=== PATIENT | male | born 1955 | race Caucasian/White ===

== ENCOUNTER → 2017-11-21 | Outpatient (CLI) | payer BC, SELFPAY | PROVIDERS: Visit Provider Nurse Practitioner Family | DX: R10.13 Epigastric pain (principal) | CPT/HCPCS: 36415; 80053; 85025 ==

== ENCOUNTER → 2017-11-25 | Outpatient (CLI) | payer BC, SELFPAY | PROVIDERS: Visit Provider Nurse Practitioner Family | DX: R10.13 Epigastric pain (principal) | CPT/HCPCS: 82272; 87338; G0328 ==

== ENCOUNTER → 2020-09-22 14:29 | Outpatient (CLI) | payer MEDICARE, OTHER, SELFPAY | PROVIDERS: PCP Internal Medicine Adolescent Medicine; Visit Provider Nurse Practitioner Family | DX: Z20.828 Contact with and (suspected) exposure to other viral communicable diseases (principal); U07.1 COVID-19 | CPT/HCPCS: U0003 ==

== ENCOUNTER → 2020-11-22 17:29 | Outpatient (CLI) | payer MEDICARE, OTHER, SELFPAY ==
[2020-11-22 17:40] LABS: Basophils % 0.3 % (0.1-2.0); Eosinophils % 0.1 % (0.1-12.0); Hematocrit 41.7 % (42.0-52.0); Hemoglobin 13.2 g/dL (14.1-18.0); Lymphocytes % 7.8 % (10-50); Mean Corpuscular HGB Conc 31.6 g/dL (31.8-35.4); Mean Corpuscular Hemoglobin 27.7 pg (27.0-31.2); Mean Corpuscular Volume 87.6 fl (80-94); Mean Platelet Volume 7.7 fl (7.4-10.4); Monocytes # 0.7 K/mm3 (0.1-1.0); Monocytes % 4.9 % (1.7-9.3); Neutrophils # 11.6 K/mm3 (1.8-7.8); Platelet Count 360 K/mm3 (142-424); Red Blood Count 4.76 M/mm3 (4.60-6.20); Red Cell Distribution Width 14.9 % (11.5-17.5); White Blood Count 13.3 K/mm3 (4.8-10.8)
[2020-11-22 17:53] LABS: MANUAL DIFFERENTIAL MANUAL DIFFERENTIAL (MANUAL DIFF)
[2020-11-22 18:34] LABS: Chloride 97 mmol/L (98-107); Potassium 4.6 mmoL/L (3.5-5.1); Sodium 135 mmol/L (136-145)
[2020-11-22 18:37] LABS: Alanine Aminotransferase 80 U/L (12-78); Albumin Level 4.1 g/dl (3.5-5.0); Albumin/Globulin Ratio 1.1 (1.1-1.8); Alkaline Phosphatase 232 U/L (38-126); Anion Gap 13.6 mEq/L (5-15); Aspartate Amino Transferase 48 U/L (17-59); Bilirubin,Total 0.8 mg/dl (0.2-1.3); Blood Urea Nitrogen 21 mg/dl (9-20); Carbon Dioxide 29 mmol/L (22.0-30.0); Estimated Glomerular Filt Rate 51 ml/min (>60); GFR (African American) 62 ML/MIN (>60); Globulin 3.6 g/dL (1.3-3.2); Total Protein,Serum 7.7 g/dl (6.3-8.2)
[2020-11-22 18:38] LABS: Calcium 9.4 mg/dl (8.4-10.2); Glucose 128 mg/dl (74-100)
[2020-11-22 18:43] LABS: C-Reactive Protein 112.9 mg/L (0-4)
[2020-11-22 18:44] LABS: Erythrocyte Sedimentation Rate 73 mm/hr (0-20)
[2020-11-22 18:51] LABS: Lymphocytes % 14 % (10-50); Monocytes % 4 % (2-9); Neutrophils % 82 % (42-76); Platelet Estimate Normal; RBC Morphology Normal; Total Cells Counted 100
== END ==
PROVIDERS: Visit Provider Nurse Practitioner Family
DX: R50.9 Fever, unspecified (principal)
CPT/HCPCS: 80053; 85007; 85025; 85651; 86140

== ENCOUNTER → 2020-11-26 10:58 | Outpatient (CLI) | payer MEDICARE, OTHER, SELFPAY ==
[2020-11-26 11:33] LABS: Basophils # 0.1 K/mm3 (0-0.2); Basophils % 0.7 % (0.1-2.0); Eosinophils # 0.2 K/mm3 (0.0-0.4); Eosinophils % 1.7 % (0.1-12.0); Hematocrit 43.9 % (42.0-52.0); Lymphocytes # 2.6 K/mm3 (0.7-4.5); Lymphocytes % 27.5 % (10-50); Mean Corpuscular Hemoglobin 27.6 pg (27.0-31.2); Mean Corpuscular Volume 86.3 fl (80-94); Monocytes # 0.6 K/mm3 (0.1-1.0); Monocytes % 6.4 % (1.7-9.3); Neutrophils # 6.1 K/mm3 (1.8-7.8); Neutrophils % 63.7 % (37.0-80.0); Platelet Count 427 K/mm3 (142-424); Red Blood Count 5.08 M/mm3 (4.60-6.20); Red Cell Distribution Width 14.9 % (11.5-17.5); White Blood Count 9.6 K/mm3 (4.8-10.8)
[2020-11-26 11:35] LABS: Chloride 102 mmol/L (98-107); Potassium 4.1 mmoL/L (3.5-5.1); Sodium 139 mmol/L (136-145)
[2020-11-26 11:37] LABS: Blood Urea Nitrogen 25 mg/dl (9-20); Estimated Glomerular Filt Rate 47 ml/min (>60); GFR (African American) 57 ML/MIN (>60)
[2020-11-26 11:38] LABS: Albumin Level 4.3 g/dl (3.5-5.0); Alkaline Phosphatase 214 U/L (38-126); Anion Gap 15.1 mEq/L (5-15); Bilirubin,Total 0.7 mg/dl (0.2-1.3); Carbon Dioxide 26 mmol/L (22.0-30.0); Globulin 4.5 g/dL (1.3-3.2); Glucose 140 mg/dl (74-100); Total Protein,Serum 8.8 g/dl (6.3-8.2)
[2020-11-26 11:39] LABS: Alanine Aminotransferase 69 U/L (12-78); Aspartate Amino Transferase 62 U/L (17-59)
[2020-11-26 11:43] LABS: C-Reactive Protein 63.3 mg/L (0-4)
[2020-11-26 12:18] LABS: Erythrocyte Sedimentation Rate 53 mm/hr (0-20)
== END ==
PROVIDERS: PCP Internal Medicine Adolescent Medicine; Visit Provider Nurse Practitioner Family
DX: R50.9 Fever, unspecified (principal); Z96.652 Presence of left artificial knee joint
CPT/HCPCS: 36415; 80053; 85025; 85651; 86140

== ENCOUNTER → 2020-12-06 14:40 | Outpatient (CLI) | payer MEDICARE, OTHER, SELFPAY ==
--- NOTE | 2020-12-06 | CA_ITS ---
APPROVED REPORT Left Lower Extremity Venous Study for DVT. Machine Loader: Lilo Zapata RVT Indications Lower Extremity Pain: Left Lower Extremity Edema: Left PT HAD LT KNEE REPLACEMENT 11/19, NOW C/O CALF PAIN/REDNESS Risk Factors Post OP Medications Aspirin Vein Imaging CFV (L): compressive, spontaneous, phasic, augmentation FEM (L): compressive, spontaneous, phasic, augmentation POP (L): compressive, spontaneous, phasic, augmentation PTV (L): Compressible GSV (L): Compressible Peroneals (L):Compressible GAS (L): Compressible Findings Study suggests no evidence of DVT of the left lower extremity. Study suggests no evidence of SVT of the left lower extremity. Conclusion Study suggests no evidence of DVT of the left lower extremity. Study suggests no evidence of SVT of the left lower extremity. Electronically signed by : Michel Smith MD 12/06/2020 18:48:47
[2020-12-06 14:58] LABS: Basophils # 0.1 K/mm3 (0-0.2); Basophils % 0.7 % (0.1-2.0); Eosinophils # 0.2 K/mm3 (0.0-0.4); Eosinophils % 1.6 % (0.1-12.0); Hematocrit 41.2 % (42.0-52.0); Hemoglobin 13.4 g/dL (14.1-18.0); Lymphocytes # 3.3 K/mm3 (0.7-4.5); Lymphocytes % 28.6 % (10-50); Mean Corpuscular HGB Conc 32.5 g/dL (31.8-35.4); Mean Corpuscular Hemoglobin 27.6 pg (27.0-31.2); Mean Corpuscular Volume 85.1 fl (80-94); Mean Platelet Volume 7.8 fl (7.4-10.4); Monocytes # 0.7 K/mm3 (0.1-1.0); Monocytes % 5.8 % (1.7-9.3); Neutrophils # 7.3 K/mm3 (1.8-7.8); Neutrophils % 63.3 % (37.0-80.0); Platelet Count 505 K/mm3 (142-424); Red Blood Count 4.84 M/mm3 (4.60-6.20); Red Cell Distribution Width 14.9 % (11.5-17.5); White Blood Count 11.5 K/mm3 (4.8-10.8)
[2020-12-06 15:42] LABS: Erythrocyte Sedimentation Rate 128 mm/hr (0-20)
[2020-12-06 17:02] LABS: C-Reactive Protein 10.6 mg/L (0-4)
== END ==
PROVIDERS: Visit Provider Orthopaedic Surgery
DX: M25.562 Pain in left knee (principal); Z96.652 Presence of left artificial knee joint; M79.605 Pain in left leg
CPT/HCPCS: 36415; 85025; 85651; 86140; 93970; 93971

== ENCOUNTER 2020-12-09 10:17 | Outpatient (CLI) | payer MEDICARE, OTHER, SELFPAY ==
[2020-12-09 10:17] VITALS: BP 172/81; PULSE 89; RESP 20; TEMP 36.9; O2SAT 95
[2020-12-09 11:10] VITALS: BP 170/74; PULSE 68; RESP 20; TEMP 36.9; O2SAT 98
== END 2020-12-09 11:23 | disposition home or self-care (01) ==
LOC: INF 10:18
PROVIDERS: PCP Internal Medicine Adolescent Medicine; Visit Provider Internal Medicine Infectious Disease
DX: M25.562 Pain in left knee (principal); Z96.652 Presence of left artificial knee joint
CPT/HCPCS: 96365; J0878

== ENCOUNTER 2020-12-10 11:37 | Outpatient (CLI) | payer MEDICARE, OTHER, SELFPAY ==
[2020-12-10 11:55] VITALS: BP 178/74; PULSE 78; RESP 20; TEMP 36.9; O2SAT 95
[2020-12-10 12:39] VITALS: BP 180/74; PULSE 82; RESP 20; TEMP 36.9; O2SAT 95
== END 2020-12-10 12:42 | disposition home or self-care (01) ==
PROVIDERS: PCP Internal Medicine Adolescent Medicine; Visit Provider Internal Medicine Infectious Disease
DX: M25.562 Pain in left knee (principal); Z96.652 Presence of left artificial knee joint
CPT/HCPCS: 96365; J0878

== ENCOUNTER 2020-12-11 13:02 | Outpatient (CLI) | payer MEDICARE, OTHER, SELFPAY ==
[2020-12-11 13:02] VITALS: BMI 37.7
[2020-12-11 13:22] LABS: Basophils # 0.1 K/mm3 (0-0.2); Basophils % 0.6 % (0.1-2.0); Eosinophils # 0.3 K/mm3 (0.0-0.4); Eosinophils % 3.2 % (0.1-12.0); Hematocrit 38.7 % (42.0-52.0); Hemoglobin 12.4 g/dL (14.1-18.0); Lymphocytes # 2.2 K/mm3 (0.7-4.5); Lymphocytes % 25.8 % (10-50); Mean Corpuscular Hemoglobin 28.1 pg (27.0-31.2); Mean Corpuscular Volume 87.8 fl (80-94); Mean Platelet Volume 7.8 fl (7.4-10.4); Monocytes # 0.5 K/mm3 (0.1-1.0); Monocytes % 6.2 % (1.7-9.3); Neutrophils # 5.6 K/mm3 (1.8-7.8); Neutrophils % 64.2 % (37.0-80.0); Platelet Count 288 K/mm3 (142-424); Red Blood Count 4.41 M/mm3 (4.60-6.20); Red Cell Distribution Width 15.4 % (11.5-17.5); White Blood Count 8.7 K/mm3 (4.8-10.8)
[2020-12-11 13:28] LABS: Chloride 102 mmol/L (98-107); Sodium 138 mmol/L (136-145)
[2020-12-11 13:29] LABS: Potassium 4.4 mmoL/L (3.5-5.1)
[2020-12-11 13:30] VITALS: BP 150/95; PULSE 68; RESP 20; TEMP 36.9; O2SAT 95
[2020-12-11 13:31] LABS: Alanine Aminotransferase 54 U/L (12-78); Alkaline Phosphatase 197 U/L (38-126); Anion Gap 11.4 mEq/L (5-15); Aspartate Amino Transferase 51 U/L (17-59); Bilirubin,Total 0.6 mg/dl (0.2-1.3); Blood Urea Nitrogen 18 mg/dl (9-20); Carbon Dioxide 29 mmol/L (22.0-30.0); Creatinine Clearance Estimated 146 mL/min (50-200); Estimated Glomerular Filt Rate 75 ml/min (>60); GFR (African American) 91 ML/MIN (>60)
[2020-12-11 13:32] LABS: Albumin Level 4.2 g/dl (3.5-5.0); Albumin/Globulin Ratio 1.1 (1.1-1.8); Calcium 9.1 mg/dl (8.4-10.2); Creatine Kinase 65 U/L (55-170); Globulin 3.7 g/dL (1.3-3.2); Glucose 115 mg/dl (74-100); Total Protein,Serum 7.9 g/dl (6.3-8.2)
[2020-12-11 13:37] LABS: C-Reactive Protein 12.1 mg/L (0-4)
[2020-12-11 13:53] LABS: Erythrocyte Sedimentation Rate 73 mm/hr (0-20)
[2020-12-11 14:00] VITALS: BP 141/80; PULSE 68; RESP 20; TEMP 36.9; O2SAT 95
== END 2020-12-11 14:00 | disposition home or self-care (01) ==
LOC: INF 13:02
PROVIDERS: Visit Provider Internal Medicine Infectious Disease
DX: M25.562 Pain in left knee (principal); Z96.652 Presence of left artificial knee joint
CPT/HCPCS: 80053; 82550; 85025; 85651; 86140; 96365; J0878

== ENCOUNTER 2020-12-12 12:33 | Outpatient (CLI) | payer MEDICARE, OTHER, SELFPAY ==
[2020-12-12 13:05] VITALS: BP 172/74; PULSE 87; RESP 18; TEMP 36.4; O2SAT 97
[2020-12-12 13:35] VITALS: BP 179/78; PULSE 85; RESP 18; O2SAT 98
[2020-12-12 14:00] VITALS: BP 168/72; PULSE 82; RESP 18; O2SAT 97
== END 2020-12-12 14:00 | disposition home or self-care (01) ==
LOC: INF 12:33
PROVIDERS: Visit Provider Internal Medicine Infectious Disease
DX: M25.562 Pain in left knee (principal); Z96.652 Presence of left artificial knee joint
CPT/HCPCS: 96365; J0878

== ENCOUNTER 2020-12-13 13:25 | Outpatient (CLI) | payer MEDICARE, OTHER, SELFPAY ==
[2020-12-13 14:04] VITALS: BP 169/79; PULSE 78; RESP 18; O2SAT 96
[2020-12-13 15:05] VITALS: BP 171/75; PULSE 78; RESP 18
== END 2020-12-13 15:05 | disposition home or self-care (01) ==
LOC: INF 13:30
PROVIDERS: Visit Provider Internal Medicine Infectious Disease
DX: M25.562 Pain in left knee (principal); Z96.652 Presence of left artificial knee joint
CPT/HCPCS: 96365; J0878

== ENCOUNTER 2020-12-14 12:44 | Outpatient (CLI) | payer MEDICARE, OTHER, SELFPAY ==
[2020-12-14 13:30] VITALS: BP 154/73; PULSE 89; RESP 18; TEMP 36.6; O2SAT 98
[2020-12-14 14:15] VITALS: BP 161/79; PULSE 85; RESP 18; TEMP 36.6; O2SAT 98
== END 2020-12-14 14:15 | disposition hospice, home (50) ==
LOC: INF 12:44
PROVIDERS: Visit Provider Internal Medicine Infectious Disease
DX: M25.562 Pain in left knee (principal); Z96.652 Presence of left artificial knee joint; L03.116 Cellulitis of left lower limb
CPT/HCPCS: 96365; J0878

== ENCOUNTER 2020-12-15 12:55 | Outpatient (CLI) | payer MEDICARE, OTHER, SELFPAY ==
[2020-12-15 13:39] VITALS: BP 159/74; PULSE 85; RESP 18; TEMP 36.8; O2SAT 96
[2020-12-15 14:20] VITALS: BP 153/82; PULSE 82; RESP 16; TEMP 36.8; O2SAT 96
== END 2020-12-15 14:25 | disposition home or self-care (01) ==
LOC: INF 13:02
PROVIDERS: Visit Provider Internal Medicine Infectious Disease
DX: M25.562 Pain in left knee (principal); L03.116 Cellulitis of left lower limb; Z96.652 Presence of left artificial knee joint
CPT/HCPCS: 96365; J0878

== ENCOUNTER 2020-12-16 11:32 | Outpatient (CLI) | payer MEDICARE, OTHER, SELFPAY ==
[2020-12-16 12:02] VITALS: BP 157/70; PULSE 82; RESP 20; TEMP 36.4; O2SAT 95
[2020-12-16 12:34] VITALS: BP 145/75; PULSE 68; RESP 20; TEMP 36.9; O2SAT 95
== END 2020-12-16 12:39 | disposition home or self-care (01) ==
LOC: INF 11:33
PROVIDERS: PCP Internal Medicine Adolescent Medicine; Visit Provider Internal Medicine Infectious Disease
DX: M25.562 Pain in left knee (principal); L03.116 Cellulitis of left lower limb; Z96.652 Presence of left artificial knee joint
CPT/HCPCS: 96365; J0878

== ENCOUNTER 2020-12-17 13:17 | Outpatient (CLI) | payer MEDICARE, OTHER, SELFPAY ==
[2020-12-17 13:45] VITALS: BP 167/77; PULSE 68; RESP 20; TEMP 37.1; O2SAT 95
[2020-12-17 14:21] VITALS: BP 163/78; PULSE 68; RESP 20
== END 2020-12-17 14:26 | disposition home or self-care (01) ==
PROVIDERS: PCP Internal Medicine Adolescent Medicine; Visit Provider Internal Medicine Infectious Disease
DX: M25.562 Pain in left knee (principal); L03.116 Cellulitis of left lower limb; Z96.652 Presence of left artificial knee joint
CPT/HCPCS: 96365; J0878

== ENCOUNTER 2020-12-18 13:06 | Outpatient (CLI) | payer MEDICARE, OTHER, SELFPAY ==
[2020-12-18 13:09] VITALS: BMI 37.7
[2020-12-18 13:32] LABS: Basophils # 0.1 K/mm3 (0-0.2); Basophils % 0.8 % (0.1-2.0); Eosinophils # 0.3 K/mm3 (0.0-0.4); Eosinophils % 3.3 % (0.1-12.0); Hematocrit 41.4 % (42.0-52.0); Lymphocytes # 2.1 K/mm3 (0.7-4.5); Lymphocytes % 26.1 % (10-50); Mean Corpuscular HGB Conc 31.4 g/dL (31.8-35.4); Mean Corpuscular Hemoglobin 28.6 pg (27.0-31.2); Mean Platelet Volume 11.6 fl (7.4-10.4); Monocytes # 0.5 K/mm3 (0.1-1.0); Monocytes % 6.3 % (1.7-9.3); Neutrophils # 5.2 K/mm3 (1.8-7.8); Neutrophils % 63.6 % (37.0-80.0); Platelet Count 257 K/mm3 (142-424); Red Blood Count 4.55 M/mm3 (4.60-6.20); Red Cell Distribution Width 15.5 % (11.5-17.5); White Blood Count 8.2 K/mm3 (4.8-10.8)
[2020-12-18 13:35] VITALS: BP 163/79; PULSE 90; RESP 18; O2SAT 95
[2020-12-18 13:37] LABS: Chloride 102 mmol/L (98-107); Potassium 3.7 mmoL/L (3.5-5.1); Sodium 139 mmol/L (136-145)
[2020-12-18 13:40] LABS: Alanine Aminotransferase 42 U/L (12-78); Alkaline Phosphatase 155 U/L (38-126); Anion Gap 12.7 mEq/L (5-15); Aspartate Amino Transferase 38 U/L (17-59); Bilirubin,Total 0.5 mg/dl (0.2-1.3); Blood Urea Nitrogen 19 mg/dl (9-20); Calcium 9.3 mg/dl (8.4-10.2); Carbon Dioxide 28 mmol/L (22.0-30.0); Creatine Kinase 93 U/L (55-170); Creatinine Clearance Estimated 146 mL/min (50-200); Estimated Glomerular Filt Rate 75 ml/min (>60); GFR (African American) 91 ML/MIN (>60); Glucose 144 mg/dl (74-100)
[2020-12-18 13:41] LABS: Albumin Level 4.1 g/dl (3.5-5.0); Albumin/Globulin Ratio 1.1 (1.1-1.8); Globulin 3.9 g/dL (1.3-3.2)
[2020-12-18 13:46] LABS: C-Reactive Protein 15.6 mg/L (0-4)
[2020-12-18 14:20] LABS: Erythrocyte Sedimentation Rate 42 mm/hr (0-20)
[2020-12-18 14:49] VITALS: BP 164/69; PULSE 82; RESP 18
== END 2020-12-18 14:35 | disposition home or self-care (01) ==
LOC: INF 13:06
PROVIDERS: Visit Provider Internal Medicine Infectious Disease
DX: M25.562 Pain in left knee (principal); L03.116 Cellulitis of left lower limb; Z96.652 Presence of left artificial knee joint
CPT/HCPCS: 80053; 82550; 85025; 85651; 86140; 96365; J0878

== ENCOUNTER 2020-12-19 12:58 | Outpatient (CLI) | payer MEDICARE, OTHER, SELFPAY ==
[2020-12-19 13:15] VITALS: BP 156/83; PULSE 89; RESP 18; TEMP 36.6; O2SAT 98
[2020-12-19 14:22] VITALS: BP 159/88; PULSE 85; RESP 16; TEMP 36.6; O2SAT 98
== END 2020-12-19 14:25 | disposition home or self-care (01) ==
LOC: INF 12:58
PROVIDERS: Visit Provider Internal Medicine Infectious Disease
DX: M25.562 Pain in left knee (principal); L03.116 Cellulitis of left lower limb; Z96.652 Presence of left artificial knee joint
CPT/HCPCS: 96365; J0878

== ENCOUNTER 2020-12-20 13:35 | Outpatient (CLI) | payer MEDICARE, OTHER, SELFPAY ==
[2020-12-20 14:06] VITALS: BP 158/87; PULSE 90; RESP 18; TEMP 36.2; O2SAT 97
[2020-12-20 15:05] VITALS: BP 153/83; PULSE 94; RESP 18
== END 2020-12-20 15:05 | disposition home or self-care (01) ==
LOC: INF 13:39
PROVIDERS: Visit Provider Internal Medicine Infectious Disease
DX: M25.562 Pain in left knee (principal); L03.116 Cellulitis of left lower limb; Z96.652 Presence of left artificial knee joint
CPT/HCPCS: 96365; J0878

== ENCOUNTER 2020-12-21 12:55 | Outpatient (CLI) | payer MEDICARE, OTHER, SELFPAY ==
[2020-12-21 13:13] VITALS: BP 165/93; PULSE 95; RESP 18; TEMP 36.6; O2SAT 97
[2020-12-21 14:15] VITALS: BP 171/98; PULSE 97; RESP 18
== END 2020-12-21 14:15 | disposition home or self-care (01) ==
LOC: INF 12:55
PROVIDERS: Visit Provider Internal Medicine Infectious Disease
DX: M25.562 Pain in left knee (principal); L03.116 Cellulitis of left lower limb; Z96.652 Presence of left artificial knee joint
CPT/HCPCS: 96365; J0878

== ENCOUNTER 2020-12-22 13:40 | Outpatient (CLI) | payer MEDICARE, OTHER, SELFPAY ==
[2020-12-22 14:00] VITALS: BP 167/89; PULSE 68; RESP 24; TEMP 36.9; O2SAT 95
[2020-12-22 15:00] VITALS: BP 169/78; PULSE 68; RESP 20; TEMP 36.9; O2SAT 95
== END 2020-12-22 15:00 | disposition home or self-care (01) ==
LOC: INF 13:42
PROVIDERS: Visit Provider Internal Medicine Infectious Disease
DX: M25.562 Pain in left knee (principal); L03.116 Cellulitis of left lower limb; Z96.652 Presence of left artificial knee joint; Z45.2 Encounter for adjustment and management of vascular access device
CPT/HCPCS: 96365; J0878

== ENCOUNTER 2021-02-12 14:00 | Outpatient (RCR) | payer MEDICARE, OTHER, SELFPAY | END 2021-02-12 14:05 | disposition home or self-care (01) | LOC: PT 14:00 | PROVIDERS: PCP Internal Medicine Adolescent Medicine; Visit Provider Orthopaedic Surgery | DX: M25.562 Pain in left knee (principal); Z96.652 Presence of left artificial knee joint | CPT/HCPCS: 97010; 97014; 97016; 97110; 97140; 97163; 97164; G0283 ==

== ENCOUNTER → 2021-02-16 11:13 | Outpatient (CLI) | payer MEDICARE, OTHER, SELFPAY ==
[2021-02-16 11:47] LABS: Hemoglobin A1C 6.8 % (4.0-6.0)
[2021-02-16 12:27] LABS: Chloride 103 mmol/L (98-107); Potassium 4.5 mmoL/L (3.5-5.1); Sodium 140 mmol/L (136-145)
[2021-02-16 12:30] LABS: Alanine Aminotransferase 68 U/L (12-78); Albumin Level 4.2 g/dl (3.5-5.0); Albumin/Globulin Ratio 1.3 (1.1-1.8); Alkaline Phosphatase 118 U/L (38-126); Anion Gap 12.5 mEq/L (5-15); Aspartate Amino Transferase 50 U/L (17-59); Bilirubin,Total 0.5 mg/dl (0.2-1.3); Blood Urea Nitrogen 18 mg/dl (9-20); Calcium 9.8 mg/dl (8.4-10.2); Carbon Dioxide 29 mmol/L (22.0-30.0); Chol/HDL Ratio 3.3 (1-3.5); Cholesterol 157 mg/dl (140-200); Estimated Glomerular Filt Rate 75 ml/min (>60); GFR (African American) 91 ML/MIN (>60); Globulin 3.2 g/dL (1.3-3.2); Glucose 125 mg/dl (74-100); HDL Cholesterol 47 mg/dl (40-60); Total Protein,Serum 7.4 g/dl (6.3-8.2); Triglycerides 166 mg/dl (30-150); VLDL Cholesterol 33 mg/dL (0-40)
== END ==
PROVIDERS: Visit Provider Nurse Practitioner Family
DX: R73.9 Hyperglycemia, unspecified (principal); E78.1 Pure hyperglyceridemia
CPT/HCPCS: 36415; 80053; 80061; 83036

== ENCOUNTER → 2021-04-20 07:55 | Outpatient (CLI) | payer MEDICARE, OTHER, SELFPAY | PROVIDERS: Visit Provider Internal Medicine Gastroenterology | DX: Z01.812 Encounter for preprocedural laboratory examination (principal); Z20.822 Contact with and (suspected) exposure to COVID-19; Z12.11 Encounter for screening for malignant neoplasm of colon | CPT/HCPCS: U0003 ==

== ENCOUNTER 2021-04-23 07:37 | Day surgery (SDC) | payer MEDICARE, OTHER, SELFPAY ==
[2021-04-23 08:00] VITALS: BP 144/74; PULSE 99; RESP 20; TEMP 36.6; O2SAT 98
[2021-04-23 08:20] LABS: POC Glucose,Bedside 166 (70-110)
--- NOTE | 2021-04-23 08:24 | P.PN_ITS ---
[facility] Anesthesia Checklist - Patient Identification Patient Identification: Arm Band - Structural Data Admitted From: Home Planned Operative Procedure/s: Colonoscopy Consent for Planned Operative Procedure(s) Verified: Yes - NPO Status Verified Time NPO: 00:00 - Airway Assessment C-Spine Mobility Assessed: Yes TMJ Mobility Assessed: Yes Dentition: Edentulous - Neurological Assessment Level of Consciousness: Awake Hx Seizures: No Numbness or tingling in extremities: No - Anesthesia Plan Anesthesia Risk discussed: Yes Anesthesia Plan: Verified ASA Class: III Anesthesia Type: MAC [facility] History I have reviewed the patient's past medical history: Yes Medical History: Reports:: Hyperlipidemia, Hypertension Denies:: Cancer, Diabetes Mellitus Type 1, Diabetes Mellitus Type 2, Internal Pacemaker, MRSA, Seizures *Have you ever received a pneumonia vaccine?: No *Have you received a flu vaccine this season?: No Anesthesia experience/problems:: None Laterality Cases: Left: Arthroscopy Shoulder, Right: Arthroscopy Knee, Total Knee Replacement Other Surgeries: No: Pacemaker Amputation: No - *Social History Smoking Status: Current every day smoker Tobacco Type: cigars # Packs/Day (cigarettes): 1 Alcohol Intake: never Alcohol Intake Frequency:: holidays/special occasions only Substance Use Type: denies use *Occupational Status:: employed Housing: house Household Members: spouse *Travel in the last 8 weeks: None Family Hx:: Unable to obtain
--- NOTE | 2021-04-23 08:28 | HMH.PROC ---
[facility] Procedure Note Procedure Note:: Colonoscopy Procedure Report: Colonoscopy with cold snare polypectomy Endoscopist: Vlad Hughes II, MD Referring physician: Soo DACOSTA Date of Procedure: April 23, 2021 Equipment: Olympus 190 variable stiffness pediatric colonoscope Sedation: MAC sedation Indication: Mr. Watkins is a 65-year-old gentleman who is here for follow-up screening/surveillance colonoscopy. The patient reports no abdominal pain, weight loss, change in his bowel habits or rectal bleeding. He reports no family history of colon cancer. His last colonoscopy was in 2008 at which time 7 colon polyps were removed. The patient does get some constipation when using antibiotics. He has been using a stool softener. He is now switching over to a fiber bowel regimen (combined MiraLAX plus Metamucil). Procedure: Prior to the procedure, a history and physical exam was performed, and patient's medications and allergies were reviewed. The risks, benefits and alternatives of the sedation and procedure were discussed with the patient. All questions were answered and informed consent was obtained. The patient was brought to the procedure room. Patient identification and proposed procedure were verified by the physician and the nurse. The patient was placed in a left lateral decubitus position and the scope was passed under direct vision. Throughout the procedure, the patient's blood pressure, pulse, and oxygen saturations were monitored continuously. The colonoscopy was accomplished without difficulty. The patient tolerated the procedure well. Findings: On digital rectal examination there was normal rectal tone. There were no external hemorrhoids. The prostate was 2-3+, moderately firm but symmetric with lower midline margin slight firmness. The colonoscope was introduced through the anal canal to the rectum and advanced to the cecum. The ileocecal valve and appendiceal orifice were identified. The scope was advanced a short distance into the ileum which appeared grossly normal. The scope was then withdrawn into the colon. There were 7 colon polyps identified (cecum x1 (5 mm), ascending x1 (14 mm), transverse x1 (4 mm), descending x2 (5 and 6 mm) and sigmoid x2 (3 and 4 mm)) which were all removed via cold snare polypectomy. There was very mild melanosis coli. There were very mildly scattered diverticuli throughout the descending and sigmoid colon (LEFT colon). The rectum itself was normal. Upon retroflexion within the rectum there were grade 1-2 internal hemorrhoids. The preparation was excellent throughout with Keene Preparation Score of 9. The cecal time was 17 minutes. Impression: 1. Colonic polyps x7 2. Mild left-sided diverticulosis 3. Grade 1-2 internal hemorrhoids 4. Prostate firm/enlarged Plan: I will follow up the polyp pathology and recommend repeat colonoscopy again in 2-3 years based upon the polyp histology. I would encourage a fiber bowel regimen (combined MiraLAX plus Metamucil) on a long-term daily maintenance basis. I would recommend PSA and digital prostate exam annually.
[2021-04-23 09:00] VITALS: BP 134/72; PULSE 92; RESP 12; TEMP 36.4; O2SAT 94
[2021-04-23 09:10] VITALS: BP 125/72; PULSE 92; RESP 16; O2SAT 95
[2021-04-23 09:20] VITALS: BP 133/74; PULSE 88; RESP 16; O2SAT 97
[2021-04-23 09:30] VITALS: BP 115/64; PULSE 78; RESP 16; TEMP 36.4; O2SAT 97
[2021-04-23 10:39] VITALS: O2SAT 97
== END 2021-04-23 09:32 | disposition home or self-care (01) ==
LOC: OUTP 07:39
PROVIDERS: PCP Internal Medicine Adolescent Medicine; Visit Provider Internal Medicine Gastroenterology
PROC: 0DJD8ZZ Inspection of Lower Intestinal Tract, Via Natural or Artificial Opening Endoscopic (ICD-10-PCS; CPT 45378; principal; 2021-04-23 08:30)
DX: Z12.11 Encounter for screening for malignant neoplasm of colon (principal); Z86.010 Personal history of colon polyps; K63.5 Polyp of colon; K57.30 Diverticulosis of large intestine without perforation or abscess without bleeding; K64.0 First degree hemorrhoids; N40.0 Benign prostatic hyperplasia without lower urinary tract symptoms; E78.5 Hyperlipidemia, unspecified; I10 Essential (primary) hypertension; Z72.0 Tobacco use; E11.9 Type 2 diabetes mellitus without complications; K21.9 Gastro-esophageal reflux disease without esophagitis; Z79.899 Other long term (current) drug therapy
CPT/HCPCS: 45385; 82962; 88305

== ENCOUNTER 2021-08-30 14:45 | Outpatient (CLI) | payer MEDICARE, OTHER, SELFPAY ==
[2021-08-30 14:50] VITALS: BMI 36.5
--- NOTE | 2021-08-30 14:51 | XR_ITS ---
PROCEDURE: XR CHEST PORTABLE CLINICAL HISTORY: COVID 19 COMPARISON: No exams were available for comparison FINDINGS: Mild cardiomegaly without failure Multifocal bilateral areas of opacification in right upper lobe, right lower lobe, and left lower lobe consistent with Covid19 Covid19 positive serology No acute bony abnormalities. IMPRESSION: Bilateral multifocal pneumonia Dictated by: Michel Smith MD 08/30/2021 15:48 Michel Smith MD in OV 08/30/2021 15:48
[2021-08-30 15:00] VITALS: BP 135/62; PULSE 97; RESP 20; O2SAT 91
[2021-08-30 15:06] LABS: Basophils % 0.4 % (0.1-2.0); Hematocrit 42.4 % (42.0-52.0); Lymphocytes # 1.2 K/mm3 (0.7-4.5); Lymphocytes % 21.2 % (10-50); Mean Corpuscular Hemoglobin 27.7 pg (27.0-31.2); Mean Corpuscular Volume 83.8 fl (80-94); Mean Platelet Volume 9.1 fl (7.4-10.4); Monocytes # 0.3 K/mm3 (0.1-1.0); Monocytes % 5.7 % (1.7-9.3); Neutrophils # 3.9 K/mm3 (1.8-7.8); Neutrophils % 72.7 % (37.0-80.0); Platelet Count 219 K/mm3 (142-424); Red Blood Count 5.06 M/mm3 (4.60-6.20); Red Cell Distribution Width 14.5 % (11.5-17.5); White Blood Count 5.4 K/mm3 (4.8-10.8)
[2021-08-30 15:11] LABS: Chloride 100 mmol/L (98-107); Sodium 136 mmol/L (136-145)
[2021-08-30 15:12] LABS: Potassium 3.8 mmoL/L (3.5-5.1)
[2021-08-30 15:14] LABS: Alanine Aminotransferase 50 U/L (12-78); Albumin Level 3.8 g/dl (3.5-5.0); Alkaline Phosphatase 102 U/L (38-126); Anion Gap 12.8 mEq/L (5-15); Aspartate Amino Transferase 67 U/L (17-59); Bilirubin,Total 0.3 mg/dl (0.2-1.3); Blood Urea Nitrogen 19 mg/dl (9-20); Calcium 8.8 mg/dl (8.4-10.2); Carbon Dioxide 27 mmol/L (22.0-30.0); Creatinine Clearance Estimated 127 mL/min (50-200); Estimated Glomerular Filt Rate 67 ml/min (>60); GFR (African American) 81 ML/MIN (>60); Globulin 3.7 g/dL (1.3-3.2); Glucose 210 mg/dl (74-100); Total Protein,Serum 7.5 g/dl (6.3-8.2)
[2021-08-30 16:00] VITALS: BP 156/63; PULSE 83; RESP 20; TEMP 36.7; O2SAT 97
== END 2021-08-30 16:20 | disposition home or self-care (01) ==
LOC: RAD 14:47 → INF 14:50
PROVIDERS: PCP Nurse Practitioner Family; Visit Provider Nurse Practitioner Family
DX: E86.0 Dehydration (principal); Z86.16 Personal history of COVID-19
CPT/HCPCS: 71045; 80053; 85025; 96360; 96375

== ENCOUNTER 2022-11-01 14:00 | Outpatient (RCR) | payer MEDICARE, OTHER, SELFPAY | END 2022-11-01 14:05 | disposition home or self-care (01) | LOC: PT 14:00 | PROVIDERS: PCP Nurse Practitioner Family; Visit Provider Neurological Surgery | DX: M54.50 Low back pain, unspecified (principal) | CPT/HCPCS: 97010; 97012; 97014; 97110; 97163; G0283 ==

== ENCOUNTER 2023-02-05 16:00 | Outpatient (RCR) | payer MEDICARE, OTHER, SELFPAY | END 2023-02-05 16:05 | disposition home or self-care (01) | LOC: PT 16:00 | PROVIDERS: PCP Nurse Practitioner Family; Visit Provider Neurological Surgery | DX: M48.04 Spinal stenosis, thoracic region (principal); M54.40 Lumbago with sciatica, unspecified side; Z98.890 Other specified postprocedural states | CPT/HCPCS: 97010; 97014; 97110; 97112; 97163; 97164; 97530; G0283 ==

== ENCOUNTER → 2024-12-16 06:32 | Outpatient (CLI) | payer MEDICARE, OTHER, SELFPAY | LOC: SL 06:33 | PROVIDERS: PCP Nurse Practitioner Family; Visit Provider Nurse Practitioner Family | DX: G47.33 Obstructive sleep apnea (adult) (pediatric) (principal); R06.83 Snoring; G47.10 Hypersomnia, unspecified; I10 Essential (primary) hypertension; E66.9 Obesity, unspecified; Z68.41 Body mass index [BMI] 40.0-44.9, adult; F51.04 Psychophysiologic insomnia; E11.9 Type 2 diabetes mellitus without complications | CPT/HCPCS: G0399 ==

== ENCOUNTER 2025-04-13 06:57 | Day surgery (SDC) | payer MEDICARE, OTHER, SELFPAY ==
[2025-04-12 11:19] VITALS: BMI 36.5
[2025-04-13 07:42] VITALS: BP 149/73; PULSE 92; RESP 18; TEMP 36.1; O2SAT 94
[2025-04-13] MEDS: LACTATED RINGERS 1000ML 1,000 ML 50 ML IV (07:50)
[2025-04-13 07:58] LABS: POC Glucose,Bedside 105 (70-110)
--- NOTE | 2025-04-13 08:23 | EXP.HP ---
History of Present Illness *Admission Date: 04/13/25 *Reason for visit:: Surveillance secondary to personal history of adenomatous polyps *History of present illness: Mr. Watkins is a 69-year-old gentleman who is here for surveillance colonoscopy secondary to a personal history of adenomatous colon polyps. His last colonoscopy in March 2021 revealed 7 polyps which were removed. The examination is deemed medically necessary for surveillance colonoscopy. The patient has been seen, interviewed and examined prior to the procedure by both myself and the anesthesia provider. [facility] Disclaimer: The information contained in this section may have been updated after the patient was seen, as this information can be updated by other users. Medical History (Updated 04/13/25 @ 08:24 by Vlad Hughes II, MD) History of gastroesophageal reflux (GERD) Diabetes mellitus, type 2 Arthritis Hyperlipemia Hypertension Cataract Surgical History History of cataract extraction History of colonoscopy History of right shoulder replacement History of left knee replacement History of back surgery History of cholecystectomy Family History Other No significant family history Social History (Updated 04/13/25 @ 07:48 by Sanjuana Vanegas RN) Smoking Status: Former smoker tobacco type: cigars alcohol intake: never substance use type: denies use current occupational status: retired Travel in the last 8 weeks?: None household members: spouse housing: house current occupational exposures/hazards: No caffeine: Yes Have you lived/traveled outside US in past 30 days?: No Contact w/someone who lives/traveled outside US past 30 days?: No Exposure to someone with infectious disease in past 14 days?: No Do you have a fever (greater than 100.4 F or 38 C)?: No Have you tested positive for COVID-19?: No Exposed to someone with COVID-19 in past 14 days?: No Do you have a sore throat?: No Do you have a cough?: No Do you have any weakness?: No Are you experiencing any nausea/vomitting?: No Do you have any diarrhea?: No Are you experiencing any unusual bleeding?: No Do you have any muscle aches/pain?: No Do you have any abdominal pain?: No Are you experiencing loss of taste or smell?: No Other Medical History Have you received the Flu Vaccine for this season: No Have you received the Pneumonia Vaccine: No Review of Systems Review of Systems Review of systems (narrative): Negative *Cardiovascular Comments: Negative *Gastrointestinal Comments: Negative *Genitourinary Comments: Negative *Musculoskeletal Comments: Negative *Neurologic Comments: Negative Meds Home Medications and Allergies Home Medications ?Medication ?Instructions ?Recorded ?Confirmed ?Type amlodipine 5 mg-benazepril 10 mg 1 each PO HS bp 12/10/20 04/13/25 History capsule ascorbic acid (vitamin C) 500 mg 500 mg PO HS Supplement 12/10/20 04/13/25 History chewable tablet aspirin 81 mg tablet,delayed 81 mg PO DAILY Supplement 12/10/20 04/13/25 History release atorvastatin 20 mg tablet 20 mg PO HS chl 12/10/20 04/13/25 History cholecalciferol (vitamin D3) 25 1 cap PO HS Supplement 12/10/20 04/13/25 History mcg (1,000 unit) capsule mecobalamin (vitamin B12) 1,000 1,000 mcg PO DAILY Supplement 12/10/20 04/13/25 History mcg chewable tablet omeprazole 40 mg capsule,delayed 40 mg PO DAILY stomach 12/10/20 04/13/25 History release dapagliflozin propanediol 5 mg 5 mg PO DAILY 04/12/25 04/13/25 History tablet (Farxiga) New Prescriptions to Start Prescriptions: Allergies Allergy/AdvReac Type Severity Reaction Status Date / Time No Known Allergies Allergy Verified 04/13/25 07:40 Exam Data for Last 24 hours Vital signs and Labs for Last 24 Hours: Temp Pulse Resp BP Pulse Ox O2 Del Method 97.0 F L 92 H 18 149/73 H 94 L Room Air 04/13/25 07:42 04/13/25 07:42 04/13/25 07:42 04/13/25 07:42 04/13/25 07:42 04/13/25 07:42 Laboratory Results - last 24 hr 04/13/25 07:50: POC Glucose 105 I & O for Last 24 hours: Intake & Output 04/10/25 04/11/25 04/12/25 04/13/25 23:59 23:59 23:59 23:59 Weight 300 lb *Routine HEENT Exam Head: Present normocephalic Eye: Present EOMI and PERRL ENT: Present mucous membranes moist *Routine Neck Exam Neck: Present supple *Routine Respiratory Exam Respiratory: Present CTA bilaterally *Routine Cardiovascular Exam Cardiovascular: Present RRR *Routine Abdominal Exam Abdominal: Present soft and normoactive bowel sounds; Absent tenderness *Routine Rectal Exam Rectal:: deferred *Routine Genitalia Exam Genitalia:: deferred *Routine Extremities Exam Extremities: Absent cyanosis, clubbing or edema *Routine Skin Exam Skin: Present warm; Absent rash *Routine Neurological Exam Neurological: Present alert and oriented X3 Assessment and Plan *Assessment and plan (1) Personal history of adenomatous and serrated colon polyps: Status: Acute Category: Medical Code(s): Z86.0101 - Personal history of adenomatous and serrated colon polyps Plan A/P: 1. Personal history of adenomatous colon polyps is the preprocedural diagnosis. The patient will be anesthetized/sedated using MAC sedation. The patient has been seen and examined. Cardiac and lung assessment prior to the examination is stable. Proceed with planned surveillance colonoscopy.
--- NOTE | 2025-04-13 08:24 | P.PCN_ITS ---
[facility] Procedure Note Date: 04/13/25 Time: 08:55 Procedure Note:: Colonoscopy Procedure Report: Colonoscopy with cold snare polypectomy Endoscopist: Vlad Hughes II, MD Referring physician: Jeremi Freedman M.D. Date of Procedure: April 13, 2025 Equipment: Olympus 190 variable stiffness pediatric colonoscope Sedation: MAC sedation Indication: Mr. Watkins is a 69-year-old gentleman who is here for surveillance colonoscopy secondary to a personal history of adenomatous colon polyps. His co lonoscopy in 2008 revealed 7 polyps (unspecified) which were removed. His last colonoscopy in March 2021 revealed 7 polyps (tubular adenomas x 7) which were removed. The patient reports no abdominal pain, weight loss, change in his bowel habits or rectal bleeding. He reports no family history of colon cancer. Procedure: Prior to the procedure, a history and physical exam was performed, and patient's medications and allergies were reviewed. The risks, benefits and alternatives of the sedation and procedure were discussed with the patient. All questions were answered and informed consent was obtained. The patient was brought to the procedure room. Patient identification and proposed procedure were verified by the physician and the nurse. The patient was placed in a left lateral decubitus position and the scope was passed under direct vision. Throughout the procedure, the patient's blood pressure, pulse, and oxygen saturations were monitored continuously. The colonoscopy was accomplished without difficulty. The patient tolerated the procedure well. Findings: On digital rectal examination there was normal rectal tone. There were no external hemorrhoids. The colonoscope was introduced through the anal canal to the rectum and advanced to the cecum. The ileocecal valve and appendiceal orifice were identified. The scope was advanced a short distance into the ileum which appeared grossly normal. The scope was then withdrawn into the colon. There were 6 colon polyps (transverse x 1 (7 mm), descending x 3 (5, 5 and 6 mm) and sigmoid x 2 (4 and 5 mm)). These were all removed via cold snare polypectomy. The remaining cecum, ascending and transverse colon and mucosa were grossly normal. There were scattered diverticuli throughout the descending and sigmoid colon (LEFT colon). The rectum itself was normal. Upon retroflexion within the rectum there were grade 2-3 internal hemorrhoids. The preparation was fair throughout with Meno Preparation Score of 7 out of 9. The cecal time was 15 minutes. Impression: 1. Colonic polyps x 6 2. Left-sided diverticulosis 3. Grade 2-3 internal hemorrhoids Plan: I will follow-up the polyp histology and recommend repeat surveillance colonoscopy again in 3 years. Persons with more than 20 adenomatous polyps cumulatively over the lifetime (over several colonoscopies) are considered to be higher risk for potential colon cancer or a genetic colon cancer polyposis syndrome. It is recommended that persons with more than a cumulative of 20 adenomatous polyps over there lifetime should be evaluated with surveillance colonoscopy no less than every 3 years. He has had close to 20 adenomatous polyps lifetime. I would encourage psyllium fiber supplementation on a maintenance basis.
[2025-04-13 08:34] VITALS: O2SAT 99
[2025-04-13 09:01] VITALS: BP 141/80; PULSE 88; RESP 16; TEMP 36.2; O2SAT 96
[2025-04-13 09:11] VITALS: BP 143/60; PULSE 85; RESP 16; O2SAT 96
[2025-04-13 09:21] VITALS: BP 137/53; PULSE 81; RESP 17; O2SAT 96
[2025-04-13 09:31] VITALS: BP 117/57; PULSE 70; RESP 18; O2SAT 95
--- NOTE | 2025-04-13 09:37 | EXP.ANES.CKL ---
[facility] Disclaimer: The information contained in this section may have been updated after the patient was seen, as this information can be updated by other users. Medical History (Updated 04/13/25 @ 08:24 by Vlad Hughes II, MD) History of gastroesophageal reflux (GERD) Diabetes mellitus, type 2 Arthritis Hyperlipemia Hypertension Cataract Surgical History History of cataract extraction History of colonoscopy History of right shoulder replacement History of left knee replacement History of back surgery History of cholecystectomy Family History Other No significant family history Social History (Updated 04/13/25 @ 07:48 by Sanjuana Vanegas RN) Smoking Status: Former smoker tobacco type: cigars alcohol intake: never substance use type: denies use current occupational status: retired Travel in the last 8 weeks?: None household members: spouse housing: house current occupational exposures/hazards: No caffeine: Yes Have you lived/traveled outside US in past 30 days?: No Contact w/someone who lives/traveled outside US past 30 days?: No Exposure to someone with infectious disease in past 14 days?: No Do you have a fever (greater than 100.4 F or 38 C)?: No Have you tested positive for COVID-19?: No Exposed to someone with COVID-19 in past 14 days?: No Do you have a sore throat?: No Do you have a cough?: No Do you have any weakness?: No Are you experiencing any nausea/vomitting?: No Do you have any diarrhea?: No Are you experiencing any unusual bleeding?: No Do you have any muscle aches/pain?: No Do you have any abdominal pain?: No Are you experiencing loss of taste or smell?: No [facility] Anesthesia Checklist Patient Identification Patient Identification: Verbal (Name & ) Structural Data Admitted From: Home Planned Operative Procedure/s: colonoscopy Consent for Planned Operative Procedure(s) Verified: Yes Airway Assessment Mallampati Score:: Class II C-Spine Mobility Assessed: Yes TMJ Mobility Assessed: Yes Dentition: Edentulous Neurological Assessment Level of Consciousness: Awake, Alert and Appropriate Anesthesia Plan Anesthesia Risk discussed: Yes Anesthesia Plan: Verified ASA Class: II Anesthesia Type: MAC
== END 2025-04-13 09:37 | disposition home or self-care (01) ==
PROVIDERS: PCP Internal Medicine Adolescent Medicine; Visit Provider Internal Medicine Gastroenterology
PROC: 0DJD8ZZ Inspection of Lower Intestinal Tract, Via Natural or Artificial Opening Endoscopic (ICD-10-PCS; CPT 45378; principal; 2025-04-13 08:30)
DX: Z12.11 Encounter for screening for malignant neoplasm of colon (principal); Z86.0101 Personal history of adenomatous and serrated colon polyps; D12.4 Benign neoplasm of descending colon; D12.5 Benign neoplasm of sigmoid colon; D12.3 Benign neoplasm of transverse colon; K57.30 Diverticulosis of large intestine without perforation or abscess without bleeding; K64.9 Unspecified hemorrhoids; E11.9 Type 2 diabetes mellitus without complications; Z79.84 Long term (current) use of oral hypoglycemic drugs
CPT/HCPCS: 45385; 82962; 88305; J7120

== ENCOUNTER 2025-06-14 10:17 | Outpatient (CLI) | payer MEDICARE, OTHER, SELFPAY ==
--- OUTSIDE RECORDS SUMMARY | 2022-12-15 11:26 | XMS_ITS | Encounter Summary ---
Author Organization [facility] [address] Care Team Providers Care Belt Cutter Name Role Phone Jeremi Freedman MD Primary Care Provider [phone] Encounter Details Date Type Department Care Team (Late st Contact Info) Description 12/15/2022 10:26 AM EST Hospital Encounter [facility] Referral Lab 1 [place] [address] Gila Espinosa APRN [address] [place] [phone] Social History Tobacco Use Types Packs/Day Years Used Date Smoking Tobacco: Former Cigarettes Q uit: 1999 Smokeless Tobacco: Current Chew Comments:rare Alcohol Use Standard Drinks/Week Comments Yes 0 (1 standard drink = 0.6 oz pur e alcohol) rare Hunger Vital Sign Answer Date Recorded Within the past 12 months, y ou worried that your food would run out before you got the money to buy more. Never true 12/04/19 23 Within the past 12 months, t he food you bought just didn't last and you didn't have money to get more. Never true 12/04/2022 PRAPARE - Transportation Answer Date Re corded In the past 12 months, has l ack of transportation kept you from medical appointments or from getting medications? No 03/2023 In the past 12 months, has l ack of transportation kept you from meetings, work, or from getting things needed for daily living? No 12/04/2022 Sex and Gender Information Value Date Recorded Sex Assigned at Not on file Legal Sex Male 8:50 AM EST Gender Identity Not on file Sexual Orientation Not on file COVID-19 Exposure Response Date Recorded In the last 10 days, have yo u been in contact with someone who was confirmed or suspected to have Coronavirus/COVID-19? No / Unsure 12/03/2022 9:41 AM EST documented as of this encounter Plan of Treatment Not on file documented as of this encounter Results * (ABNORMAL) URINE CULTURE (NO STAIN) (12/15/2022 12:00 PM EST) Culture Positive Growth(A) 12/19/2022 7:55 AM EST [facility] [facility] Culture [id number] CFU/mL Enterococcus faecalis SUSCEPTIB ILITY RESULT 12/19/2022 7:55 AM EST [facility] Comment: Vancomycin Screen Sensitive. Usual therapy for uncomplicated Enterococcal UTI's: Ampicillin or Nitrofurantoin. No further workup. Culture [id number] CFU/mL Proteus mirabilis SUSCEPTIB ILITY RESULT 12/19/2022 7:55 AM EST [facility] [employer] Urine URINE SPECIMEN COLLECTION, CLEAN CATCH / Unknown 12/15/2022 12:00 PM EST 12/15/2022 6:03 PM EST Narrative Organism Antibiotic Method Susceptibility Proteus mirabilis Amikacin SUSCEPTIBILITY RESULT <=16 ug/mL: Susceptible Proteus mirabilis Amoxicillin/Clavulanate SUSCEPTIBILI TY RESULT <=8/4 ug/mL: Susceptible Proteus mirabilis Ampicillin SUSCEPTIBILITY RESULT <=8 ug/mL: Susceptible Proteus mirabilis Ampicillin/Sulbactam SUSCEPTIBILITY RESULT <=4/2 ug/mL: Susceptible Proteus mirabilis Aztreonam SUSCEPTIBILITY RESULT <=4 ug/mL: Susceptible Proteus mirabilis Cefazolin SUSCEPTIBILITY RESULT 4 ug/mL: Susceptible Proteus mirabilis Cefepime SUSCEPTIBILITY RESULT Proteus mirabilis Cefotaxime SUSCEPTIBILITY RESULT Proteus mirabilis Cefoxitin SUSCEPTIBILITY RESULT <=8 ug/mL: Susceptible Proteus mirabilis Ceftazidime SUSCEPTIBILITY RESULT Proteus mirabilis Ceftazidime/Avibactam SUSCEPTIBILITY RESULT Proteus mirabilis Ceftolozane/Tazobactam SUSCEPTIBILIT Y RESULT Proteus mirabilis Ceftriaxone SUSCEPTIBILITY RESULT Proteus mirabilis Cefuroxime SUSCEPTIBILITY RESULT Proteus mirabilis Ciprofloxacin SUSCEPTIBILITY RESULT <=0.25 ug/mL: Susceptible Proteus mirabilis Ertapenem SUSCEPTIBILITY RESULT <=0.5 ug/mL: Susceptible Proteus mirabilis Gentamicin SUSCEPTIBILITY RESULT <=2 ug/mL: Susceptible Proteus mirabilis Imipenem SUSCEPTIBILITY RESULT Proteus mirabilis Levofloxacin SUSCEPTIBILITY RESULT <=0.5 ug/mL: Susceptible Proteus mirabilis Meropenem SUSCEPTIBILITY RESULT <=1 ug/mL: Susceptible Proteus mirabilis Meropenem/Vaborbactam SUSCEPTIBILITY RESULT Proteus mirabilis Minocycline SUSCEPTIBILITY RESULT Proteus mirabilis Moxifloxacin SUSCEPTIBILITY RESULT Proteus mirabilis Nitrofurantoin SUSCEPTIBILITY RESULT Proteus mirabilis Piperacillin/Tazobactam SUSCEPTIBILI TY RESULT <=8 ug/mL: Susceptible Proteus mirabilis Tetracycline SUSCEPTIBILITY RESULT Proteus mirabilis Tigecycline SUSCEPTIBILITY RESULT Proteus mirabilis Tobramycin SUSCEPTIBILITY RESULT <=2 ug/mL: Susceptible Proteus mirabilis Trimethoprim/Sulfame tho xazole SUSCEPTIBILITY RESULT <=0.5/9.5 ug/mL: Susceptible us Gila Espinosa CARDIOLOGY CONSULTANT MICROBIOLOGY - GENERAL ORDERAB LES Final Result [facility] [employer] [address] [facility] , [place] [address] documented in this encounter Visit Diagnoses Not on filedocumented in this encounter Care Teams Belt Cutter Relationship Specialty Start Date End Date Jeremi Freedman MD [address] [place] [id number] PCP - General Internal Medicine-Adolescent Medicine 11/26/22 documented as of this encounter
--- OUTSIDE RECORDS SUMMARY | 2022-12-16 06:00 | XMS_ITS | Encounter Summary ---
Author Organization [facility] [place] [place] [address] Care Team Providers Care Film Mounter Name Role Phone Jeremi Freedman MD Primary Care Provider [phone] Encounter Details Date Type Department Care Team (Late st Contact Info) Description 12/16/2022 5:00 AM EST Hospital Encounter [facility] Referral Lab 1 [place] [address] Gila Espinosa APRN [address] [place] [phone] Social History Tobacco Use Types Packs/Day [...] Recorded In the last 10 days, have mary u been in contact with someone who was confirmed or suspected to have Coronavirus/COVID-19? No / Unsure 12/03/2022 9:41 AM EST documented as of this encounter Plan of Treatment Not on file documented as of this encounter Results * (ABNORMAL) CBC (12/16/2022 6:40 AM EST) WBC 12.8(H) 3.7 - 10.3 x10(3)/mcL 12/16/2022 8:50 AM EST [facility] RBC 4.24(L) 4.60 - 6.10 x10(6)/mcL 12/16/2022 8:50 AM EST [facility] Hgb 11.3(L) 13.7 - 17.5 g/dL 12/16/2022 8:50 AM EST [facility] Hct 35.5(L) 40.0 - 51.0 % 12/16/2022 8:50 AM EST [facility] MCV 83.7 80.0 - 100.0 fL 12/16/2022 8:50 AM EST [facility] MCH 26.7 26.0 - 34.0 pg 12/16/2022 8:50 AM EST [facility] MCHC 31.8 30.7 - 35.5 g/dL 12/16/2022 8:50 AM EST [facility] RDW 14.4 <=14.9 % 12/16/2022 8:50 AM EST [facility] Platelet 342 155 - 369 x10(3)/mcL 12/16/2022 8:50 AM EST [facility] MPV 9.5 8.8 - 12.5 fL 12/16/2022 8:50 AM EST [facility] Blood VENOUS BLOOD / Unknown Venipuncture / Unknown 12/16/2022 6:40 AM EST 12/16/2022 8:31 AM EST us Gila Espinosa SPIRAL RUNNER HEMATOLOGY ORDERABLES Final Re sult [facility] [address] [facility] , [place] [address] documented in this encounter Visit Diagnoses Not on filedocumented in this encounter Care Teams Film Mounter Relationship Specialty Start Date End Date Jeremi Feredman MD [address] [place] [phone] PCP - General Internal Medicine-Adolescent Medicine 11/26/22 documented as of this encounter
--- NOTE | 2025-06-14 10:22 | XR_ITS ---
FINAL REPORT TECHNIQUE: 5 views CLINICAL HISTORY: ACUTE NECK PAIN FINDINGS: There is no fracture present. There is no malalignment. There is bony neuroforaminal narrowing at C4-5 and C5-6 with moderate spondylosis. IMPRESSION: No acute process. Reviewed, Interpreted and Dictated by Jaxson Hartmann MD Transcribed by Gregoria Lee Authenticated and . [facility]
--- OUTSIDE RECORDS SUMMARY | 2025-06-14 10:42 | XMS_ITS | Encounter Summary ---
Author Organization [employer] ([place], [place], [place], [place]) Address [address] [place] [address] Care Team Providers Care Back Order Clerk Name Role Phone Unavailable Primary Care Provider Unavailabl e Encounter Details Date Type Department Care Team (Late st Contact Info) Description 11/15/2020 Transcribed Document [facility] Family Medicine [facility] [place] [address] ProviderAshly MD [address] [place] [address] Social History Tobacco Use Types Packs/Day Years Used Date Smoking Tobacco: Never Assessed Sex and Gender Information Value Date Recorded Sex Assigned at Male 05/28/2022 4:44 PM CDT Legal Sex Male 4:44 PM CDT Gender Identity Male 05/28/2022 4:44 PM CDT Sexual Orientation Not on file documented as of this encounter Miscellaneous Notes * Cerner Conversion Note - Historical ProviderMD - 11/15/2020 12:24 PM SERVICE CENTER MANAGER Admission History, Adult Entered On: 11/15/2020 12:28 EST Performed On: 11/15/2020 12:24 EST by Jie Lynch RN Advance Directive Patient has Advance Directive *Q : No, patient refuses Advance Directive information Jie Lynch RN - 11/15/2020 12:24 EST Anesthesia/Transfusion History Family History of Anesthesia Reaction : No prior transfusion(s) Blood Transfusion Acceptable to Patient : Yes Transfusion History : Prior anesthesia without reaction Family History of Anesthesia Reaction : None Jie Lynch RN - 11/15/2020 12:24 EST Anticipated Discharge Needs Discharge To, Anticipated : Home Anticipated Discharge Needs at This Time : Physical Therapy Jie Lynch RN - 11/15/2020 12:24 EST Education Topics, Admission Orientation DCP GENERIC CODE Advance Directives : Verbalizes understanding, Returns demonstration Allergy Band Applied : Verbalizes understanding, Returns demonstration Assessment/Vital Signs : Verbalizes understanding, Returns demonstration Bed Control : Verbalizes understanding, Returns demonstration Call Light : Verbalizes understanding, Returns demonstration Confidentiality : Verbalizes understanding, Returns demonstration Diet/Room Service : Verbalizes understanding, Returns demonstration Fall Prevention : Verbalizes understanding, Returns demonstration Hand Hygiene : Verbalizes understanding, Returns demonstration Healthcare Provider Visit : Verbalizes understanding, Returns demonstration ID Band Applied : Verbalizes understanding, Returns demonstration Orientation to Room/Bathroom : Verbalizes understanding, Returns demonstration Patient Bill of Rights : Verbalizes understanding, Returns demonstration Patient Rights/Responsibilities : Verbalizes understanding, Returns demonstration Patient Safety : Verbalizes understanding, Returns demonstration Personal Privacy Code : Verbalizes understanding, Returns demonstration Rapid Response Initiated by Patient/Family : Verbalizes understanding, Returns demonstration Rounding : Verbalizes understanding, Returns demonstration Siderails use/risks : Verbalizes understanding, Returns demonstration Skin Precautions : Verbalizes understanding, Returns demonstration Smoking Policy : Verbalizes understanding, Returns demonstration Telemetry Monitoring : Verbalizes understanding, Returns demonstration Television/Phone : Verbalizes understanding, Returns demonstration Visiting Policy : Verbalizes understanding, Returns demonstration Jie Lynch RN - 11/15/2020 12:24 EST Functional Assessment Living Situation : Home Patient Lives With : Spouse Persons Assisting Patient at Home : Spouse Current Daily Living Assistance : None Sensory Deficits : None, Other: glasses; dentures Mobility Assistance Prior to Admission : Independent HUTCHISON Hx Falls Immediate/Within 3 Months : No Current Home Treatments : Blood glucose monitoring Home Equipment : None Professional Skilled Services : None Special Services and Community Resources : None Jie Lynch RN - 11/15/2020 12:24 EST General Info Preferred Name : JAIR Arrived From : Home Mode of Arrival on Unit : Ambulatory Patient Arrival Date/Time : 11/15/2020 12:18 EST Legal Guardian : Unaccompanied Want Family/Rep/Phys Notified of Admit : No Emergency Contact #1 : Ava Watkins Emergency Contact #1 Emergency Contact #1 Relationship : spouse Emergency Contact #2 : - Emergency Contact #2 Phone Number : - Emergency Contact #2 Relationship : - Information Obtained From : Patient Primary Language : Slovak Preferred Communication Mode : Verbal Communication Barrier : None Department Head College Or University Needed : No Jie Lynch RN - 11/15/2020 12:24 EST Fall Risk Scales ABCs Fall Injury Risk Identification : Bones, Coagulation, Surgery ABC Fall Injury Risk : Moderate to high injury risk Injury Moderate to High Risk Interventions : Bed alarm on, Chair alarm on, Wrist band (fall risk) on per policy HUTCHISON Hx Falls Immediate/Within 3 Months : No [place] Secondary Diagnosis : Yes HUT[place]ISON Use of Ambulatory Aid : Bed rest/Nurse assist HUTCHISON IV Therapy or IV Access : Yes [place] Gait/Transferring : Weak [place] Mental Status : Oriented to own ability [place] Fall Risk Score : 45 H[place]ISON Fall Scale Risk Level : 25-45 Medium Risk [place] Fall Interventions : Adequate lighting, Bed in low position, Call device within reach, Fall prevention handout/education per facility policy, Hourly comfort/safety rounds, Non-slip footwear, Personal items within reach, Room free of clutter/spills, Upper side-rails up, Wheels locked, Wires/Cords secured Fall Moderate to High Risk Interventions : Bed alarm on, Chair alarm on, Wrist band (fall risk) on Jie Lynch RN - 11/15/2020 12:24 EST Fall Risk Education Grid Alarms : Verbalizes understanding, Returns demonstration Assistive Equipment Use : Verbalizes understanding, Returns demonstration Bed Height/Stabilization : Verbalizes understanding, Returns demonstration Call light use : Verbalizes understanding, Returns demonstration Door Open : Verbalizes understanding, Returns demonstration Environmental Management : Verbalizes understanding, Returns demonstration Eyeglasses Use : Verbalizes understanding, Returns demonstration Fall Community Resources : Verbalizes understanding, Returns demonstration Fall Contract/Letter : Verbalizes understanding, Returns demonstration Fall Prevention in the Home : Verbalizes understanding, Returns demonstration Fall Prevention Protocol : Verbalizes understanding, Returns demonstration Home Risk Assessment : Verbalizes understanding, Returns demonstration Need Constant Observation : Verbalizes understanding, Returns demonstration Night Light Use : Verbalizes understanding, Returns demonstration Nonskid Footwear Use : Verbalizes understanding, Returns demonstration Notification of Staff When Leaving : Verbalizes understanding, Returns demonstration Orthostatic Hypotension Precautions : Verbalizes understanding, Returns demonstration Personal Article Availability : Verbalizes understanding, Returns demonstration Prevention Responsibility Family : Verbalizes understanding, Returns demonstration Prevention Responsibility Patient : Verbalizes understanding, Returns demonstration Risk Alert Methods : Verbalizes understanding, Returns demonstration Risk Factors : Verbalizes understanding, Returns demonstration Safety Aids : Verbalizes understanding, Returns demonstration Siderails use/risks : Verbalizes understanding, Returns demonstration Special Assistive Devices : Verbalizes understanding, Returns demonstration Staff Responsiveness : Verbalizes understanding, Returns demonstration Symptom Identification & Action Plan *Q : Verbalizes understanding, Returns demonstration Symptom Reporting : Verbalizes understanding, Returns demonstration Toileting Schedule : Verbalizes understanding, Returns demonstration Transfer/Mobility Techniques : Verbalizes understanding, Returns demonstration Urinal/Bedpan Availability : Verbalizes understanding, Returns demonstration Wait for Assistance : Verbalizes understanding, Returns demonstration Wheelchair Safety : Verbalizes understanding, Returns demonstration Jie Lynch RN - 11/15/2020 12:24 EST Barriers to Learning : None evident Individuals Taught : Patient Teaching Method : Explanation Learning Style Preferences Family : Printed materials, Verbal explanation Learning Style Preferences Patient : Printed materials, Verbal explanation Teaching Evaluation : Verbalizes understanding Fall Risk Scale Calc Temp : 0 Jie Lynch RN - 11/15/2020 12:24 EST Health Histories Smoking Status : Never (less than 100 in lifetime; none in last 30 days) Smokeless Tobacco Status : Never Jie Lynch RN - 11/15/2020 12:24 EST Social History (As Of: 11/15/2020 12:28:34 EST) Tobacco: Former smoker, quit more than 30 days ago Smoking Status. Never Smokeless Tobacco Status. (Last Updated: 11/02/2020 10:26:51 EST by CAROL MADERA, HUMERA) Alcohol: Alcohol Use History Yes. Alcohol Use Frequency Rarely. (Last Updated: 11/02/2020 10:26:51 EST by CAROL MADERA, RN) Substance Abuse: Drug Use Hx: No. (Last Updated: 11/02/2020 10:26:51 EST by CAROL MADERA, RN) Height and Weight, Clinical Dosing Height Source : Stated Height Entry Format : [place] Height, Feet : 6 ft(Converted to: 183 cm, 72 Inch) Height, Inches : 4 Inch(Converted to: 0 ft 4 Inch, 10.16 cm) Clinical Height : 193.04 cm Weight Source : Standing scale Weight Entry Format : [place] Clinical Dosing Weight : 140.91 kg Weight, Pounds : 310 lb Body Surface Area (BSA) : 2.67 m2 Body Mass Index : 37.8 kg/m2 (HI) Benjamin Body Weight : 86 kg Jie Lynch RN - 11/15/2020 12:24 EST Infectious Disease History Has the patient ever been tested for COVID-19? : Yes, Patient stated results Positive Where was the COVID-19 Testing completed? : [facility] Where are the test results? : Paper Copy on chart Date of COVID-19 test known? : Yes Date of COVID-19 Test : 10/01/2020 EDT Does patient have symptoms of COVID-19? : No COVID19 Screening : No Experiencing Infectious Disease Symptoms : No symptoms Physical contact outside US in the last 30 days : No Infectious Disease History : Chicken pox/Shingles, Influenza, Mumps Active Surveillance Screen Assessment : Patient does not meet any of above criteria Active Surveillance Screen Negative : Yes Exposure to Contagious Illness : No Tuberculosis Symptoms : None Jie Lynch RN - 11/15/2020 12:24 EST Tetanus Immunization Status Previous Tetanus Immunizations : No qualifying data available. Tetanus Immunization : Unknown Jie Lynch RN - 11/15/2020 12:24 EST Influenza Vaccine Asmt, Adult Previous Vaccines from Immunization Schedule : No qualifying data available. Influenza Immunization, Current Season : Yes Influenza Immunization Date : 09/09/2018 EDT Jie Lynch RN - 11/15/2020 12:24 EST Pneumococcal Vaccine Previous Vaccines from Immunization Schedule : No qualifying data available. Pneumonia Immunization Received : No Pneumococcal Risk Assessment < Age 65 : N/A- Patient 65 years of age or older Pneumococcal Vaccine Contraindications : No contraindications to pneumococcal vaccine Transplant Workup/Recent Transplant : No Order for Pneumococcal Vaccine : Declined Vaccination Jie Lynch RN - 11/15/2020 12:24 EST Order Details Order Detail : N/A IV Order Detail : 1 Oxygen Order Detail : 1 Nurse Collect Order Detail : 0 Patient Needs Meds Crushed/Liquid : No Jie Lynch RN - 11/15/2020 12:24 EST Nutrition History Feeding Ability : Independent Adaptive Feeding Equipment : Regular Oral Medication Administration : By mouth Eating Poorly Due to Decreased Appetite : No Unplanned Weight Loss in Past 3-6 Months : No Malnutrition Screening Tool Total(mal) : 0 Malnutrition Screening Tool Risk Level : Patient not at risk Jie Lynch RN - 11/15/2020 12:24 EST [place] Suicide Severity Rating Scale (C-SSRS) CSSRS Past Month Wish to be : No CSSRS Past Month Suicidal Thoughts : No CSSRS Lifetime Suicide Behavior : No Suicide Severity Rating Score : 0 Suicide Severity Rating : No Additional Care Required at this time Jie Lynch RN - 11/15/2020 12:24 EST Psychosocial History Does Someone Depend on You for Care? : No Do You Have a History of the Following? : Patient denies history Currently in Unsafe Situation : No Do You Have a Support System? : Yes Jie Lynch RN - 11/15/2020 12:24 EST Sleep Apnea Risk Assmt Hx of Obstructive Sleep Apnea Diagnosis : No Snore Loudly : Yes Tired, Fatigued, or Sleepy During Day : No Observed Stopping Breathing During Sleep : No Have/Are Being Treated for Hypertension : Yes BMI Greater Than 35 kg/m2 : Yes Age over 50 Years Old : Yes Neck Circumference Greater Than 40 cm : No Gender Male : Yes STOP-BANG Sleep Apnea Risk Level Score : 5 Jie Lynch RN - 11/15/2020 12:24 EST Spiritual/Cultural Needs Significant Loss/Crisis in Past 3 Years : No Any Spiritual/Cultural Needs or Requests : Yes Muslim Preference : Unknown Jie Lynch RN - 11/15/2020 12:24 EST Valuables and Belongings Valuables and Belongings : Clothing, Personal devices Clothing : Common streetwear Clothing Disposition : Bedside, Sent to locker Personal Device Disposition : Sent to locker Personal Devices : Glasses Jie yLnch RN - 11/15/2020 12:24 EST documented in this encounter Plan of Treatment Not on file documented as of this encounter Visit Diagnoses Not on filedocumented in this encounter
--- OUTSIDE RECORDS SUMMARY | 2025-06-14 10:42 | XMS_ITS | Encounter Summary ---
Author Organization [employer] ([place], [place], [place], [place]) Address [address] [place] [address] Care Team Providers Care Channel Lip Stiffener Insoles Name Role Phone Unavailable Primary Care Provider Unavailabl e Encounter Details Date Type Department Care Team (Late st Contact Info) Description 12/13/2020 Transcribed Document [facility] [place] [facility] [address] ProviderAshly MD [address] [place] [address] Social History Tobacco Use Types Packs/Day Years Used Date Smoking Tobacco: Never Assessed Sex and Gender Information Value Date Recorded Sex Assigned at Male 05/28/2022 4:44 PM CDT Legal Sex Male 4:44 PM CDT Gender Identity Male 05/28/2022 4:44 PM CDT Sexual Orientation Not on file documented as of this encounter Miscellaneous Notes * Cerner Conversion Note - Historical ProviderMD - 12/13/2020 7:00 AM COMMUNICATIONS DEPARTMENT CHAIR PLEASE MODIFY BEFORE SIGNING CLINICAL DOCUMENTATION CLARIFICATION FORM: Dear Dr. Brian Farah Date / Time: 12/13/2020 Please exercise your independent, professional judgment in responding to the clarification form. Clinical indicators are provided on the bottom of this form for your review Kindly further specify postop cellulitis of left total knee arthroplasty as, Please check appropriate box(es): [ ] Post op cellulitis was due to TKA internal prosthesis [ ] Post op cellulitis was not due to TKA internal prosthesis [x ] Post op cellulitis in TKA surgical site [ ] Other diagnosis [ ] Unable to determine Physician Signature: Date/Time: For continuity of documentation, please document condition throughout progress notes and discharge summary. Thank You. To be completed by CDI/Coding staff for physician review: Present Clinical Indicators- Signs / Symptoms / Labs Results and Location in Medical Record [ X ] Acute cellulitis of left knee post surgery with previous left total knee arthroplasty around 3 weeks ago . Documented in Consultation note on 12/08/[address] Matt Pearson. [ X ] Left knee pain swelling erythema Documented in History and physical note on 12/07/[address] Brian Farah. [ X ] Left total knee arthroplasty cellulitis Documented in Discharge summary on 12/07/[address] Brian Farah. [ X ] Left knee pain from osteoarthritis with after medical clearance by his PCP underwent left total knee arthroplasty by Dr. Mora on 11/15/2020 Documented in Discharge summary on 12/07/[address] Brian Farah. [ X ] Hemarthrosis of left knee. Documented in Consultation note on 12/08/[address] Matt Pearson. Present Risk Factors Results and Location in Medical Record [ X ] Osteoarthritis Documented in Discharge summary on 12/07/[address] Brian Farah. [ X ] S/p left total knee arthroplasty on 11/15/2020 Documented in Discharge summary on 12/07/[address] Brian Farah. [ X ] DM type II Documented in Discharge summary on 12/07/[address] Brian Farah. Present Treatments Results and Location in Medical Record [ X ] IV Rocephin + Sodium Chloride 0.9% 50ml 2gram Documented in MAR on . [ X ] IV Vancomycin + Sodium Chloride 0.9% 500ml 2500mg Documented in MAR on 12/07/2020. CDS/School Photographer Signature: Devyn Small Phone #: [phone] Extn [phone] Date/Time: 12/13/2020 This is a permanent part of the Medical Record Q48 2019 [facility] Updated:2019 documented in this encounter Plan of Treatment Not on file documented as of this encounter Visit Diagnoses Not on filedocumented in this encounter
--- OUTSIDE RECORDS SUMMARY | 2025-06-14 10:42 | XMS_ITS | Encounter Summary ---
Author Organization [employer] ([place], [place], [place], [place]) Address [address] [place] [address] Care Team Providers Care Bridge Painter Name Role Phone Unavailable Primary Care Provider Unavailabl e Encounter Details Date Type Department Care Team (Late st Contact Info) Description 11/15/2020 Transcribed Document [facility] [place] Family Medicine [address] [place] [address] ProviderAshly MD [address] [place] [address] Social History Tobacco Use Types Packs/Day Years Used Date Smoking Tobacco: Never Assessed Sex and Gender Information Value Date Recorded Sex Assigned at Male 05/28/2022 4:44 PM CDT Legal Sex Male 4:44 PM CDT Gender Identity Male 05/28/2022 4:44 PM CDT Sexual Orientation Not on file documented as of this encounter Miscellaneous Notes * Cerner Conversion Note - Ashly ProviderMD - 11/15/2020 9:24 AM FURNACE AND WASH EQUIPMENT OPERATOR [facility] OR PACU Summary Primary Physician: REJI LUCIANO JR, JR, MD-ORT Finalized Date/Time: 11/15/20 12:17:43 Pt. Name: CYNTHIA CUEVAS JR /Sex: 1955 Male Med Rec #: [id number] Physician: REJI LUCIANO JR, JR, MD-ORT Financial #: [id number] Pt. Type: O Room/Bed: [facility]/1 Admit/Disch: 11/15/20 03:55:00 - Institution: [facility] OR PACU Case Times Entry 1 In PACU I 11/15/20 11:02:00 Ready for PACU 11/15/20 12:10:00 Discharge Discharge from PACU 11/15/20 12:10:00 I Last Modified By: Nikole Whitehead Rn Patient Care Bedside 11/15/20 12:17:19 [facility] OR PACU Case Times Audit 11/15/20 12:17:19 Land Management Supervisor: ANKIT Modifier: NIKOLEHERMINIO <+> 1 Ready for PACU Discharge <+> 1 Discharge from PACU I Finalized By: Nikole Whitehead Rn Patient Care Bedside Document Signatures Signed By: Nikole Whitehead Rn Patient Care Bedside 11/15/20 12:17 documented in this encounter Plan of Treatment Not on file documented as of this encounter Visit Diagnoses Not on filedocumented in this encounter
--- OUTSIDE RECORDS SUMMARY | 2025-06-14 10:42 | XMS_ITS | Encounter Summary ---
Author Organization [employer] ([place], [place], [place], [place]) Address [address] [place] [address] Care Team Providers Care Game Breeding Farm Manager Name Role Phone Unavailable Primary Care Provider Unavailabl e Encounter Details Date Type Department Care Team (Late st Contact Info) Description 11/15/2020 Transcribed Document [facility] [place] [address] [place] [address] ProviderAshly MD [address] [place] [address] Social History Tobacco Use Types [...] Conversion Note - Historical ProviderMD - 11/15/2020 5:46 PM AIR CONDITIONING SPECIALIST On Going Discharge Planning Entered On: 11/15/2020 17:47 EST Performed On: 11/15/2020 17:46 EST by SHEILA FOLEY RN Care Management Progress Note Discharge Arrangements : Patient Post-Acute Information Patient Name: CYNTHIA CUEVAS JR Gender: Male : [birth year] Age: 65 Years No Post-Acute Placement(s) Listed No Post-Acute Service(s) Listed No [place] Referral(s) Listed Discharge Options Discussed with Patient : Discharge transportation, DME, Home Health SHEILA FOLEY RN - 11/15/2020 17:46 EST Narrative Progress Note Narrative Progress Note : Front rolling walker and bedside commode delieved to the patient via [place]. SHEILA FOLEY RN - 11/15/2020 17:46 EST Electronically signed by Blake, [facility] Conversion Supervisor Microwave Cerner at 03/19/2023 6:44 PM CDT documented in this encounter Plan of Treatment Not on file documented as of this encounter Visit Diagnoses Not on filedocumented in this encounter
--- OUTSIDE RECORDS SUMMARY | 2025-06-14 10:42 | XMS_ITS | Encounter Summary ---
Author Organization [employer] ([place], [place], [place], [place]) Address [address] [place] [address] Care Team Providers Care Cafe Team Member Name Role Phone Unavailable Primary Care Provider Unavailabl e Encounter Details Date Type Department Care Team (Late st Contact Info) Description 12/08/2020 Transcribed Document [facility] [place] Family Medicine [facility] [place] [address] ProviderAshly MD [address] [place] [address] Social History Tobacco Use Types Packs/Day Years Used Date Smoking Tobacco: Never Assessed Sex and Gender Information Value Date Recorded Sex Assigned at Male 05/28/2022 4:44 PM CDT Legal Sex Male 4:44 PM CDT Gender Identity Male 05/28/2022 4:44 PM CDT Sexual Orientation Not on file documented as of this encounter Miscellaneous Notes * Cerner Conversion Note - Historical ProviderMD - 12/08/2020 12:41 AM BRAKE RIDER Event Note Entered On: 12/08/2020 0:53 EST Performed On: 12/08/2020 0:41 EST by Nisha Rudd RN Event Note Event Date/Time : 12/08/2020 0:30 EST Description of Event : Tubing from the loading dose of vancomycin was not unclamped so pt did not receive vancomycin at the time it was scanned on 12/07 1736. RN started loading dose of vancomycin at 12/08 0030 and notified pharmacy. Nisha Rudd RN - 12/08/2020 0:41 EST Electronically signed by Blake [facility] [place] Conversion Workers Compensation Consultant Cerner at 03/19/2023 6:52 PM CDT documented in this encounter Plan of Treatment Not on file documented as of this encounter Visit Diagnoses Not on filedocumented in this encounter
--- OUTSIDE RECORDS SUMMARY | 2025-06-14 10:42 | XMS_ITS | Encounter Summary ---
Author Organization [employer] ([place], [place], [place], [place]) Address [address] [place] [address] Care Team Providers Care Radiotelephone Technical Operator Name Role Phone Unavailable Primary Care Provider Unavailabl e Encounter Details Date Type Department Care Team (Late st Contact Info) Description 11/15/2020 Transcribed Document [facility] [place] Family Medicine [address] [place] [address] ProviderAshly MD [address] [place] [address] Social History Tobacco Use Types [...] Conversion Note - Historical ProviderMD - 11/15/2020 12:04 PM SUPPLIER QUALITY MANAGER Evaluation, Physical Therapy Entered On: 11/15/2020 13:26 EST Performed On: 11/15/2020 12:35 EST by LORY THORNTON, PT General Information, PT Visit Type, PT : Initial evaluation Patient Orders : Order Date Order Ordering MD 11/15/2020 12:04 PT Evaluation and Treatment Ordered By: REJI LUCIANO JR, JR, MD-ORT Active Diagnoses : No Qualifying Diagnoses Therapy Diagnosis, PT : aftercare following LTKA Admission Date : 11/15/2020 03:55 Assisted by, PT : Nursing Personal Devices : Personal Devices Glasses Assistive Devices : Assistive Devices No Devices Recorded LORY THORNTON, PT - 11/15/2020 13:12 EST General Status Patient Received Status : Supine in bed, Bed alarm activated Treatment Start Time : 11/15/2020 12:35 EST Patient Left Status : Up in chair, Chair alarm activated, RN/PCT informed, Family/Visitors at bedside, Communication board completed, All needs met and within reach RN/PCT Informed Comment : Yes, RN approved pt for PT eval and pt agreeable Treatment End Time : 11/15/2020 13:08 EST Treatment Time : 33 Minute(s) LORY THORNTON, PT - 11/15/2020 13:12 EST History and Environment Living Situation, Therapy : Home Patient Lives With : Spouse Persons Assisting Patient at Home : Spouse Professional Skilled Services : None Persons Providing Information : Patient Home Equipment Therapy, PT : Walker Walker : Walker, front wheel Home Setup : One story Stairs : Yes Stair Location(s) : Outside Outside Stairs, Number of Steps : 2 Railing Outside : Yes Outside Railing Position : Right, going up LORY THORNTON, PT - 11/15/2020 13:12 EST Prior Level of Function PT GRID Prior LOF Ambulation, Household : Independent Prior LOF Ambulation, Community : Independent Prior LOF Bed Mobility : Independent Prior LOF Toileting : Independent Prior LOF Transfer : Independent LORY THORNTON, PT - 11/15/2020 13:12 EST Upper Extremity Upper Extremity Dominance : Right Right UE Active ROM : WFL Right UE Strength : WFL Left UE Active ROM : WFL Left UE Strength : WFL LORY THORNTON, PT - 11/15/2020 13:12 EST Lower Extremity RLE Active ROM : WFL Right LE Strength : WFL LLE Active ROM : Impaired Left LE Strength : Impaired Lower Extremity Comment : LLE is impaired secondary to surgery 4/5 grossly assessed. KI on LLE LORY THORNTON, PT - 11/15/2020 13:12 EST Functional Mobility Mobility Grid Bed Scooting : Supervision/set-up Supine to Sit : Supervision/set-up Sit to Stand : Rehab Minimal assistance Bed to Chair : Rehab Minimal assistance Stand to Sit : Rehab Minimal assistance LORY THORNTON, PT - 11/15/2020 13:12 EST Gait Training/Assessment, PT Weight Bearing Status : As tolerated Gait Assistance Level : Assist, minimal Walking Distance : 8 steps to recliner with RWX, min assist x1, WBAT, KI on LLE, verbal cues for correct gait sequence and for increased stance time on LLE Ambulatory Devices : Gait belt, Walker, front wheel Gait Deviations : Yes Gait Training Comment : see above Stair(s) Ascend/Descend Training : No LORY THORNTON, PT - 11/15/2020 13:12 EST Neuromuscular Reeducation, PT Balance Comment : good sitting and standing LORY THORNTON, PT - 11/15/2020 13:12 EST Neurological/Sensory Overall Sensory Response : Intact LORY THORNTON, PT - 11/15/2020 13:12 EST Activity Tolerance, PT Activity Comment : good LORY THORNTON, PT - 11/15/2020 13:12 EST Cognition Assessment, PT Orientation : Oriented x 4 Attention Assessment : Present LORY THORNTON, PT - 11/15/2020 13:12 EST Edu Topics Physical Therapy Education Grid Bed Mobility Training : Verbalizes understanding, Returns demonstration Gait Training : Verbalizes understanding, Returns demonstration, Needs further teaching Safety : Verbalizes understanding, Returns demonstration, Needs further teaching Transfer Training : Verbalizes understanding, Returns demonstration, Needs further teaching Use of Assistive Device : Verbalizes understanding, Returns demonstration, Needs further teaching LORY THORNTON, PT - 11/15/2020 13:12 EST Indication Assesessment, PT Physical Therapy Indicated : Yes Interdisciplinary Consultation(s) Needed : Yes Interdisciplinary Consult : Occupational Therapy PT Problem List : Impaired, bed mobility, Impaired, gait, Impaired, stair mobility, Impaired, strength, Impaired, transfers Potential Barriers To Therapy : Acuity of Illness Rehabilitation Potential : LORY Esquivel, PT - 11/15/2020 13:12 EST Plan of Care, PT PT Tx Plan/Goals Established w Patient : Yes PT Frequency Rehab : Daily, twice (bid) Other PT Treatment Provided This Date : gait as per note PT Duration Rehab : Three days PT Treatments Planned : Bed mobility training, Gait training, Safety education, Stair training, Therapeutic exercises, Transfer training Plan of Care Comment, PT : Pt will be seen twice daily for PT treatment which may include training in transfers, bed mobility, gait, stairs, use of AD, balance training, therapeutic exercise, HEP instruction and pt education on safety precautions LORY THORNTON, PT - 11/15/2020 13:12 EST Food Mixer Assembler Goals Other PT LTG Grid Goal #1 Goal #2 Goal #3 Other : Pt will be able to ascend and descend 2 steps with min assist x1 in order for him to safely gain entry into his home Pt will be able to ambulate 100 feet or greater with RWX, min assist x1 in order for him to safely navigate his home Pt will participate in therapeutic exercise training and be issued a written HEP to improve strength for safe transfers and mobility and for carryover into the home environment Date to Meet : 11/20/2020 EST 11/20/2020 EST 11/20/2020 EST Goal Status : Initial goal Initial goal Initial goal LORY THORNTON, PT - 11/15/2020 13:12 EST LORY THORNTON, PT - 11/15/2020 13:12 EST LORY THORNTON, PT - 11/15/2020 13:12 EST Treatment Note Subjective Comment : agreeable Patient's Response to Treatment : good Additional Objective Information : see eval PT assisted pt to stand at EOB to use the urinal Pt completed 10 reps each of ankle pumps, quad sets and gluteal sets for anti-embolism purposes per MD orders and pt instructed to perform these exercises 2-3X per hour when awake PT educated pt and family on progression of PT activities and MD expectations Assessment : Pt would benefit from continued skilled PT services in the acute care setting to improve his level of mobility and assist him to return to his PLOF Plan for Treatment : continue per eval POC LORY THORNTON, PT - 11/15/2020 13:12 EST Pain Assessment Pain Scaled Used : 0-10 Pain scale Pain Score Pre-Intervention : 7 Pain Score Post-Intervention. : 7 Pain Comment : RN aware LORY THORNTON, PT - 11/15/2020 13:12 EST Image 1 - Images currently included in the form version of this document have not been included in the text rendition version of the form. [place] PT Charges PT Ther Activities Ea 15 Min : 1 Gait Training Each 15 Min : 1 PT Eval Low Complexity : 1 LORY THORNTON, PT - 11/15/2020 13:12 EST Electronically signed by [facility] Conversion Handbag Parts Cutter Cerner at 03/19/2023 6:47 PM CDT documented in this encounter Plan of Treatment Not on file documented as of this encounter Visit Diagnoses Not on filedocumented in this encounter
--- OUTSIDE RECORDS SUMMARY | 2025-06-14 10:42 | XMS_ITS | Encounter Summary ---
Author Organization [employer] ([place], [place], [place], [place]) Address [address] [place] [address] Care Team Providers Care Candle Maker Name Role Phone Unavailable Primary Care Provider Unavailabl e Encounter Details Date Type Department Care Team (Late st Contact Info) Description 11/15/2020 Transcribed Document [facility] [place] Family Medicine [address] [place] [address] ProviderAshly MD [address] [place] [address] Social History Tobacco Use Types [...] Conversion Note - Historical ProviderMD - 11/15/2020 5:00 PM NUCLEAR WORKER TECHNICIAN Chart Check - Review Order Profile Entered On: 11/15/2020 17:02 EST Performed On: 11/15/2020 17:00 EST by Jie Lynch RN Chart Check Power[employer]ans Initiated/Discontinued as Appropriate : Yes All Active Orders Reviewed : Yes Jie Lynch RN - 11/15/2020 17:02 EST Electronically signed by Blake [facility] Conversion Computer Video Game Designer Cerner at 03/19/2023 6:31 PM CDT documented in this encounter Plan of Treatment Not on file documented as of this encounter Visit Diagnoses Not on filedocumented in this encounter
--- OUTSIDE RECORDS SUMMARY | 2025-06-14 10:42 | XMS_ITS | Encounter Summary ---
Author Organization [employer] ([place], [place], [place], [place]) Address [address] [place] [address] Care Team Providers Care Experimental Display Builder Name Role Phone Unavailable Primary Care Provider Unavailabl e Encounter Details Date Type Department Care Team (Late st Contact Info) Description 12/07/2020 Transcribed Document [facility] [place] [facility] [place] [address] ProviderAshly MD [address] [place] [address] Social History Tobacco Use Types Packs/Day Years Used Date Smoking Tobacco: Never Assessed Sex and Gender Information Value Date Recorded Sex Assigned at Male 05/28/2022 4:44 PM CDT Legal Sex Male 4:44 PM CDT Gender Identity Male 05/28/2022 4:44 PM CDT Sexual Orientation Not on file documented as of this encounter Miscellaneous Notes * Cerner Conversion Note - Historical ProviderMD - 12/07/2020 4:13 PM WARP SCOURING VAT TENDER Admission History, Adult Entered On: 12/07/2020 16:21 EST Performed On: 12/07/2020 16:13 EST by Kathleen Montejo RN Advance Directive Patient has Advance Directive *Q : No, patient refuses Advance Directive information Kathleen Montejo RN - 12/07/2020 16:13 EST Anesthesia/Transfusion History Family History of Anesthesia Reaction : No prior transfusion(s) Blood Transfusion Acceptable to Patient : Yes Transfusion History : Prior anesthesia without reaction Family History of Anesthesia Reaction : None Kathleen Montejo RN - 12/07/2020 16:13 EST Anticipated Discharge Needs Discharge To, Anticipated : Home Kathleen Montejo RN - 12/07/2020 16:13 EST Education Topics, Admission Orientation DCP GENERIC CODE Advance Directives : Verbalizes understanding Allergy Band Applied : Verbalizes understanding Assessment/Vital Signs : Verbalizes understanding Bed Control : Verbalizes understanding Call Light : Verbalizes understanding Confidentiality : Verbalizes understanding Diet/Room Service : Verbalizes understanding Fall Prevention : Verbalizes understanding Hand Hygiene : Verbalizes understanding Healthcare Provider Visit : Verbalizes understanding ID Band Applied : Verbalizes understanding Isolation Precautions : Verbalizes understanding Orientation to Room/Bathroom : Verbalizes understanding Patient Bill of Rights : Verbalizes understanding Patient Rights/Responsibilities : Verbalizes understanding Patient Safety : Verbalizes understanding Personal Privacy Code : Verbalizes understanding Rapid Response Initiated by Patient/Family : Verbalizes understanding Rounding : Verbalizes understanding Siderails use/risks : Verbalizes understanding Skin Precautions : Verbalizes understanding Smoking Policy : Verbalizes understanding Telemetry Monitoring : Verbalizes understanding Television/Phone : Verbalizes understanding Visiting Policy : Verbalizes understanding Kathleen Montejo RN - 12/07/2020 16:13 EST Functional Assessment Living Situation : Home Patient Lives With : Spouse Persons Assisting Patient at Home : Spouse Current Home Treatments : None Home Equipment : Walker Kathleen Montejo RN - 12/07/2020 16:13 EST General Info Preferred Name : JAIR Want Family/Rep/Phys Notified of Admit : Yes Name/Contact Info Fam/Rep Notified Adm : na Name/Contact Info Physician Notified Adm : na Emergency Contact #1 : Ava Watkins Emergency Contact #1 Emergency Contact #1 Relationship : Emergency Contact #2 : na Emergency Contact #2 Phone Number : na Emergency Contact #2 Relationship : na Information Obtained From : Patient Primary Language : Japanese Preferred Communication Mode : Verbal Communication Barrier : None Cultured Marble Products Maker Needed : No Kathleen Montejo RN - 12/07/2020 16:13 EST Fall Risk Scales ABCs Fall Injury Risk Identification : Bones ABC Fall Injury Risk : Moderate to high injury risk Injury Moderate to High Risk Interventions : Bed alarm on, Chair alarm on, Fall mat, Fall contract/letter per facility policy, High Risk for Fall Injury sign in place per policy, Patient room close to nurses station, Specialty low bed, Supervise toileting as indicated, Transport methods appropriate to patient, Visual cues in place H[place] Hx Falls Immediate/Within 3 Months : No [place] Secondary Diagnosis : Yes [place] Use of Ambulatory Aid : Crutches/Cane/Walker [place] IV Therapy or IV Access : Yes [place] Gait/Transferring : Impaired [place] Mental Status : Oriented to own ability [place] Fall Risk Score : 70 [place] Fall Scale Risk Level : 46 or > High Risk [place] Fall Interventions : Adequate lighting, Bed in low position, Call device within reach, Fall prevention handout/education per facility policy, Frequent orientation to call device, Frequent orientation to surroundings, Non-slip footwear, Personal items within reach, Reinforced to call for assistance before getting out of bed, Room free of clutter/spills, Upper side-rails up, Wheels locked, Wires/Cords secured Fall Moderate to High Risk Interventions : Bed alarm on, Chair alarm on, Fall contract/letter per facility policy, High Risk for Fall sign in place per policy, Patient room close to nurses station, Supervise toileting as indicated, Personal alarm on, Transport methods appropriate to patient, Toileting schedule, Visual cues in place, Wrist band (fall risk) on Kathleen Montejo RN - 12/07/2020 16:13 EST Fall Risk Education Grid Alarms : Verbalizes understanding Assistive Equipment Use : Verbalizes understanding Bed Height/Stabilization : Verbalizes understanding Call light use : Verbalizes understanding Door Open : Verbalizes understanding Environmental Management : Verbalizes understanding Eyeglasses Use : Verbalizes understanding Fall Community Resources : Verbalizes understanding Fall Contract/Letter : Verbalizes understanding Fall Prevention in the Home : Verbalizes understanding Fall Prevention Protocol : Verbalizes understanding Hearing Aid Use : Verbalizes understanding Home Risk Assessment : Verbalizes understanding Need Constant Observation : Verbalizes understanding Night Light Use : Verbalizes understanding Nonskid Footwear Use : Verbalizes understanding Notification of Staff When Leaving : Verbalizes understanding Orthostatic Hypotension Precautions : Verbalizes understanding Personal Article Availability : Verbalizes understanding Prevention Responsibility Family : Verbalizes understanding Prevention Responsibility Patient : Verbalizes understanding Risk Alert Methods : Verbalizes understanding Risk Factors : Verbalizes understanding Safety Aids : Verbalizes understanding Siderails use/risks : Verbalizes understanding Special Assistive Devices : Verbalizes understanding Staff Responsiveness : Verbalizes understanding Symptom Identification & Action Plan *Q : Verbalizes understanding Symptom Reporting : Verbalizes understanding Toileting Schedule : Verbalizes understanding Transfer/Mobility Techniques : Verbalizes understanding Urinal/Bedpan Availability : Verbalizes understanding Wait for Assistance : Verbalizes understanding Wheelchair Safety : Verbalizes understanding Kathleen Montejo RN - 12/07/2020 16:13 EST Individuals Taught : Patient Readiness to Learn : Cooperative Baseline Knowledge of Topic : Good Teaching Method : Printed materials Fall Risk Scale Calc Temp : 1 Kathleen Montejo RN - 12/07/2020 16:13 EST Health Histories Smoking Status : Never (less than 100 in lifetime; none in last 30 days) Smokeless Tobacco Status : Former smokeless tobacco user, quit more than 30 days ago Kathleen Montejo RN - 12/07/2020 16:13 EST Social History (As Of: 12/07/2020 16:21:26 EST) Tobacco: Former smoker, quit more than 30 days ago Smoking Status. Never Smokeless Tobacco Status. (Last Updated: 11/02/2020 10:26:51 EST by CAROL MADERA RN) Alcohol: Alcohol Use History Yes. Alcohol Use Frequency Rarely. (Last Updated: 11/02/2020 10:26:51 EST by CAROL MADERA RN) Substance Abuse: Drug Use Hx: No. (Last Updated: 11/02/2020 10:26:51 EST by CAROL MADERA RN) Height and Weight, Clinical Dosing Height Source : Estimated Height Entry Format : [place] Height, Feet : 6 ft(Converted to: 183 cm, 72 Inch) Height, Inches : 4 Inch(Converted to: 0 ft 4 Inch, 10.16 cm) Clinical Height : 193.04 cm Weight Source : Stated [place] Body Weight : 86 kg Kathleen Montejo RN - 12/07/2020 16:13 EST Estimated Weight Type of Weight Measurement Est : [place] Weight, est lb : 310 lb(Converted to: 141 kg) Estimated Clinical Dosing Weight : 140.91 kg Kathleen Montejo RN - 12/07/2020 16:13 EST Infectious Disease History Has the patient ever been tested for COVID-19? : Yes, Patient stated results Positive Date of COVID-19 test known? : Yes Date of COVID-19 Test : 09/28/2020 EDT Does patient have symptoms of COVID-19? : No COVID19 Screening : No Experiencing Infectious Disease Symptoms : No symptoms Physical contact outside [place] in the last 30 days : No Infectious Disease History : Chicken pox/Shingles, Influenza, Mumps Tuberculosis Symptoms : None Kathleen Montejo RN - 12/07/2020 16:13 EST Tetanus Immunization Status Previous Tetanus Immunizations : No qualifying data available. Tetanus Immunization : Unknown Kathleen Montejo RN - 12/07/2020 16:13 EST Influenza Vaccine Asmt, Adult Previous Vaccines from Immunization Schedule : No qualifying data available. Influenza Immunization, Current Season : No Inactivated Flu Vaccine Contraindications : No contraindications to inactivated influenza vaccine Transplant Workup/Recent Transplant : No Order for Influenza Vaccine : Declined Vaccination Kathleen Montjeo RN - 12/07/2020 16:13 EST Pneumococcal Vaccine Previous Vaccines from Immunization Schedule : No qualifying data available. Pneumonia Immunization Received : No Pneumococcal Risk Assessment < Age 65 : N/A- Patient 65 years of age or older Pneumococcal Vaccine Contraindications : No contraindications to pneumococcal vaccine Transplant Workup/Recent Transplant : No Order for Pneumococcal Vaccine : Declined Vaccination Kathleen Montejo RN - 12/07/2020 16:13 EST Order Details Order Detail : N/A Patient Needs Meds Crushed/Liquid : No Kathleen Montejo RN - 12/07/2020 16:13 EST Nutrition History Feeding Ability : Independent Adaptive Feeding Equipment : None Adaptive Feeding Equipment : Diabetic Oral Medication Administration : By mouth Eating Poorly Due to Decreased Appetite : No Unplanned Weight Loss in Past 3-6 Months : No Malnutrition Screening Tool Total(mal) : 0 Malnutrition Screening Tool Risk Level : Patient not at risk Kathleen Montejo RN - 12/07/2020 16:13 EST [place] Suicide Severity Rating Scale (C-SSRS) CSSRS Past Month Wish to be : No CSSRS Past Month Suicidal Thoughts : No CSSRS Lifetime Suicide Behavior : No Suicide Severity Rating Score : 0 Suicide Severity Rating : No Additional Care Required at this time Kathleen Montejo RN - 12/07/2020 16:13 EST Psychosocial History Do You Have a History of the Following? : Patient denies history Currently in Unsafe Situation : No Kathleen Montejo RN - 12/07/2020 16:13 EST Sleep Apnea Risk Assmt Hx of [...] Sleep Apnea Risk Level Score : 5 Kathleen Montejo RN - 12/07/2020 16:13 EST Valuables and Belongings Valuables and Belongings : Clothing Clothing : Common streetwear Clothing Disposition : With patient Kathleen Montejo RN - 12/07/2020 16:13 EST Electronically signed by Blake [facility] Conversion Gift Manager Cerner at 03/19/2023 6:48 PM CDT documented in this encounter Plan of Treatment Not on file documented as of this encounter Visit Diagnoses Not on filedocumented in this encounter
--- OUTSIDE RECORDS SUMMARY | 2025-06-14 10:42 | XMS_ITS | Encounter Summary ---
Author Organization [email or web address] ([place], [place], [place], [place]) Address [address] [place] [address] Care Team Providers Care Workforce Manager Name Role Phone Unavailable Primary Care Provider Unavailabl e Encounter Details Date Type Department Care Team (Late st Contact Info) Description 11/15/2020 Transcribed Document [facility] [place] [facility] [place] [address] ProviderAshly MD [address] [place] [address] Social History Tobacco Use Types [...] Conversion Note - Historical ProviderMD - 11/15/2020 7:15 AM CISCO NETWORK ENGINEER Spiritual Care Short Form Entered On: 11/15/2020 7:39 EST Performed On: 11/15/2020 7:15 EST by SHARMILA CARTAGENA Chaplain-Non Cert General Information, Spiritual Care Spiritual Care Referred by : Nurse Reason for Visit : Initial Ministry Provided to : Patient Intervention/Comment/Summary Points : Pre-surgery visit to patient. He shared that he is hopeful his knee replacement will help other issues that arose due to his bad knee. Patient is supported by family and indicated he had no deep concerns. Prayed with him for his surgery and recovery. Spiritual/Emotional Acuity : Low Spiritual Framework : Unknown Jew Preference : Unknown SHARMILA CARTAGENA Chaplain-Non Cert - 11/15/2020 7:33 EST Electronically signed by Blake [facility] Conversion Process Owner Cerner at 03/19/2023 6:47 PM CDT documented in this encounter Plan of Treatment Not on file documented as of this encounter Visit Diagnoses Not on filedocumented in this encounter
--- OUTSIDE RECORDS SUMMARY | 2025-06-14 10:42 | XMS_ITS | Encounter Summary ---
Author Organization [employer] ([place], [place], [place], [place]) Address [address] [place] [address] Care Team Providers Care Nursing Student Name Role Phone Unavailable Primary Care Provider Unavailabl e Encounter Details Date Type Department Care Team (Late st Contact Info) Description 11/22/2020 Transcribed Document [facility] [place] [facility] [place] [address] ProviderAshly MD [address] [place] [address] Social History Tobacco Use Types Packs/Day Years Used Date Smoking Tobacco: Never Assessed Sex and Gender Information Value Date Recorded Sex Assigned at Male 05/28/2022 4:44 PM CDT Legal Sex Male 4:44 PM CDT Gender Identity Male 05/28/2022 4:44 PM CDT Sexual Orientation Not on file documented as of this encounter Miscellaneous Notes * Cerner Conversion Note - Ashly ProviderMD - 11/22/2020 8:58 AM PAINTER SKI EDGE Discharge Follow Up Phone Call Entered On: 11/22/2020 8:58 EST Performed On: 11/22/2020 8:58 EST by Narcisa Wiggins Rn-Charge Discharge Follow Up Phone Call Discharge Disposition : No Documentation Available Post Visit Phone Call History : Left message Provider Follow-Up Post Discharge : Discharge Follow Up Follow up with specialty services - 09:58 AM REJI LUCIANO JR, JR, MD-ORT - 09:15 AM Previously Documented Clinic Office Manager Patient Stated Goal : 1) be able to move around withoutpain (Unmet) - Narcisa Wiggins Rn-Charge - 11/22/2020 8:58 EST Electronically signed by Blake [facility] Conversion Manager Immunology Cerner at 03/19/2023 6:46 PM CDT documented in this encounter Plan of Treatment Not on file documented as of this encounter Visit Diagnoses Not on filedocumented in this encounter
--- OUTSIDE RECORDS SUMMARY | 2025-06-14 10:42 | XMS_ITS | Encounter Summary ---
Author Organization [employer] ([place], [place], [place], [place]) Address [address] [place] [address] Care Team Providers Care Firer Portable Boiler Name Role Phone Unavailable Primary Care Provider Unavailabl e Encounter Details Date Type Department Care Team (Late st Contact Info) Description 11/02/2020 Transcribed Document [facility] [place] [facility] [place] [address] ProviderAshly MD [facility] [place] [address] Social History Tobacco Use Types Packs/Day Years Used Date Smoking Tobacco: Never Assessed Sex and Gender Information Value Date Recorded Sex Assigned at Male 05/28/2022 4:44 PM CDT Legal Sex Male 4:44 PM CDT Gender Identity Male 05/28/2022 4:44 PM CDT Sexual Orientation Not on file documented as of this encounter Miscellaneous Notes * Cerner Conversion Note - Ashly ProviderMD - 11/02/2020 10:00 AM NEEDLE BAR MOLDER Patient: CYNTHIA CUEVAS JR Age: 65 Years Sex: Male : 1955 Chief Complaint Left Knee Pain Primary Care Provider KAYLA OCAMPO (REF)[facility] History of Present Illness This patient is a pleasant 65 yo WM who presents with left knee pain. The pain has been going on for a year but has gotten progressively worse. He describes it as a sharp pain. It is now to the point that it is affecting his ADLs. He has tried NSAIDs without relief of his pain. He has not fallen. He has not used an assistive device. He was seen at Dr Salgado's office and evaluated and it was determined that he has severe DJD affecting the left knee. Pt was offered a Left Total Knee Arthroplasty and agreed to the procedure. Pt denies a h/o DVT/PE. No trouble with anesthesia in the past. No respiratory conditions including COPD/BRIGHT/asthma. Review of Systems Constitutional: Neg for fevers or chills. Eyes: Neg for blurry vision or change in vision. ENT: Neg for sore throat, ear pain, or dizziness. Cardiac: Neg for chest pain or dyspnea on exertion. Respiratory: Neg for shortness of breath. Gastrointestinal: Neg for nausea, vomiting, diarrhea, or constipation. Musculoskeletal: Pos for left knee pain. Neurologic: Neg for headaches or seizures. Psychiatric: Neg for anxiety and depression. Integumentary: Neg for rash. Vital Signs T: 35.6 ??C HR: 96(Peripheral) RR: 18 BP: 148/70 SpO2: 96% HT: 193.04 cm WT: 140.91 kg BMI: 37.8 Oxygen Settings (Last) Oxygen Therapy Mode: Room air (11/02/20 10:26:00) Physical Exam Constitutional: This is a pleasant 65 yo WM in no acute distress. HEENT: Normocephalic, atraumatic. PEERLA. Extraocular muscles intact. Conjunctiva pink without exudate. Oropharynx pink and moist. Neck supple. No JVD. Cardiac: SI, S2. RRR. No M/R/G. Respiratory: Lungs CTA bilaterally. No wheezes, rales, or rhonchi. Abdomen: Soft, nontender, nondistended. Active bowel sounds. No visible masses. Musculoskeletal: Bilateral LE without clubbing, cyanosis or edema. Integumentary: Skin is pink, warm and dry. No rashes. Neurologic: CN II-XII grossly intact. Psychiatric: Judgment and affect appropriate. Assessment/Plan 1. Preoperative Evaluation- Pt underwent preoperative laboratory workup and diagnostic studies. 2. Left Knee Pain secondary to DJD- Proceed with surgery as scheduled with Dr Salgado on 11/15/2020. 3. Hypertension- Continue Amlodipine. 4. Hyperlipidemia- Continue Atorvastatin. 5. GERD- Continue Omeprazole. 6. Diabetes Mellitus- FSBS and SSI. 7. Asymptomatic UTI- Dr Salgado called in Bactrim DS po BID x 7 days. Problem List/Past Medical History Ongoing At risk for sleep apnea B12 deficiency Diabetes GERD (gastroesophageal reflux disease) High cholesterol HTN (hypertension) Osteoarthritis Vitamin D deficiency Wears glasses Procedure/Surgical History bilateral knee scopes, Colonoscopy, gallbladder surgery, meniscus repair bilateral, right shoulder surgery with pins and anchors. Home Medications (11) Active Advil PM 2 Tab, Oral, At Bedtime amLODIPine 5 mg, Oral, At Bedtime aspirin 81 mg, Oral, At Bedtime atorvastatin 20 mg, Oral, At Bedtime metFORMIN 500 mg, Oral, At Bedtime omeprazole 40 mg, Oral, Daily Vitamin B12 1,000 mcg, SubLINgual, Daily Vitamin C 500 mg, Oral, At Bedtime Vitamin D2 1,250 Int Units, Oral, At Bedtime Vitamin D3 2,000 Int Units, Oral, At Bedtime Zinc 100 mg, Oral, BID Allergies No Known Medication Allergies Social History Alcohol Alcohol Use History Yes. Alcohol Use Frequency Rarely. Substance Abuse Drug Use Hx: No. Tobacco Former smoker, quit more than 30 days ago Smoking Status. Never Smokeless Tobacco Status. Family History Pt mother is alive with Hypertension. Pt father at 65 from Lung Cancer. Diagnostic Results EKG- NSR, 94 CXR- NAD Lab Results Test Name Test Result Date/Time Sodium Level 141 mmol/L 11/02/2020 11:00 EST Potassium Level 3.3 mmol/L (Low) 11/02/2020 11:00 EST Chloride Level 107 mmol/L 11/02/2020 11:00 EST Carbon Dioxide Level 27 mmol/L 11/02/2020 11:00 EST Anion Gap 10 11/02/2020 11:00 EST Glucose Level 186 mg/dL (High) 11/02/2020 11:00 EST Blood Urea Nitrogen 21 mg/dL 11/02/2020 11:00 EST Creatinine Level 1.21 mg/dL 11/02/2020 11:00 EST eGFR >60 mL/min/1.73m2 11/02/2020 11:00 EST eGFR NonAfrican 60 mL/min/1.73m2 11/02/2020 11:00 EST Bun/Creatinine 17.4 11/02/2020 11:00 EST Calcium Level 9.4 mg/dL 11/02/2020 11:00 EST Protein Total 7.9 Gram/dL 11/02/2020 11:00 EST Albumin Level 3.4 Gram/dL 11/02/2020 11:00 EST Globulin 4.5 Gram/dL 11/02/2020 11:00 EST A/G Ratio 0.8 (Low) 11/02/2020 11:00 EST Bilirubin Total 0.3 mg/dL 11/02/2020 11:00 EST Alk Phos 156 Units/Liter (High) 11/02/2020 11:00 EST AST 27 Units/Liter 11/02/2020 11:00 EST ALT 53 Units/Liter 11/02/2020 11:00 EST Hgb A1C 7.10 % (High) 11/02/2020 11:00 EST eAVG Glucose 157 mg/dL 11/02/2020 11:00 EST WBC 11.4 K/uL (High) 11/02/2020 11:00 EST RBC 4.86 Million/uL 11/02/2020 11:00 EST Hgb 13.3 Gram/dL (Low) 11/02/2020 11:00 EST Hct 42.1 % 11/02/2020 11:00 EST MCV 86.6 fL 11/02/2020 11:00 EST MCH 27.4 pg 11/02/2020 11:00 EST MCHC 31.6 Gram/dL (Low) 11/02/2020 11:00 EST Platelet Count 294 K/uL 11/02/2020 11:00 EST MPV 9.9 fL 11/02/2020 11:00 EST RDW 13.7 % 11/02/2020 11:00 EST Neut % 70.8 % 11/02/2020 11:00 EST Neut # 8.07 K/uL (High) 11/02/2020 11:00 EST Lymph % 21.4 % 11/02/2020 11:00 EST Lymph # 2.44 K/uL 11/02/2020 11:00 EST [place] % 6.1 % 11/02/2020 11:00 EST [place] # 0.69 K/uL 11/02/2020 11:00 EST Eos % 0.9 % (Low) 11/02/2020 11:00 EST Eos # 0.10 K/uL 11/02/2020 11:00 EST Baso % 0.4 % 11/02/2020 11:00 EST Baso # 0.04 K/uL 11/02/2020 11:00 EST Slide Review No 11/02/2020 11:00 EST IG# 0 x10(3)/uL 11/02/2020 11:00 EST IG% 0 % 11/02/2020 11:00 EST PT 10.8 Second(s) 11/02/2020 11:00 EST INR 1.0 11/02/2020 11:00 EST PTT 30.8 Second(s) 11/02/2020 11:00 EST Urine Type. U CleanCatch 11/02/2020 11:00 EST Urine Color YELLOW2 11/02/2020 11:00 EST Urine Appearance CLOUDY2 (Abnormal) 11/02/2020 11:00 EST Urine Specific [place] 1.023 11/02/2020 11:00 EST Urine pH Dipstick 5.5 (Low) 11/02/2020 11:00 EST Urine Leukocyte Esterase MODERATE2 (Abnormal) 11/02/2020 11:00 EST Urine Nitrite NEGATIVE2 11/02/2020 11:00 EST Urine Protein Dipstick 30 (Abnormal) 11/02/2020 11:00 EST Urine Glucose Dipstick NEGATIVE2 11/02/2020 11:00 EST Urine Ketones Dipstick NEGATIVE2 11/02/2020 11:00 EST Urine Urobilinogen Dipstick 0.2 11/02/2020 11:00 EST Urine Bilirubin Dipstick NEGATIVE2 11/02/2020 11:00 EST Urine Blood Dipstick TRACE2 (Abnormal) 11/02/2020 11:00 EST Ur RBC None Seen 11/02/2020 11:00 EST Ur WBC 50-100 (Abnormal) 11/02/2020 11:00 EST Ur WBC Clumps Present (Abnormal) 11/02/2020 11:00 EST Ur Bacteria 3+ (Abnormal) 11/02/2020 11:00 EST Ur Squamous Epithelial Cells 5-10 (Abnormal) 11/02/2020 11:00 EST Ur Calcium Oxalate Crystals 3+ (Abnormal) 11/02/2020 11:00 EST Ur Hyaline Casts 2-5 (Abnormal) 11/02/2020 11:00 EST Electronically signed by Justina Lozano Conversion Automation Control Integrator Cerner at 03/19/2023 6:34 PM CDT documented in this encounter Plan of Treatment Not on file documented as of this encounter Visit Diagnoses Not on filedocumented in this encounter
--- OUTSIDE RECORDS SUMMARY | 2025-06-14 10:42 | XMS_ITS | Encounter Summary ---
Author Organization [employer] ([place], [place], [place], [place]) Address [address] [place] [address] Care Team Providers Care Director Speech Language Name Role Phone Unavailable Primary Care Provider Unavailabl e Encounter Details Date Type Department Care Team (Late st Contact Info) Description 12/08/2020 Transcribed Document [facility] [place] Family Medicine [address] [place] [address] ProviderAshly MD [address] [place] [address] Social History Tobacco Use Types [...] Conversion Note - Historical ProviderMD - 12/08/2020 2:42 PM FIELD AUTOMOBILE ADJUSTER JAYLIN Entered On: 12/08/2020 14:42 EST Performed On: 12/08/2020 14:42 EST by RICHA BUTLER MD-INT JAYLIN Indication of use for OOCS : Acute Illness OOCS Misuse Suspected : Other Was JAYLIN queried : Other Patient Advised to seek OOCS Treatment : Other Treatment to Include Limited Supply of OOCS : Other JAYLIN Result : Other JAYLIN Other Notes : As per Dr. Mora office records Patient cancelled on OOCS : Other JAYLIN : . RICHA BUTLER MD-INT - 12/08/2020 14:42 EST documented in this encounter Plan of Treatment Not on file documented as of this encounter Visit Diagnoses Not on filedocumented in this encounter
--- OUTSIDE RECORDS SUMMARY | 2025-06-14 10:42 | XMS_ITS | Encounter Summary ---
Author Organization [employer] ([place], [place], [place], [place]) Address [address] [place] [address] Care Team Providers Care Veterinary Medicine Scientist Name Role Phone Unavailable Primary Care Provider Unavailabl e Encounter Details Date Type Department Care Team (Late st Contact Info) Description 11/02/2020 Transcribed Document [facility] Family Medicine [facility] [place] [address] ProviderAshly MD [address] [place] [address] Social History Tobacco Use Types Packs/Day Years Used Date Smoking Tobacco: Never Assessed Sex and Gender Information Value Date Recorded Sex Assigned at Male 05/28/2022 4:44 PM CDT Legal Sex Male 4:44 PM CDT Gender Identity Male 05/28/2022 4:44 PM CDT Sexual Orientation Not on file documented as of this encounter Miscellaneous Notes * Cerner Conversion Note - Historical ProviderMD - 11/02/2020 10:26 AM DISEASE CASE MANAGER PAT Adult Entered On: 11/02/2020 10:27 EST Performed On: 11/02/2020 10:26 EST by CAROL MADERA RN Vital Measurements Temperature Source : Temporal artery scanning Temperature Mode : Fahrenheit Temperature, Fahrenheit : 96.1 Deg F (LOW) Clinical Temperature, C : 35.6 Deg C Peripheral Pulse Rate : 96 bpm Respiratory Rate : 18 Breaths/Min Systolic Blood Pressure : 148 mmHg (HI) Diastolic Blood Pressure : 70 mmHg Oxygen Saturation : 96 % Oxygen Therapy Mode : Room air CAROL MADERA RN - 11/02/2020 10:33 EST Height and Weight, Clinical Dosing Height Source : Stated Height Entry Format : [place] Height, Feet : 6 ft(Converted to: 183 cm, 72 Inch) Height, Inches : 4 Inch(Converted to: 0 ft 4 Inch, 10.16 cm) Clinical Height : 193.04 cm Weight Source : Standing scale Weight Entry Format : [place] Clinical Dosing Weight : 140.91 kg Weight, Pounds : 310 lb Body Surface Area (BSA) : 2.67 m2 Body Mass Index : 37.8 kg/m2 (HI) [place] Body Weight : 86 kg CAROL MADERA RN - 11/02/2020 10:26 EST Health Histories Smoking Status : Never (less than 100 in lifetime; none in last 30 days) Smokeless Tobacco Status : Never CAROL MADERA RN - 11/02/2020 10:33 EST Social History (As Of: 11/02/2020 10:37:52 EST) Tobacco: Former smoker, quit more than 30 days ago Smoking Status. Never Smokeless Tobacco Status. (Last Updated: 11/02/2020 10:26:51 EST by CAROL MADERA RN) Alcohol: Alcohol Use History Yes. Alcohol Use Frequency Rarely. (Last Updated: 11/02/2020 10:26:51 EST by CAROL MADERA RN) Substance Abuse: Drug Use Hx: No. (Last Updated: 11/02/2020 10:26:51 EST by CAROL MADERA RN) Infectious Disease History Has the patient ever been tested for COVID-19? : Yes, Patient stated results Positive Where was the COVID-19 Testing completed? : [facility] Date of COVID-19 test known? : No Does patient have symptoms of COVID-19? : No COVID19 Screening : No Experiencing Infectious Disease Symptoms : No symptoms Physical contact outside [place] in the last 30 days : No Infectious Disease History : Chicken pox/Shingles, Influenza, Mumps Tuberculosis Symptoms : None CAROL MADERA RN - 11/02/2020 10:33 EST COVID19 PreProcedure Screening Is this an Emergent or Add on Procedure? : No Date PreProcedure COVID-19 test known? : No Has patient been isolated since the test : N/A - PreProcedure, in-person visit Exposed to COVID19 symptoms since test? : N/A - PreProcedure, in-person visit CAROL MADERA RN - 11/02/2020 10:33 EST Anesthesia/Transfusion History Family History of Anesthesia Reaction : No prior transfusion(s) Transfusion History : Prior anesthesia without reaction Family History of Anesthesia Reaction : None CAROL MADERA RN - 11/02/2020 10:33 EST Functional Assessment Functional ADL Evaluation Index EBN Bathing : Independent (2) Dressing : Independent (2) Toileting : Independent (2) Transferring Bed or Chair : Independent (2) Continence : Independent (2) Feeding : Independent (2) CAROL MADERA RN - 11/02/2020 10:33 EST ADL Index Score : 12 CAROL MADERA RN - 11/02/2020 10:33 EST Advance Directive Patient has Advance Directive *Q : No, patient refuses Advance Directive information CAROL MADERA RN - 11/02/2020 10:33 EST [place] Suicide Severity Rating Scale (C-SSRS) CSSRS Past Month Wish to be : No CSSRS Past Month Suicidal Thoughts : No CSSRS Lifetime Suicide Behavior : No Suicide Severity Rating Score : 0 Suicide Severity Rating : No Additional Care Required at this time CAROL MADERA RN - 11/02/2020 10:33 EST Psychosocial History Do You Have a History of the Following? : Patient denies history Currently in Unsafe Situation : No CAROL MADERA RN - 11/02/2020 10:33 EST Teaching/Learning Assessment Barriers To Learning : None evident Individuals Taught : Patient Readiness to Learn : Cooperative Readiness to Learn : Explanation, Printed materials CAROL MADERA RN - 11/02/2020 10:33 EST Education Topics, Periop Preadmission Perioperative Education Grid Arrival Time/Place : Verbalizes understanding G Preoperative Bathing/Cloths : Verbalizes understanding Infection Control : Verbalizes understanding NPO Status/Directions : Verbalizes understanding Preprocedure Preparations : Verbalizes understanding Preprocedure Tests/Labs : Verbalizes understanding Remove Body Piercings : Verbalizes understanding Responsible Adult : Verbalizes understanding Take/Hold Medications Pre-Procedure : Verbalizes understanding CAROL MADERA RN - 11/02/2020 10:33 EST General Info Want Family/Rep/Phys Notified of Admit : No Emergency Contact #1 : Ava Watkins Emergency Contact #1 Emergency Contact #1 Relationship : spouse Emergency Contact #2 : - Emergency Contact #2 Phone Number : - Emergency Contact #2 Relationship : - Primary Language : Kiswahili Communication Barrier : None Leather Cutter Needed : No CAROL MADERA RN - 11/02/2020 10:33 EST Sam Scale Sam Sensory Perception : No impairment Sam Moisture : Rarely moist Sam Activity : Walks frequently Sam Mobility : No limitation Sam Nutrition : Excellent Sam Friction and Shear : No apparent problem Sam Score : 23 CAROL MADERA RN - 11/02/2020 10:33 EST Sleep Apnea Risk Assmt Hx of [...] Sleep Apnea Risk Level Score : 5 CAROL MADERA RN - 11/02/2020 10:33 EST documented in this encounter Plan of Treatment Not on file documented as of this encounter Visit Diagnoses Not on filedocumented in this encounter
--- OUTSIDE RECORDS SUMMARY | 2025-06-14 10:42 | XMS_ITS | Encounter Summary ---
Author Organization [employer] ([place], [place], [place], [place]) Address [address] [place] [address] Care Team Providers Care Senior Professional Services Consultant Name Role Phone Unavailable Primary Care Provider Unavailabl e Encounter Details Date Type Department Care Team (Late st Contact Info) Description 12/08/2020 Transcribed Document [facility] [place] Family Medicine [facility] [place] [address] ProviderAshly MD [address] [place] [address] Social History Tobacco Use Types Packs/Day Years Used Date Smoking Tobacco: Never Assessed Sex and Gender Information Value Date Recorded Sex Assigned at Male 05/28/2022 4:44 PM CDT Legal Sex Male 4:44 PM CDT Gender Identity Male 05/28/2022 4:44 PM CDT Sexual Orientation Not on file documented as of this encounter Miscellaneous Notes * Cerner Conversion Note - Ashly ProviderMD - 12/08/2020 4:11 PM SHIPS OR BARGES LOADER Final Discharge Planning Entered On: 12/08/2020 16:15 EST Performed On: 12/08/2020 16:11 EST by SHEILA FOLEY RN Final Discharge Planning Discharge Arrangements : Patient Post-Acute Information Patient Name: CYNTHIA CUEVAS JR Gender: Male : 55 Age: 65 Years No Post-Acute Placement(s) Listed No Post-Acute Service(s) Listed No [place] Referral(s) Listed Patient Offered Choice/Affiliations Explained : Yes Designation of Choice Signed : Yes Important Medicare Message Reviewed With : Other: NA Transportation Needs : Family/Friend Follow Up Appointment Scheduled : Yes Is Patient High/Moderate Readmission Risk? : No Patient/Family Notified of Plan : Yes Support Person/Pt Rep Notified of Plan : Yes Is Patient Ready for Discharge? : Yes Physician Notified Patient is Ready for Discharge? : Yes Discharge To Care Management : Home Health Services (Related/SOC within 3 days)-06 SHEILA FOLEY RN - 12/08/2020 16:11 EST Final Narrative Note Historical Narrative Note : Patient discharging home today. Will go to [facility] for outpatient IV infusion SHEILA FOLEY RN - 12/08/20 16:15:50 Final Narrative Note : Patient discharging home today. Will go to [facility] for outpatient IV infusion. caretenders to follow patient at discharge. No further CM needs identified. SHEILA FOLEY RN - 12/08/2020 16:16 EST documented in this encounter Plan of Treatment Not on file documented as of this encounter Visit Diagnoses Not on filedocumented in this encounter
--- OUTSIDE RECORDS SUMMARY | 2025-06-14 10:42 | XMS_ITS | Encounter Summary ---
Author Organization [facility] ([place], [place], [place], [place]) Address [address] [place] [address] Care Team Providers Care Coach Professional Athletes Name Role Phone Unavailable Primary Care Provider Unavailabl e Encounter Details Date Type Department Care Team (Late st Contact Info) Description 12/08/2020 Transcribed Document [facility] Family Medicine [facility] [place] [address] ProviderAshly MD [address] [place] [address] Social History Tobacco Use Types [...] Conversion Note - Historical ProviderMD - 12/08/2020 9:02 PM TEAM PHYSICIAN Nursing Discharge Summary Entered On: 12/08/2020 21:04 EST Performed On: 12/08/2020 21:02 EST by Luli Santiago Rn Discharge Documentation Discharge Date/Time : 12/08/2020 17:40 EST Patient Disposition, General : Discharge Discharge To : Home with ambulatory/outpatient follow-up Mode Of Departure, General Discharge : Private vehicle Accompanied By, Discharge : Spouse IV Discontinued : Yes Personal Belongings With Patient : Yes Pt's Own Supply of Medications Returned : No patient supply of medications to return Teaching Method : Explanation, Printed materials Teaching Evaluation : Verbalizes understanding Education Comment : Patient discharge home, discharge teaching performed and patient verbalized understanding. Luli Santiago Rn - 12/08/2020 21:02 EST Electronically signed by [facility] Conversion Warp Yarn Sorter Cerner at 03/19/2023 6:47 PM CDT documented in this encounter Plan of Treatment Not on file documented as of this encounter Visit Diagnoses Not on filedocumented in this encounter
--- OUTSIDE RECORDS SUMMARY | 2025-06-14 10:42 | XMS_ITS | Clinical Summary ---
Author Organization [facility] Address [address] [place], [place] [address] Phone Care Team Providers Care School Psychology Specialist Name Role Phone Jeremi Freedman MD Primary Care Provider [phone] Allergies No known active allergies Medications metFORMIN (GLUCOPHAGE XR) 500 mg Oral ER 24 hr tablet Take 500 mg by mouth 2 times daily (with meals). Active omeprazole (PRILOSEC) 40 mg Oral Capsule, Delayed Release(E.C.) Take 40 mg by mouth daily. Active atorvastatin (LIPITOR) 20 mg Oral Tablet Take by mouth daily. Active glucosamine/cho ndroitin/C/Rocky (GLUCOSAMINE 1500 COMPLEX ORAL) Take by mouth 2 times daily. Active zinc gluconate 50 mg Oral Tablet Take 50 mg by mouth daily. Active vitamin B complex (B COMPLEX 1 ORAL) Take by mouth. Active cholecalciferol , vitamin D3, 25 mcg (1,000 unit) Oral Tablet Take 1 Tablet by mouth daily. Active TURMERIC ORAL Take by mouth. Active acetaminophen (TYLENOL) 500 mg Oral Tablet Take 2 Tablets by mouth every 6 hours. 12/10/2022 Active hydrALAZINE (APRESOLINE) 25 mg Oral Tablet Take 1 Tablet by mouth every 8 hours. 12/10/2022 Active amLODIPine (NORVASC) 10 mg Oral Tablet Take 1 Tablet by mouth daily. 12/11/2022 Active ferrous sulfate 325 mg (65 mg iron) Oral Tablet Take 1 Tablet by mouth 2 times daily (with meals). 12/10/2022 Active methocarbamoL 1,000 mg Oral Tablet Take 1,000 mg by mouth 3 times daily as needed for Muscle spasms. 12/10/2022 Active Active Problems Problem Noted Date Diagnosed Date Lumbar stenosis with neurogenic claudication 01/2023 Spinal stenosis of thoracic region 11/19/2022 Overview (11/19/2022): Added automatically from request for surgery [id number] Spinal stenosis, lumbar home on, without neurogenic claudication 11/19/2022 Overview (11/19/2022): Added automatically from request for surgery [id number] Surgical History Surgery Date Site/Laterality Comments KNEE SURGERY Bilateral scopes SHOULDER SURGERY CHOLECYSTECTOMY TONSILLECTOMY COLONOSCOPY JOINT REPLACEMENT Left THORACIC LAMINECTOMY 12/03/2022 Spine/N/A thoracic and lumbar laminectomy T11/12 T12/L1 and L3/4 L4/5; Surgeon: Johnnie King MD; Location: [facility] OR; Service: Neurosurgery LUMBAR DISC SURGERY 12/03/2022 Spine/N/A Surgeon: Johnnie King MD; Location: [facility]; Service: Neurosurgery Medical History Medical History Date Comments Hypertension Hyperlipidemia Heartburn Arthritis Family History Medical History Relation Name Comments Cancer Father High Blood Pressure Father Relation Name Status Comments Father Social History Tobacco Use Types Packs/Day Years Used Date Smoking Tobacco: Former Cigarettes Q uit: 1999 Smokeless Tobacco: Current Chew Tobacco Cessation:Ready to Q uit: Not Asked; Counseling Given: Not Answered Comments:rare Alcohol Use Standard Drinks/Week Comments Yes [...] on file Sexual Orientation Not on file Obstetrics History Last Filed Vital Signs Vital Sign Reading Time Taken Comments Blood Pressure 137/71 12/10/2022 1:01 PM EST Pulse 104 12/10/2022 12:49 PM EST Temperature 37 C (98.6 F) 12/10/2022 12:49 PM EST Respiratory Rate 18 12/10/2022 8:10 AM EST Oxygen Saturation 94% 12/10/2022 12:49 PM EST Inhaled Oxygen Concentration - - Weight 144 kg (317 lb 7.4 oz) 12/09/2022 2:33 PM EST Height 193 cm (6' 4 ) 12/09/2022 2:33 PM EST Body Mass Index 38.64 12/09/2022 2:33 PM EST Plan of Treatment Health Maintenance Due Date Last Done Comments Annual Wellness Exam 1958 Hepatitis C Screening 1973 DTaP/TDaP/Td (1 - Tdap) 1974 Cologuard 2000 Colon Cancer Screening 2000 Colonoscopy 2000 FIT 2000 Sigmoidoscopy 2000 Virtual Colonography 2000 Pneumococcal Vaccine 50+ (1 of 1 - PCV) 2005 Zoster (1 of 2) 2005 AAA Screening 2020 COVID-19 Vaccine (1 - 2023-2 5 season) 2024 Influenza Vaccine (#1) 2025 09/29/2017 Hepatitis B Vaccine Aged Out No longe r eligible based on patient's age to complete this topic Meningococcal B Vaccine Aged Out No l onger eligible based on patient's age to complete this topic Medical Devices Implanted Type Area Hand Cultivator Device Identifier Shelf Expiration Date Model / Serial / Lot Ltkr Insurance [employer] MEDICARE SUPPLMNTL H[place] MEDICARE [place] PART A AND B [employer] MEDICARE SUPPLMNTL [place] MEDICARE [place] PART A AND B Advance Directives For more information, please contact: [phone] * Full Code (Latest Code Status on File) Date Activated Date Inactivated Comments 12/03/2022 5:42 PM 12/10/2022 8:39 PM Care Teams School Psychology Specialist Relationship Specialty Start Date End Date Jeremi Freedman MD [address] [place] [address] [place] [id number] PCP - General Internal Medicine-Adolescent Medicine 11/26/22
--- OUTSIDE RECORDS SUMMARY | 2025-06-14 10:42 | XMS_ITS | Encounter Summary ---
Author Organization [employer] ([place], [place], [place], [place]) Address [address] [place] [address] Care Team Providers Care Senior Cytogenetic Technologist Name Role Phone Unavailable Primary Care Provider Unavailabl e Encounter Details Date Type Department Care Team (Late st Contact Info) Description 11/15/2020 Transcribed Document [facility] [place] Family Medicine [address] [place] [address] ProviderAshly MD [address] [place] [address] Social History Tobacco Use Types [...] Conversion Note - Historical ProviderMD - 11/15/2020 1:26 PM EVENT PROMOTIONS COORDINATOR Treatment Intervention, PT Entered On: 11/16/2020 14:40 EST Performed On: 11/16/2020 9:24 EST by ALOK ADDISON PTA General Information, PT Visit Type, PT : Treatment Note Patient Orders : Order Date Order Ordering 11/15/2020 12:04 PT Evaluation and Treatment Ordered By: REJI LUCIANO JR, JR, MD-ORT 11/15/2020 13:26 PT Additional Treatment Ordered By: LORY THORNTON, PT Active Diagnoses : 11/15/2020 12:00 Deficiency of other specified B group vitamins 11/15/2020 12:00 Essential (primary) hypertension 11/15/2020 12:00 Gastro-esophageal reflux disease without esophagitis 11/15/2020 12:00 Obesity, unspecified 11/15/2020 12:00 Other specified personal risk factors, not elsewhere classified 11/15/2020 12:00 Pain in left knee 11/15/2020 12:00 Presence of left artificial knee joint 11/15/2020 12:00 Pure hypercholesterolemia, unspecified 11/15/2020 12:00 Type 2 diabetes mellitus without complications 11/15/2020 12:00 Unilateral primary osteoarthritis, left knee 11/15/2020 12:00 Vitamin D deficiency, unspecified Therapy Diagnosis, PT : Aftercare following a Left TKA Admission Date : 11/15/2020 03:55 Personal Devices : Personal Devices Glasses Assistive Devices : Assistive Devices No Devices Recorded Precautions in Place : Fall prevention measures, Fall prevention measures, high risk ALOK ADDISON PTA - 11/16/2020 14:07 EST General Status Patient Received Status : Long sitting in bed, Bed alarm activated, Other: Pulse oximeter (99% while on 2L O2), ON-Q pump intact, polar care on left knee, SCDs Treatment Start Time : 11/16/2020 8:44 EST Patient Left Status : Long sitting in bed, Bed alarm activated, RN/PCT informed, All needs met and within reach, Other: ON-Q pump intact, polar care on left knee, SCDs, ART CONSULTANT arrived to take vitals and to attach lines adn O2 if needed. RN/PCT Informed Comment : RN agreed to phsyical therapy Treatment End Time : 11/16/2020 9:24 EST Treatment Time : 40 Minute(s) ALOK ADDISON PTA - 11/16/2020 14:07 EST Edu Topics Physical Therapy Education Grid Bed Mobility Training : Verbalizes understanding, Returns demonstration Gait Training : Verbalizes understanding, Returns demonstration Home Program/Exercises : Verbalizes understanding, Returns demonstration Stair Training : Verbalizes understanding, Returns demonstration Therapeutic Exercises : Verbalizes understanding, Returns demonstration Transfer Training : Verbalizes understanding, Returns demonstration Use of Assistive Device : Verbalizes understanding, Returns demonstration ALOK ADDISON PTA 11/16/2020 14:07 EST Plan of Care, PT PT Tx Plan/Goals Established w Patient : Yes ALOK ADDISON PTA 11/16/2020 14:07 EST Senior Systems Developer Goals Other PT LTG Grid Goal #1 [...] 11/20/2020 EST 11/20/2020 EST Goal Status : Goal met Goal met Goal met Date Met : 11/16/2020 EST 11/16/2020 EST 11/16/2020 EST ALOK ADDISON, SECURITY OPERATIONS CENTER OPERATOR - 11/16/2020 14:07 EST ALOK ADDISON, SECURITY OPERATIONS CENTER OPERATOR - 11/16/2020 14:07 EST ALOK ADDISON, SECURITY OPERATIONS CENTER OPERATOR - 11/16/2020 14:07 EST Treatment Note Subjective Comment : Patient agreed to physical therapy Patient's Response to Treatment : No adverse reactions to therapy this AM session Additional Objective Information : SBA with bed mobility and transfers. Gait training 100' + 100' SBA with RWx. Reciprocal gait pattern, Uneven stride length, decreased stance time on left LE. Ascended/descended 4 stairs CGA with bilateral handrails safely and correctly. (10 minutes). Left LE ther ex sitting/supine on mat table x 20 AROM (knee flexion with skate board, long arc quads, ankle pumps, quad sets, gluteal squeezes, short arc quads, heel slides, straight leg raises). (30 minutes). Independent with HEP that was given and reviewed. Left knee ROM = 0* extension AROM - 104* flexion AROM Assessment : Met LTG's #1, #2, #3 Plan for Treatment : All goals met. Anticipated d/c home today ALOK ADDISONANTHONY - 11/16/2020 14:07 EST Pain Assessment Pain Score Pre-Intervention : 2 Pain Score During-Intervention : 4 Pain Score Post-Intervention. : 3 ALOK ADDISONANTHONY - 11/16/2020 14:07 EST Image 1 - Images currently included in the form version of this document have not been included in the text rendition version of the form. [place] PT Charges SECURITY OPERATIONS CENTER OPERATOR PT Therap. Exercise 15 min-SECURITY OPERATIONS CENTER OPERATOR : 2 Gait Training Each 15 Min-SECURITY OPERATIONS CENTER OPERATOR : 1 ARACELI ADDISONANTHONY MARES - 11/16/2020 14:07 EST documented in this encounter Plan of Treatment Not on file documented as of this encounter Visit Diagnoses Not on filedocumented in this encounter
--- OUTSIDE RECORDS SUMMARY | 2025-06-14 10:42 | XMS_ITS | Encounter Summary ---
Author Organization [employer] ([place], [place], [place], [place]) Address [address] [place] [address] Care Team Providers Care Integrity Analyst Name Role Phone Unavailable Primary Care Provider Unavailabl e Encounter Details Date Type Department Care Team (Late st Contact Info) Description 11/02/2020 Transcribed Document [facility] [place] [facility] [address] ProviderAshly MD [address] [place] [address] Social History Tobacco Use Types [...] Conversion Note - Historical ProviderMD - 11/02/2020 1:45 PM NEGOTIATOR Orthopedic Nurse Navigator Entered On: 11/02/2020 13:46 EST Performed On: 11/02/2020 13:45 EST by Narcisa Wiggins, [place] Orthopedic Nurse Navigator Assessment Attended Joint Academy : Yes Joint AcademyType : Online Joint Audiovisual Equipment Operator Attended Academy : Yes Joint Audiovisual Equipment Operator Name : will be joint financial coach Type of Surgery : Total Knee Replacement, Left Does Patient Have a Walker? : No Anticipated Discharge Plan : Outpatient PT Anticipated Discharge Plan Comment : needs walker and BSC ok with [facility] Narcisa Wiggins, [place] - 11/02/2020 13:45 EST documented in this encounter Plan of Treatment Not on file documented as of this encounter Visit Diagnoses Not on filedocumented in this encounter
--- OUTSIDE RECORDS SUMMARY | 2025-06-14 10:42 | XMS_ITS | Encounter Summary ---
Author Organization [employer] ([place], [place], [place], [place]) Address [address] [place] [address] Care Team Providers Care Track Manager Name Role Phone Unavailable Primary Care Provider Unavailabl e Encounter Details Date Type Department Care Team (Late st Contact Info) Description 12/08/2020 Transcribed Document [facility] [place] Family Medicine [facility] [place] [address] ProviderAshly MD [address] [place] [address] Social History Tobacco Use Types [...] Conversion Note - Historical ProviderMD - 12/08/2020 11:58 AM EDGE CUTTING MACHINE OPERATOR [facility] OT Charges Entered On: 12/08/2020 11:58 EST Performed On: 12/08/2020 11:58 EST by TEVIN LOCKHART OTR/Vasile Broussard OT Charges Screen For Statistical Secretary : 1 TEVIN LOCKHART OTR/Vasile - 12/08/2020 11:58 EST documented in this encounter Plan of Treatment Not on file documented as of this encounter Visit Diagnoses Not on filedocumented in this encounter
--- OUTSIDE RECORDS SUMMARY | 2025-06-14 10:42 | XMS_ITS | Encounter Summary ---
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 Pain and swelling. ?? A small amount of blood or clear fluid coming from your incision for up to 7 days. ?? It is normal to have a moderate amount of bleeding from the site of the drain that was pulled on the morning after surgery. You can hold pressure on the area for 3-5 minutes and cover with a bandage as needed. Diet: ?? Resume usual diet ?? No alcoholic beverages while taking pain medication ?? Drink 8-10 glasses of water a day to prevent constipation from pain medication ?? Increase fiber to help prevent constipation. Straining can cause increased pressure and pain in your incision area ?? Increase protein to promote healing Driving: ?? Do not drive until your health care provider approves. Ask your health care provider when it is safe to drive if you have an immobilizer on your knee. ?? Do not drive or operate heavy machinery while taking prescription pain medicine. ?? Do not drive for 24 hours if you received a sedative. Activity: ?? Do not lift anything that is heavier than 10 lb (4.5 kg) until your health care provider approves. ?? No strenuous activity ?? Avoid high-impact activities, including running, jumping rope, and jumping jacks. ?? Avoid sitting for a long time without moving. Get up and move around at least every few hours. ?? Keep legs elevated while seated and place surgery leg on 2-3 pillows, this will decrease swelling ?? Continue doing blue foam and sommer basin ???tub time?? 3 times a day for 30 minutes at a time. More often is better. ?? Continue using walker until cleared by physical therapy Bathing: ?? Do not take baths, swim, or use a hot tub for one month after surgery. ?? May shower on the third day after surgery by covering incision with Glad Brand Press and Seal saran wrap. After showering, dry off completely BEFORE removing saran wrap. ?? Use Press and Seal saran wrap to shower for one month after surgery ?? You must be seated to shower until you are no longer using the walker Other: ?? Use ice therapy for 20-30 minutes at a time and leave off for 20-30 minutes at a time. Always keep a towel or cloth between the ice pack and your skin ?? Continue to use Incentive Spirometer 10 times an hour while awake for one month to help prevent pneumonia ?? Leave Mepilex on until follow up appointment. ?? ASA 81mg twice a day for 30 days. Contact a health care provider if: ?? You have more redness, swelling, or pain around your incision. ?? You have more fluid or blood coming from your incision. ?? Your incision or drain site feels warm to the touch. ?? You have pus or a bad smell coming from your incision. ?? You have a fever. ?? Your incision breaks open after your health care provider removes your sutures, skin glue, or adhesive tape. ?? Your prosthesis feels loose. ?? You have knee pain that does not go away Get help right away if you have: ?? Pain or swelling in your calf or thigh ?? shortness of breath or difficulty breathing ?? chest pain DVT: Blood Clot Blood clots are a common risk after an orthopedic surgery Symptoms: ?? Swelling of your leg or arm, especially if one side is much worse. ?? Warmth and redness of your leg or arm, especially if one side is much worse. ?? Pain in your arm or leg. If the clot is in your leg, symptoms may be more noticeable or worse when you stand or walk. ?? A feeling of pins and needles, if the clot is in the arm. The symptoms of a DVT that has traveled to the lungs (pulmonary embolism, PE) usually start suddenly and include: ?? Shortness of breath while active or at rest. ?? Coughing or coughing up blood or blood-tinged mucus. ?? Chest pain that is often worse with deep breaths. ?? Rapid or irregular heartbeat. ?? Feeling light-headed or dizzy. ?? Fainting. ?? Feeling anxious. ?? Sweating. There may also be pain and swelling in a leg if that is where the blood clot started. How is this prevented? ?? Exercise regularly. For at least 30 minutes every day, engage in: ? Activity that involves moving your arms and legs. ? Activity that encourages good blood flow through your body by increasing your heart rate. ?? Exercise your arms and legs every hour during long-distance travel (over 4 hours). ?? Drink plenty of water and avoid drinking alcohol while traveling. ?? Avoid sitting or lying in bed for long periods of time without moving your legs. ?? Maintain a weight that is appropriate for your height. Ask your health care provider what weight is healthy for you. ?? If you are a woman who is over 35 years of age, avoid unnecessary use of medicines that contain estrogen. These include control pills. ?? Do not smoke, especially if you take estrogen medicines. If you need help quitting, ask your health care provider. ?? Wear compression stockings (if told by your health care provider) to help prevent blood clots from forming. High Fiber/High Protein Diet High fiber foods: To prevent constipation ?? Grains Whole-grain breads. Multigrain cereal. Oats and oatmeal. Brown rice. Barley. Bulgur wheat. Millet. Bran muffins. Popcorn. Sawyer wafer crackers. ?? Vegetables Sweet potatoes. Spinach. Kale. Artichokes. Cabbage. Broccoli. Green peas. Carrots. Squash. ?? Fruits Berries. Pears. Apples. Oranges. Avocados. Prunes and raisins. Dried figs. ?? Meats and Other Protein Sources Brogan, kidney, whitney, and soy beans. Split peas. Lentils. Nuts and seeds. ?? Dairy Fiber-fortified yogurt. ?? Beverages Fiber-fortified soy milk. Fiber-fortified orange juice. ?? Other Fiber bars. High-protein foods: To promote healing High-protein foods contain 4 grams (4 g) or more of protein per serving. They include: ?? Beef, ground sirloin (cooked) ??? 3 oz have 24 g of protein. ?? Cheese (hard) ??? 1 oz has 7 g of protein. ?? Chicken breast, boneless and skinless (cooked) ??? 3 oz have 13.4 g of protein. ?? Cottage cheese ??? 1/2 cup has 13.4 g of protein. ?? Egg ??? 1 egg has 6 g of protein. ?? Fish, filet (cooked) ??? 1 oz has 6???7 g of protein. ?? Garbanzo beans (canned or cooked) ??? 1/2 cup has 6???7 g of protein. ?? Kidney beans (canned or cooked) ??? 1/2 cup has 6???7 g of protein. ?? Buenrostro (cooked) ??? 3 oz has 24 g of protein. ?? Milk ??? 1 cup (8 oz) has 8 g of protein. ?? Nuts (peanuts, pistachios, almonds) ??? 1 oz has 6 g of protein. ?? Peanut butter ??? 1 oz has 7???8 g of protein. ?? Pork tenderloin (cooked) ??? 3 oz has 18.4 g of protein. ?? Pumpkin seeds ??? 1 oz has 8.5 g of protein. ?? Soybeans (roasted) ??? 1 oz has 8 g of protein. ?? Soybeans (cooked) ??? 1/2 cup has 11 g of protein. ?? Soy milk ??? 1 cup (8 oz) has 5???10 g of protein. ?? Soy or vegetable magdalena ??? 1 magdalena has 11 g of protein. ?? Burbank seeds ??? 1 oz has 5.5 g of protein. ?? Tofu (firm) ??? 1/2 cup has 20 g of protein. ?? Tuna (canned in water) ??? 3 oz has 20 g of protein. ?? Yogurt ??? 6 oz has 8 g of protein. Fall Prevention ?? Use night lights. ?? Install grab bars by the toilet and in the tub and shower. Do not use towel bars as grab bars. ?? Use non-skid mats or decals on the floor of the tub or shower. ?? If you need to sit down while you are in the shower, use a plastic, non-slip stool. ?? Keep the floor dry. Immediately clean up any water that spills on the floor. ?? Remove soap buildup in the tub or shower on a regular basis. ?? Remove throw rugs and other tripping hazards from the floor. ?? Place frequently used items in [id number]-[id number] places ?? Keep electrical cables out of the way. ?? Do not leave any items on the stairs. ?? Make sure that there are handrails on both sides of the stairs. Fix handrails that are broken or loose. Make sure that handrails are as long as the stairways. ?? Check any carpeting to make sure that it is firmly attached to the stairs. Fix any carpet that is loose or worn. ?? Avoid having throw rugs at the top or bottom of stairways, or secure the rugs with carpet tape to prevent them from moving. ?? Wear closed-toe shoes that fit well and support your feet. Wear shoes that have rubber soles or low heels. ?? Use mobility aids as needed, such as canes, walkers, scooters, and crutches. ?? Turn on lights if it is dark. Replace any light bulbs that burn out. ?? Set up furniture so that there are clear paths. Keep the furniture in the same spot. ?? Be aware of any and all pets. ?? Review your medicines with your healthcare provider. Some medicines can cause dizziness or changes in blood pressure, which increase your risk of falling. Hand Washing You should wash your hands whenever you think they are dirty. You should also wash your hands: ?? After: ? Working or playing outside. ? Touching an animal or its toys or leash. ? Handling livestock. ? Using the bathroom. ? Using household assembler engine or toxic chemicals. ? Touching or taking out the garbage. ? Touching anything dirty around your home. ? Handling soiled clothes or rags. ? Taking care of a sick child. This includes touching used tissues, toys, and clothes. ? Sneezing, coughing, or blowing your nose. ? Using public transportation. ? Shaking hands. ? Using a phone, including your mobile phone. ? Touching money. ?? Before and after: ? Preparing food. ? Feeding a baby or young child. ? Eating. ? Visiting or taking care of someone who is sick. ? Changing a diaper. ? Changing a bandage (dressing) or taking care of an injury or wound. ? Giving or taking medicine. If soap and clean water are not available, use an alcohol-based wipe, spray, or hand gel. Use a hand-sanitizing agent that contains at least 60% alcohol. If you are preparing food, hand sanitizers are not recommended as a substitute for hand washing. Walker Use To Walk With a Front-Wheeled Walker: 1. Slide your front-wheeled walker one step-length in front of you. Your toes should be farther forward than the back legs of your walker. 2. Hold on to the walker for support, and step your weaker (surgery) leg into the middle of the walker. 3. Step your stronger leg forward to land next to your weaker leg. 4. Repeat the process for each step. ?? Always keep both feet within the width of the walker's legs or wheels. ?? When using your walker, you should not feel like you need to lean forward or to the side to keep your hands on the handgrips. ?? Make sure you are following any weight-bearing instructions that your health care provider has given you. ?? Be careful not to let the walker get too far ahead of you as you walk. ?? If your walker does not glide well over carpet, consider cutting an X into two tennis balls and placing the balls over the back legs of your walker. To Use a Walker to Step Up: 1. Put all four legs of the walker on the curb or step. 2. Get your feet as close to the curb or step as you can. 3. Test the steadiness of the walker by pressing down on the handgrips. 4. If the walker is steady, press down on it with your hands as you step up with your stronger leg. 5. Step up with your weaker leg. To Use a Walker to Step Down: 1. Put all four legs of the walker on the surface that is lower than the curb or step. 2. Get your feet as close to the curb or step as you can. 3. Test the steadiness of the walker by pressing down on the handgrips. 4. If the walker is steady, press down on it with your hands as you step down with your weaker leg. 5. Step down with your stronger leg. Knee Immobilizer Brace: ?? Adjust the brace as often as needed while wearing it. It should be firm but not tight. Signs that the brace is too tight include: ? Puffiness (swelling). ? Numbness. ? Color change in your foot or ankle. ? Increased pain. Cellulitis, Adult Cellulitis is a skin infection. The infected area is often warm, red, swollen, and sore. It occurs most often in the arms and lower legs. It is very important to get treated for this condition. What are the causes? This condition is caused by bacteria. The bacteria enter through a break in the skin, such as a cut, burn, insect bite, open sore, or crack. What increases the risk? This condition is more likely to occur in people who: ??? Have a weak body defense system (immune system). ??? Have open cuts, david, bites, or scrapes on the skin. ??? Are older than 60 years of age. ??? Have a blood sugar problem (diabetes). ??? Have a long-lasting (chronic) liver disease (cirrhosis) or kidney disease. ??? Are very overweight (obese). ??? Have a skin problem, such as: ? Itchy rash (eczema). ? Slow movement of blood in the veins (venous stasis). ? Fluid buildup below the skin (edema). ??? Have been treated with high-energy rays (radiation). ??? Use IV drugs. What are the signs or symptoms? Symptoms of this condition include: ??? Skin that is: ? Red. ? Streaking. ? Spotting. ? Swollen. ? Sore or painful when you touch it. ? Warm. ??? A fever. ??? Chills. ??? Blisters. How is this diagnosed? This condition is diagnosed based on: ??? Medical history. ??? Physical exam. ??? Blood tests. ??? Imaging tests. How is this treated? Treatment for this condition may include: ??? Medicines to treat infections or allergies. ??? Home care, such as: ? Rest. ? Placing cold or warm cloths (compresses) on the skin. ??? Hospital care, if the condition is very bad. Follow these instructions at home: Medicines ??? Take [id number] and prescription medicines only as told by your doctor. ??? If you were prescribed an antibiotic medicine, take it as told by your doctor. Do not stop taking it even if you start to feel better. General instructions ??? Drink enough fluid to keep your pee (urine) pale yellow. ??? Do not touch or rub the infected area. ??? Raise (elevate) the infected area above the level of your heart while you are sitting or lying down. ??? Place cold or warm cloths on the area as told by your doctor. ??? Keep all follow-up visits as told by your doctor. This is important. Contact a doctor if: ??? You have a fever. ??? You do not start to get better after 1?2 days of treatment. ??? Your bone or joint under the infected area starts to hurt after the skin has healed. ??? Your infection comes back. This can happen in the same area or another area. ??? You have a swollen bump in the area. ??? You have new symptoms. ??? You feel ill and have muscle aches and pains. Get help right away if: ??? Your symptoms get worse. ??? You feel very sleepy. ??? You throw up (vomit) or have watery poop (diarrhea) for a long time. ??? You see red streaks coming from the area. ??? Your red area gets larger. ??? Your red area turns dark in color. These symptoms may represent a serious problem that is an emergency. Do not wait to see if the symptoms will go away. Get medical help right away. Call your local emergency services (911 in the [place] Do not drive yourself to the hospital. Summary ??? Cellulitis is a skin infection. The area is often warm, red, swollen, and sore. ??? This condition is treated with medicines, rest, and cold and warm cloths. ??? Take all medicines only as told by your doctor. ??? Tell your doctor if symptoms do not start to get better after 1?2 days of treatment. This information is not intended to replace advice given to you by your health care provider. Make sure you discuss any questions you have with your health care provider. Document Released: 05/05/2009 Document Revised: 04/08/2019 Document Reviewed: 04/08/2019 [employer] Patient Education ? 2020 [employer] documented in this encounter Plan of Treatment Not on file documented as of this encounter Visit Diagnoses Not on filedocumented in this encounter
--- OUTSIDE RECORDS SUMMARY | 2025-06-14 10:42 | XMS_ITS | Encounter Summary ---
Author Organization [employer] 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
--- OUTSIDE RECORDS SUMMARY | 2025-06-14 10:42 | XMS_ITS | Clinical Summary ---
Author Organization [facility] Address [address] [place] [id number] Phone Care Team Providers Care Tank Maker Wood Name Role Phone Mariaa Hu Unavailable Unavailable Conditions or Problems Problem Name Problem Code Onset Date Status Entry Date Provider Comment Standard Description Annotate Knee, left, subsequent encounter, infection/infl ammatory reaction due to internal joint prosthesis T84.54xD (ICD-10-CM) Active 12/12 Norma Nelson Infection and inflammatory reaction due to internal left knee prosthesis, subsequent encounter Cellulitis of LLE L03.116 (ICD-10-CM) Active 12/12 Norma Nelson Cellulitis of left lower limb Hemarthrosis of left knee 189340064 (SNOMED CT) Active 12/12 Norma Nelson Hemarthrosis of knee Obesity due to excess calories E66.09 (ICD-10-CM) Active 12/12 Norma Nelson Other obesity due to excess calories DM Type II E11.9 (ICD-10-CM) Active 12/12 Norma Nelson Type 2 diabetes mellitus without complications Benign Essential Hypertension 5119458 (SNOMED CT) Active 12/12 Norma Nelson Benign essential hypertension Medications Medication Instructions Start Date Stop Date Generic Name [facility] Provider DOXYCYCLINE MONOHYDRATE 100 MG CAPS one cap bid DOXYCYCLINE MONOHYDRATE 29118850098 Matt Pearson MD NYSTATIN 214003 UNIT/ML SUSP 5 mls tid NYSTATIN 26359517597 Matt Pearson MD DOXYCYCLINE MONOHYDRATE 100 MG CAPS one cap bid DOXYCYCLINE MONOHYDRATE 87191232198 Matt Pearson MD DAPTOMYCIN SOLR Cubicin 800mg IV Q24hrs / [facility] OP infusion DAPTOMYCIN SOLR [id number] Jeannette Morales LINEZOLID 600 MG TABS one tablet po bid LINEZOLID 78963160487 Matt Pearson MD OMEPRAZOLE 40 MG CPDR Take one by mouth daily OMEPRAZOLE 32352935469 Shakiramariangel Murraydox METFORMIN HCL 500 MG TABS Take one by mouth daily METFORMIN HCL 31848424982 Shakira Murraydox ATORVASTATIN CALCIUM 20 MG TABS Take one by mouth daily ATORVASTATIN CALCIUM 47316002385 Shakiramariangel Murraydox AMLODIPINE BESYLATE 5 MG TABS Take one by mouth daily AMLODIPINE BESYLATE 67694113478 Shakira Diallo ZINC 100 MG TABS Take by mouth twice a day ZINC 09326195001 Shakira Diallo VITAMIN D3 50 MCG (1999 UT) CAPS Take one by mouth daily CHOLECALCIFEROL 98796082113 Shakira Diallo VITAMIN C 500 MG CAPS Take one by mouth daily ASCORBIC ACID 31363898302 Shakira Diallo B-12 1000 MCG SUBL Take one by mouth daily CYANOCOBALAMIN 19630676808 Shakira Murraydox DAPTOMYCIN SOLR Cubicin 800mg IV Q24hrs / [facility] OP infusion DAPTOMYCIN SOLR 79282509728 Fátima Gordillo RN Medications Administered No information available. Allergies, Adverse Reactions, Alerts No information available. Results Date Name Value Unit Range Flag Description Chart Maintenance: Updated H H labs 12/18/20 CPK 93 U/L Creatine mohamud se [Enzymatic activity/volume] in Serum or Plasma LYMPHS % 26.1 % Lymphocytes/ 100 leukocytes in Blood by Automated count PMN % 63.6 % Neutrophils/1 00 leukocytes in Blood by Automated count Lab Report: CBC WITH AUTO DI FFERENTIAL IMMATUREGRAN 0.03 10*3/MM3 0.00-0.05 Immature granulocytes [#/volume] in Blood BASO# 0.04 10*3/mm3 0.00-0.20 Basop hils [#/volume] in Blood EOS ABSLT 0.14 10*3/uL 0.00-0.40 Eosinophi ls [#/volume] in Blood MONOSCT AUTO 0.94 10*3/uL 0.10-0.90 H Monocy joselo [#/volume] in Blood by Automated count LYMPHCT AUTO 2.28 10*3/mm3 0.70-3.10 Lymph ocytes [#/volume] in Blood by Automated count ABS NEUTROPH 7.59 10*3/uL 1.70-7.00 H Neutro phils [#/volume] in Blood IMM GRANU % 0.3 % 0.0-0.5 Immature granulocytes/100 leukocytes in Blood % EOS AUTO 1.3 % 0.3-6.2 Eosinophil s/100 leukocytes in Blood by Automated count MONOCYTE % 8.5 % 5.0-12.0 Monocytes /100 leukocytes in Blood by Automated count LYMPHOCY BF 20.7 % 19.6-45.3 lymphoc ytes as percent of body fluid leukocytes NEUTROP BF 68.8 % 42.7-76.0 Neutroph ils/100 leukocytes in Body fluid Lab Report: CBC (NO DIFF) PLATELETS 302 10*3/mm3 140-450 Platelets [#/volume] in Blood by Automated count ZZ-GE-unk 9.6 fL 6.0-12.0 GE use onl y - for [employer] import when terms are not otherwise specified RDW_ 13.3 12.3-15.4 RDW, no uni ts MCHC 31.4 G/DL 31.5-35.7 L MCHC [Mass/ volume] by Automated count MCH 27.0 pg 26.6-33.0 MCH [Entiti c mass] by Automated count MCV 86.1 fL 79.0-97.0 MCV [Entiti c volume] by Automated count HCT 42.1 % 37.5-51.0 Hematocrit [Volume Fraction] of Blood by Automated count HGB 13.2 g/dL 13.0-17.7 Hemoglobin [Mass/volume] in Blood RBC 4.89 10*6/mm3 4.14-5.80 Erythrocyt es [#/volume] in Blood by Automated count WBC 9.71 10*3/mm3 3.40-10.8 0 Leukocytes [#/volume] in Blood by Automated count Office Visit: 13 MEDS REVIEW Done Documenta tion of current medications (procedure) 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 total [Mass/volume] in Serum or Plasma ALK PHOS 130 U/L 39-117 H Alkaline phosphatase [Enzymatic activity/volume] in Blood SGOT (AST) 23 U/L 1-40 Aspartate aminotransferase [Enzymatic activity/volume] in Serum or Plasma SGPT (ALT) 32 U/L 1-41 Alanine aminotransferase [Enzymatic activity/volume] in Serum or Plasma ALBUMIN 4.30 g/dL 3.50-5.20 Albumin [Mass/volume] in Serum or Plasma PROTEIN, TOT 8.3 g/dL 6.0-8.5 Protein [Mass/volume] in Serum or Plasma CALCIUM 9.1 mg/dL 8.6-10.5 Calcium [Moles/volume] in Serum or Plasma CO2 26.0 mmol/L 22.0-29.0 Carbon diox landen, total [Moles/volume] in Venous blood CHLORIDE 103 mmol/L 98-107 Chloride [Moles/volume] in Serum or Plasma POTASSIUM 4.0 mmol/L 3.5-5.2 Potassium [Moles/volume] in Serum or Plasma SODIUM 138 mmol/L 136-145 Sodium [Moles/volume] in Serum or Plasma CREATININE 1.22 mg/dL 0.76-1.27 Creatini ne [Mass/volume] in Serum or Plasma BUN 21 mg/dL 8-23 Urea nitrogen [Mass/volume] in Serum or Plasma GLUCOSE SER 153 mg/dL 65-99 H Glucose [Mass/volume] in Serum or Plasma Lab Report: C-REACTIVE PROTE IN CRP 1.44 mg/dL 0.00-0.50 H C reactive protein [Mass/volume] in Serum or Plasma Lab Report: SEDIMENTATION RA TE ESR 51 mm/h 0-20 H Erythrocyte sedimentation rate by Westergren method Plan of Care Type Date Detail Pending order STAT Labs Pending order STAT Labs Pending order STAT Labs Pending order CMP Pending order CBC with Differe ntial Pending order C- reactive prot ein Pending order Sedimentation Ra te (ESR) Pending order STAT Labs Pending order CMP Pending order CBC with Differe ntial Pending order C- reactive prot ein Pending order Sedimentation Ra te (ESR) Pending order STAT Labs Pending order New Oral Antibio tic Pending order CMP Pending order CBC with Differe ntial Pending order C- reactive prot ein Pending order Sedimentation Ra te (ESR) Pending order CMP Pending order STAT Labs Pending order CBC with Differe ntial Pending order C- reactive prot ein Pending order Sedimentation Ra te (ESR) Pending order STAT Labs Pending order New Oral Antibio tic Pending order Continue IV anti biotics Pending order CMP Pending order CBC with Differe ntial Pending order C- reactive prot ein Pending order Sedimentation Ra te (ESR) Pending order PICC Removal Pending order Continue IV anti biotics Pending order Weekly PICC Line Care Pending order Stat Weekly Labs Procedures Code Procedure Name Date Entry Date CPT-sl STAT Labs CPT-sl STAT Labs CPT-17667 CMP [id number] CBC with Differential 2020 CPT-59459 C- reactive protein CPT-00758 Sedimentation Rate (ESR) 12/05/03 CPT-sl STAT Labs CPT-50584 CMP [id number] CBC with Differential 2020 CPT-24489 C- reactive protein CPT-04990 Sedimentation Rate (ESR) 202 12/02/22 CPT-sl STAT Labs CPT-rosa m New Oral Antibiotic CPT-81507 CMP [id number] CBC with Differential 2020 CPT-31148 C- reactive protein CPT-08614 Sedimentation Rate (ESR) 202 12/02/02 CPT-56718 CMP CPT-sl STAT Labs [id number] CBC with Differential 2020 CPT-22036 C- reactive protein CPT-86465 Sedimentation Rate (ESR) 202 12/02/01 CPT-sl STAT Labs CPT-rosa m New Oral Antibiotic CPT-ca Continue IV antibiotics 2020 CPT-84853 CMP [id number] CBC with Differential 2020 CPT-79008 C- reactive protein CPT-95624 Sedimentation Rate (ESR) 202 12/01/19 CPT-PICREM PICC Removal CPT-ca Continue IV antibiotics 2020 CPT-wpc Weekly PICC Line Care 12/13 CPT- stat weekly Stat Weekly Labs Vital Signs Date Name Value Unit Description BMI (Body Mass Index) 40.65 kg/m2 Bod y Mass Index (Ratio) Body Temperature 97.3 [degF] temperat ure E&M BP Diastolic 86 mm[Hg] blood pressu re, diastolic BP Systolic 156 mm[Hg] blood pressur e, systolic Heart Rate 88 /min pulse rate Height 76 [in_us] height E&M Respiratory Rate 16 /min respirat ory rate E&M Weight Measured 334 [lb_av] weight E& M Weight Measured 334 [lb_av] weight E& M Immunizations No information available. Advance Directives Directive Description Start Date NO DIRECTIVES AT THIS TIME.
--- OUTSIDE RECORDS SUMMARY | 2025-06-14 10:42 | XMS_ITS | Data Portability ---
Author Organization [facility] & [place], BRYAN [facility] Address [address] [place] [id number] Care Team Providers Care Transformer Inspector Name Role Phone ALICE LARA Primary Care Provider Assessment Encounter Date Assessment Date Assessment LastModified by Organization Details LastModified Time 02/02/2025 02/02/2025 13 minute video medicine exam performed. [email or web address] Not available 02/02/2025 14:07:11 Plan of Treatment Reminders Order Date Submit Date Provider Last Modified By Organization Details Last Modified Time Details Appointments None record ed. Lab None record ed. Referral None record ed. Procedures None record ed. Surgeries None record ed. Imaging None record ed. Medication Orders None record ed. Patient TargetsNo targets recorded. Patient InstructionsNo instructions recorded. Reason for Referral None Reported. Results Created Date Observation Date Name Description Value Unit Range Abnormal Flag Note LastModifiedBy Organization Detail LastModifiedTime 01/26/2012/12/2024 home sleep study No observ ation record ed. [email or web address] [facility] (Med Record) [address], [place], [address], 01/27/2025 08:09:35 Result Notes None recorded. Procedures Surgical History Date Name Laterality Status Provider Name and Address Organization Details Recorded Time 3 Back Surgery completed Myriam Couch [place] [facility] & [place] 02/02/2025 13:37:41 9 Joint Replacement completed Myriam [place]ouch [place] [facility] & [place] 02/02/2025 13:37:41 2 [facility] [place] 02/02/2025 13:37:41 Imaging Results None recorded. Procedure Notes None recorded. Medical Equipment None Reported. Allergies No known drug allergies Medications Name Sig Start Date Stop Date Status Note LastModified by Organization Details LastModified Time promethazin e-DM 6.25 mg-15 mg/5 mL oral syrup TAKE 5 ML BY MOUTH EVERY 6 HOURS NEEDED FOR 7 DAYS 02/02 completed Not Available Not Available Not Available atorvastati n 20 mg tablet active Not Available Not Available Not Available azithromyci n 250 mg tablet TAKE 2 TABLETS BY MOUTH ON DAY 1, AND THEN TAKE 1 TABLET BY MOUTH ONCE A DAY ON DAY 2 THROUGH DAY 5 02/02 completed Not Available Not Available Not Available amlodipine 5 mg tablet TAKE 1 TABLET BY MOUTH TWICE DAILY active Not Available Not Available No t Available omeprazole 40 mg capsule,del ayed release TAKE 1 CAPSULE BY MOUTH ONCE DAILY FOR 90 DAYS active Not Available Not Available No t Available erythromyci n 5 mg/gram (0.5 %) eye ointment APPLY A THIN (ONE-FOUR TH INCH) STRIP OF OINTMENT INTO AFFECTED EYE TWICE A DAY FOR 3 DAYS BEFORE BUT NOT DAY OF SURGERY 02/02 completed Not Available Not Available Not Available gabapentin 100 mg capsule TAKE 1-3 CAPSULES BY MOUTH THREE TIMES DAILY FOR 30 DAYS active Not Available Not Available No t Available metformin ER 500 mg tablet,exte nded release 24 hr TAKE 2 TABLETS BY MOUTH TWICE DAILY active Not Available Not Available No t Available amoxicillin 875 mg-potassiu m clavulanate 125 mg tablet TAKE 1 TABLET BY MOUTH EVERY 12 HOURS FOR 10 DAYS 02/02 completed Not Available Not Available Not Available Vitals Date Recorded Body height Body mass index (BMI) Body weight Body temperature Oxygen saturation Oxygen saturation in Arterial blood by Pulse oximetry Heart rate Provider Name and Address Organization Details Last Updated DateTime 193.04 cm 37.7 kg/m2 387200. 63 g 97.3 [degF] 96 % 96 % 108 /min Myriam Marie [facility] & [place] 13:40:47 Social History Question Answer Notes LastModified by Organizat ion Details LastModified Time Tobacco Smoking Status Former Smoker [facility]ouch null, [facility] [place] 02/02/2025 13:37:41 Do You Have An Advance Directive? No Information not available 02/02/2025 Are You Blind Or Do You Have Difficulty Seeing? No [email or web address] Information not available 02/02/2025 What Was The Date Of Your Most Recent Tobacco Screening? 01/31/2025 [email or web address] Information not available 02/02/2025 Are You Passively Exposed To Smoke? No [email or web address] Information not available 02/02/2025 Sex: Unknown Functional Status Question Answer Note LastModified by Organizat ion Details LastModified Time Do you use any illicit or recreational drugs? No [email or web address] Information not available 02/02/2025 What is your level of alcohol consumption? Occasional [email or web address] Information not available 02/02/2025 What is your exercise level? Occasional Information not available 02/02/2025 Mental Status Question Answer Note LastModified by Organization D etails LastModified Time Do you feel stressed (tense, restless, nervous, or anxious, or unable to sleep at night)? [id number] [email or web address] Information not available 02/02/2025 Family History Nothing Reported. Medical History Condition Response Vision or Eye Problems Y Arthritis Y Back Problems Y Hypertension Y Past Encounters Encounter ID Performer Location Encounter Start Date Encounter Closed Date Diagnosis/Indication Diagnosis SNOMED-CT Code Diagnosis ICD10 Code Diagnosis Note [id number] Colten Colmenares MD [facility] [address] [place] [address] 02/02/2025 13:35:34 02/02/2025 14:15:10 Obstructive sleep apnea syndrome 36688892 G47.33 Autopap 6-16 cm H2O Health Concerns Section Related Observation LastModified by Organization Detai ls LastModified Time None Recorded Concern Status LastModified by Organization Details LastModified Time None Recorded Advance Directives Directive N: Payers Insurance Date Sequence Insurance Name Policy Number Policy Ruano Covered Member ID Ruano Member ID Guarantor Name 02/04/2025 2 [employer] (MEDICARE SUPPLEMENT) Betito Watkins [id number] Betito Watkins 02/04/2025 1 [place] Betito Watkins Jr [id number] Betito Watkins Notes Date Note Type Note Provider Name and Address Organization Details Recorded Time 02/02/2025 text/html He is here for sleep medicine evaluation. He had a home sleep study performed a few days ago which shows mild obstructive sleep apnea with an AHI of 12. He reports a lot of issues with snoring and hypersomnia symptoms. Daytime fatigue very prevalent. His sleep is fragmented down. We spent some time talking about his sleep study as well as the severity of his disease he is agreeable for a trial of auto PAP. Colten Colmenares MD [address], [place], [address], [facility] [place] & [place] 02/02/2025 14:07:25
--- OUTSIDE RECORDS SUMMARY | 2025-06-14 10:42 | XMS_ITS | Encounter Summary ---
Author Organization [facility] ([place], [place], [place], [place]) Address [address] [place] [address] Care Team Providers Care Gummed Tape Press Operator Name Role Phone Unavailable Primary Care Provider Unavailabl e Encounter Details Date Type Department Care Team (Late st Contact Info) Description 12/07/2020 Transcribed Document [facility] [facility] [place] [address] ProviderAshly MD [address] [place] [address] Social History Tobacco Use Types Packs/Day Years Used Date Smoking Tobacco: Never Assessed Sex and Gender Information Value Date Recorded Sex Assigned at Male 05/28/2022 4:44 PM CDT Legal Sex Male 4:44 PM CDT Gender Identity Male 05/28/2022 4:44 PM CDT Sexual Orientation Not on file documented as of this encounter Miscellaneous Notes * Cerner Conversion Note - Ashly ProviderMD - 12/07/2020 4:13 PM NURSE CASE MANAGER Pain Assessment Entered On: 12/07/2020 22:58 EST Performed On: 12/07/2020 22:12 EST by Nisha Rudd RN Intervention Information: acetaminophen-HYDROcodone Performed by Nisha Rudd RN on 12/07/2020 21:12:00 EST acetaminophen-HYDROcodone,2Tab Oral,Pain (Severe 7-10) Pain Assessment Pain Assessment : Follow-up assessment Pain Scale Goal : 3 Pain Scale Used : 0-10 Scale Nisha Rudd RN - 12/07/2020 22:58 EST Pain Scale Intensity : 0 Nisha Rudd RN - 12/07/2020 22:58 EST Image 4 - Images currently included in the form version of this document have not been included in the text rendition version of the form. documented in this encounter Plan of Treatment Not on file documented as of this encounter Visit Diagnoses Not on filedocumented in this encounter
--- OUTSIDE RECORDS SUMMARY | 2025-06-14 10:42 | XMS_ITS | Encounter Summary ---
Author Organization [facility] ([place], [place], [place], [place]) Address [address] [place] [address] Care Team Providers Care Closet Organizer Name Role Phone Unavailable Primary Care Provider Unavailabl e Encounter Details Date Type Department Care Team (Late st Contact Info) Description 11/15/2020 Transcribed Document [facility] [place] [address] [place] [address] ProviderAshly MD [address] [place], [place] [address] Social History Tobacco Use Types Packs/Day Years Used Date Smoking Tobacco: Never Assessed Sex and Gender Information Value Date Recorded Sex Assigned at Male 05/28/2022 4:44 PM CDT Legal Sex Male 4:44 PM CDT Gender Identity Male 05/28/2022 4:44 PM CDT Sexual Orientation Not on file documented as of this encounter Miscellaneous Notes * Cerner Conversion Note - Historical ProviderMD - 11/15/2020 12:53 PM GENERAL PASSENGER AGENT Consult Phone Call Documentation Entered On: 11/15/2020 13:02 EST Performed On: 11/15/2020 12:53 EST by AMBROCIO ARAUZ Phone Call for Consults Consult Phone Call/Page Attempt : First call Physician Requested for Consult : RICHA BUTLER MD-INT Physician Covering for Consult : RICHA BUTLER MD-INT Date and Time Call Returned : 11/15/2020 13:02 EST Physician Returning Call : RICHA BUTLER MD-INT TYE, CHERYL - 11/15/2020 13:02 EST Electronically signed by [facility] Conversion Compressor Stations Superintendent Cerner at 03/19/2023 6:41 PM CDT documented in this encounter Plan of Treatment Not on file documented as of this encounter Visit Diagnoses Not on filedocumented in this encounter
--- OUTSIDE RECORDS SUMMARY | 2025-06-14 10:42 | XMS_ITS | Clinical Summary ---
Author Organization [employer] ([place], [place], [place], [place]) Address [address] [place] [address] Care Team Providers Care Animal Nurse Name Role Phone Unavailable Primary Care Provider Unavailabl e Social History Tobacco Use Types Packs/Day Years Used Date Smoking Tobacco: Never Assessed Sex and Gender Information Value Date Recorded Sex Assigned at Male 05/28/2022 4:44 PM CDT Legal Sex Male 4:44 PM CDT Gender Identity Male 05/28/2022 4:44 PM CDT Sexual Orientation Not on file Plan of Treatment Not on file
--- OUTSIDE RECORDS SUMMARY | 2025-06-14 10:42 | XMS_ITS | Encounter Summary ---
Author Organization [employer] ([place], [place], [place], [place]) Address [address] [place] [address] Care Team Providers Care Director Home Name Role Phone Unavailable Primary Care Provider Unavailabl e Encounter Details Date Type Department Care Team (Late st Contact Info) Description 11/15/2020 Transcribed Document [facility] [place] [address] [place] [address] ProviderAshly MD [address] [place] [address] Social History Tobacco Use Types [...] Conversion Note - Historical ProviderMD - 11/15/2020 2:45 PM BASS MECHANISM MAKER Initial Discharge Planning Entered On: 11/15/2020 14:50 EST Performed On: 11/15/2020 14:45 EST by SHEILA FOLEY RN Initial Assessment I Previously Documented Living Environment : No qualifying data available. Living Situation : Home Patient Lives With : Spouse Is the Patient a Caregiver at Home? : Yes Emergency Contact #1 : Ava Watkins Emergency Contact #1 Emergency Contact #1 Relationship : spouse Emergency Contact #2 : - Emergency Contact #2 Phone Number : - Emergency Contact #2 Relationship : - Enter Doctors Name : Jeremi Freedman Does Patient have PCP Listed? : Yes SHEILA FOLEY RN - 11/15/2020 14:45 EST Initial Assessment II Sensory and Motor Deficits : Other: LTK Current Home Treatments and Equipment : None Does the Patient have a Floor to SNF Benefit? : No SHEILA FOLEY RN - 11/15/2020 14:45 EST Discharge Needs I Anticipated Discharge Date : 11/16/2020 EST Anticipated Discharge To, CM : Home with home health Current Home Treatment/Equipment : Current Home Treatment/Equipment No qualifying data available. Post Acute/Home Treatments : Bedside commode, Walker Documentation Status Complete : Yes SHEILA FOLEY RN - 11/15/2020 14:45 EST Discharge Needs II Professional Skilled Services : Professional Skilled Services No qualifying data available. Services and Community Resources : Home Health Needs Assistance with Transportation : No Discharge Options Discussed with Patient : Discharge transportation, DME, Home Health SHEILA FOLEY RN - 11/15/2020 14:45 EST Narrative Note Historical Narrative Note : 65 y/o s/p LTK. Met with patient and and spouse at bedside to discuss discharge needs. Patient denies haviing a walker or bedside commode and doesnt have DME preference. Referral sent to [facility] for Bariatric BSC and Bariatric FRW. Patient agrees to [facility] and choose [facility] PT Referral faxed in [facility]. RRS: SHEILA FOLEY RN - 11/15/20 14:50:45 SHEILA FOLEY RN - 11/15/2020 14:51 EST Narrative Note : 65 y/o s/p LTK. Met with patient and and spouse at bedside to discuss discharge needs. Patient denies haviing a walker or bedside commode and doesnt have DME preference. Referral sent to [facility] for Bariatric BSC and Bariatric FRW. Patient agrees to [facility] and choose [facility] for HH and [facility] for PT. Patient to call [facility] to set up PT after HH. Patient notified of this Referral faxed in [place] for [facility] and spoke with Matt. Referal faxed in [facility] for [facility] and spoke with Kelsea. Plan: discharge home tomorrow with spouse to transport[facility] to [facility] patient after 2 weeks. Patient to call and schedule appointment. DME: Bariatric Front rolling walker to patient from [facility] closet. [facility] to bring Bariatric BSC and wheels for FRW in the am. CM: DOC signed and in charts. [facility] agreement signed and place in [facility] basket. No further CM needs at this time. RRS: Low 28 SHEILA FOLEY RN - 11/15/2020 15:44 EST documented in this encounter Plan of Treatment Not on file documented as of this encounter Visit Diagnoses Not on filedocumented in this encounter
--- OUTSIDE RECORDS SUMMARY | 2025-06-14 10:42 | XMS_ITS | Encounter Summary ---
Author Organization [employer] ([place], [place], [place], [place]) Address [address] [place] [address] Care Team Providers Care Health Promotion Coordinator Name Role Phone Unavailable Primary Care Provider Unavailabl e Encounter Details Date Type Department Care Team (Late st Contact Info) Description 11/15/2020 Transcribed Document [facility] [place] [address] [place] [address] ProviderAshly MD [address] [place] [address] Social History Tobacco Use Types [...] Conversion Note - Historical ProviderMD - 11/15/2020 2:48 PM SAP PLANT MAINTENANCE CONSULTANT Treatment Intervention, OT Entered On: 11/16/2020 10:24 EST Performed On: 11/16/2020 8:52 EST by DARVIN MOREAU OTR/Vasile General Information, OT Visit Type, OT : Treatment Note Patient Orders : Order Date Order Ordering 11/15/2020 12:04 OT Evaluation and Treatment Ordered By: REJI LUCIANO JR, JR, MD-ORT 11/15/2020 14:48 Occupational Therapy Additional Tx Ordered By: Active Diagnoses : 11/15/2020 12:00 Deficiency of [...] 12:00 Vitamin D deficiency, unspecified Therapy Diagnosis, OT : Aftercare following joint replacement surgery--L knee Admission Date : 11/15/2020 03:55 Assisted by, OT : railway yard assistant (STRETCHING MACHINE TENDER FRAME) Personal Devices : Personal Devices Glasses Assistive Devices : Assistive Devices No Devices Recorded Precautions in Place : Fall prevention measures, Fall prevention measures, high risk DARVIN MOREAU OTR/Vasile - 11/16/2020 10:09 EST General Status Patient Received Status : Long sitting in bed, Other: polar care, scds, pulse ox, on q pump Treatment Start Time : 11/16/2020 8:38 EST Patient Left Status : RN/PCT informed, All needs met and within reach, Other: left in therapy gym with STRETCHING MACHINE TENDER FRAME RN/PCT Informed Comment : RN Ok'd to tx, ID and verified Treatment End Time : 11/16/2020 8:52 EST Treatment Time : 14 Minute(s) DARVIN MOREAU OTR/Vasile - 11/16/2020 10:09 EST Self Care/Home Management, OT Upper Body Dressing Assist Level, OT : Independent, complete Upper Body Dressing Device Comment, OT : seated Lower Body Dressing Assist Level, OT : Assist, minimal Lower Body Dressing Device Comment, OT : pt simulates donning shorts with min assist , pt already dressed. pt education on technique to complete Bed/Chair/WC Transfer Assist Level : Supervision or set-up Bed/Chair/WC Transfer Device : Belt, gait, Walker, front wheel Bed/Chair/WC Device Comment : cues for safety DARVIN MOREAU OTR/L - 11/16/2020 10:09 EST Mobility Device/Prosthesis/Wt Bearing Weight Bearing Status Maintained : Yes Weight Bearing Status : As tolerated Functional Mobility Device : Gait belt Functional Mobility with Brace/Splint : No DARVIN MOREAU OTR/Vasile - 11/16/2020 10:09 EST Functional Mobility Mobility Grid Supine to Sit : Rehab Modified independence Sit to Stand : Supervision/set-up Bed to Chair : Supervision/set-up Stand to Sit : Supervision/set-up DARVIN MOREAU OTR/Vasile - 11/16/2020 10:09 EST Functional MobilityComment : gait belt donned, using rw pt walks to therapy gym with supervision, completes stairs with STRETCHING MACHINE TENDER FRAME and transfer to mat table with supervision, occasional cues safety/hand placement with rw DARVIN MOREAU OTR/Vasile - 11/16/2020 10:09 EST Education OT Occupational Therapy Education Grid Activity of Daily Living Training : Verbalizes understanding, Returns demonstration Functional Mobility Training : Verbalizes understanding, Returns demonstration Home Safety : Verbalizes understanding (Comment: pt education/handout [DARVIN MOREAU OTR/Vasile - 11/16/2020 10:09 EST] ) DARVIN MOREAU OTR/Vasile - 11/16/2020 10:09 EST Plan of Care, OT OT Tx Plan/Goals Established w Patient : No Reason OT Treatment/Plan Not Established : goals met DARVIN MOREAU OTR/Vasile - 11/16/2020 10:09 EST Snf Goals, OT Other LTG Grid Goal #1 Goal #2 Goal #3 Goal : Perform LB ADL with mod A Perfrom ADL transfer with CGA Verbalize understanding of home safety, safe car transfer Date to Meet : 11/22/2020 EST 11/22/2020 EST 11/22/2020 EST Goal Status : Goal met Goal met Goal met Date Met : 11/16/2020 EST 11/16/2020 EST 11/16/2020 EST DARVIN MOREAU OTR/Vasile - 11/16/2020 10:09 EST DARVIN MOREAU OTR/Vasile - 11/16/2020 10:09 EST DARVIN MOREAU OTR/Vasile - 11/16/2020 10:09 EST Treatment Note Subjective Comment : pt agrees to tx Additional Objective Information : ADL Assessment : pt met 3/3 acute care OT goals Plan for Treatment : pt will be discharging home today with and home health therapy DARVIN MOREAU OTR/Vasile - 11/16/2020 10:09 EST Pain Assessment Pain Scaled Used : 0-10 Pain scale Pain Score Pre-Intervention : 2 Location : Knee, left DARVIN MOREAU OTR/Vasile - 11/16/2020 10:09 EST Image 1 - Images currently included in the form version of this document have not been included in the text rendition version of the form. [facility] OT Charges OT Selfcare/Hm Mgmt Ea 15 Min : 1 DARVIN MOREAU OTR/Vasile - 11/16/2020 10:09 EST documented in this encounter Plan of Treatment Not on file documented as of this encounter Visit Diagnoses Not on filedocumented in this encounter
--- OUTSIDE RECORDS SUMMARY | 2025-06-14 10:42 | XMS_ITS | Encounter Summary ---
Author Organization [employer] ([place], [place], [place], [place]) Address [address] [place] [address] Care Team Providers Care Barker Peeler Name Role Phone Unavailable Primary Care Provider Unavailabl e Encounter Details Date Type Department Care Team (Late st Contact Info) Description 12/09/2020 Transcribed Document [facility] [place] [facility] [place] [address] ProviderAshly MD [address] [place] [address] Social History Tobacco Use Types Packs/Day Years Used Date Smoking Tobacco: Never Assessed Sex and Gender Information Value Date Recorded Sex Assigned at Male 05/28/2022 4:44 PM CDT Legal Sex Male 4:44 PM CDT Gender Identity Male 05/28/2022 4:44 PM CDT Sexual Orientation Not on file documented as of this encounter Miscellaneous Notes * Cerner Conversion Note - Ashly Rodriguez MD - 12/09/2020 2:25 PM AUTOMATED WEAVER Patient: CYNTHIA CUEVAS JR Age: 65 years Sex: Male : 1955 Associated Diagnoses: Left TKA cellulitis; S/p left TKA on 11/15/2020; Left knee pain and swelling; HTN (hypertension); Diabetes mellitus type II; HLP; GERD (gastroesophageal reflux disease); B12 deficiency; Vitamin D deficiency; At risk for sleep apnea; Obesity (BMI 30-39.9) Author: RICHA FARAH MD-INT Date of admission 12/07/2020 Date of discharge 12/08/2020 Orthopedic surgeon Bryson Mora MD Infectious disease, Matt Paerson MD Admitting and discharging physician, [facility], internal medicine, Richa Farah MD Admitting and discharging diagnosis 1???left total knee arthroplasty cellulitis 2???s/p left total knee arthroplasty on 11/15/2020 3???left knee pain and swelling 4???HTN 5???DM type II 6???HLP 7???GERD 8???B12 deficiency 9???vitamin D deficiency 10???at risk for BRIGHT 11???obesity with BMI of 37.8 12???degenerative joint disease History of present illness, past medical history, past surgical history, family history, social history, allergies please see H&P Radiography Left lower extremity venous duplex negative for DVT Brief history of present illness and course during hospital stay A pleasant 65 years old white man with a history of DM, HTN,, HLP, GERD, B12 deficiency, vitamin D deficiency, BRIGHT, obesity with BMI of 37.8 in addition to left knee pain from osteoarthritis with after medical clearance by his PCP underwent left total knee arthroplasty by Dr. Mora on 11/15/2020 and was discharged home in a stable condition (for more details please see H&P). He is started on oral antibiotics as outpatient but did not get any better. Patient was complaining of left knee pain and swelling extending from the distal aspect of his left thigh and extended down to his left ankle. He had left lower extremity venous duplex which came back negative for DVT. Is started empirically on IV antibiotics with vancomycin and Rocephin pending culture results. Infectious disease Was consulted and antibiotics were modified according to his recommendations into daptomycin 800 mg oral daily x2 weeks. Patient had a PICC line placed. Patient had the first dose of daptomycin and he will get outpatient IV antibiotic infusion at local hospital at [facility]. Basic Information ???Today, patient was seen and examined ???Doing well ???Had a good night last night ???Awake alert cooperative responsive under no acute distress ???Pain well controlled ???High spirit ???Eager to go home ???No chest pain or trouble breathing ???Participating well with PT/OT ???No headache or dizziness when he got up with PT/OT ???No soreness after PT/OT ???Released by PT/OT to go home ???Tolerating well oral p.o. intake ???No nausea or vomiting ???No BM but passing gas ???No trouble with urination ???Urine output is adequate ???Vitals reviewed ???Labs reviewed ???Lab results discussed with the patient ???Released by Dr. Mora and Dr. Pearson to go home ???Discharge medications seen, reviewed and reconciled ???DVT prophylaxis and anticoagulation as per Dr. Mora protocol ???Patient wants and excited to be discharged home ???Patient is medically stable Review of Systems Constitutional: No weakness, No fatigue. Eye: No recent visual problem, No double vision, No visual disturbances. Ear/Nose/Mouth/Throat: No nasal congestion, No sore throat. Respiratory: No shortness of breath, No cough, No wheezing. Cardiovascular: No chest pain, No tachycardia. Gastrointestinal: No nausea, No vomiting. Genitourinary: Negative. Musculoskeletal: Negative. Integumentary: No rash, No pruritus. Neurologic: Alert and oriented X4, no dizziness. Health Status Allergies: Allergies (2) Active Reaction No Known Allergies None Documented No Known Medication Allergies None Documented Current medications: No qualifying data available Problem list: Active Problems (9) At risk for sleep apnea B12 deficiency Diabetes GERD (gastroesophageal reflux disease) High cholesterol HTN (hypertension) Osteoarthritis Vitamin D deficiency Wears glasses Physical Examination VS/Measurements Vital Measurements 12/08/2020 10:41 EST Systolic Blood Pressure 190 mmHg HI Diastolic Blood Pressure 80 mmHg Mean Arterial Pressure (MAP)-BMDI 110 Temperature Source Oral Temperature Mode Fahrenheit Temperature, Fahrenheit 98 Deg F Clinical Temperature, C 36.7 Deg C Heart Rate Monitored 84 bpm Respiratory Rate 16 Breaths/Min Oxygen Saturation 93 % LOW General: Alert and oriented, No acute distress. Eye: Pupils are equal, round and reactive to light, Extraocular movements are intact. HENT: Oral mucosa is moist. Neck: Supple, No carotid bruit, No jugular venous distention, No lymphadenopathy, No thyromegaly. Respiratory: Lungs are clear to auscultation, Breath sounds are equal. Cardiovascular: Normal rate, Regular rhythm, No murmur. Gastrointestinal: Soft, Non-tender, Normal bowel sounds, No organomegaly. Genitourinary: No costovertebral angle tenderness, No inguinal tenderness. Lymphatics: No lymphadenopathy neck, axilla, groin. Musculoskeletal: Normal strength, No swelling. Integumentary: Warm, Intact, No rash. Neurologic: Alert, Oriented, No focal deficits. Psychiatric: Cooperative, Appropriate mood & affect. Review / Management Results review: All Results 12/08/2020 16:14 EST Glucose POC2 121 mg/dL [place] 12/08/2020 11:18 EST Glucose POC2 131 mg/dL [place] 12/08/2020 5:58 EST Glucose POC2 100 mg/dL 12/08/2020 4:00 EST Sodium Level 140 mmol/L Potassium Level 4.4 mmol/L Chloride Level 105 mmol/L Carbon Dioxide Level 30 mmol/L Anion Gap 9 Glucose Level 112 mg/dL HI Blood Urea Nitrogen 17 mg/dL Creatinine Level 1.03 mg/dL eGFR >60 mL/min/1.73m2 eGFR NonAfrican >60 mL/min/1.73m2 Bun/Creatinine 16.5 Calcium Level 8.6 mg/dL Protein Total 7.0 Gram/dL Albumin Level 3.0 Gram/dL LOW Globulin 4.0 Gram/dL A/G Ratio 0.8 LOW Bilirubin Total 0.3 mg/dL Alk Phos 190 Units/Liter HI AST 26 Units/Liter ALT 52 Units/Liter WBC 9.4 K/uL RBC 4.19 Million/uL LOW Hgb 11.4 Gram/dL LOW Hct 36.2 % LOW MCV 86.4 fL MCH 27.2 pg MCHC 31.5 Gram/dL LOW Platelet Count 346 K/uL MPV 9.6 fL RDW 14.2 % Neut % 54.5 % Neut # 5.14 K/uL Lymph % 33.5 % Lymph # 3.17 K/uL Salem % 9.0 % [place] # 0.85 K/uL HI Eos % 2.0 % Eos # 0.19 K/uL Baso % 0.7 % Baso # 0.07 K/uL Slide Review No IG# 0 x10(3)/uL IG% 0 % Vancomycin Peak 26.1 mcg/mL Skin Breakdown Prevention Interventions Absorbent/Wick underpad, Draw/Slide sheet to reduce friction/shear when repositioning Observed Activity Status Sleeping, In bed Activity Assist Level Standby assist Specialty Bed Type [id number] bed Monitor Alarms On, Reviewed Safety Checks 2 Siderails up, Bed in low position/brakes locked, Call light within reach of patient, Eye glasses within reach, ID band on and verified, Non-skid footwear, Oriented to surroundings, Room clear of debris, Tray table within reach, Wheels locked Patient Repositioned Self repositioned . Condition: Stable. Discharge Plan Discharge Summary Plan Discharge Status: stable. Orders Order Profile (Selected) Inpatient Orders Discontinued Discharge: Start: 12/08/20 14:40:00 EST, Discharge to: Home, Other DC instructions: May go home today if discharged by Dr. Pearson and after PICC line placement and if recommended by Dr. Mora antibiotics as recommended by Dr. Pearson. Diagnosis Left TKA cellulitis - Discharge, Medical. S/p left TKA on 11/15/2020 - Discharge, Medical. Left knee pain and swelling - Discharge, Medical. HTN (hypertension) - Discharge, Medical. Diabetes mellitus type II - Discharge, Medical. HLP - Discharge, Medical. GERD (gastroesophageal reflux disease) - Discharge, Medical. B12 deficiency - Discharge, Medical. Vitamin D deficiency - Discharge, Medical. At risk for sleep apnea - Discharge, Medical. Obesity (BMI 30-39.9) - Discharge, Medical. Course Improving. Stable. Plan/ pt is HD & CLINICALLY STABLE AFEBRILE OK TO D/C HOME ALL CONSULTANTS AGREE FOR HER D/C HOME ON HH / OUTPT.REHAB. IV antibiotics. Orders Order Profile (Selected) Prescriptions Prescribed DAPTOmycin 350 mg intravenous injection: See Instructions, 800 mg IV daily x6 weeks, # 1 Kit, 0 Refill(s), Pharmacy: [id number], 193.04, cm, 12/07/20 16:13:00 EST, CLINICALHEIGHT, 140.91, kg, 11/15/20 12:24:00 EST, CLINICALWEIGHT aspirin 81 mg oral delayed release tablet: 1 Tab, Oral, Tab, BID, # 90 Tab, 0 Refill(s), other reason (Rx) Documented Medications Documented Vitamin B12: 1,000 mcg, SubLINgual, Daily, 0 Refill(s) Vitamin C: 500 mg, Oral, At Bedtime, 0 Refill(s) Vitamin D3: 2,000 Int Units, Oral, At Bedtime, 0 Refill(s) Zinc: 100 mg, Oral, BID, 0 Refill(s) amLODIPine: 5 mg, Oral, At Bedtime, 0 Refill(s) atorvastatin: 20 mg, Oral, At Bedtime, 0 Refill(s) metFORMIN 500 mg oral tablet, extended release: 1 Tab, Oral, At Bedtime omeprazole: 40 mg, Oral, Daily, 0 Refill(s). Impression and Plan twt 40 mn patient seen and examined, medical record reviewed, labs reviewed, vitals reviewed, medications reviewed and reconciled, discussed with Pharm.D., discussed with the patient, discussed with the staff, discussed with PT/OT, discharge orders placed, discharge note dictated. documented in this encounter Plan of Treatment Not on file documented as of this encounter Visit Diagnoses Not on filedocumented in this encounter
--- OUTSIDE RECORDS SUMMARY | 2025-06-14 10:42 | XMS_ITS | Encounter Summary ---
Author Organization [employer] ([place], [place], [place], [place]) Address [address] [place] [address] Care Team Providers Care Retail Operations Manager Name Role Phone Unavailable Primary Care Provider Unavailabl e Encounter Details Date Type Department Care Team (Late st Contact Info) Description 12/07/2020 Transcribed Document [facility] [place] [facility] [address] ProviderAshly MD [address] [place] [address] Social History Tobacco Use Types [...] Conversion Note - Ashly ProviderMD - 12/07/2020 5:57 PM SWEETBREAD TRIMMER Patient: CYNTHIA CUEVAS JR Age: 65 years Sex: Male : 1955 Associated Diagnoses: None Author: Bree Lewis, Pharmacist-Resident Consult: Pharmacy to dose vancomycin Consulting physician: Sofi Indication: Cellulitis (RTKA) Vancomycin Goal: AUC 400-600 Pharmacokinetic Parameters: Age= 65 yo , Ht= 193 cm, ZSM=708.9 kg, Clcr est= 90-95 ml/min, kest= 0.085 h-1, t/2est= 8.2 h, Vdest= 84 L ( 0.6L/kg), CL= 7.1 L/h Labs: DEC 07 16:26 138 107 22 / H 130 4.2 26 1.16 \ DEC 07 16:26 \ L 12.3 / 9.2 H 382 / L 38.1 \ Cultures: None Current antibiotics/anti-infectives: Vancomycin Ceftriaxone A/P: Patient is a 65 yoM with PMH of DM, HTN, HLD, GERD and BRIGHT who underwent TKA on 11/15/20. He has had redness and swelling at the site that has not improved with oral abx (augmentin/bactrim, and clindamycin). Vancomycin LD of 2500 g (~18 mg/kg) was ordered by staff pharmacist. Confirmed weight is ~140 kg with RN. Ordered first dose kinetics, which will be evaluated in AM by clinical pharmacist followed with an appropriate maintenance dose. ID consult placed. AUC target is used to maximize efficacy and minimize the risk of nephrotoxicity. To further minimize the risk of nephrotoxicity additional nephrotoxins such as loop diuretics and IV contrast media, vasopressors and dehydrated state should be avoided unless medically necessary. Compounding nephrotoxins, lack of hydration and decreased perfusion to the kidney will increase the potential for kidney injury. > Vancomycin as above > Will monitor progress and obtain levels as appropriate. > De-escalation as appropriate > Daily creatinine Bree Lewis, PharmD PGY1 [employer] Attendant LORE #[id number] Electronically signed by Justina Lozano Conversion Loss Prevention Investigator Cerner at 03/19/2023 6:38 PM CDT documented in this encounter Plan of Treatment Not on file documented as of this encounter Visit Diagnoses Not on filedocumented in this encounter
--- OUTSIDE RECORDS SUMMARY | 2025-06-14 10:42 | XMS_ITS | Encounter Summary ---
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 Patient: CYNTHIA CUEVAS JR Age: 65 years Sex: Male : 1955 Associated Diagnoses: Left TKA cellulitis; S/p left TKA on 11/15/2020; Left knee pain and swelling; HTN (hypertension); Diabetes mellitus type II; HLP; GERD (gastroesophageal reflux disease); B12 deficiency; Vitamin D deficiency; At risk for sleep apnea; Obesity (BMI 30-39.9) Author: RICHA FARAH MD-INT Date of admission 12/07/2020 PCP Jeremi Sauer MD Orthopedic surgeon, Bryson Mora MD Hospitalist admitting physician, internal medicine, Richa Farah MD Admitting diagnosis 1???L TKA cellulitis 2???s/p L TKA on 11/15/2020 3???left knee pain and swelling 4???HTN 5???DM type II 6???HLP 7???GERD 8???B12 deficiency 9???vitamin D deficiency 10???at risk for BRIGHT 11???obesity with BMI of 37.8 12???degenerative joint disease History of present illness A pleasant 65 years old white male with a history of DM, HTN, HLP, GERD, B12 deficiency, vitamin D deficiency, BRIGHT, obesity with BMI of 37.8 in addition to left knee pain from osteoarthritis who is after medical clearance by his PCP he underwent left total knee arthroplasty by Dr. Moise on 11/15/2020 . Patient was discharged home in a stable condition. Few days later patient started having pain and swelling redness on his left knee. He was seen at Dr. Mora office and started on oral antibiotics but he did not get any improvement. Patient denies any drainage from the incision site. He had only 1 day fever after he was discharged home. He denies any recent history of trauma to his left lower extremity or any fall or bumping to hard object including furniture or wall. He denies any upper or lower respiratory infection. There is no urinary symptoms. Patient stated that he had left lower extremity venous Doppler at local hospital, [facility], and was negative for DVT. Patient stated that he is complaining of pain and swelling extending from the distal part of his thigh down to his ankle. Review of Systems Constitutional: No fever, No chills. Eye: No visual disturbances. Ear/Nose/Mouth/Throat: No nasal congestion, No sore throat. Respiratory: No shortness of breath, No cough. Cardiovascular: No chest pain, No tachycardia. Gastrointestinal: No nausea, No vomiting, No abdominal pain. Genitourinary: No change in urine stream. Hematology/Lymphatics: No bleeding tendency. Endocrine: No polyuria, No cold intolerance, No heat intolerance. Immunologic: Negative. Musculoskeletal: Left lower extremity pain and swelling. Integumentary: No rash, No pruritus. Neurologic: No confusion, No numbness, No tingling, No headache. Psychiatric: No anxiety, No depression. All other systems are negative Health Status Allergies: Allergies (2) Active Reaction No Known Allergies None Documented No Known Medication Allergies None Documented Current medications: Home Medications (11) Active amLODIPine 5 mg, Oral, At Bedtime aspirin 81 mg oral delayed release tablet 81 mg = 1 Tab, Oral, BID atorvastatin 20 mg, Oral, At Bedtime docusate sodium 100 mg oral capsule 100 mg = 1 Cap, PRN, Oral, Daily metFORMIN 500 mg oral tablet, extended release 500 mg = 1 Tab, Oral, At Bedtime omeprazole 40 mg, Oral, Daily Vitamin B12 1,000 mcg, SubLINgual, Daily Vitamin C 500 mg, Oral, At Bedtime Vitamin D3 2,000 Int Units, Oral, At Bedtime Zinc 100 mg, Oral, BID Zofran 4 mg oral tablet 4 mg = 1 Tab, PRN, Oral, Q4H , Medications (34) Active Scheduled: (9) amLODIPine 5 mg tab 5 mg 1 Tab, Oral, At Bedtime ascorbic acid 500 mg tab 500 mg 1 Tab, Oral, At Bedtime atorvastatin 20 mg tab 20 mg 1 Tab, Oral, At Bedtime cefTRIAXone 2 Gram, IV Piggyback, [id number] cholecalciferol 2,000 Int Units, Oral, At Bedtime cyanocobalamin 1,000 mcg, SubLINgual, Daily docusate sodium 100 mg cap 100 mg 1 Cap, Oral, BID insulin lispro Scale C:, SubCutaneous, AC and at Bedtime pantoprazole EC 40 mg tab 40 mg 1 Tab, Oral, Daily Continuous: (1) NaCl 0.45% 1,000 mL 1,000 mL, IntraVENous, 100 mL/Hr PRN: (24) acetaminophen 325 mg tab 650 mg 2 Tab, Oral, Q4H acetaminophen/HYDROcodone 325/5 mg tab 1 Tab, Oral, Q4H acetaminophen/HYDROcodone 325/5 mg tab 2 Tab, Oral, Q4H ALPRAZolam 0.25 mg tab 0.25 mg 1 Tab, Oral, Q6H bisacodyl 10 mg supp 10 mg 1 Supp, Rectal, BID calcium gluconate 1 Gram 10 mL, IV Piggyback, Daily calcium gluconate 2 Gram, IV Piggyback, Daily calcium gluconate 2 Gram, IV Piggyback, Q12H cloNIDine 0.1 mg tab 0.1 mg 1 Tab, Oral, Q4H diphenhydrAMINE 25 mg tab 25 mg 1 Tab, Oral, Q6H HYDROmorphone 1 mg/1 mL inj 0.5 mg 0.5 mL, IV Push, Q2H magnesium hydroxide 8% liq 30 mL 30 mL, Oral, Daily magnesium sulfate 2 Gram, IV Piggyback, Daily magnesium sulfate 2 Gram, IV Piggyback, Q2H metoclopramide 10 mg/2 mL inj 5 mg 1 mL, IV Push, Q6H ondansetron 4 mg/2 mL inj 4 mg 2 mL, IV Push, Q4H ondansetron 4 mg/2 mL inj 4 mg 2 mL, IV Push, Q4H potassium chloride 20 mEq, Oral, Q2H potassium chloride 60 mEq, Oral, Q2H potassium chloride 10 mEq 50 mL, IV Piggyback, Q1H sodium phosphate 15 mMole 5 mL, IV Piggyback, Daily sodium phosphate 15 mMole 5 mL, IV Piggyback, Q6H temazepam 15 mg cap 15 mg 1 Cap, Oral, At Bedtime traZODone 50 mg tab 50 mg 1 Tab, Oral, At Bedtime Problem list: Active Problems (9) At risk for sleep apnea B12 deficiency Diabetes GERD (gastroesophageal reflux disease) High cholesterol HTN (hypertension) Osteoarthritis Vitamin D deficiency Wears glasses Histories Family History: Family history is significant for HTN and cancer Procedure history: bilateral knee scopes. meniscus repair bilateral. right shoulder surgery with pins and anchors. gallbladder surgery. Colonoscopy ([id number]). Social History Patient is and has 2 childre and 2 stepchildren he quit smoking 20 years ago and he drinks alcohol. Physical Examination General: Alert and oriented, No acute distress. Eye: Pupils are equal, round and reactive to light, Normal conjunctiva, Vision unchanged. HENT: Normocephalic, Tympanic membranes are clear, Normal hearing, Oral mucosa is moist, No pharyngeal erythema, No sinus tenderness. Neck: Supple, Non-tender, No carotid bruit, No jugular venous distention, No lymphadenopathy, No thyromegaly. Respiratory: Lungs are clear to auscultation, Respirations are non-labored, Breath sounds are equal, Symmetrical chest wall expansion, No chest wall tenderness. Cardiovascular: Normal rate, Regular rhythm, No murmur, No gallop, Good pulses equal in all extremities, Normal peripheral perfusion, No edema. Gastrointestinal: Soft, Non-tender, Non-distended, Normal bowel sounds, No organomegaly. Genitourinary: No costovertebral angle tenderness, No inguinal tenderness, No urethral discharge, No lesions. Lymphatics: No lymphadenopathy neck, axilla, groin. Musculoskeletal: Left lower extremity swelling and firm extending from the distal femur down to the left ankle. Integumentary: Warm, [place], Intact, No pallor, No rash, WOUND STABLE. Neurologic: Alert, Oriented, Normal sensory, Normal motor function, No focal deficits, Cranial Nerves II-XII are grossly intact, Normal deep tendon reflexes. Psychiatric: Cooperative, Appropriate mood & affect, Normal judgment, Non-suicidal. Review / Management Results review Impression and Plan Diagnosis Left TKA cellulitis - Admitting, Medical. S/p left TKA on 11/15/2020 - Admitting, Medical. Left knee pain and swelling - Admitting, Medical. HTN (hypertension) - Admitting, Medical. Diabetes mellitus type II - Admitting, Medical. HLP - Admitting, Medical. GERD (gastroesophageal reflux disease) - Admitting, Medical. B12 deficiency - Admitting, Medical. Vitamin D deficiency - Admitting, Medical. At risk for sleep apnea - Admitting, Medical. Obesity (BMI 30-39.9) - Admitting, Medical. Course: Plan/ 1-stat labs including CBC, CMP ESR, CRP UA C&S, lactic acid, procalcitonin 2-left lower extremity venous duplex 3-pain control 4-hydration 5-start empiric IV antibiotics with vancomycin and Rocephin 6-ID consult 7-will notify Dr. Mora patient in house 8-diabetic diet 9-n.p.o. after midnight 10-close monitoring blood pressure, blood glucose and renal function 11-hold aspirin for now 12-SCUDs for DVT prophylax [id number] 65 m[address] patient seen and examined and reexamined, medical record reviewed, vitals reviewed, medications seen reviewed and reconciled, discussed with Pharm.D., discussed with the patient and with the staff, discussed with PT/OT, discharge orders placed, consult note dictated . documented in this encounter Plan of Treatment Not on file documented as of this encounter Visit Diagnoses Not on filedocumented in this encounter
--- OUTSIDE RECORDS SUMMARY | 2025-06-14 10:42 | XMS_ITS | Encounter Summary ---
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 Name Role Phone Unavailable Primary Care Provider Unavailabl e Encounter Details Date Type Department Care Team (Late st Contact Info) Description 12/08/2020 Transcribed Document [facility] [place] [facility] [place] [address] ProviderAshly MD [address] [place] [address] Social History Tobacco Use Types [...] Conversion Note - Ashly ProviderMD - 12/08/2020 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 Farah Evaluating Physician: Dr. Matt Pearson CC: Left knee pain and erythema Reason for Consultation: Concern for postop cellulitis of left knee after left total knee arthroplasty HPI: Patient is a 65-year-old patient with history of osteoarthritis, diabetes mellitus, hypertension, hyperlipidemia who underwent left total knee arthroplasty 11/15/2014 was doing well for about a week and then began to have some increased pain swelling of left knee with increased bruising and warmth to touch. This was with some associated chills and subjective fevers. He went to see his primary care physician was started on clindamycin orally then went to see his orthopedic surgeon had arthrocentesis which revealed over 240,000 red cells and around 1400 white blood cells with negative cultures. He was stable but over the last 2 to 3 days had increased pain swelling erythema of left knee was admitted yesterday for further evaluation was started on IV vancomycin and ceftriaxone infectious disease requested today for ongoing antibiotic management. PMHx: Active Problems (9) At risk for sleep apnea B12 deficiency Diabetes GERD (gastroesophageal reflux disease) High cholesterol HTN (hypertension) Osteoarthritis Vitamin D deficiency Wears glasses SURGICAL Hx: Recent left total knee arthroplasty, prior shoulder surgery and cholecystectomy MEDICATIONS: Medications (38) Active Scheduled: (13) #NaCl 0.9% *FLUSH* inj 10 mL 10 mL, IntraCATHeter, Q12H amLODIPine 5 mg tab 5 mg 1 Tab, Oral, At Bedtime ascorbic acid 500 mg tab 500 mg 1 Tab, Oral, At Bedtime atorvastatin 20 mg tab 20 mg 1 Tab, Oral, At Bedtime cefTRIAXone + NaCl 0.9% 50 mL 2 Gram, IV Piggyback, [id number] cholecalciferol 1,000 unit tab 2,000 Units 2 Tab, Oral, At Bedtime cyanocobalamin 1,000 mcg tab 1,000 mcg 1 Tab, SubLINgual, Daily DAPTOmycin + NaCl 0.9% 50 mL 800 mg 16 mL, IV Piggyback, [id number] docusate sodium 100 mg cap 100 mg 1 Cap, Oral, BID insulin lispro 1 unit/0.01 mL inj Scale D:, SubCutaneous, AC and at Bedtime metFORMIN 500 mg tab 250 mg 0.5 Tab, Oral, BID With Meals pantoprazole EC 40 mg tab 40 mg 1 Tab, Oral, Daily zinc sulfate 220 mg tab 220 mg 1 Tab, Oral, Daily Continuous: (1) NaCl 0.45% 1,000 mL 1,000 mL, IntraVENous, 100 mL/Hr PRN: (24) acetaminophen 325 mg tab 650 mg 2 Tab, Oral, Q4H acetaminophen/HYDROcodone 325/5 mg tab 1 Tab, Oral, Q4H acetaminophen/HYDROcodone 325/5 mg tab 2 Tab, Oral, Q4H ALPRAZolam 0.25 mg tab 0.25 mg 1 Tab, Oral, Q6H alteplase 2 mg inj 1 mg, IV Push, 1-Time bisacodyl 10 mg supp 10 mg 1 Supp, Rectal, BID calcium gluconate 1 Gram 10 mL, IV Piggyback, Daily calcium gluconate + NaCl 0.9% 100 mL 2 Gram 20 mL, IV Piggyback, Daily calcium gluconate + NaCl 0.9% 100 mL 2 Gram 20 mL, IV Piggyback, Q12H cloNIDine 0.1 mg tab 0.1 mg 1 Tab, Oral, Q4H diphenhydrAMINE 25 mg tab 25 mg 1 Tab, Oral, Q6H HYDROmorphone 1 mg/1 mL inj 0.5 mg 0.5 mL, IV Push, Q2H magnesium hydroxide 8% liq 30 mL 30 mL, Oral, Daily magnesium sulfate 2 Gram 50 mL, IV Piggyback, Daily magnesium sulfate 2 Gram 50 mL, IV Piggyback, Q2H metoclopramide 10 mg/2 mL inj 5 mg 1 mL, IV Push, Q6H ondansetron 4 mg/2 mL inj 4 mg 2 mL, IV Push, Q4H potassium chloride 10 mEq 100 mL, IV Piggyback, Q1H potassium chloride CR 20 mEq tab 20 mEq 1 Tab, Oral, Q2H potassium chloride CR 20 mEq tab 60 mEq 3 Tab, Oral, Q2H sodium phosphate 15 mMole 5 mL, IV Piggyback, Daily sodium phosphate 15 mMole 5 mL, IV Piggyback, Q6H temazepam 15 mg cap 15 mg 1 Cap, Oral, At Bedtime traZODone 50 mg tab 50 mg 1 Tab, Oral, At Bedtime ALLERGIES: NKDA FHx: Parents with some hypertension and heart disease SOHx: Patient is prior history of tobacco use quit 20 years ago occasional alcohol use No known Diagnosis of Hep B, C, HIV, TB. No history of MRSA or C diff colitis. No recent sick exposures. No travel outside of country. ROS: A full 12 point ROS performed and positive for: Fatigue malaise some chills left knee pain swelling erythema with decreased range of motion pain with ambulation All other ROS negative. PHYSICAL EXAM: Vitals Signs (last 24 hrs) Last Charted Minimum Maximum Temp 98 (DEC 08 10:41) 97.8 (LORNE 07 21:09) 98.1 (DEC 08 02:12) Mon HR 84 (DEC 08 10:41) 77 (DEC 08:12) 84 (DEC 08 10:41) Resp Rate 16 (DEC 08:41) 16 (DEC 08 02:12) 18 (DEC 07 21:09) SBP H 190 (DEC 08 10:41) H 150 (DEC 08:12) H 190 (DEC 08 10:41) DBP 80 (DEC 08 10:41) 73 (DEC 08:12) 80 (DEC 08 10:41) MAP 110 (DEC 08 10:41) 89 (DEC 08 02:12) 110 (DEC 08 10:41) SpO2 L 93 (DEC 08:41) L 93 (DEC 08 10:41) 98 (DEC 08 06:00) General: patient is alert and in no acute distress. Some obesity HEENT: sclera white without conjunctival injection. No erythema, exudate or ulceration. No thrush present. Neck: Supple without nuchal rigidity Lymphatic: No neck, axillary, inguinal adenopathy Lungs: Clear to auscultation bilaterally without wheezes, rales, or rhonchi. Normal respiratory effort Cardiovascular: normal S1/S2; RRR, no m/r/g. Abdomen: soft, non-tender, non-distended, positive bowel sounds throughout. : No rash and normal anatomy Lower extremity: No cyanosis, clubbing or edema Motor 5/5 upper and lower extremity strength; MSK: No joint effusions, mild decreased range of motion of left knee Neuro:Alert and oriented x3. No focal deficits. Skin: Without rash; c/d/i some bruising and mild swelling and erythema of left knee mild warmth to touch no purulence no drainage PICC line: intact, located in upper extremity LABS: Labs (Last four charted values) WBC 9.4 (DEC 08) 9.2 (DEC 07) HB L 11.4 (DEC 08) L 12.3 (DEC 07) HCT L 36.2 (DEC 08) L 38.1 (DEC 07) Plt 346 (DEC 08) H 382 (DEC 07) Na 140 (DEC 08) 138 (DEC 07) K 4.4 (DEC 08) 4.2 (DEC 07) Cl 105 (DEC 08) 107 (DEC 07) CO2 30 (DEC 08) 26 (DEC 07) BUN 17 (DEC 08) 22 (DEC 07) Cr 1.03 (DEC 08) 1.16 (DEC 07) Glu R H 112 (DEC 08) H 130 (DEC 07) Ca 8.6 (DEC 08) 9.0 (DEC 07) Lactic 1.8 (DEC 07) AST 26 (DEC 08) 31 (DEC 07) ALT 52 (DEC 08) 64 (DEC 07) ALK P H 190 (DEC 08) H 211 (DEC 07) T Bili 0.3 (DEC 08) 0.4 (DEC 07) PTN 7.0 (DEC 08) 7.4 (DEC 07) ALB L 3.0 (DEC 08) 3.4 (DEC 07) Normal C-reactive protein MICRO: Knee fluid cultures from 11/28 all negative IMAGING: Radiology Results (Last 48 hours) [id number] -- 12/07/2020 15:45 US Veins LE Duplex LTD LT (12/07/2020 17:12) Result: STUDY:Left Lower Extremity Venous UltrasoundCLINICAL HISTORY: ; cellulitisFINDINGS: Sonographic grayscale images were obtained with Doppler andspectral analysis.There is normal spontaneous phasic flow, compressibility andaugmentation of the common femoral, superficial and popliteal veins.IMPRESSION: Negative for Deep Venous Thrombosis PROBLEM LIST: Acute cellulitis of left knee post surgery with previous left total knee arthroplasty around 3 weeks ago Left knee pain swelling erythema Hemarthrosis of left knee Osteoarthritis Diabetes mellitus Hypertension Hyperlipidemia Obesity ASSESSMENT: 65-year-old patient with chronic medical problems underwent left total knee arthroplasty around 3 weeks ago had some increased pain swelling erythema he was treated with some oral antibiotics without resolution of his symptoms underwent arthrocentesis on 11/28/2020 with mostly red blood cells minimal white cells and cultures negative. Be consistent with hemarthrosis but had acute worsening per patient in the past [id number] hours with increased pain swelling erythema of concern for acute cellulitis placed on antibiotics overnight of vancomycin and ceftriaxone and patient reports he feels better. Interestingly had no fevers in house with normal white blood cell count and normal C-reactive protein and negative cultures however agree left knee at high risk to develop deep space infection will cover for cellulitis at this time with gram-positive coverage of daptomycin 800 mg IV daily for at least 2 weeks with weekly follow-up in my office. PLAN: Discontinue ceftriaxone and vancomycin Daptomycin 800 mg IV every 24 hours set up with his local hospital with daily infusions discussed with his daughter who works at the infusion center discussed with case management and patient and family members. Will get weekly labs on Mondays of CBC CMP ESR CRP and CPK Follow-up with me next Friday at 11 AM UM: Discharged on IV antibiotics Patient was seen at the request of Dr. Warner and my recommendations have been communicated to primary team. Will continue to follow and assist with antimicrobial management. documented in this encounter Plan of Treatment Not on file documented as of this encounter Visit Diagnoses Not on filedocumented in this encounter
--- OUTSIDE RECORDS SUMMARY | 2025-06-14 10:42 | XMS_ITS | Encounter Summary ---
Author Organization [employer] ([place], [place], [place], [place]) Address [address] [place] [address] Care Team Providers Care Principal Systems Engineer Name Role Phone Unavailable Primary Care Provider Unavailabl e Encounter Details Date Type Department Care Team (Late st Contact Info) Description 11/15/2020 Transcribed Document [facility] [place] Family Medicine [facility] [place] [address] ProviderAshly MD [address] [place] [address] Social History Tobacco Use Types [...] Conversion Note - Historical ProviderMD - 11/15/2020 6:38 AM SKETCHER Pre Procedure Adult Entered On: 11/15/2020 6:47 EST Performed On: 11/15/2020 6:38 EST by LESLIE RODRIGUEZ RN Height and Weight, Clinical Dosing Height Source : Stated Height Entry Format : [place] Height, Feet : 6 ft(Converted to: 183 cm, 72 Inch) Height, Inches : 4 Inch(Converted to: 0 ft 4 Inch, 10.16 cm) Clinical Height : 193.04 cm Weight Source : Standing scale Weight Entry Format : Parks Clinical Dosing Weight : 140.91 kg Weight, Pounds : 310 lb Body Surface Area (BSA) : 2.67 m2 Body Mass Index : 37.8 kg/m2 (HI) [place] Body Weight : 86 kg LESLIE RODRIGUEZ RN - 11/15/2020 6:38 EST Health Histories Smoking Status : Never (less than 100 in lifetime; none in last 30 days) Smokeless Tobacco Status : Never LESLIE RODRIGUEZ RN - 11/15/2020 6:38 EST Social History (As Of: 11/15/2020 07:19:32 EST) Tobacco: Former smoker, quit more than 30 days ago Smoking Status. Never Smokeless Tobacco Status. (Last Updated: 11/02/2020 10:26:51 EST by CAROL MADERA RN) Alcohol: Alcohol Use History Yes. Alcohol Use Frequency Rarely. (Last Updated: 11/02/2020 10:26:51 EST by CAROL MADERA RN) Substance Abuse: Drug Use Hx: No. (Last Updated: 11/02/2020 10:26:51 EST by CAROL MADERA RN) Infectious Disease History Where are the test results? : Paper Copy on chart Date of COVID-19 test known? : Yes Date of COVID-19 Test : 10/01/2020 EDT Date Comment : HEALTH DEPT CLEARED PT. ISOLATED FOR 2 WEEKS. PT HAS BEEN ASYMPTOMATIC SINCE 10/05/2020 Exposure to Contagious Illness : No LESLIE RODRIGUEZ RN - 11/15/2020 7:02 EST Has the patient ever been tested for COVID-19? : Yes, Patient stated results Positive Where was the COVID-19 Testing completed? : [facility] Does patient have symptoms of COVID-19? : No COVID19 Screening : No Experiencing Infectious Disease Symptoms : No symptoms Physical contact outside [place] in the last 30 days : No Infectious Disease History : Chicken pox/Shingles, Influenza, Mumps Tuberculosis Symptoms : None LESLIE RODRIGUEZ RN - 11/15/2020 6:38 EST COVID19 PreProcedure Screening Is this an Emergent or Add on Procedure? : No Date PreProcedure COVID-19 test known? : Yes Date of PreProcedure COVID-19 : 10/01/2020 EDT Has patient been isolated since the test : Yes Exposed to COVID19 symptoms since test? : No LESLIE RODRIGUEZ RN - 11/15/2020 7:02 EST Anesthesia/Transfusion History Family History of Anesthesia Reaction : No prior transfusion(s) Transfusion History : Prior anesthesia without reaction Family History of Anesthesia Reaction : None LESLIE RODRIGUEZ RN - 11/15/2020 6:38 EST Functional Assessment Living Situation : Home Patient Lives With : Spouse Persons Assisting Patient at Home : Spouse Current Daily Living Assistance : None Sensory Deficits : None Mobility Assistance Prior to Admission : Independent HUTCHISON Hx Falls Immediate/Within 3 Months : No Current Home Treatments : Blood glucose monitoring Home Equipment : None Professional Skilled Services : None Special Services and Community Resources : None LESLIE RODRIGUEZ RN - 11/15/2020 6:38 EST [place] Suicide Severity Rating Scale (C-SSRS) CSSRS Past Month Wish to be : No CSSRS Past Month Suicidal Thoughts : No CSSRS Lifetime Suicide Behavior : No Suicide Severity Rating Score : 0 Suicide Severity Rating : No Additional Care Required at this time Thoughts of Harming/Killing Others : No LESLIE RODRIGUEZ RN - 11/15/2020 6:38 EST Psychosocial History Do You Have a History of the Following? : Patient denies history Currently in Unsafe Situation : No Do You Have a Support System? : Yes LESLIE RODRIGUEZ RN - 11/15/2020 6:38 EST Advance Directive Patient has Advance Directive *Q : No, patient refuses Advance Directive information LESLIE RODRIGUEZ RN - 11/15/2020 6:38 EST Spiritual/Cultural Needs Any Spiritual/Cultural Needs or Requests : Yes LESLIE RODRIGUEZ RN - 11/15/2020 7:02 EST Teaching/Learning Assessment Barriers To Learning : None evident Individuals Taught : Patient, Spouse Readiness to Learn : Cooperative Baseline Knowledge of Topic : Good Readiness to Learn : Explanation, Printed materials Learning Style Preferences Patient : Printed materials, Verbal explanation Learning Style Preferences Family : Printed materials, Verbal explanation LESLIE RODRIGUEZ RN - 11/15/2020 6:38 EST Education Topics, Periop Preadmission Perioperative Education Grid Arrival Time/Place : Verbalizes understanding Falls : Verbalizes understanding IV's : Verbalizes understanding NPO Status/Directions : Verbalizes understanding Pain Management : Verbalizes understanding Preprocedure Preparations : Verbalizes understanding Preprocedure Tests/Labs : Verbalizes understanding Responsible Adult : Verbalizes understanding Take/Hold Medications Pre-Procedure : Verbalizes understanding LESLIE RODRIGUEZ RN - 11/15/2020 6:38 EST General Info Arrived From : Home Mode of Arrival on Unit : Ambulatory Patient Arrival Date/Time : 11/15/2020 6:25 EST Legal Guardian : Unaccompanied Want Family/Rep/Phys Notified of Admit : No Emergency Contact #1 : Ava Watkins Emergency Contact #1 Emergency Contact #1 Relationship : spouse Emergency Contact #2 : - Emergency Contact #2 Phone Number : - Emergency Contact #2 Relationship : - Information Obtained From : Patient Primary Language : Upper Sorbian Preferred Communication Mode : Verbal Communication Barrier : None Chief Service Observer Needed : No LESLIE RODRIGUEZ RN - 11/15/2020 6:38 EST Vital Measurements Temperature Source : Oral Temperature Mode : Fahrenheit Temperature, Fahrenheit : 98.5 Deg F Clinical Temperature, C : 36.9 Deg C Pulse Method : Pulse Oximetry Pulse Source : Radial, Right Peripheral Pulse Rate : 94 bpm Pulse Rhythm : Regular Respiratory Rate : 16 Breaths/Min Blood Pressure Location : Arm, left upper Blood Pressure Source : Non-Invasive BP Device Blood Pressure Position : Side, Left Systolic Blood Pressure : 192 mmHg (HI) Diastolic Blood Pressure : 87 mmHg Oxygen Saturation : 97 % Oxygen Therapy Mode : Room air LESLIE RODRIGUEZ RN - 11/15/2020 8:02 EST Sleep Apnea Risk Assmt Hx of [...] Sleep Apnea Risk Level Score : 5 LESLIE RODRIGUEZ RN - 11/15/2020 6:38 EST Sam Scale Sam Nutrition : Excellent Sam Score : 22 LESLIE RODRIGUEZ RN - 11/15/2020 8:02 EST Sam Sensory Perception : No impairment Sam Moisture : Rarely moist Sam Activity : Walks frequently Sam Mobility : Slightly limited Sam Friction and Shear : No apparent problem LESLIE RODRIGUEZ RN - 11/15/2020 6:38 EST Oxygen Therapy Oxygen Therapy Mode : Room air LESLIE RODRIGUEZ RN - 11/15/2020 6:38 EST Pain Assessment Pain Assessment : Initial assessment Pain Scale Used : 0-10 Scale LESLIE RODRIGUEZ RN - 11/15/2020 7:02 EST Fall Risk Scales ABCs Fall Injury Risk Identification : Surgery ABC Fall Injury Risk : Moderate to high injury risk HUTCHISON Hx Falls Immediate/Within 3 Months : No [place] Secondary Diagnosis : Yes H[place]ISON Use of Ambulatory Aid : None H[place] IV Therapy or IV Access : Yes [place] Gait/Transferring : Normal, bedrest, immobile [place] Mental Status : Oriented to own ability [place] Fall Risk Score : 35 H[place] Fall Scale Risk Level : 25-45 Medium Risk [place] Fall Interventions : Adequate lighting, Bed in low position, Call device within reach, Hourly comfort/safety rounds, Non-slip footwear, Personal items within reach, Upper side-rails up, Wheels locked LESLIE RODRIGUEZ RN - 11/15/2020 6:38 EST Fall Risk Education Grid Call light use : Verbalizes understanding Eyeglasses Use : Verbalizes understanding Nonskid Footwear Use : Verbalizes understanding Siderails use/risks : Verbalizes understanding LESLIE RODRIGUEZ RN - 11/15/2020 6:38 EST Barriers to Learning : None evident Individuals Taught : Patient, Spouse Readiness to Learn : Cooperative Baseline Knowledge of Topic : Good Teaching Method : Printed materials Learning Style Preferences Family : Printed materials, Verbal explanation Learning Style Preferences Patient : Printed materials, Verbal explanation Teaching Evaluation : Verbalizes understanding LESLIE RODRIGEUZ RN - 11/15/2020 6:38 EST Education Topics, Day of Surgery DayofSurgery Education Grid Anesthesia/Sedation : Verbalizes understanding Fall Risks : Verbalizes understanding Family Instructions : Verbalizes understanding IV's : Verbalizes understanding Medication Instructions : Verbalizes understanding Pain Management : Verbalizes understanding Responsible Adult : Verbalizes understanding LESLIE RODRIGUEZ RN - 11/15/2020 6:38 EST Valuables and Belongings Valuables and Belongings : Clothing, Personal devices Clothing : Common streetwear Clothing Disposition : Sent to locker Personal Device Disposition : Sent to locker Personal Devices : Glasses LESLIE RODRIGUEZ RN - 11/15/2020 6:38 EST Pain Scale Intensity : 0 LESLIE RODRIGUEZ RN - 11/15/2020 7:02 EST Image 4 - Images currently included in the form version of this document have not been included in the text rendition version of the form. Frieda Coma Frieda Best Motor Response : Obey commands [place] Best Verbal Response : Oriented Frieda Eye Opening Response : Spontaneous [place] Coma Score : 15 LESLIE RODRIGUEZ RN - 11/15/2020 6:38 EST documented in this encounter Plan of Treatment Not on file documented as of this encounter Visit Diagnoses Not on filedocumented in this encounter
--- OUTSIDE RECORDS SUMMARY | 2025-06-14 10:42 | XMS_ITS | Encounter Summary ---
Author Organization [employer] ([place], [place], [place], [place]) Address [address] [place] [address] Care Team Providers Care Transport Nurse Name Role Phone Unavailable Primary Care Provider Unavailabl e Encounter Details Date Type Department Care Team (Late st Contact Info) Description 11/15/[address] [facility] [place] Family Medicine [address] [place] [address] ProviderAshly MD [address] [place] [address] Social History Tobacco Use Types [...] Conversion Note - Ashly ProviderMD - 11/15/2020 12:04 PM STORE GROCERY MERCHANDISER Pain Assessment Entered On: 11/16/2020 12:01 EST Performed On: 11/16/2020 10:51 EST by Naida Trejo Rn Intervention Information: oxyCODONE Performed by Naida Trejo Rn on 11/16/2020 09:51:00 EST oxyCODONE,10mg Oral,Pain (Severe 7-10) Pain Assessment Pain Assessment : Follow-up assessment Pain Scale Goal : 3 Pain Scale Used : 0-10 Scale Naida Trejo Rn - 11/16/2020 12:01 EST Pain Scale Intensity : 2 Naida Trejo Rn - 11/16/2020 12:01 EST Image 4 - Images currently included in the form version of this document have not been included in the text rendition version of the form. documented in this encounter Plan of Treatment Not on file documented as of this encounter Visit Diagnoses Not on filedocumented in this encounter
--- OUTSIDE RECORDS SUMMARY | 2025-06-14 10:42 | XMS_ITS | Encounter Summary ---
Author Organization [employer] ([place], [place], [place], [place]) Address [address] [place] [address] Care Team Providers Care Fabrication Inspector Name Role Phone Unavailable Primary Care Provider Unavailabl e Encounter Details Date Type Department Care Team (Late st Contact Info) Description 11/15/2020 Transcribed Document [facility] [place] Medicine [address] [place] [address] ProviderAshly MD [address] [place] [address] Social History Tobacco Use Types [...] - Ashly ProviderMD - 11/15/2020 9:24 AM CLINICAL PROGRAMMER LORE Main OR PreOp Summary Primary Physician: REJI LUCIANO JR, JR, MD-ORT Finalized Date/Time: 11/15/20 14:59:04 Pt. Name: CYNTHIA CUEVAS JR /Sex: 1955 Male Med Rec #: [id number] Physician: REJI LUCIANO JR, JR, MD-ORT Financial #: [id number] Pt. Type: O Room/Bed: 406/1 Admit/Disch: 11/15/20 03:55:00 - Institution: [facility] PreOp Case Times Entry 1 In Preop 11/15/20 06:25:00 Ready for Holding n/a Room Patient Ready for 11/15/20 07:40:00 Surgery Patient Out of Preop 11/15/20 08:35:00 Patient Out of n/a Holding Room Last Modified By: SELWYN TOLENTINO RN 11/15/20 14:59:01 [facility] PreOp Case Times Audit 11/15/20 14:59:01 Crystal Machining Coordinator: ELDERHELENA Modifier: [email or web address] <+> 1 Patient Out of Preop 11/15/20 08:19:44 Crystal Machining Coordinator: ELDERJM Modifier: [email or web address] <+> 1 Patient Ready for Surgery Finalized By: SELWYN TOLENTINO, RN Document Signatures Signed By: SELWYN TOLENTINO RN 11/15/20 14:59 Electronically signed by Blake [facility] Conversion Defence Intelligence Analyst Cerner at 03/19/2023 6:41 PM CDT documented in this encounter Plan of Treatment Not on file documented as of this encounter Visit Diagnoses Not on filedocumented in this encounter
--- OUTSIDE RECORDS SUMMARY | 2025-06-14 10:42 | XMS_ITS | Encounter Summary ---
Author Organization [employer] ([place], [place], [place], [place]) Address [address] [place] [address] Care Team Providers Care Occupational Therapy Professor Name Role Phone Unavailable Primary Care Provider Unavailabl e Encounter Details Date Type Department Care Team (Late st Contact Info) Description 12/08/[address] [facility] [place] Family Medicine [address] [place] [address] ProviderAshly MD [address] [place] [address] Social History Tobacco Use Types [...] Conversion Note - Historical ProviderMD - 12/08/2020 5:00 AM MECHANICAL TECH Chart Check - Review Order Profile Entered On: 12/08/2020 5:51 EST Performed On: 12/08/2020 5:00 EST by Nisha Rudd RN Chart Check Powerplans Initiated/Discontinued as Appropriate : Yes All Active Orders Reviewed : Yes Nisha Rudd RN - 12/08/2020 5:51 EST Electronically signed by Blake [facility] Conversion Assistant Store Leader Giselle at 03/19/2023 6:57 PM CDT documented in this encounter Plan of Treatment Not on file documented as of this encounter Visit Diagnoses Not on filedocumented in this encounter
--- OUTSIDE RECORDS SUMMARY | 2025-06-14 10:42 | XMS_ITS | Encounter Summary ---
Author Organization [employer] ([place], [place], [place], [place]) Address [address] [place] [address] Care Team Providers Care Railroad Repairer Name Role Phone Unavailable Primary Care Provider Unavailabl e Encounter Details Date Type Department Care Team (Late st Contact Info) Description 12/07/2020 Transcribed Document [facility] [place] [address] [place] [address] ProviderAshly MD [address] [place] [address] Social History Tobacco Use Types [...] Conversion Note - Historical ProviderMD - 12/07/2020 4:08 PM AIRCRAFT QUALITY CONTROL INSPECTOR Initial Discharge Planning Entered On: 12/07/2020 16:11 EST Performed On: 12/07/2020 16:08 EST by SHEILA FOLEY RN Initial Assessment I Previously Documented Living Environment : No qualifying data available. Living Situation : Home Patient Lives With : Spouse Is the Patient a Caregiver at Home? : No Enter Doctors Name : Johnnie Schroeder Does Patient have PCP Listed? : Yes SHEILA FOLEY RN - 12/07/2020 16:08 EST Initial Assessment II Sensory and Motor Deficits : Other: LTK Current Home Treatments and Equipment : Bedside Guillermo hdz KATHLEEN, RN - 12/07/2020 16:08 EST Discharge Needs I Anticipated Discharge Date : 12/09/2020 EST Anticipated Discharge To, CM : Home with home health Current Home Treatment/Equipment : Current Home Treatment/Equipment No qualifying data available. Post Acute/Home Treatments : Bedside commode, Walker Documentation Status Complete : Yes SHEILA FOLEY RN - 12/07/2020 16:08 EST Discharge Needs II Professional Skilled Services : Professional Skilled Services No qualifying data available. Services and Community Resources : Home Health Needs Assistance with Transportation : No Discharge Options Discussed with Patient : Discharge transportation, DME, Home Health SHEILA FOLEY RN - 12/07/2020 16:08 EST Narrative Note Narrative Note : 65 y/o male in with cellulitis of the left leg. Patient had a LTK on 11/15/20. STATUS: Pt lives at home with his . iADLS PLAN: patient has HH with [facility] and then will be seeing [facility] for PT as outpatient. DME: patient has bariatric bsc and frw he recieved from here on last admission CM: CM will continue to follow patient. RRS: SHEILA Moncada RN - 12/07/2020 16:08 EST documented in this encounter Plan of Treatment Not on file documented as of this encounter Visit Diagnoses Not on filedocumented in this encounter
--- OUTSIDE RECORDS SUMMARY | 2025-06-14 10:42 | XMS_ITS | Encounter Summary ---
Author Organization [employer] ([place], [place], [place], [place]) Address [address] [place] [address] Care Team Providers Care Silk Screen Printing Racker Name Role Phone Unavailable Primary Care Provider Unavailabl e Encounter Details Date Type Department Care Team (Late st Contact Info) Description 12/07/2020 Transcribed Document [facility] [place] Family Medicine [address] [place] [address] ProviderAshly MD [address] [place] [address] Social History Tobacco Use Types [...] Conversion Note - Historical ProviderMD - 12/07/2020 5:00 PM TOY STUFFER Chart Check - Review Order Profile Entered On: 12/07/2020 18:05 EST Performed On: 12/07/2020 17:00 EST by Day Hernandez RN Chart Check Powerplans Initiated/Discontinued as Appropriate : Yes All Active Orders Reviewed : Yes Day Hernandez RN - 12/07/2020 18:05 EST Electronically signed by Blake [facility] Conversion Reed Fixer Cerluana at 03/19/2023 6:46 PM CDT documented in this encounter Plan of Treatment Not on file documented as of this encounter Visit Diagnoses Not on filedocumented in this encounter
--- OUTSIDE RECORDS SUMMARY | 2025-06-14 10:42 | XMS_ITS | Encounter Summary ---
Author Organization [employer] ([place], [place], [place], [place]) Address [address] [place] [address] Care Team Providers Care Software Test And Validation Engineer Name Role Phone Unavailable Primary Care Provider Unavailabl e Encounter Details Date Type Department Care Team (Late st Contact Info) Description 11/18/2020 Transcribed Document [facility] [place] [facility] [place] [address] ProviderAshly MD [address] [place] [address] Social History Tobacco Use Types [...] Conversion Note - Ashly Rodriguez MD - 11/18/2020 8:11 AM POUCH MAKER DATE OF PROCEDURE: 11/15/2020 SURGEON: Bryson Salgado Jr, MD PREOPERATIVE DIAGNOSIS: Osteoarthritis, left knee. POSTOPERATIVE DIAGNOSIS: Osteoarthritis, left knee. OPERATION: Left total knee replacement. ANESTHESIA: General, regional plus local. COMPLICATIONS: None. BLOOD LOSS: Minimal. TOURNIQUET TIME: 45 minutes. DESCRIPTION OF PROCEDURE: The patient was taken to the operating room, placed in the supine position under adequate general anesthesia after regional block, sterile prep and drape, time-out observed, IV antibiotics given and elevation of the tourniquet to 300 with anterior medial approach 6 inches in length and mid vastus arthrotomy performed. Subperiosteal dissection was carried back to the posteromedial corner of the tibia and then the ACL menisci excised. The PCL retained. The patient's specific cuts were made with the appropriate guides and then osteophytes were removed from the femur. Trial reduction showed full extension and flexion with good stability throughout the arc of motion. Resection of the patella 9 mm of 35, 3-peg jig placed superomedial on the cut surface. Patella trial showed good tracking. We then completed the tibial keel preparation, irrigated the bony surfaces dried them carefully and cemented the final components. We placed the knee in extension, removed excess cement. Once the cement hardened, we released the tourniquet and controlled all bleeding points, irrigated and closed in layered fashion, placed a sterile dressing and transferred the patient to the recovery room in good condition at the end of the procedure. FINAL CONDITION: Improved. /[id number] MD SAMINA Vicente Jr/BRYAN / SAMINA / MODL /[id number] documented in this encounter Plan of Treatment Not on file documented as of this encounter Visit Diagnoses Not on filedocumented in this encounter
--- OUTSIDE RECORDS SUMMARY | 2025-06-14 10:42 | XMS_ITS | Referral Summary ---
Author Organization [employer] ([place], [place], [place], [place]) Address [address] [place] [address] Care Team Providers Care Electrician Apprentice Name Role Phone Unavailable Primary Care Provider [...]
--- OUTSIDE RECORDS SUMMARY | 2025-06-14 10:43 | XMS_ITS | Encounter Summary ---
Author Organization [employer] ([place], [place], [place], [place]) Address [address] [place] [address] Care Team Providers Care Machinist Helper Marine Name Role Phone Unavailable Primary Care Provider Unavailabl e Encounter Details Date Type Department Care Team (Late st Contact Info) Description 11/15/2020 Transcribed Document [facility] [place] [facility] [place] [address] ProviderAshly MD [address] [place] [address] Social History Tobacco Use Types [...] Conversion Note - Ashly ProviderMD - 11/15/2020 8:11 AM FAMILY SERVICE AIDE Peripheral Nerve Block Entered On: 11/15/2020 8:14 EST Performed On: 11/15/2020 8:11 EST by LESLIE RODRIGUEZ RN Peripheral Nerve Block Peripheral Nerve Block Start Date/Time : 11/15/2020 7:54 EST Verbally Confirm Pt, Site, and Procedure : Yes Time Out Pause Time : 11/14/2020 7:52 EST Site Marked and Visible : Yes Site Preparation : Chlorhexidine (Hibiclens) Peripheral Nerve Block : Adductor Canal Laterality : Left Peripheral Nerve Block Performed by : JULIETTE FOLEY MD-ANS Medication Delivery Method : Single Shot Peripheral Nerve Block Assisted by : LESLIE RODRIGUEZ RN Ultra sound used during insertion : Yes Nerve Block Activity, Patient Tolerance : Good Peripheral Nerve Block Comment : L ADDUCTOR CANAL NERVE BLOCK WITH ON Q CATHETER PLACED PER DR. LUCIANO REQUEST. Peripheral Nerve Block End Date/Time : 11/15/2020 8:04 EST LESLIE RODRIGUEZ RN - 11/15/2020 8:11 EST documented in this encounter Plan of Treatment Not on file documented as of this encounter Visit Diagnoses Not on filedocumented in this encounter
--- OUTSIDE RECORDS SUMMARY | 2025-06-14 10:43 | XMS_ITS | Encounter Summary ---
Author Organization [employer] ([place], [place], [place], [place]) Address [address] [place] [address] Care Team Providers Care Partition Making Machine Operator Name Role Phone Unavailable Primary Care Provider Unavailabl e Encounter Details Date Type Department Care Team (Late st Contact Info) Description 11/16/2020 Transcribed Document [facility] Family Medicine [address] [place] [address] ProviderAshly MD [address] [place] [address] Social History Tobacco Use Types Packs/Day Years Used Date Smoking Tobacco: Never Assessed Sex and Gender Information Value Date Recorded Sex Assigned at Male 05/28/2022 4:44 PM CDT Legal Sex Male 4:44 PM CDT Gender Identity Male 05/28/2022 4:44 PM CDT Sexual Orientation Not on file documented as of this encounter Miscellaneous Notes * Cerner Conversion Note - Historical ProviderMD - 11/16/2020 2:00 AM SCIENTIFIC HELPER Floor Plan Adjuster Details Entered On: 11/16/2020 4:56 EST Performed On: 11/16/2020 2:00 EST by Nery Pate, RN Order Details Transport Mode Order Detail : Wheelchair Isolation Precautions Order Detail : Standard Precautions Order Detail : N/A IV Order Detail : 1 Oxygen Order Detail : 1 Nurse Collect Order Detail : 0 Lift/Transfer : Minimal Central Line Order Detail : No Room Service : Not Appropriate Arterial Line : No Patient Needs Meds Crushed/Liquid : No Nery Pate, RN - 11/16/2020 4:56 EST Electronically signed by Blake [facility] Conversion Accounts Receivable Collector Cerner at 03/19/2023 6:52 PM CDT documented in this encounter Plan of Treatment Not on file documented as of this encounter Visit Diagnoses Not on filedocumented in this encounter
--- OUTSIDE RECORDS SUMMARY | 2025-06-14 10:43 | XMS_ITS | Encounter Summary ---
Author Organization [employer] ([place], [place], [place], [place]) Address [address] [place] [address] Care Team Providers Care Gold Marker Name Role Phone Unavailable Primary Care Provider Unavailabl e Encounter Details Date Type Department Care Team (Late st Contact Info) Description 12/08/2020 Transcribed Document [facility] [place] [address] [place] [address] ProviderAshly MD [address] [place] [address] Social History Tobacco Use Types [...] Conversion Note - Historical ProviderMD - 12/08/2020 4:08 PM SENIOR DESIGN ENGINEER On Going Discharge Planning Entered On: 12/08/2020 16:10 EST Performed On: 12/08/2020 16:08 EST by SHEILA FOLEY RN Care Management Progress Note Discharge Arrangements : Patient Post-Acute Information Patient Name: CYNTHIA CUEVAS JR Gender: Male : [birth year] Age: 65 Years No Post-Acute Placement(s) Listed No Post-Acute Service(s) Listed No [place] Referral(s) Listed Discharge Options Discussed with Patient : Discharge transportation, DME, Home Health SHEILA FOLEY RN - 12/08/2020 16:08 EST Narrative Progress Note Narrative Progress Note : Dr. Pearson spoke with Digital Specialist about outpatient IV infusion. Patient will be going [facility]. Patients daughter works there. Orders faxed via Dr Pearson. Patient to followup with him weekly for dressing changes. No further CM needs identified. Historical Progress Note : Spoke with Dr. Pearson about patient getting IV antibiotics as outpatient. Orders faxed to [facility] infusion and [facility] notified of change in patients Home Health. Pt getting picc line today. No further CM needs identified. SHEILA FOLEY RN - 12/08/20 15:27:27 SHEILA FOLEY RN - 12/08/2020 16:08 EST Electronically signed by Blake [facility] Conversion Mathematics Instructor Cerner at 03/19/2023 6:42 PM CDT documented in this encounter Plan of Treatment Not on file documented as of this encounter Visit Diagnoses Not on filedocumented in this encounter
--- OUTSIDE RECORDS SUMMARY | 2025-06-14 10:43 | XMS_ITS | Encounter Summary ---
Author Organization [employer] ([place], [place], [place], [place]) Address [address] [place] [address] Care Team Providers Care Calender Machine Operator Helper Name Role Phone Unavailable Primary Care Provider Unavailabl e Encounter Details Date Type Department Care Team (Late st Contact Info) Description 12/08/2020 Transcribed Document [facility] [place] [address] [place] [address] ProviderAshly MD [address] [place] [address] Social History Tobacco Use Types [...] Conversion Note - Historical ProviderMD - 12/08/2020 2:00 AM STATION OPERATOR Historical Interpreter Details Entered On: 12/08/2020 5:51 EST Performed On: 12/08/2020 2:00 EST by Nisha Rudd RN Order Details Transport Mode Order Detail : Wheelchair Isolation Precautions Order Detail : Standard Precautions Order Detail : N/A IV Order Detail : 1 Oxygen Order Detail : 0 Nurse Collect Order Detail : 0 Lift/Transfer : Minimal Central Line Order Detail : No Room Service : Appropriate Arterial Line : No Patient Needs Meds Crushed/Liquid : No Nisha Rudd, HUMERA - 12/08/2020 5:51 EST documented in this encounter Plan of Treatment Not on file documented as of this encounter Visit Diagnoses Not on filedocumented in this encounter
--- OUTSIDE RECORDS SUMMARY | 2025-06-14 10:43 | XMS_ITS | Encounter Summary ---
Author Organization [employer] ([place], [place], [place], [place]) Address [address] [place] [address] Care Team Providers Care Malt House Supervisor Name Role Phone Unavailable Primary Care Provider Unavailabl e Encounter Details Date Type Department Care Team (Late st Contact Info) Description 11/15/2020 Transcribed Document [facility] [place] [address] [place] [address] ProviderAshly MD [address] [place] [address] Social History Tobacco Use Types [...] Conversion Note - Ashly Rodriguez MD - 11/15/2020 2:31 PM WASTEWATER PROJECT MANAGER Patient: CYNTHIA CUEVAS JR Age: 65 years Sex: Male : 1955 Associated Diagnoses: Unilateral primary osteoarthritis, left knee; Status post total knee replacement, left; Left knee pain; HTN (hypertension); Diabetes mellitus type II; Hypercholesterolemia; GERD (gastroesophageal reflux disease); B12 deficiency; Vitamin D deficiency; At risk for sleep apnea; Obesity (BMI 30-39.9) Author: RICHA FARAH MD-INT Date of admission 11/15/2020 Date of consult 11/15/2020 PCP, Jeremi Freedman MD Orthopedic surgeon, Bryson Mora MD Hospital medicine consult, internal medicine, Richa Farah MD Reason for the consult, postoperative medical management Admitting diagnosis 1???unilateral primary osteoarthritis left knee 2???s/p left total knee arthroplasty 3???left knee pain 4???HTN 5???DM type II 6???HLP 7???GERD 8???B12 deficiency 9???vitamin D deficiency 10???at risk for BRIGHT 11???obesity with BMI of 37.8 Surgery See operative report dictated by Dr. Mora History of present illness A pleasant 65 years old white male with history of DM, HTN, HLP, GERD, BRIGHT, obesity, B12 and vitamin D deficiency etc. in addition to left knee pain from osteoarthritis who is after medical clearance by his PCP underwent today left total knee arthroplasty by Dr. Mora. Patient had surgery and is recovering well he is awake alert cooperative responsive under no acute distress and is answering questions appropriately. Currently he is on femoral nerve block in addition to oral pain medications and his pain is well controlled. Patient feels groggy. He is on DVT prophylaxis per Dr. Mora protocol. He has no trouble with urination and his urine output is adequate. He is on scheduled bowel regimen. Is started on oral nutrition initially was clear liquid diet which was advanced to high-fiber diet and is tolerating well oral p.o. intake. He denies any chest pain, shortness of breath, diaphoresis nausea or vomiting. Is started on PT/OT and he got up from the bed to the chair with physical therapy Review of Systems Constitutional: No fever, No chills. Eye: No visual disturbances. Ear/Nose/Mouth/Throat: No nasal congestion, No sore throat. Respiratory: No shortness of breath, No cough. Cardiovascular: No chest pain, No tachycardia. Gastrointestinal: No nausea, No vomiting, No abdominal pain. Genitourinary: No change in urine stream. Hematology/Lymphatics: No bleeding tendency. Endocrine: No polyuria, No cold intolerance, No heat intolerance. Immunologic: Negative. Musculoskeletal: Negative. Integumentary: No rash, No pruritus. Neurologic: No confusion, No numbness, No tingling, No headache. Psychiatric: No anxiety, No depression. All other systems are negative Health Status Allergies: Allergies (1) Active Reaction No Known Medication Allergies None Documented Current medications: Home Medications (11) Active Advil PM 2 [...] At Bedtime Zinc 100 mg, Oral, BID , Medications (38) Active Scheduled: (16) #NaCl 0.9% *FLUSH* inj 10 mL 10 mL, IV Push, Q12H amLODIPine 5 mg tab 5 mg 1 Tab, Oral, At Bedtime ascorbic acid 500 mg tab 500 mg 1 Tab, Oral, At Bedtime aspirin EC 81 mg tab 81 mg 1 Tab, Oral, BID atorvastatin 20 mg tab 20 mg 1 Tab, Oral, At Bedtime cephalexin 250 mg cap 500 mg 2 Cap, Oral, Q6H cholecalciferol 1,000 unit tab 2,000 Units 2 Tab, Oral, At Bedtime cloNIDine 80 mcg + ketorolac 30 mg + ropivacaine 0.5% 25 mL + lidocaine 1% w/epi 1:100,000 23.2 mL 80 mcg 0.8 mL, IntraLesional, 1-Time cyanocobalamin 1,000 mcg tab 1,000 mcg 1 Tab, Oral, Daily ergocalciferol 1,250 Int Units, Oral, At Bedtime famotidine 20 mg tab 20 mg 1 Tab, Oral, Daily gabapentin 300 mg cap 300 mg 1 Cap, Oral, At Bedtime insulin lispro Scale D:, SubCutaneous, AC and at Bedtime metFORMIN 500 mg tab 500 mg 1 Tab, Oral, At Bedtime pantoprazole EC 40 mg tab 40 mg 1 Tab, Oral, Daily zinc sulfate 220 mg tab 220 mg 1 Tab, Oral, Daily Continuous: (1) lactated ringers 1,000 mL 1,000 mL, IntraVENous, 100 mL/Hr PRN: (21) #NaCl 0.9% *FLUSH* inj 10 mL 10 mL, IV Push, See Comment acetaminophen 500 mg tab 500 mg 1 Tab, Oral, Q6H al hydrox/mag hydrox/simeth 30 mL liq 30 mL, Oral, Q6H albuterol-ipratropium inh 3 mL 3 mL, Nebulized Inhalation, Q4H bisacodyl 10 mg supp 10 mg 1 Supp, Rectal, Daily cloNIDine 0.1 mg tab 0.1 mg 1 Tab, Oral, Q4H cyclobenzaprine 10 mg tab 5 mg 0.5 Tab, Oral, TID diphenhydrAMINE 25 mg tab 25 mg 1 Tab, Oral, On-CALL docusate calcium 240 mg cap 240 mg 1 Cap, Oral, Daily HYDROmorphone 1 mg/1 mL inj 0.5 mg 0.5 mL, IV Push, Q3H magnesium hydroxide 8% liq 30 mL 15 mL, Oral, Q6H ondansetron 4 mg tab 4 mg 1 Tab, Oral, Q6H ondansetron 4 mg/2 mL inj 4 mg 2 mL, IV Push, Q4H oxyCODONE 5 mg tab 5 mg 1 Tab, Oral, Q4H oxyCODONE 5 mg tab 10 mg 2 Tab, Oral, Q4H phenol 1.4% throat spray 5 [place], Oral, Q2H promethazine 25 mg tab 12.5 mg 0.5 Tab, Oral, Q6H promethazine 25 mg/1 mL inj 12.5 mg 0.5 mL, IV Push, Q6H promethazine 25 mg/1 mL inj 12.5 mg 0.5 mL, IV Push, Q6H scopolamine 1 mg/72 hr patch 1 Patch, TransDermal, Q3Days traZODone 50 mg tab 50 mg 1 Tab, Oral, At Bedtime Problem list: Active Problems (9) At risk for sleep apnea B12 deficiency Diabetes GERD (gastroesophageal reflux disease) High cholesterol HTN (hypertension) Osteoarthritis Vitamin D deficiency Wears glasses Histories Family History: Family history significant for HTN and cancer but denies any family history of CAD or DM Procedure history: bilateral knee scopes. meniscus repair bilateral. right shoulder surgery with pins and anchors. gallbladder surgery. Colonoscopy ([id number]). Social History Patient is and has 2 children and 2 stepchildren. He quit smoking over 20 years ago and he drinks alcohol. Physical Examination VS/Measurements Vital Signs/Vital Measures 11/15/2020 13:26 EST Systolic Blood Pressure 141 mmHg HI Diastolic Blood Pressure 69 mmHg Mean Arterial Pressure (MAP)-BMDI 85 Temperature Source Oral Temperature Mode Fahrenheit Temperature, Fahrenheit 98.5 Deg F Clinical Temperature, C 36.9 Deg C Heart Rate Monitored 98 bpm Respiratory Rate 16 Breaths/Min Oxygen Saturation 90 % LOW Oxygen Therapy Mode Nasal cannula Oxygen Flow Rate 3 Liter/Min 11/15/2020 12:00 EST Systolic Blood Pressure 171 mmHg HI Diastolic Blood Pressure 77 mmHg Mean Arterial Pressure (MAP)-BMDI 110 Heart Rate Monitored 107 bpm HI Respiratory Rate 16 Breaths/Min Oxygen Saturation 95 % Oxygen Therapy Mode Nasal cannula Oxygen Flow Rate 3 Liter/Min 11/15/2020 11:50 EST Systolic Blood Pressure 191 mmHg HI Diastolic Blood Pressure 98 mmHg HI Mean Arterial Pressure (MAP)-BMDI 133 Heart Rate Monitored 101 bpm HI Respiratory Rate 17 Breaths/Min Oxygen Saturation 94 % Oxygen Therapy Mode Nasal cannula Oxygen Flow Rate 3 Liter/Min 11/15/2020 11:40 EST Systolic Blood Pressure 175 mmHg HI Diastolic Blood Pressure 92 mmHg HI Mean Arterial Pressure (MAP)-BMDI 127 Heart Rate Monitored 99 bpm Respiratory Rate 17 Breaths/Min Oxygen Saturation 93 % LOW Oxygen Therapy Mode Nasal cannula Oxygen Flow Rate 3 Liter/Min 11/15/2020 11:30 EST Systolic Blood Pressure 194 mmHg HI Diastolic Blood Pressure 84 mmHg Mean Arterial Pressure (MAP)-BMDI 131 Heart Rate Monitored 102 bpm HI Respiratory Rate 17 Breaths/Min Oxygen Saturation 96 % Oxygen Therapy Mode Nasal cannula Oxygen Flow Rate 4 Liter/Min 11/15/2020 11:25 EST Systolic Blood Pressure 194 mmHg HI Diastolic Blood Pressure 93 mmHg HI Mean Arterial Pressure (MAP)-BMDI 131 Heart Rate Monitored 101 bpm HI Respiratory Rate 17 Breaths/Min Oxygen Saturation 96 % Oxygen Therapy Mode Nasal cannula Oxygen Flow Rate 4 Liter/Min 11/15/2020 11:20 EST Systolic Blood Pressure 196 mmHg HI Diastolic Blood Pressure 86 mmHg Mean Arterial Pressure (MAP)-BMDI 131 Heart Rate Monitored 101 bpm HI Respiratory Rate 16 Breaths/Min Oxygen Saturation 94 % Oxygen Therapy Mode Nasal cannula Oxygen Flow Rate 4 Liter/Min 11/15/2020 11:15 EST Systolic Blood Pressure 208 mmHg HI Diastolic Blood Pressure 93 mmHg HI Mean Arterial Pressure (MAP)-BMDI 133 Heart Rate Monitored 101 bpm HI Respiratory Rate 16 Breaths/Min Oxygen Saturation 96 % Oxygen Therapy Mode Nasal cannula Oxygen Flow Rate 4 Liter/Min 11/15/2020 11:10 EST Systolic Blood Pressure 198 mmHg HI Diastolic Blood Pressure 88 mmHg Mean Arterial Pressure (MAP)-BMDI 127 Heart Rate Monitored 114 bpm HI Respiratory Rate 16 Breaths/Min Oxygen Saturation 95 % Oxygen Therapy Mode Nasal cannula Oxygen Flow Rate 4 Liter/Min 11/15/2020 11:05 EST Systolic Blood Pressure 187 mmHg HI Diastolic Blood Pressure 86 mmHg Mean Arterial Pressure (MAP)-BMDI 123 Heart Rate Monitored 100 bpm Respiratory Rate 16 Breaths/Min Oxygen Saturation 94 % Oxygen Therapy Mode Nasal cannula Oxygen Flow Rate 4 Liter/Min 11/15/2020 11:02 EST Systolic Blood Pressure 190 mmHg HI Diastolic Blood Pressure 86 mmHg Temperature Source Temporal artery scanning Temperature Mode Fahrenheit Temperature, Fahrenheit 97.5 Deg F Clinical Temperature, C 36.4 Deg C Heart Rate Monitored 92 bpm Respiratory Rate 16 Breaths/Min Oxygen Saturation 94 % Oxygen Therapy Mode Nasal cannula Oxygen Flow Rate 4 Liter/Min 11/15/2020 8:05 EST Systolic Blood Pressure 182 mmHg HI Diastolic Blood Pressure 77 mmHg Heart Rate, Apical 89 bpm Respiratory Rate 14 Breaths/Min 11/15/2020 8:00 EST Oxygen Saturation 99 % Oxygen Therapy Mode Nasal cannula Oxygen Flow Rate 2 Liter/Min 11/15/2020 6:38 EST Blood Pressure Location Arm, left upper Blood Pressure Source Non-Invasive BP Device Blood Pressure Position Side, Left Systolic Blood Pressure 192 mmHg HI Diastolic Blood Pressure 87 mmHg Temperature Source Oral Temperature Mode Fahrenheit Temperature, Fahrenheit 98.5 Deg F Clinical Temperature, C 36.9 Deg C Pulse Method Pulse Oximetry Pulse Source Radial, Right Pulse Rhythm Regular Peripheral Pulse Rate 94 bpm Respiratory Rate 16 Breaths/Min Oxygen Saturation 97 % Oxygen Therapy Mode Room air Oxygen Therapy Mode Room air General: Alert and oriented, No acute distress. [...] No lymphadenopathy neck, axilla, groin. Musculoskeletal: Normal range of motion, Normal strength, No tenderness, No swelling, No deformity, Normal gait. Integumentary: Warm, [place], Intact, No pallor, No rash, WOUND STABLE. Neurologic: Alert, Oriented, Normal sensory, Normal motor function, No focal deficits, Cranial Nerves II-XII are grossly intact, Normal deep tendon reflexes. Psychiatric: Cooperative, Appropriate mood & affect, Normal judgment, Non-suicidal. Review / Management Results review: Lab results 11/15/2020 11:16 EST Glucose POC2 140 mg/dL HI 11/15/2020 6:46 EST Glucose POC2 134 mg/dL HI . Impression and Plan Diagnosis Unilateral primary osteoarthritis, left knee - Admitting, Medical. Status post total knee replacement, left - Admitting, Medical. Left knee pain - Admitting, Medical. HTN (hypertension) - Admitting, Medical. Diabetes mellitus type II - Admitting, Medical. Hypercholesterolemia - Admitting, Medical. GERD (gastroesophageal reflux disease) - Admitting, Medical. B12 deficiency - Admitting, Medical. Vitamin D deficiency - Admitting, Medical. At risk for sleep apnea - Admitting, Medical. Obesity (BMI 30-39.9) - Admitting, Medical. Course: Plan/Respirex @ BS and encourage patient to use. Sleep apnea precautions if needed. C-pap at night if needed. Hold all BP meds if BSP < 130 MMHg. If SBP < 90 mmHg, you may give 500 ml NS IVF over one hour. ACT: CONSULT PT/OT as per Dr. aleman rec. For urinary retention use bladder scanner, you may anchor FC. If no or low UOP you may give 250 mL NS IV over one hour. AM Labs BMP & Hgb/HCT. If pt. spikes fever > 101* F, encourage pt to use Respirex first, then you may give Tylenol 650 mg PO/ND x 1. If no response in 2 hours, you may get blood cx. x2, chest x-ray, sputum CX, S, gram stain x3, UA, C&S. Patient may have chloroseptic spray or throat lozenges for soar throat. DVT prophylaxis. If at any time the HGB is less than 8 type and cross then transfuse 2 units of PRBCs. Premedicate with Tylenol 650 mg PO and Benadryl 25mg PO. Electrolytes Replacement Protocol. Pain control. Close monitoring fluid and electrolytes. Fall risk precautions. Sleep apnea precautions. Stress ulcer prophylaxis.. TWT 65 [place] Electronically signed by Blake, [facility] Conversion Soapstoner Cerner at 03/19/2023 6:52 PM CDT documented in this encounter Plan of Treatment Not on file documented as of this encounter Visit Diagnoses Not on filedocumented in this encounter
--- OUTSIDE RECORDS SUMMARY | 2025-06-14 10:43 | XMS_ITS | Encounter Summary ---
Author Organization [employer] ([place], [place], [place], [place]) Address [address] [place] [address] Care Team Providers Care Tree Topper Name Role Phone Unavailable Primary Care Provider Unavailabl e Encounter Details Date Type Department Care Team (Late st Contact Info) Description 12/08/2020 Transcribed Document [facility] [place] [address] [place] [address] ProviderAshly MD [address] [place] [address] Social History Tobacco Use Types [...] Conversion Note - Historical ProviderMD - 12/08/2020 3:42 PM SURFACE TO AIR WEAPONS OFFICER Stroke/Warfarin Instructions Entered On: 12/08/2020 15:42 EST Performed On: 12/08/2020 15:42 EST by Cherelle Jarvis RN Stroke/Warfarin Instructions Stroke/TIA Discharge Ins : N/A Warfarin Discharge Ins : N/A Cherelle Jarvis RN - 12/08/2020 15:42 EST documented in this encounter Plan of Treatment Not on file documented as of this encounter Visit Diagnoses Not on filedocumented in this encounter
--- OUTSIDE RECORDS SUMMARY | 2025-06-14 10:43 | XMS_ITS | Encounter Summary ---
Author Organization [employer] ([place], [place], [place], [place]) Address [address] [place] [address] Care Team Providers Care Casting Molder Name Role Phone Unavailable Primary Care Provider Unavailabl e Encounter Details Date Type Department Care Team (Late st Contact Info) Description 11/16/2020 Transcribed Document [facility] [place] [address] [place] [address] ProviderAshly MD [address] [place] [address] Social History Tobacco Use Types [...] Conversion Note - Historical ProviderMD - 11/16/2020 5:00 AM REAL ESTATE OFFICE MANAGER Chart Check - Review Order Profile Entered On: 11/16/2020 5:38 EST Performed On: 11/16/2020 5:00 EST by Nery Pate, RN Chart Check Powerplans Initiated/Discontinued as Appropriate : Yes All Active Orders Reviewed : Yes Nery Pate RN - 11/16/2020 5:38 EST Electronically signed by Blake [facility] Conversion Metal Bonding Helper Cerner at 03/19/2023 6:53 PM CDT documented in this encounter Plan of Treatment Not on file documented as of this encounter Visit Diagnoses Not on filedocumented in this encounter
--- OUTSIDE RECORDS SUMMARY | 2025-06-14 10:43 | XMS_ITS | Encounter Summary ---
Author Organization [employer] ([place], [place], [place], [place]) Address [address] [place] [address] Care Team Providers Care On Site Construction Superintendent Name Role Phone Unavailable Primary Care Provider Unavailabl e Encounter Details Date Type Department Care Team (Late st Contact Info) Description 11/16/2020 Transcribed Document [facility] [place] [address] [place] [address] ProviderAshly MD [address] [place] [address] Social History Tobacco Use Types [...] Conversion Note - Historical ProviderMD - 11/16/2020 12:31 PM BRIM STITCHER JAYLIN Entered On: 11/16/2020 12:32 EST Performed On: 11/16/2020 12:31 EST by RICHA BUTLER MD-INT JAYLIN Indication [...] JAYLIN : . RICHA BUTLER MD-INT - 11/16/2020 12:31 EST Electronically signed by Blake [facility] Conversion Avionics Supervisor Cerner at 03/19/2023 6:49 PM CDT documented in this encounter Plan of Treatment Not on file documented as of this encounter Visit Diagnoses Not on filedocumented in this encounter
--- OUTSIDE RECORDS SUMMARY | 2025-06-14 10:43 | XMS_ITS | Encounter Summary ---
Author Organization [facility] ([place], [place], [place], [place]) Address [address] [place] [address] Care Team Providers Care [place] Conservationist Name Role Phone Unavailable Primary Care Provider Unavailabl e Encounter Details Date Type Department Care Team (Late st Contact Info) Description 12/08/2020 Transcribed Document [facility] [place] [address] ProviderAshly MD [address] [place] [address] Social History Tobacco Use Types [...] Conversion Note - Ashly Rodriguez MD - 12/08/2020 4:26 PM [place] [address] CYNTHIA CUEVAS JR :1955 Visit Time:12/07/2020 Your Visit Summary Your Care Team Admitting Physician - RICHA BUTLER MD-INT Attending Physician - RICHA BUTLER MD-INT Primary Care Physician - JUWAN, UNKNOWN Referring Physician - JUWAN, UNKNOWN Your Diagnosis At risk for sleep apnea B12 deficiency Cellulitis, unspecified, Cellulitis, unspecified, Left TKA cellulitis Diabetes mellitus type II GERD (gastroesophageal reflux disease) HLP HTN (hypertension) Left knee pain and swelling Obesity (BMI 30-39.9) S/p left TKA on 11/15/2020 Vitamin D deficiency These Are Your Goals be able to move around withoutpain Get rid of infection and go home Discharge Vitals Temperature 36.7 ??C Heart Rate (Monitored) 84 Respiratory Rate 16 Blood Pressure 190/80 What to do next Instructions From Your Care Team Patient will be having Outpatient infusion at [facility] Outpatient infusion. Daughter is making arrangements. Patient has DME at home. Discharge Follow Up Instructions: Follow-up with Dr. Mora as scheduled. Follow-up with Dr. Pearson as scheduled, Order Comment: Follow-up with PCP as scheduled or PRN Activity: As per Dr. Mora recommendations, Discharge Activity: Other (use Special Instructions) Diet: Discharge Diet: Resume usual diet as tolerated Follow-Up Appointments Follow Up with JESSICA PEARSON When 12/13/2020 11:00 AM EST Comments Appointment has been made Where: [address] [place] [phone] (1) Medications What How Much When Instructions Next Dose DAPTOmycin (DAPTOmycin 350 mg intravenous injection) See instructions 800 mg IV daily x6 weeks Pickup at [facility] tomorrow amLODIPine 5 Milligram(s) Oral At Bedtime tonight ascorbic acid (Vitamin C) 500 Milligram(s) Oral At Bedtime tonight aspirin (aspirin 81 mg oral delayed release tablet) 1 Tablet(s) Oral Two Times A Day Duration: 45 Day(s) tonight atorvastatin 20 Milligram(s) Oral At Bedtime tonight cholecalciferol (Vitamin D3) 2,000 International Units Oral At Bedtime tonight cyanocobalamin (Vitamin B12) 1,000 Microgram(s) SubLINgual Every Day tomorrow metFORMIN (metFORMIN 500 mg oral tablet, extended release) 1 Tablet(s) Oral At Bedtime tonight omeprazole 40 Milligram(s) Oral Every Day tomorrow zinc sulfate (Zinc) 100 Milligram(s) Oral Two Times A Day t [facility] Pharmacy Information [facility]: [address] [address] [phone] Take your medications faithfully. Do NOT skip medication. Do NOT stop taking medications without the direction of a physician. Carry a list of your medications with you at all times, and take this medication list with you to your first follow up visit. Report any side effects. Avoid herbal remedies unless discussed with your physician. As part of your treatment plan, your physician may have prescribed a limited course of a controlled substance. This medication may be given to help people with moderate or severe pain or for other medical conditions, but there are risks involved with treatment. Common side effects may include nausea, constipation, drowsiness, sweating, itching, dry mouth, and rash. More serious side effects may include cognitive and motor impairment, like problems with thinking, concentrating, alertness, and movement (e.g. slowed reflexes), and driving and operating heavy machinery can be dangerous. It is important for you to talk to your physician if you have these side effects or questions. These controlled substances can produce physical dependence and be habit-forming if taken for an extended period of time, which means that the body has gotten used to them and may experience withdrawal symptoms if they are abruptly stopped. Withdrawal symptoms can include runny nose, sweating, goose bumps, diarrhea, abdominal cramping, rapid heartbeat, difficulty sleeping, and nervousness. Please dispose of unused and medications per your retail pharmacy guidance. Allergies No Known Allergies No Known Medication Allergies Immunizations This Visit No Immunizations Found Education Materials What to expect after the Procedure: After the procedure, it is common to have: ??? Pain and swelling. ??? A small amount of blood or clear fluid coming from your incision for up to 7 days. ??? It is normal to have a moderate amount of bleeding from the site of the drain that was pulled on the morning after surgery. You can hold pressure on the area for 3-5 minutes and cover with a bandage as needed. Diet: ??? Resume usual diet ??? No alcoholic beverages while taking pain medication ??? Drink 8-10 glasses of water a day to prevent constipation from pain medication ??? Increase fiber to help prevent constipation. Straining can cause increased pressure and pain in your incision area ??? Increase protein to promote healing Driving: ??? Do not drive until your health care provider approves. Ask your health care provider when it is safe to drive if you have an immobilizer on your knee. ??? Do not drive or operate heavy machinery while taking prescription pain medicine. ??? Do not drive for 24 hours if you received a sedative. Activity: ??? Do not lift anything that is heavier than 10 lb (4.5 kg) until your health care provider approves. ??? No strenuous activity ??? Avoid high-impact activities, including running, jumping rope, and jumping jacks. ??? Avoid sitting for a long time without moving. Get up and move around at least every few hours. ??? Keep legs elevated while seated and place surgery leg on 2-3 pillows, this will decrease swelling ??? Continue doing blue foam and sommer basin ???tub time?? 3 times a day for 30 minutes at a time. More often is better. ??? Continue using walker until cleared by physical therapy Bathing: ??? Do not take baths, swim, or use a hot tub for one month after surgery. ??? May shower on the third day after surgery by covering incision with Glad Brand Press and Seal saran wrap. After showering, dry off completely BEFORE removing saran wrap. ??? Use Press and Seal saran wrap to shower for one month after surgery ??? You must be seated to shower until you are no longer using the walker Other: ??? Use ice therapy for 20-30 minutes at a time and leave off for 20-30 minutes at a time. Always keep a towel or cloth between the ice pack and your skin ??? Continue to use Incentive Spirometer 10 times an hour while awake for one month to help prevent pneumonia ??? Leave Mepilex on until follow up appointment. ??? ASA 81mg twice a day for 30 days. Contact a health care provider if: ??? You have more redness, swelling, or pain around your incision. ??? You have more fluid or blood coming from your incision. ??? Your incision or drain site feels warm to the touch. ??? You have pus or a bad smell coming from your incision. ??? You have a fever. ??? Your incision breaks open after your health care provider removes your sutures, skin glue, or adhesive tape. ??? Your prosthesis feels loose. ??? You have knee pain that does not go away Get help right away if you have: ??? Pain or swelling in your calf or thigh ??? shortness of breath or difficulty breathing ??? chest pain DVT: Blood Clot Blood clots are a common risk after an orthopedic surgery Symptoms: ??? Swelling of your leg or arm, especially if one side is much worse. ??? Warmth and redness of your leg or arm, especially if one side is much worse. ??? Pain in your arm or leg. If the clot is in your leg, symptoms may be more noticeable or worse when you stand or walk. ??? A feeling of pins and needles, if the clot is in the arm. The symptoms of a DVT that has traveled to the lungs (pulmonary embolism, PE) usually start suddenly and include: ??? Shortness of breath while active or at rest. ??? Coughing or coughing up blood or blood-tinged mucus. ??? Chest pain that is often worse with deep breaths. ??? Rapid or irregular heartbeat. ??? Feeling light-headed or dizzy. ??? Fainting. ??? Feeling anxious. ??? Sweating. There may also be pain and swelling in a leg if that is where the blood clot started. How is this prevented? Exercise regularly. For at least 30 minutes every day, engage in: ? Activity that involves moving your arms and legs. ? Activity that encourages good blood flow through your body by increasing your heart rate. ??? Exercise your arms and legs every hour during long-distance travel (over 4 hours). ??? Drink plenty of water and avoid drinking alcohol while traveling. ??? Avoid sitting or lying in bed for long periods of time without moving your legs. ??? Maintain a weight that is appropriate for your height. Ask your health care provider what weight is healthy for you. ??? If you are a woman who is over 35 years of age, avoid unnecessary use of medicines that contain estrogen. These include control pills. ??? Do not smoke, especially if you take estrogen medicines. If you need help quitting, ask your health care provider. ??? Wear compression stockings (if told by your health care provider) to help prevent blood clots from forming. High Fiber/High Protein Diet High fiber foods: To prevent constipation ??? Grains Whole-grain breads. Multigrain cereal. Oats and oatmeal. Brown rice. Barley. Bulgur wheat. Millet. Bran muffins. Popcorn. Crary wafer crackers. ??? Vegetables Sweet potatoes. Spinach. Kale. Artichokes. Cabbage. Broccoli. Green peas. Carrots. Squash. ??? Fruits Berries. Pears. Apples. Oranges. Avocados. Prunes and raisins. Dried figs. ??? Meats and Other Protein Sources [place], kidney, whitney, and soy beans. Split peas. Lentils. Nuts and seeds. ??? Dairy Fiber-fortified yogurt. ??? Beverages Fiber-fortified soy milk. Fiber-fortified orange juice. ??? Other Fiber bars. High-protein foods: To promote healing High-protein foods contain 4 grams (4 g) or more of protein per serving. They include: ??? Beef, ground sirloin (cooked) ??? 3 oz have 24 g of protein. ??? Cheese (hard) ??? 1 oz has 7 g of protein. ??? Chicken breast, boneless and skinless (cooked) ??? 3 oz have 13.4 g of protein. ??? Cottage cheese ??? 1/2 cup has 13.4 g of protein. ??? Egg ??? 1 egg has 6 g of protein. ??? Fish, filet (cooked) ??? 1 oz has 6???7 g of protein. ??? Garbanzo beans (canned or cooked) ??? 1/2 cup has 6???7 g of protein. ??? Kidney beans (canned or cooked) ??? 1/2 cup has 6???7 g of protein. ??? Buenrostro (cooked) ??? 3 oz has 24 g of protein. ??? Milk ??? 1 cup (8 oz) has 8 g of protein. ??? Nuts (peanuts, pistachios, almonds) ??? 1 oz has 6 g of protein. ??? Peanut butter ??? 1 oz has 7???8 g of protein. ??? Pork tenderloin (cooked) ??? 3 oz has 18.4 g of protein. ??? Pumpkin seeds ??? 1 oz has 8.5 g of protein. ??? Soybeans (roasted) ??? 1 oz has 8 g of protein. ??? Soybeans (cooked) ??? 1/2 cup has 11 g of protein. ??? Soy milk ??? 1 cup (8 oz) has 5???10 g of protein. ??? Soy or vegetable magdalena ??? 1 magdalena has 11 g of protein. ??? [place] seeds ??? 1 oz has 5.5 g of protein. ??? Tofu (firm) ??? 1/2 cup has 20 g of protein. ??? Tuna (canned in water) ??? 3 oz has 20 g of protein. ??? Yogurt ??? 6 oz has 8 g of protein. Fall Prevention ??? Use night lights. ??? Install grab bars by the toilet and in the tub and shower. Do not use towel bars as grab bars. ??? Use non-skid mats or decals on the floor of the tub or shower. ??? If you need to sit down while you are in the shower, use a plastic, non-slip stool. ??? Keep the floor dry. Immediately clean up any water that spills on the floor. ??? Remove soap buildup in the tub or shower on a regular basis. ??? Remove throw rugs and other tripping hazards from the floor. ??? Place frequently used items in wypj-cn-asuat places ??? Keep electrical cables out of the way. ??? Do not leave any items on the stairs. ??? Make sure that there are handrails on both sides of the stairs. Fix handrails that are broken or loose. Make sure that handrails are as long as the stairways. ??? Check any carpeting to make sure that it is firmly attached to the stairs. Fix any carpet that is loose or worn. ??? Avoid having throw rugs at the top or bottom of stairways, or secure the rugs with carpet tape to prevent them from moving. ??? Wear closed-toe shoes that fit well and support your feet. Wear shoes that have rubber soles or low heels. ??? Use mobility aids as needed, such as canes, walkers, scooters, and crutches. ??? Turn on lights if it is dark. Replace any light bulbs that burn out. ??? Set up furniture so that there are clear paths. Keep the furniture in the same spot. ??? Be aware of any and all pets. ??? Review your medicines with your healthcare provider. Some medicines can cause dizziness or changes in blood pressure, which increase your risk of falling. Hand Washing You should wash your hands whenever you think they are dirty. You should also wash your hands: ??? After: ? Working or playing outside. ? Touching an animal or its toys or leash. ? Handling livestock. ? Using the bathroom. ? Using household medical corps officer or toxic chemicals. ? Touching or taking out the garbage. ? Touching anything dirty around your home. ? Handling soiled clothes or rags. ? Taking care of a sick child. This includes touching used tissues, toys, and clothes. ? Sneezing, coughing, or blowing your nose. ? Using public transportation. ? Shaking hands. ? Using a phone, including your mobile phone. ? Touching money. ??? Before and after: ? Preparing food. ? [...] 4. Repeat the process for each step. ??? Always keep both feet within the width of the walker's legs or wheels. ??? When using your walker, you should not feel like you need to lean forward or to the side to keep your hands on the handgrips. ??? Make sure you are following any weight-bearing instructions that your health care provider has given you. ??? Be careful not to let the walker get too far ahead of you as you walk. ??? If your walker does not glide well [...] with your stronger leg. Knee Immobilizer Brace: ??? Adjust the brace as often as needed [...] these instructions at home: Medicines ??? Take sxju-hfq-tnzlmyo and prescription medicines only as told by [...] do not start to get better after 1???2 days of treatment. ??? Your bone or [...] do not start to get better after 1???2 days of treatment. This information is not intended to replace advice given to you by your health care provider. Make sure you discuss any questions you have with your health care provider. Document Released: 05/05/2009 Document Revised: 04/08/2019 Document Reviewed: 04/08/2019 [employer] Patient Education ?? 2020 [employer]. aspirin (oral) ( pir in) Arthritis Pain, Aspi-Cor, Aspir 81, Aspir-Low, Michelle Plus, Bufferin, Durlaza, Ecotrin, Ecpirin, Miniprin What is the most important information I should know about aspirin? You should not use aspirin if you have a bleeding disorder such as hemophilia, a recent history of stomach or intestinal bleeding, or if you are allergic to an NSAID (non-steroidal anti-inflammatory drug). Aspirin can cause Dede's syndrome, a serious and sometimes fatal condition in children. What is aspirin? Aspirin is a salicylate (bh-QBY-lq-ate) that is used to treat pain, and reduce fever or inflammation. Aspirin is sometimes used to treat or prevent heart attacks, strokes, and chest pain (angina). Aspirin should be used for cardiovascular conditions only under the supervision of a doctor. Aspirin may also be used for purposes not listed in this medication guide. What should I discuss with my healthcare provider before taking aspirin? Do not give this medicine to a child or teenager with a fever, flu symptoms, or chickenpox. Aspirin can cause Dede's syndrome, a serious and sometimes fatal condition in children. You should not use aspirin if you are allergic to it, or if you have: ?? a recent history of stomach or intestinal bleeding; ?? a bleeding disorder such as hemophilia; or ?? if you have ever had an asthma attack or severe allergic reaction after taking aspirin or an NSAID (non-steroidal anti-inflammatory drug). Tell your doctor if you have ever had: ?? asthma or seasonal allergies; ?? stomach ulcers; ?? liver disease; ?? kidney disease; ?? a bleeding or blood clotting disorder; ?? gout; or ?? heart disease, high blood pressure, or congestive heart failure. Taking aspirin during late may cause bleeding in the mother or the baby during delivery. Tell your doctor if you are or plan to become . You should not breastfeed while using this medicine. How should I take aspirin? Use exactly as directed on the label, or as prescribed by your doctor. Always follow directions on the medicine label about giving aspirin to a child. Take with food if aspirin upsets your stomach. You must chew the chewable tablet before you swallow it. Do not crush, chew, break, or open an enteric-coated or delayed/extended-release pill. Swallow it whole. If you need surgery, tell your surgeon you currently use this medicine. You may need to stop for a short time. Do not use aspirin if you smell a strong vinegar odor in the aspirin bottle. The medicine may no longer be effective. Store at room temperature away from moisture and heat. What happens if I miss a dose? Since aspirin is used when needed, you may not be on a dosing schedule. Skip any missed dose if it's almost time for your next dose. Do not use two doses at one time. What happens if I overdose? Seek emergency medical attention or call the Poison Help line at . Overdose symptoms may include stomach pain, vomiting, diarrhea, vision or hearing problems, fast or slow breathing, or confusion. What should I avoid while taking aspirin? Avoid alcohol. Heavy drinking can increase your risk of stomach bleeding. If you are taking aspirin to prevent heart attack or stroke, avoid also taking ibuprofen (Advil, Motrin). Ibuprofen can make aspirin less effective in protecting your heart and blood vessels. If you must use both medications, ask your doctor how far apart your doses should be. Ask a doctor or pharmacist before using other medicines for pain, fever, swelling, or cold/flu symptoms. They may contain ingredients similar to aspirin (such as magnesium salicylate, ibuprofen, ketoprofen, or naproxen). What are the possible side effects of aspirin? Get emergency medical help if you have signs of an allergic reaction: hives; difficult breathing; swelling of your face, lips, tongue, or throat. Stop using aspirin and call your doctor at once if you have: ?? ringing in your ears, confusion, hallucinations, rapid breathing, seizure (convulsions); ?? severe nausea, vomiting, or stomach pain; ?? bloody or tarry stools, coughing up blood or vomit that looks like coffee grounds; ?? fever lasting longer than 3 days; or ?? swelling, or pain lasting longer than 10 days. Common side effects may include: ?? upset stomach, heartburn; ?? drowsiness; or ?? mild headache. This is not a complete list of side effects and others may occur. Call your doctor for medical advice about side effects. You may report side effects to FDA at 4-923-QYD-9528. What other drugs will affect aspirin? Ask your doctor before using aspirin if you take an antidepressant. Taking certain antidepressants with aspirin may cause you to bruise or bleed easily. Ask a doctor or pharmacist before using aspirin with any other medications, especially: ?? a blood thinner (warfarin, Coumadin, Jantoven), or other medication used to prevent blood clots; or ?? other salicylates such as Nuprin Backache Caplet, Kaopectate, KneeRelief, Pamprin Cramp Formula, Pepto-Bismol, Tricosal, Trilisate, and others. This list is not complete. Other drugs may affect aspirin, including prescription and oper-tao-szdewhn medicines, vitamins, and herbal products. Not all possible drug interactions are listed here. Where can I get more information? Your pharmacist can provide more information about aspirin. Remember, keep this and all other medicines out of the reach of children, never share your medicines with others, and use this medication only for the indication prescribed. Every effort has been made to ensure that the information provided by [employer]. ('[employer]') is accurate, up-to-date, and complete, but no guarantee is made to that effect. Drug information contained herein may be time sensitive. [employer] information has been compiled for use by healthcare practitioners and consumers in the [place] and therefore [employer] does not warrant that uses outside of the [place] are appropriate, unless specifically indicated otherwise. [employer] drug information does not endorse drugs, diagnose patients or recommend therapy. [employer] drug information is an informational resource designed to assist licensed healthcare practitioners in caring for their patients and/or to serve consumers viewing this service as a supplement to, and not a substitute for, the expertise, skill, knowledge and judgment of healthcare practitioners. The absence of a warning for a given drug or drug combination in no way should be construed to indicate that the drug or drug combination is safe, effective or appropriate for any given patient. [employer] does not assume any responsibility for any aspect of healthcare administered with the aid of information [employer] provides. The information contained herein is not intended to cover all possible uses, directions, precautions, warnings, drug interactions, allergic reactions, or adverse effects. If you have questions about the drugs you are taking, check with your doctor, nurse or pharmacist. Copyright 7041-3711 [employer]. Version: 16.02. Revision Date: 07/19/2020. daptomycin (DAP to my sin) Britton Jarquin What is the most important information I should know about daptomycin? Follow all directions on your medicine label and package. Tell each of your healthcare providers about all your medical conditions, allergies, and all medicines you use. What is daptomycin? Daptomycin is an antibiotic that is used to treat bacterial infections of the skin and underlying tissues, and infections that have entered the bloodstream. Daptomycin is used for complicated infections, including MRSA or 'super bug' infections. MRSA stands for methicillin-resistant Staphylococcus aureus. Daptomycin may also be used for purposes not listed in this medication guide. What should I discuss with my healthcare provider before using daptomycin? You should not use daptomycin if you are allergic to it. Tell your doctor if you have ever had: ?? kidney disease; or ?? a nerve or muscle disorder. Tell your doctor if you are or . How should I use daptomycin? Follow all directions on your prescription label and read all medication guides or instruction sheets. Use the medicine exactly as directed. Daptomycin is given as an infusion into a vein. A healthcare provider will give your first dose and may teach you how to properly use the medication by yourself. Read and carefully follow any Instructions for Use provided with your medicine. Do not use daptomycin if you don't understand all instructions for proper use. Ask your doctor or pharmacist if you have questions. Daptomycin must be mixed with a liquid (diluent) before using it. Prepare your injection only when you are ready to give it. Do not use if the medicine has changed colors or has particles in it. Call your pharmacist for new medicine. You may need frequent blood and urine tests. This medicine may cause false results with certain medical tests. Tell any doctor who treats you that you are using daptomycin. Use this medicine for the full prescribed length of time, even if your symptoms quickly improve. Some infections must be treated for up to 6 weeks. Skipping doses can increase your risk of infection that is resistant to medication. Daptomycin will not treat a viral infection such as the flu or a common cold. Store daptomycin in the refrigerator. Do not freeze. After mixing daptomycin with a diluent, store in the refrigerator and use it within 48 hours. You may also store mixed daptomycin for up to 12 hours at room temperature. Each vial (bottle) is for one use only. Throw it away after one use, even if there is still medicine left inside. Use a needle and syringe only once and then place them in a puncture-proof 'sharps' container. Follow state or local laws about how to dispose of this container. Keep it out of the reach of children and pets. What happens if I miss a dose? Call your doctor for instructions if you miss a dose. What happens if I overdose? Seek emergency medical attention or call the Poison Help line at . What should I avoid while using daptomycin? Antibiotic medicines can cause diarrhea, which may be a sign of a new infection. If you have diarrhea that is watery or bloody, call your doctor before using anti-diarrhea medicine. What are the possible side effects of daptomycin? Get emergency medical help if you have signs of an allergic reaction: hives; difficulty breathing; swelling of your face, lips, tongue, or throat. Call your doctor at once if you have: ?? severe stomach pain, diarrhea that is watery or bloody (even if it occurs months after your last dose); ?? fever, flu symptoms, mouth and throat ulcers, rapid heart rate, shallow breathing; ?? pain or burning when you urinate; ?? numbness, tingling, or burning pain in your hands or feet; ?? easy bruising, unusual bleeding; ?? new or worsening cough, fever, trouble breathing; or ?? unexplained muscle pain, tenderness, or weakness. Common side effects may include: ?? chest pain, trouble breathing; ?? headache, dizziness; ?? stomach pain, vomiting; ?? swelling; ?? abnormal liver function tests; ?? rash, itching, sweating; ?? trouble sleeping; ?? sore throat; or ?? increased blood pressure. This is not a complete list of side effects and others may occur. Call your doctor for medical advice about side effects. You may report side effects to FDA at 8-410-YFP-4059. What other drugs will affect daptomycin? Tell your doctor about all your other medicines, especially a 'statin' cholesterol medicine such as: ?? atorvastatin (Lipitor, Caduet); ?? fluvastatin (Lescol); ?? lovastatin (Mevacor, Altoprev, Advicor); ?? pitavastatin (Livalo); ?? pravastatin (Pravachol); ?? rosuvastatin (Crestor); or ?? simvastatin (Zocor, Simcor, Vytorin); This list is not complete. Other drugs may affect daptomycin, including prescription and [id number] medicines, vitamins, and herbal products. Not all possible drug interactions are listed here. Where can I get more information? Your pharmacist can provide more information about daptomycin. Remember, keep this and all other medicines out of the reach of children, never share your medicines with others, and use this medication only for the indication prescribed. Every effort has been made to ensure that the information provided by [employer]. [employer]') is accurate, up-to-date, and complete, but no guarantee is made to that effect. Drug information contained herein may be time sensitive. [employer] information has been compiled for use by healthcare practitioners and consumers in the [place] and therefore [employer] does not warrant that uses outside of the [place] are appropriate, unless specifically indicated otherwise. [employer] drug information does not endorse drugs, diagnose patients or recommend therapy. [employer] drug information is an informational resource designed to assist licensed healthcare practitioners in caring for their patients and/or to serve consumers viewing this service as a supplement to, and not a substitute for, the expertise, skill, knowledge and judgment of healthcare practitioners. The absence of a warning for a given drug or drug combination in no way should be construed to indicate that the drug or drug combination is safe, effective or appropriate for any given patient. [employer] does not assume any responsibility for any aspect of healthcare administered with the aid of information [employer] provides. The information contained herein is not intended to cover all possible uses, directions, precautions, warnings, drug interactions, allergic reactions, or adverse effects. If you have questions about the drugs you are taking, check with your doctor, nurse or pharmacist. Copyright 4543-0563 [employer]. Version: 9.01. Revision Date: 11/02/2019. acetaminophen and oxycodone (a SEET a MIN oh fen and OX i KOE done) Endocet 10/325, Endocet 2.5/325, Endocet 5/325, Endocet 7.5/325, Nalocet, Percocet, Primlev What is the most important information I should know about acetaminophen and oxycodone? MISUSE OF OPIOID MEDICINE CAN CAUSE ADDICTION, OVERDOSE, OR . Keep the medication in a place where others cannot get to it. An overdose of acetaminophen can damage your liver or cause . Call your doctor at once if you have pain in your upper stomach, loss of appetite, dark urine, or jaundice (yellowing of your skin or eyes). Taking opioid medicine during may cause life-threatening withdrawal symptoms in the . Fatal side effects can occur if you use opioid medicine with alcohol, or with other drugs that cause drowsiness or slow your breathing. Stop taking this medicine and call your doctor right away if you have skin redness or a rash that spreads and causes blistering and peeling. What is acetaminophen and oxycodone? Acetaminophen and oxycodone is a combination medicine used to relieve moderate to severe pain. Acetaminophen and oxycodone may also be used for purposes not listed in this medication guide. What should I discuss with my healthcare provider before taking acetaminophen and oxycodone? You should not use this medicine if you are allergic to acetaminophen or oxycodone, or if you have: ?? severe asthma or breathing problems; or ?? a blockage in your stomach or intestines. Tell your doctor if you have ever had: ?? breathing problems, sleep apnea; ?? liver disease; ?? a drug or alcohol addiction; ?? kidney disease; ?? a head injury or seizures; ?? urination problems; or ?? problems with your thyroid, pancreas, or gallbladder. If you use opioid medicine while you are , your baby could become dependent on the drug. This can cause life-threatening withdrawal symptoms in the baby after it is born. Babies born dependent on opioids may need medical treatment for several weeks. Do not breastfeed. This medicine can pass into breast milk and cause drowsiness, breathing problems, or in a nursing baby. How should I take acetaminophen and oxycodone? Follow all directions on your prescription label. Never take this medicine in larger amounts, or for longer than prescribed. An overdose can damage your liver or cause . Tell your doctor if you feel an increased urge to use more of this medicine. Never share this medicine with another person, especially someone with a history of drug abuse or addiction. MISUSE CAN CAUSE ADDICTION, OVERDOSE, OR . Keep the medicine in a place where others cannot get to it. Selling or giving away acetaminophen and oxycodone is against the law. Measure liquid medicine carefully. Use the dosing syringe provided, or use a medicine dose-measuring device (not a kitchen spoon). If you need surgery or medical tests, tell the doctor ahead of time that you are using this medicine. You should not stop using this medicine suddenly. Follow your doctor's instructions about tapering your dose. Store at room temperature away from moisture and heat. Keep track of your medicine. You should be aware if anyone is using it improperly or without a prescription. Do not keep leftover opioid medication. Just one dose can cause in someone using this medicine accidentally or improperly. Ask your pharmacist where to locate a drug take-back disposal program. If there is no take-back program, flush the unused medicine down the toilet. What happens if I miss a dose? Since this medicine is used for pain, you are not likely to miss a dose. Skip any missed dose if it is almost time for your next dose. Do not use two doses at one time. What happens if I overdose? Seek emergency medical attention or call the Poison Help line at . An overdose of acetaminophen and oxycodone can be fatal. The first signs of an acetaminophen overdose include loss of appetite, nausea, vomiting, stomach pain, sweating, and confusion or weakness. Later symptoms may include pain in your upper stomach, dark urine, and yellowing of your skin or the whites of your eyes. Overdose can also cause severe muscle weakness, pinpoint pupils, very slow breathing, extreme drowsiness, or coma. What should I avoid while taking acetaminophen and oxycodone? Avoid driving or operating machinery until you know how this medicine will affect you. Dizziness or drowsiness can cause falls, accidents, or severe injuries. Do not drink alcohol. Dangerous side effects or could occur. Ask a doctor or pharmacist before using any other medicine that may contain acetaminophen (sometimes abbreviated as APAP). Taking certain medications together can lead to a fatal overdose. What are the possible side effects of acetaminophen and oxycodone? Get emergency medical help if you have signs of an allergic reaction: hives; difficulty breathing; swelling of your face, lips, tongue, or throat. Opioid medicine can slow or stop your breathing, and may occur. A person caring for you should seek emergency medical attention if you have slow breathing with long pauses, blue colored lips, or if you are hard to wake up. In rare cases, acetaminophen may cause a severe skin reaction that can be fatal. This could occur even if you have taken acetaminophen in the past and had no reaction. Stop taking this medicine and call your doctor right away if you have skin redness or a rash that spreads and causes blistering and peeling. Call your doctor at once if you have: ?? noisy breathing, sighing, shallow breathing, breathing that stops during sleep; ?? a light-headed feeling, like you might pass out; ?? weakness, tiredness, fever, unusual bruising or bleeding; ?? confusion, unusual thoughts or behavior; ?? problems with urination; ?? liver problems--nausea, upper stomach pain, tiredness, loss of appetite, dark urine, bib-colored stools, jaundice (yellowing of the skin or eyes); or ?? low cortisol levels-- nausea, vomiting, loss of appetite, dizziness, worsening tiredness or weakness. Seek medical attention right away if you have symptoms of serotonin syndrome, such as: agitation, hallucinations, fever, sweating, shivering, fast heart rate, muscle stiffness, twitching, loss of coordination, nausea, vomiting, or diarrhea. Serious side effects may be more likely in older adults and those who are overweight, malnourished, or debilitated. Long-term use of opioid medication may affect fertility (ability to have children) in men or women. It is not known whether opioid effects on fertility are permanent. Common side effects include: ?? dizziness, drowsiness, feeling tired; ?? feelings of extreme happiness or sadness; ?? nausea, vomiting, stomach pain; ?? constipation; or ?? headache. This is not a complete list of side effects and others may occur. Call your doctor for medical advice about side effects. You may report side effects to FDA at 0-472-KXB-4785. What other drugs will affect acetaminophen and oxycodone? You may have breathing problems or withdrawal symptoms if you start or stop taking certain other medicines. Tell your doctor if you also use an antibiotic, antifungal medication, heart or blood pressure medication, seizure medication, or medicine to treat HIV or hepatitis C. Opioid medication can interact with many other drugs and cause dangerous side effects or . Be sure your doctor knows if you also use: ?? cold or allergy medicines, bronchodilator asthma/COPD medication, or a diuretic ('water pill'); ?? medicines for motion sickness, irritable bowel syndrome, or overactive bladder; ?? other narcotic medications--opioid pain medicine or prescription cough medicine; ?? a sedative like Valium--diazepam, alprazolam, lorazepam, Xanax, Klonopin, Versed, and others; ?? drugs that make you sleepy or slow your breathing--a sleeping pill, muscle relaxer, medicine to treat mood disorders or mental illness; ?? drugs that affect serotonin levels in your body--a stimulant, or medicine for depression, Parkinson's disease, migraine headaches, serious infections, or nausea and vomiting. This list is not complete. Other drugs may affect acetaminophen and oxycodone, including prescription and [id number] medicines, vitamins, and herbal products. Not all possible interactions are listed here. Where can I get more information? Your doctor or pharmacist can provide more information about acetaminophen and oxycodone. Remember, keep this and all other medicines out of the reach of children, never share your medicines with others, and use this medication only for the indication prescribed. Every effort has been made to ensure that the information provided by [employer]') is accurate, up-to-date, and complete, but no guarantee is made to that effect. Drug information contained herein may be time sensitive. [employer] information has been compiled for use by healthcare practitioners and consumers in the [place] and therefore [employer] does not warrant that uses outside of the [place] are appropriate, unless specifically indicated otherwise. [employer] drug information does not endorse drugs, diagnose patients or recommend therapy. [employer] drug information is an informational resource designed to assist licensed healthcare practitioners in caring for their patients and/or to serve consumers viewing this service as a supplement to, and not a substitute for, the expertise, skill, knowledge and judgment of healthcare practitioners. The absence of a warning for a given drug or drug combination in no way should be construed to indicate that the drug or drug combination is safe, effective or appropriate for any given patient. [employer] does not assume any responsibility for any aspect of healthcare administered with the aid of information [employer] provides. The information contained herein is not intended to cover all possible uses, directions, precautions, warnings, drug interactions, allergic reactions, or adverse effects. If you have questions about the drugs you are taking, check with your doctor, nurse or pharmacist. Copyright 9532-3775 [employer]. Version: .. Revision Date: 12/22/2019. Emergency Awareness and Preventative Care STROKE is an EMERGENCY Every Minute Counts Act FAST and Check for these signs: FACE Does the face look uneven? ARM Does one arm drift down? SPEECH Does their speech sound strange? TIME Call at any sign of stroke Stroke Risk Factors Atrial Fibrillation (irregular heartbeat) Diabetes Family history of stroke Heart Disease Heavy alcohol use High Blood Pressure High Cholesterol Physical inactivity and obesity Smoking Cigarette Smoking The facts are clear, cigarette smoking will shorten your life. Smoking can cause many illnesses along the way. As a healthcare provider, we recommend that you stop smoking. Assistance with quitting is available by contacting 0-660-DPRTNOW. This is a free resource providing counseling, support, and referral. Or you may contact your personal physician. National Suicide Prevention Lifeline: The National Suicide Prevention Lifeline is a national network of local crisis centers that provides free and confidential emotional support to people in suicidal crisis or emotional distress 24 hours a day, 7 days a week. Don't Wait! Stop a Heart Attack Before it Starts What is a heart attack? A heart attack is damage or to a part of the heart from severely decreased or lack of blood flow to the heart. Over time, arteries can become narrow from the buildup of fat and cholesterol, which is called plaque. The plaque can rupture causing a blood clot to form. When the blood clot forms, the artery can become severely narrowed or completely blocked, causing a heart attack. Heart attack is the leading cause of in the [place]. 85% of muscle damage occurs within the first 2 hours. Delay in the recognition of heart attack symptoms increases the chances of . Know the early symptoms of a heart attack: Nausea Feeling of fullness in chest Jaw Pain Pain that travels down one or both arms Fatigue/being tired Anxiety Back Pain Chest pressure, squeezing, or discomfort Shortness of breath Sweating, or a cold sweat Feeling of impending doom There are unusual signs of a heart attack, too! Women, the elderly, and diabetics may present with atypical symptoms: Fainting/dizziness Weakness Confusion Risk Factors for a Heart Attack Some heart disease risk factors, such as age and family history, cannot be changed. Others, like smoking and lack of exercise, can be changed. Smoking High Cholesterol High Blood Pressure Family History Obesity Age Gender (Males are at higher risk) Lack of Exercise Diabetes Diet Stress Excessive Alcohol Intake If you or someone you know is experiencing the signs and symptoms of a heart attack, DON???T DELAY. Call immediately and seek help. If someone collapses, perform CPR! Do not attempt to drive if you are having symptoms of heart attack. Hands-Only CPR Why Hands-Only CPR? Hands-Only CPR has been shown to be as effective as conventional CPR for cardiac arrests that occur outside of a hospital. Survival depends on immediately receiving CPR from someone nearby. How do you perform Hands-Only CPR? There are two easy steps: Call 9-1-1 if you see a teen or adult collapse Push hard and fast in the center of the chest at a beat of 100 beats per minute. Save a life! 4 WAYS TO GET AHEAD OF SEPSIS SEPSIS is a MEDICAL EMERGENCY. Time matters! Infections put you and your family at risk for a life-threatening condition called sepsis. Sepsis is the body's extreme response to an infection. It is life-threatening, and without timely treatment, sepsis can rapidly lead to tissue damage, organ failure, and . Sepsis happens when an infection you already have-in your skin, lungs, urinary tract or somewhere else-triggers a chain reaction throughout your body. 1 PREVENT INFECTIONS Take good care of chronic conditions. Talk to your doctor about getting the recommended vaccines. 2 PRACTICE GOOD HYGIENE Wash your hands frequently. Keep cuts or open sores clean and covered until they are healed. 3 KNOW THE SYMPTOMS Confusion or disorientation Shortness of breath High heart rate Fever, shivering, or feeling very cold Extreme pain or discomfort Clammy or sweaty skin 4 ACT FAST Get medical care IMMEDIATELY if you suspect sepsis or if you have an infection that is not getting better or is getting worse. To learn more about sepsis and how to prevent infections, visit www.cdc.gov/sepsis. Test Results Laboratory or Other Results This Visit (last charted value for your 12/07/2020 visit) Hematology 12/08/2020 4:00 AM WBC: 9.4 K/uL -- Normal range between ( 3.9 and 10.0 ) RBC: 4.19 Million/uL -- Normal range between ( 4.63 and 6.08 ) Hct: 36.2 % -- Normal range between ( 40.1 and 51.0 ) Hgb: 11.4 Gram/dL -- Normal range between ( 13.7 and 17.5 ) Platelet Count: 346 K/uL -- Normal range between ( 163 and 369 ) MCH: 27.2 pg -- Normal range between ( 25.6 and 32.2 ) MCHC: 31.5 Gram/dL -- Normal range between ( 32.3 and 36.5 ) MCV: 86.4 fL -- Normal range between ( 79.0 and 94.8 ) Slide Review: No Eos %: 2.0 % -- Normal range between ( 1.0 and 7.0 ) [place] #: 0.85 K/uL -- Normal range between ( 0.24 and 0.82 ) Eos #: 0.19 K/uL -- Normal range between ( 0.04 and 0.54 ) [place] %: 9.0 % -- Normal range between ( 4.7 and 12.5 ) Baso %: 0.7 % -- Normal range between ( 0.0 and 1.0 ) Baso #: 0.07 K/uL -- Normal range between ( 0.01 and 0.08 ) RDW: 14.2 % -- Normal range between ( 11.6 and 14.4 ) Neut %: 54.5 % -- Normal range between ( 34.0 and 71.0 ) Neut #: 5.14 K/uL -- Normal range between ( 1.56 and 6.13 ) Lymph %: 33.5 % -- Normal range between ( 19.3 and 53.0 ) Lymph #: 3.17 K/uL -- Normal range between ( 1.18 and 3.74 ) MPV: 9.6 fL -- Normal range between ( 9.4 and 12.4 ) IG#: 0 x10(3)/uL IG%: 0 % -- Normal range between ( 0 and 1 ) 12/07/2020 4:26 PM Sed Rate Auto: 60 mm/Hr -- Normal range between ( 0 and 20 ) Urinalysis 12/07/2020 6:33 PM Ur RBC: 0-2 /HPF Urine Nitrite: Negative Urine Leukocyte Esterase: Negative Ur Epithelial Cells: 0-2 /HPF Urine Appearance: Clear Urine Glucose Dipstick: Negative Urine Blood Dipstick: Trace Urine Urobilinogen Dipstick: 0.2 EU/dL -- Normal range between ( 0.2 and 1.0 ) Ur Calcium Oxalate Crystals: Trace Urine Protein Dipstick: Negative Ur Bacteria: None Seen Urine Color: Yellow Ur WBC: 0-2 /HPF Urine Ketones Dipstick: Negative Urine pH Dipstick: 6.0 -- Normal range between ( 6.0 and 8.0 ) Urine Bilirubin Dipstick: Negative Urine Specific [place]: 1.018 -- Normal range between ( 1.005 and 1.030 ) Urine Type.: U CleanCat General Chemistry 12/08/2020 11:18 AM Glucose POC2: 131 mg/dL -- Normal range between ( 70 and 110 ) 12/08/2020 4:00 AM Creatinine Level: 1.03 mg/dL -- Normal range between ( 0.70 and 1.30 ) Sodium Level: 140 mmol/L -- Normal range between ( 136 and 146 ) Potassium Level: 4.4 mmol/L -- Normal range between ( 3.5 and 5.1 ) Chloride Level: 105 mmol/L -- Normal range between ( 102 and 112 ) Carbon Dioxide Level: 30 mmol/L -- Normal range between ( 21 and 32 ) Anion Gap: 9 -- Normal range between ( 9 and 20 ) Bilirubin Total: 0.3 mg/dL -- Normal range between ( 0.2 and 1.3 ) A/G Ratio: 0.8 -- Normal range between ( 1.1 and 2.5 ) ALT: 52 Units/Liter -- Normal range between ( 12 and 78 ) AST: 26 Units/Liter -- Normal range between ( 5 and 37 ) Globulin: 4.0 Gram/dL -- Normal range between ( 1.5 and 4.5 ) Alk Phos: 190 Units/Liter -- Normal range between ( 27 and 136 ) Bun/Creatinine: 16.5 -- Normal range between ( 8.0 and 20.0 ) Calcium Level: 8.6 mg/dL -- Normal range between ( 8.5 and 10.1 ) eGFR : >60 mL/min/1.73m2 eGFR NonAfrican: >60 mL/min/1.73m2 Glucose Level: 112 mg/dL -- Normal range between ( 74 and 106 ) Blood Urea Nitrogen: 17 mg/dL -- Normal range between ( 7 and 22 ) Protein Total: 7.0 Gram/dL -- Normal range between ( 6.4 and 8.2 ) Albumin Level: 3.0 Gram/dL -- Normal range between ( 3.4 and 5.0 ) 12/07/2020 4:26 PM CRP: 0.9 mg/dL -- Normal range between ( 0.0 and 0.9 ) Lactic Acid Level: 1.8 mmol/L -- Normal range between ( 0.4 and 2.0 ) Endocrinology 12/07/2020 4:26 PM Procalcitonin: 0.05 ng/mL -- Normal range between ( 0.00 and 0.05 ) Therapeutic Drugs 12/08/2020 12:53 PM Vancomycin Random: 14.8 mcg/mL 12/08/2020 4:00 AM Vancomycin Peak: 26.1 mcg/mL -- Normal range between ( 20.0 and 40.0 ) Ultrasound 12/07/2020 5:12 PM US Veins LE Duplex LTD LT: US Veins LE Duplex LTD LT Patient Name:CYNTHIA CUEVAS JR I have received and understand this information and was given the opportunity to ask questions. Patient/Patient Relations Coordinator Name: Patient/Patient Relations Coordinator Signature: Relationship to Patient: Clinician/Hospital Patient Relations Coordinator Signature: Date: documented in this encounter Plan of Treatment Not on file documented as of this encounter Visit Diagnoses Not on filedocumented in this encounter
--- OUTSIDE RECORDS SUMMARY | 2025-06-14 10:43 | XMS_ITS | Encounter Summary ---
Author Organization [employer] ([place], [place], [place], [place]) Address [address] [place] [address] Care Team Providers Care Process Development Associate Name Role Phone Unavailable Primary Care Provider Unavailabl e Encounter Details Date Type Department Care Team (Late st Contact Info) Description 12/08/2020 Transcribed Document [facility] [place] Medicine [facility] [place] [address] ProviderAshly MD [address] [place] [address] Social History Tobacco Use Types [...] Conversion Note - Historical ProviderMD - 12/08/2020 10:49 AM DYED YARN OPERATOR Therapy Screen, PT Entered On: 12/08/2020 10:52 EST Performed On: 12/08/2020 10:49 EST by LEONIDES MELENDEZ PT Therapy Screen, PT Medical Chart Reviewed : Yes Person Providing Information : Nurse, Patient Screen Completed : Yes Recommendation for Evaluation, PT : None Recommendations Upon Discharge : None Additional Therapy Screen Comment : Patient is modified I in room with RW and feels he has had no change in his mobility. Continues to do his HEP in the room independently, plans to DC home today after PICC line placement. LEONIDES MELENDEZ, PT - 12/08/2020 10:49 EST Electronically signed by Blake [facility] Conversion Library Media Technician Cerner at 03/19/2023 6:46 PM CDT documented in this encounter Plan of Treatment Not on file documented as of this encounter Visit Diagnoses Not on filedocumented in this encounter
--- OUTSIDE RECORDS SUMMARY | 2025-06-14 10:43 | XMS_ITS | Encounter Summary ---
Author Organization [employer] ([place], [place], [place], [place]) Address [address] [place] [address] Care Team Providers Care Ground Intelligence Officer Name Role Phone Unavailable Primary Care Provider Unavailabl e Encounter Details Date Type Department Care Team (Late st Contact Info) Description 12/08/2020 Transcribed Document [facility] [place] [address] [place] [address] ProviderAshly MD [address] [place] [address] Social History Tobacco Use Types [...] Note - Historical ProviderMD - 12/08/2020 2:00 PM COUNTER HELP On Going Discharge Planning Entered On: 12/08/2020 15:27 EST Performed On: 12/08/2020 14:00 EST by SHEILA FOLEY RN Care Management Progress Note Discharge Arrangements : Patient Post-Acute Information Patient Name: CYNTHIA CUEVAS JR Gender: Male : [birth year] Age: 65 Years No Post-Acute Placement(s) Listed No Post-Acute Service(s) Listed No Curaspan Referral(s) Listed Discharge Options Discussed with Patient : Discharge transportation, DME, Home Health SHEILA FOLEY RN - 12/08/2020 15:24 EST Narrative Progress Note Narrative Progress Note : Spoke with Dr. Pearson about patient getting IV antibiotics as outpatient. Orders faxed to [facility] and Matt at [facility] notified of change in patients Home Health. Pt getting picc line today. No further CM needs identified. SHEILA FOLEY, RN - 12/08/2020 15:24 EST Electronically signed by Blake [facility] Conversion 8Th Grade Teacher Cerner at 03/19/2023 6:30 PM CDT documented in this encounter Plan of Treatment Not on file documented as of this encounter Visit Diagnoses Not on filedocumented in this encounter
--- OUTSIDE RECORDS SUMMARY | 2025-06-14 10:43 | XMS_ITS | Encounter Summary ---
Author Organization [employer] ([place], [place], [place], [place]) Address [address] [place] [address] Care Team Providers Care Health Service Worker Name Role Phone Unavailable Primary Care Provider Unavailabl e Encounter Details Date Type Department Care Team (Late st Contact Info) Description 11/15/2020 Transcribed Document [facility] Family Medicine [address] [place] [address] ProviderAshly MD [address] [place], [place] [id number] Social History Tobacco Use Types Packs/Day Years [...] - Historical ProviderMD - 11/15/2020 12:04 PM FLOOR CLERK Consult Phone Call Documentation Entered On: 11/15/2020 12:49 EST Performed On: 11/15/2020 12:04 EST by AMBROCIO ARAUZ Phone Call for Consults Consult Phone Call/Page Attempt : First call Physician Requested for Consult : RICHA BUTLER MD-INT Physician Covering for Consult : RICHA BUTLER MD-INT Date and Time Call Returned : 11/15/2020 12:49 EST Physician Returning Call : RICHA BUTLER MD-INT TYE, CHERYL - 11/15/2020 12:49 EST Electronically signed by Blake [facility] Conversion Ore Sampler Cerner at 03/19/2023 6:53 PM CDT documented in this encounter Plan of Treatment Not on file documented as of this encounter Visit Diagnoses Not on filedocumented in this encounter
--- OUTSIDE RECORDS SUMMARY | 2025-06-14 10:43 | XMS_ITS | Encounter Summary ---
Author Organization [employer] ([place], [place], [place], [place]) Address [address] [place] [address] Care Team Providers Care Rn Urology Name Role Phone Unavailable Primary Care Provider Unavailabl e Encounter Details Date Type Department Care Team (Late st Contact Info) Description 11/15/2020 Transcribed Document [facility] [place] [address] [place] [address] ProviderAshly MD [address] [place] [address] Social History Tobacco Use Types [...] - Historical ProviderMD - 11/15/2020 12:04 PM SYSTEMS ARCHITECT Evaluation, Occupational Therapy Entered On: 11/15/2020 14:48 EST Performed On: 11/15/2020 14:15 EST by TEVIN LOCKHART OTR/Vasile General Information, OT Visit Type, OT : Initial evaluation Patient Orders : Order Date Order Ordering 11/15/2020 12:04 OT Evaluation and Treatment Ordered By: REJI LUCIANO JR, JR, MD-ORT Active Diagnoses : 11/15/2020 12:00 Deficiency of [...] : Aftercare following joint replacement surgery--L knee Onset of Problem, OT : 11/15/2020 EST Admission Date : 11/15/2020 03:55 Personal Devices : Personal Devices Glasses Assistive Devices : Assistive Devices No Devices Recorded Precautions in Place : Fall prevention measures, Fall prevention measures, high risk General Information Comment, OT : WBAT. Pt was quite groggy throughout eval, falling asleep several times briefly before waking back up. TEVIN LOCKHART OTR/Vasile - 11/15/2020 14:38 EST General Status Patient Received Status : Up in chair, Chair alarm activated Treatment Start Time : 11/15/2020 14:15 EST Patient Left Status : Up in chair, Chair alarm activated, All needs met and within reach RN/PCT Informed Comment : RN ok'ed to see Treatment End Time : 11/15/2020 14:35 EST Treatment Time : 20 Minute(s) Actual Treatment Time : 20 Minute(s) TEVIN LOCKHART OTR/Vasile - 11/15/2020 14:38 EST History and Environment, OT Living Situation, Therapy : Home Patient Lives With : Spouse Persons Assisting Patient at Home : Spouse Professional Skilled Services : None Persons Providing Information : Patient Home Equipment, Therapy : Cane, Shower Equipment Cane : Cane, single point Shower Equipment : Shower Chair, with back Home Setup : One story Stairs : Yes Stair Location(s) : Outside Outside Stairs, Number of Steps : 2 Railing Outside : No TEVIN LOCKHART OTR/Vasile - 11/15/2020 14:38 EST Prior LOF Bathing, OT : Independent Prior LOF Bed Mobility : Independent Prior LOF Upper Body Dressing, OT : Independent Prior LOF Lower Body Dressing, OT : Independent Prior LOF Toileting : Independent Prior LOF Transfer : Independent Prior LOF Grooming, OT : Independent TEVIN LOCKHART OTR/Vasile - 11/15/2020 14:38 EST Upper Extremity Upper Extremity Dominance : Right Right UE Active ROM : WFL Right UE Strength : WFL Left UE Active ROM : WFL Left UE Strength : WFL Right UE Strength Comment : Grossly 5/5 Left UE Strength Comment : Grossly 5/5 Hand Range Conservationist Test : WFL bilaterally Fine Motor Coordination Impaired : No TEVIN LOCKHART [facility]/ 11/15/2020 14:38 EST Functional Mobility Functional MobilityComment : Functional mobility not assessed; see PT docuementation for details. TEVIN LOCKHART [facility]/ 11/15/2020 14:38 EST Activity Tolerance, OT Activity Comment : Act. tolerance not formally assessed TEVIN LOCKHART R/ 11/15/2020 14:38 EST Neurological/Sensory Light Touch Response : Intact TEVIN LOCKHART [facility]/ 11/15/2020 14:38 EST Cognition Assessment, OT Orientation : Oriented x 4 Cognition Assessment, OT : Intact TEVIN LOCKHART [facility]/ 11/15/2020 14:38 EST Education OT Occupational Therapy Education Grid Activity of Daily Living Training : Verbalizes understanding Functional Mobility Training : Verbalizes understanding Home Safety : Verbalizes understanding Positioning : Verbalizes understanding Precaution/Contraindication : Verbalizes understanding Role of Occupational Therapy : Verbalizes understanding TEVIN LOCKHART [facility]/ 11/15/2020 14:38 EST Teaching/Learning Assessment Barriers To Learning : Acuity of Illness, Other: Post op drowsiness Individuals Taught : Patient Readiness to Learn : Cooperative Baseline Knowledge of Topic : Limited Readiness to Learn : Explanation Learning Style Preferences Patient : None TEVIN LOCKHART [facility]/ 11/15/2020 14:38 EST Indication Assessment, OT Occupational Therapy Indicated : Yes Problem List, OT : Impaired, activities daily living, Impaired, coordination/proprioception, Impaired functional mobility, Impaired, joint mobility, Impaired, muscle tone, Impaired, standing balance, Impaired, strength, Impaired, transfers Potential Barriers, OT : Acuity of illness, Desire/Motivation, Fatigue, Knowledge/education, Pain, Patient compliance Rehabilitation Potential, OT : Good TEVIN LOCKHART R/L 11/15/2020 14:38 EST Plan of Care, OT OT Tx Plan/Goals Established w Patient : Yes OT Frequency Rehab : Three days per week Other OT Treatment Provided This Date : Self care: pt instruction provided re: ADL performance, safety, home safety Eval=8 min Self care=12 min OT Duration Rehab : Seven Days OT Treatments Planned : Activities of daily living, Caregiver training, Functional mobility training, Neuromuscular reeducation, Safety education, Therapeutic activities, Therapeutic exercises LOCKHARTTEVIN VILLEGASLUIS E/L - 11/15/2020 14:38 EST Group Home Goals, OT Other LTG Grid Goal #1 Goal #2 Goal #3 Goal : Perform LB ADL with mod A Perfrom ADL transfer with CGA Verbalize understanding of home safety, safe car transfer Date to Meet : 11/22/2020 EST 11/22/2020 EST 11/22/2020 EST Goal Status : Initial goal Initial goal Initial goal LOCKHARTTEVIN OTR/L - 11/15/2020 14:38 EST LOCKHARTTEVIN OTR/L - 11/15/2020 14:38 EST TEVIN LOCKHART OTR/L - 11/15/2020 14:38 EST Pain Assessment Pain Scaled Used : 0-10 Pain scale Pain Score Pre-Intervention : 0 LOCKHARTTEVIN OTR/L - 11/15/2020 14:38 EST Image 1 - Images currently included in the form version of this document have not been included in the text rendition version of the form. [facility] OT Charges OT Selfcare/Hm Mgmt Ea 15 Min : 1 OT Eval Low Complexity : 1 CHANTELLE LUIS E ABARCA/L - 11/15/2020 14:38 EST documented in this encounter Plan of Treatment Not on file documented as of this encounter Visit Diagnoses Not on filedocumented in this encounter
--- OUTSIDE RECORDS SUMMARY | 2025-06-14 10:43 | XMS_ITS | Encounter Summary ---
Author Organization [employer] ([place], [place], [place], [place]) Address [address] [place] [address] Care Team Providers Care Human Services Care Specialist Name Role Phone Unavailable Primary Care Provider Unavailabl e Encounter Details Date Type Department Care Team (Late st Contact Info) Description 11/16/2020 Transcribed Document [facility] [place] [facility] [place] [address] ProviderAshly MD [address] [place] [address] Social History Tobacco Use Types [...] Conversion Note - Historical ProviderMD - 11/16/2020 1:42 PM TILE GRINDER Nursing Discharge Summary Entered On: 11/16/2020 16:16 EST Performed On: 11/16/2020 13:42 EST by Naida Trejo Pastor Documentation Discharge Date/Time : 11/16/2020 13:42 EST Patient Disposition, General : Discharge Discharge To : Home with ambulatory/outpatient follow-up Mode Of Departure, General Discharge : Private vehicle Accompanied By, Discharge : Spouse IV Discontinued : Yes Personal Belongings With Patient : Yes Pt's Own Supply of Medications Returned : No patient supply of medications to return Prescriptions Given to Patient : Other: Meds to Bed Medications Given to Patient : Other: Meds to Bed Discharge Instructions Reviewed With, Opportunity For Questions Given : Patient Patient Education Completed : Yes Teaching Method : Explanation, Printed materials Teaching Evaluation : Verbalizes understanding Education Comment : pt wheeled out to car by caregiver; education provided. No further questions at this time. Worker's Compensation Paperwork Completed : Naida Vargas Rn - 11/16/2020 16:14 EST documented in this encounter Plan of Treatment Not on file documented as of this encounter Visit Diagnoses Not on filedocumented in this encounter
--- OUTSIDE RECORDS SUMMARY | 2025-06-14 10:43 | XMS_ITS | Encounter Summary ---
Author Organization [employer] ([place], [place], [place], [place]) Address [address] [place] [address] Care Team Providers Care Machine Made Shoe Unit Worker Name Role Phone Unavailable Primary Care Provider Unavailabl e Encounter Details Date Type Department Care Team (Late st Contact Info) Description 11/16/2020 Transcribed Document [facility] Family Medicine [address] [place] [address] ProviderAshly MD [address] [place] [address] Social History Tobacco Use Types [...] Conversion Note - Ashly Rodriguez MD - 11/16/2020 12:25 PM INDUSTRIAL LABORER Patient: CYNTHIA CUEVAS JR Age: 65 years Sex: Male : 1955 Associated Diagnoses: Unilateral primary osteoarthritis, left knee; Status post total knee replacement, left; Left knee pain; HTN (hypertension); Diabetes mellitus type II; Hypercholesterolemia; GERD (gastroesophageal reflux disease); B12 deficiency; Vitamin D deficiency; At risk for sleep apnea; Obesity (BMI 30-39.9) Author: RICHA FARAH MD-INT 11/16/2020 Hospitalist medicine consult discharge in progress note, internal medicine, Richa Farah MD Basic Information ???Seen and examined ???Doing well ???Had a good [...] with the patient ???Released by Dr. Mora to go home ???Discharge medications seen, reviewed [...] oriented X4, no dizziness. Health Status Allergies: Allergic Reactions (Selected) No Known Medication Allergies, Allergies (1) Active Reaction No Known Medication Allergies None Documented Current medications: Medications (37) Active Scheduled: (15) #NaCl 0.9% *FLUSH* inj 10 mL 10 [...] tab 1,000 mcg 1 Tab, Oral, Daily famotidine 20 mg tab 20 mg 1 Tab, Oral, Daily gabapentin 300 mg cap 300 mg 1 Cap, Oral, At Bedtime insulin lispro 1 unit/0.01 mL inj Scale [...] Oral, Q4H phenol 1.4% throat spray 5 [place], Oral, Q2H promethazine 25 mg tab 12.5 [...] Wears glasses Physical Examination VS/Measurements Vital Measurements 11/16/2020 9:24 EST Systolic Blood Pressure 120 mmHg Diastolic Blood Pressure 97 mmHg HI Mean Arterial Pressure (MAP)-BMDI 102 Temperature Source Oral Temperature Mode Fahrenheit Temperature, Fahrenheit 98.4 Deg F Clinical Temperature, C 36.9 Deg C Heart Rate Monitored 98 bpm Respiratory Rate 15 Breaths/Min Oxygen Saturation 96 % Oxygen Therapy Mode Room air General: Alert [...] strength, No swelling. Integumentary: Warm, Intact, No rash, WOUND STABLE, WOUND STABLE. Neurologic: Alert, Oriented, No focal deficits. Psychiatric: Cooperative, Appropriate mood & affect. Review / Management Results review: All Results 11/16/2020 5:29 EST Glucose POC2 136 mg/dL MN 11/16/2020 2:53 EST Sodium Level 138 mmol/L Potassium Level 5.1 mmol/L Chloride Level 107 mmol/L Carbon Dioxide Level 27 mmol/L Anion Gap 9 Glucose Level 165 mg/dL HI Blood Urea Nitrogen 21 mg/dL Creatinine Level 1.32 mg/dL HI eGFR >60 mL/min/1.73m2 eGFR NonAfrican 54 mL/min/1.73m2 LOW Bun/Creatinine 15.9 Calcium Level 8.2 mg/dL LOW Hgb 13.1 Gram/dL LOW Hct 41.3 % . Condition: Stable. Discharge Plan Discharge Summary Plan Discharge Status: stable. Orders Order Profile (Selected) Inpatient Orders Ordered Discharge Notification Pharmacy: Start: 11/16/20 12:31:40 EST Discharge: Start: 11/16/20 12:31:00 EST, Discharge to: Home, Other DC instructions: Okay to DC home from medical standpoint tentative discharge by PT/OT. Nursing staff and case management to follow-up on /OT recommendations. Diagnosis Unilateral primary osteoarthritis, left knee - [...] Medical. Obesity (BMI 30-39.9) - Admitting, Medical. Course Improving. Stable. Plan/ pt is HD & CLINICALLY STABLE AFEBRILE OK TO D/C HOME ALL CONSULTANTS AGREE FOR HER D/C HOME ON HH / OUTPT.REHAB. . Orders Order Profile (Selected) Prescriptions Prescribed Keflex 500 mg oral capsule: 1 Cap, Oral, Q6H, X 3 Day(s), # 12 Cap, 0 Refill(s), other reason (Rx) Ultram 50 mg oral tablet: 1 Tab, Oral, Q6H, PRN as needed for pain, 1-2 tablets every 6 to 8 hours as needed for pain, X 10 Day(s), # 60 Tab, 0 Refill(s), other reason (Rx) Zofran 4 mg oral tablet: 1 Tab, Oral, Q4H, PRN Nausea, 1 tablet every 4 to 6 hours as needed for nausea, # 30 Tab, 0 Refill(s), other reason (Rx) acetaminophen 500 mg oral tablet: 2 Tab, Oral, TID, X 10 Day(s), # 60 Tab, 0 Refill(s), other reason (Rx) aspirin 81 mg oral delayed release tablet: 1 Tab, Oral, Tab, BID, # 90 Tab, 0 Refill(s), other reason (Rx) docusate sodium 100 mg oral capsule: 1 Cap, Oral, Cap, Daily, PRN as needed for constipation, 1-2 capsules daily as needed for constipation, # 60 Cap, 0 Refill(s), other reason (Rx) oxyCODONE 5 mg oral tablet: 1 Tab, Oral, Q4H, PRN as needed for pain, 1-2 tablets every 4 to 6 hours as needed for pain, X 7 Day(s), # 20 Tab, 0 Refill(s), other reason (Rx) Documented [...]
--- OUTSIDE RECORDS SUMMARY | 2025-06-14 10:43 | XMS_ITS | Encounter Summary ---
Author Organization [employer] ([place], [place], [place], [place]) Address [address] [place] [address] Care Team Providers Care Utilization Management Nurse Name Role Phone Unavailable Primary Care Provider Unavailabl e Encounter Details Date Type Department Care Team (Late st Contact Info) Description 12/08/2020 Transcribed Document [facility] [place] [address] [place] [address] ProviderAshly MD [address] [place] [address] Social History Tobacco Use Types [...] Conversion Note - Historical ProviderMD - 12/08/2020 4:16 PM WIRE STEWARD Event Note Entered On: 12/08/2020 16:17 EST Performed On: 12/08/2020 16:16 EST by Luli Santiago Rn Event Note Event Date/Time : 12/08/2020 15:30 EST Description of Event : In agreement with previous nurse assessment Luli Santiago Rn - 12/08/2020 16:16 EST documented in this encounter Plan of Treatment Not on file documented as of this encounter Visit Diagnoses Not on filedocumented in this encounter
--- OUTSIDE RECORDS SUMMARY | 2025-06-14 10:43 | XMS_ITS | Encounter Summary ---
Author Organization [employer] ([place], [place], [place], [place]) Address [address] [place] [address] Care Team Providers Care Life Skills Coach Name Role Phone Unavailable Primary Care Provider Unavailabl e Encounter Details Date Type Department Care Team (Late st Contact Info) Description 12/08/2020 Transcribed Document [facility] [place] [facility] [address] ProviderAshly MD [address] [place] [address] Social History Tobacco Use Types [...] Conversion Note - Historical ProviderMD - 12/08/2020 10:[address] [facility] PT Charges Entered On: 12/08/2020 10:52 EST Performed On: 12/08/2020 10:52 EST by LEONIDES MELENDEZ PT [facility] PT Charges Physical Therapy Screen : 1 LEONIDES MELENDEZ PT - 12/08/2020 10:52 EST documented in this encounter Plan of Treatment Not on file documented as of this encounter Visit Diagnoses Not on filedocumented in this encounter
--- OUTSIDE RECORDS SUMMARY | 2025-06-14 10:43 | XMS_ITS | Encounter Summary ---
Author Organization [employer] ([place], [place], [place], [place]) Address [address] [place] [address] Care Team Providers Care Build Technician Name Role Phone Unavailable Primary Care Provider Unavailabl e Encounter Details Date Type Department Care Team (Late st Contact Info) Description 11/16/2020 Transcribed Document [facility] [place] [address] [place] [address] ProviderAshly MD [address] [place] [address] Social History Tobacco Use Types [...] Conversion Note - Historical ProviderMD - 11/16/2020 9:18 AM FILLER OPERATOR Stroke/Warfarin Instructions Entered On: 11/16/2020 9:18 EST Performed On: 11/16/2020 9:18 EST by Latha Abdul RN Stroke/Warfarin Instructions Stroke/TIA Discharge Ins : N/A Warfarin Discharge Ins : N/A Latha Abdul RN - 11/16/2020 9:18 EST documented in this encounter Plan of Treatment Not on file documented as of this encounter Visit Diagnoses Not on filedocumented in this encounter
--- OUTSIDE RECORDS SUMMARY | 2025-06-14 10:43 | XMS_ITS | Encounter Summary ---
Author Organization [employer] ([place], [place], [place], [place]) Address [address] [place] [address] Care Team Providers Care Drill Sergeant Name Role Phone Unavailable Primary Care Provider Unavailabl e Encounter Details Date Type Department Care Team (Late st Contact Info) Description 12/08/2020 Transcribed Document [facility] [place] [facility] [place] [address] ProviderAshly MD [address] [place] [address] Social History Tobacco Use Types [...] Conversion Note - Historical ProviderMD - 12/08/2020 10:40 AM RESOURCING ADVISOR Therapy Screen, OT Entered On: 12/08/2020 11:58 EST Performed On: 12/08/2020 10:40 EST by TEVIN LOCKHART OTR/Vasile Therapy Screen, OT Medical Chart Reviewed : Yes Person Providing Information : Patient Screen Completed : Yes Recommendations for Evaluation OT : Do not recommend Occupational Therapy evaluation Therapy Screen Findings, OT : Patient at functional baseline Recommendations Upon Discharge : None Additional Therapy Screen Comment : Pt had L TKA done on 11/15/21 and returns for L knee cellulitis. He reports he remains I with ADLs, functional mobility, and has no OT needs at this time. No further skilled OT indicated. TEVIN LOCKHART OTR/Vasile - 12/08/2020 11:54 EST documented in this encounter Plan of Treatment Not on file documented as of this encounter Visit Diagnoses Not on filedocumented in this encounter
--- OUTSIDE RECORDS SUMMARY | 2025-06-14 10:43 | XMS_ITS | Encounter Summary ---
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 [place] [id number] CYNTHIA CUEVAS JR :1955 Visit Time:11/15/2020 Your Visit Summary Your Care Team Admitting Physician - REJI LUCIANO JR, JR, MD-ORT Attending Physician - REJI LUCIANO JR, JR, MD-ORT Primary Care Physician - KAYLA OCAMPO (REF), -SOLANGE Referring Physician - REJI LUCIANO JR, JR, MD-ORT Your Diagnosis At risk for sleep apnea B12 deficiency Diabetes mellitus type II GERD (gastroesophageal reflux disease) HTN (hypertension) Hypercholesterolemia Left knee pain Obesity (BMI 30-39.9) Status post total knee replacement, left Unilateral primary osteoarthritis, left knee, Unilateral primary osteoarthritis, left knee, Unilateral primary osteoarthritis, left knee Vitamin D deficiency These Are Your Goals be able to move around withoutpain Discharge Vitals Temperature 36.9 ??C Heart Rate (Monitored) 98 Respiratory Rate 15 Blood Pressure 120/97 What to do next Instructions From Your Care Team Community Services: [facility] . Call to schedule appointment with them after 2 weeks of Home Health. [facility] Medical Equipment for Home Use: [place] [facility] Transportation: to transport patient home. Discharge Follow Up Instructions: Follow-up with Dr. Mora as scheduled, Order Comment: Follow-up with PCP as scheduled or PRN Activity: As per Dr. Mora recommendations, Discharge Activity: Other (use Special Instructions) Diet: Discharge Diet: Resume usual diet as tolerated Follow-Up Appointments Follow Up with REJI LUCIANO JR, JR, MD-ORT When 11/28/2020 09:15 AM EST Comments Appointment has been made Where: [address] [place] [address]- Follow Up with Follow up with specialty services When 11/16/2020 09:58 AM EST Comments [facility] immediately after discharge Where: [address] [facility] [address] [place] [address]- Medications What How Much When Instructions Next Dose acetaminophen (acetaminophen 500 mg oral tablet) 2 Tablet(s) Oral Three Times A Day Duration: 10 Day(s) 3pm cephalexin (Keflex 500 mg oral capsule) 1 Capsule(s) Oral Every 6 Hours Duration: 3 Day(s) 6pm docusate (docusate sodium 100 mg oral capsule) 1 Capsule(s) Oral Every Day as needed for as needed for constipation Duration: 30 Day(s) 1-2 capsules daily as needed for constipation as needed ondansetron (Zofran 4 mg oral tablet) 1 Tablet(s) Oral Every 4 Hours as needed for Nausea Duration: 7 Day(s) 1 tablet every 4 to 6 hours as needed for nausea as needed oxyCODONE (oxyCODONE 5 mg oral tablet) 1 Tablet(s) Oral Every 4 Hours as needed for as needed for pain Duration: 7 Day(s) 1-2 tablets every 4 to 6 hours as needed for pain 1pm traMADol (Ultram 50 mg oral tablet) 1 Tablet(s) Oral Every 6 Hours as needed for as needed for pain Duration: 10 Day(s) 1-2 tablets every 6 to 8 hours as needed for pain as needed aspirin (aspirin 81 mg oral delayed release tablet) 1 Tablet(s) Oral Two Times A Day Duration: 45 Day(s) tonight amLODIPine 5 Milligram(s) Oral At Bedtime tonight ascorbic acid (Vitamin C) 500 Milligram(s) Oral At Bedtime tonihgt atorvastatin 20 Milligram(s) Oral At Bedtime tonight cholecalciferol (Vitamin D3) 2,000 International Units Oral At Bedtime tonight cyanocobalamin (Vitamin B12) 1,000 Microgram(s) SubLINgual Every Day tomorrow metFORMIN (metFORMIN 500 mg oral tablet, extended release) 1 Tablet(s) Oral At Bedtime tonight omeprazole 40 Milligram(s) Oral Every Day tomorrow zinc sulfate (Zinc) 100 Milligram(s) Oral Two Times A Day tonight Take your medications faithfully. Do NOT skip [...] and medications per your retail pharmacy guidance. Education Materials What to expect after the [...] Barley. Bulgur wheat. Millet. Bran muffins. Popcorn. [place] wafer crackers. ??? Vegetables Sweet potatoes. Spinach. Kale. Artichokes. Cabbage. Broccoli. Green peas. Carrots. Squash. ??? Fruits Berries. Pears. Apples. Oranges. Avocados. Prunes and raisins. Dried figs. ??? Meats and Other Protein Sources [place], kidney, whitney, and soy beans. Split peas. [...] magdalena has 11 g of protein. ??? [place] seeds ??? 1 oz has 5.5 g [...] floor. ??? Place frequently used items in sjaz-ez-wtyym places ??? Keep electrical cables out of [...] ? Using the bathroom. ? Using household tie carrier or toxic chemicals. ? Touching or taking [...] your foot or ankle. ? Increased pain. It???s Cold and Flu Season ??? How are you protecting yourself? The start of each year is often met with the peak of cold and flu season. This year is no different except that we are facing the new strain of coronavirus, COVID-19, and the widespread media attention this public health outbreak is causing. It is understandable that many are feeling overwhelmed by the thought of catching coronavirus and are concerned about how to best care for ourselves and our loved ones during this challenging time. Take comfort in knowing there are simple things you can do each and every day to help ensure your health is protected. Scrub a dub! Wash your hands! As simple as this sounds, it truly is the most effective way to stop the spread of germs. Be sure to use soap, and to make sure you are being thorough enough, sing the ???Happy Birthday?? song which is just the right length to ensure a thorough cleaning of your hands. Wash all parts of your hands, including the ???webs?? between your fingers and thumbs. When without, use a squeeze! If you are unable to get to a sink for soap and water to thoroughly wash your hands, use hand digital sales representative. While handwashing is best, hand digital sales representative helps to reduce the spread of germs when you are out and about. Have hand digital sales representative in several locations so you can always have some on hand ??? think about placing some bottles in your car, your purse, your suitcase, the diaper bag, or even in your coat pocket. Don???t rub, don???t touch! As tempting as it is to rub those scratchy eyes during allergy season or to rub a runny nose, don???t. In fact, if you can, try to avoid touching your face as much as possible, especially with unclean hands. Our eyes, nose, and mouth are easy access points for germs to enter our bodies. When in doubt, don???t go out! If you are feeling under the weather, stay home. If your child is feeling sick, keep them home. It is so important to not only rest when you are starting to get sick or are already under the weather, but also staying home and away from others helps to keep people from also getting sick. Don???t [place] It! Sneezing this time of year is part of life, especially if you suffer from allergies or do have the cold or flu. To help minimize the spread of germs from sneezing or coughing, use a Kleenex or your elbow to protect against rogue spray and to help keep your hands clean. And remember, most people will have a runny nose, coughs and sneezes these days either from seasonal allergies, the cold or the flu, but if you do feel ill or feel like you need some help to feel better, please contact your Primary Care Provider to determine the best course of treatment for you which may include home care for mild cases or making an appointment to be seen to address more moderate needs. To find a PCP near you, please visit HYPERLINK [email or web address]. February 04, 2020 acetaminophen (oral) (a SEET a MIN oh fen) Actamin, Anacin AF, Aurophen, Bromo Atkinson, Children's Tylenol, Mapap, M-Pap, Pharbetol, Silapap Childrens, Tactinal, Tempra Quicklets, Tycolene, Tylenol, Vitapap What is the most important information I should know about acetaminophen? You should not use acetaminophen if you have severe liver disease. Use this medicine exactly as directed on the label, or as prescribed by your doctor. An overdose of acetaminophen can damage your liver or cause . Avoid also using other medicines that contain acetaminophen (sometimes abbreviated as APAP), or you could have a fatal overdose. Call your doctor at once if you have nausea, pain in your upper stomach, itching, loss of appetite, dark urine, bib-colored stools, or jaundice (yellowing of your skin or eyes). Stop taking this medicine and call your doctor right away if you have skin redness or a rash that spreads and causes blistering and peeling. What is acetaminophen? Acetaminophen is a pain reliever and a fever banking specialist. There are many brands and forms of acetaminophen available. Not all brands are listed on this leaflet. Acetaminophen is used to treat pain or fever caused by many conditions such as headache, muscle aches, arthritis, backache, toothaches, sore throat, colds, and flu. Acetaminophen may also be used for purposes not listed in this medication guide. What should I discuss with my healthcare provider before taking acetaminophen? You should not take acetaminophen if you are allergic to it, or if you have severe liver disease. Do not take acetaminophen without a doctor's advice if you have ever had alcoholic liver disease (cirrhosis) or if you drink more than 3 alcoholic beverages per day. Ask a doctor before using this medicine if you are or . Do not give this medicine to a child younger than 12 years old without the advice of a doctor. Extra-strength acetaminophen is not for use in a child younger than 6 years old. How should I take acetaminophen? Use exactly as directed on the label, or as prescribed by your doctor. Do not take more than your recommended dose. An overdose of acetaminophen can damage your liver or cause . ?? Adults and teenagers who weigh at least 110 pounds (50 kilograms): Do not take more than 1000 milligrams (mg) at one time. Do not take more than 4000 mg in 24 hours. ?? Children younger than 12 years old: Do not take more than 5 doses of acetaminophen in 24 hours. Use only the number of milligrams per dose that is recommended for the child's weight and age. Use exactly as directed on the label. ?? Avoid also using other medicines that contain acetaminophen, or you could have a fatal overdose. If you are treating a child, use a pediatric form of acetaminophen. Use only the special dose-measuring dropper or oral syringe that comes with the specific pediatric form you are using. Carefully follow the dosing directions on the medicine label. Measure liquid medicine carefully. Use the dosing syringe provided, or use a medicine dose-measuring device (not a kitchen spoon). Acetaminophen made for infants is available in two different dose concentrations, and each concentration comes with its own medicine dropper or oral syringe. Using the wrong device may cause you to give your child an overdose of acetaminophen. Never mix and match dosing devices between formulations of acetaminophen. You may need to shake the liquid before each use. Follow the directions on the medicine label. The chewable tablet must be chewed thoroughly before you swallow it. The oral powder should be placed directly on the tongue and swallowed. Make sure your hands are dry when handling a disintegrating tablet. Place the tablet on your tongue and allow it to dissolve, without chewing. Do not swallow the tablet whole. Allow it to dissolve in your mouth without chewing. To use the effervescent granules, dissolve one packet of the granules in at least 4 ounces of water. Stir and drink this mixture right away. Add a little more water to the glass, swirl gently and drink right away. Stop taking acetaminophen and call your doctor if: ?? you still have a sore throat after 2 days of use; ?? you still have a fever after 3 days of use; ?? you still have pain after 7 days of use (or 5 days if treating a child); ?? you have a skin rash, ongoing headache, nausea, vomiting, redness or swelling; or ?? if your symptoms get worse, or if you have any new symptoms. This medicine can affect the results of certain lab tests for glucose (sugar) in the urine. Tell any doctor who treats you that you are using acetaminophen. Store at room temperature away from heat and moisture. What happens if I miss a dose? Since acetaminophen is used when needed, you may not be on a dosing schedule. Skip any missed dose if it's almost time for your next dose. Do not use two doses at one time. What happens if I overdose? Seek emergency medical attention or call the Poison Help line at . An overdose of acetaminophen can damage your liver or cause . Early signs of acetaminophen overdose include loss of appetite, nausea, vomiting, sweating, or weakness. Later symptoms may include upper stomach pain, dark urine, and yellowing of your skin or eyes. What should I avoid while taking acetaminophen? Ask a doctor or pharmacist before using any other medicine that may contain acetaminophen (sometimes abbreviated as APAP). Taking too much acetaminophen can lead to a fatal overdose. Avoid drinking alcohol. It may increase your risk of liver damage. What are the possible side effects of acetaminophen? Get emergency medical help if you have signs of an allergic reaction: hives; difficulty breathing; swelling of your face, lips, tongue, or throat. In rare cases, acetaminophen may cause a severe skin reaction that can be fatal. This could occur even if you have taken acetaminophen in the past and had no reaction. Stop taking this medicine and call your doctor right away if you have skin redness or a rash that spreads and causes blistering and peeling. If you have this type of reaction, you should never again take any medicine that contains acetaminophen. Stop taking acetaminophen and call your doctor at once if you have signs of liver problems: loss of appetite, stomach pain (upper right side), tiredness, itching, dark urine, bib-colored stools, jaundice (yellowing of the skin or eyes). Less serious side effects may be more likely, and you may have none at all. This is not a complete list of side effects and others may occur. Call your doctor for medical advice about side effects. You may report side effects to FDA at 0-843-GMB-9917. What other drugs will affect acetaminophen? Other drugs may affect acetaminophen, including prescription and iume-mvp-vlcsxev medicines, vitamins, and herbal products. Tell your doctor about all your current medicines and any medicine you start or stop using. Where can I get more information? Your pharmacist can provide more information about acetaminophen. Remember, keep this and all other medicines out of the reach of children, never share your medicines with others, and use this medication only for the indication prescribed. Every effort has been made to ensure that the information provided by [employer]. [employer]') is accurate, up-to-date, and complete, but no guarantee is made to that effect. Drug information contained herein may be time sensitive. [employer] information has been compiled for use by healthcare practitioners and consumers in the [place] and therefore [employer] does not warrant that uses outside of the [place] are appropriate, unless specifically indicated otherwise. [employer] drug information does not endorse drugs, diagnose patients or recommend therapy. [employer] drug information is an informational resource designed [...] effective or appropriate for any given patient. [facility] does not assume any responsibility for any aspect of healthcare administered with the aid of information [facility] provides. The information contained herein is not intended to cover all possible uses, directions, precautions, warnings, drug interactions, allergic reactions, or adverse effects. If you have questions about the drugs you are taking, check with your doctor, nurse or pharmacist. Copyright 5409-9990 [facility]. Version: 21.. Revision Date: 07/07/2020. cephalexin (sef a JONNA in) Keflex What is the most important information I should know about cephalexin? You should not use this medicine if you are allergic to cephalexin or to similar antibiotics, such as Ceftin, Cefzil, Omnicef, and others. Tell your doctor if you are allergic to any drugs, especially penicillins or other antibiotics. What is cephalexin? Cephalexin is a cephalosporin (SEF a low spor in) antibiotic that is used to treat bacterial infections of the lungs, ear, skin, bones, bladder, and kidneys. Cephalexin is used to treat infections in adults and children who are at least 1 year old. Cephalexin may also be used for purposes not listed in this medication guide. What should I discuss with my healthcare provider before taking cephalexin? You should not use this medicine if you are allergic to cephalexin or to other cephalosporin antibiotics, such as: ?? cefaclor (Ceclor), cefadroxil (Duricef), cefazolin (Ancef, Kefzol); ?? cefdinir (Omnicef), cefditoren (Spectracef); ?? cefixime (Suprax); ?? cefotaxime (Claforan), cefotetan (Cefotan); ?? cefpodoxime (Vantin), cefprozil (Cefzil); ?? ceftaroline (Teflaro), ceftazidime (Ceptaz, Fortaz), ceftriaxone (Rocephin); ?? cefuroxime (Ceftin), and others. Tell your doctor if you have ever had: ?? an allergy to any drug (especially penicillin); ?? liver or kidney disease; or ?? intestinal problems, such as colitis. The liquid form of cephalexin may contain sugar. This may affect you if you have diabetes. Tell your doctor if you are or breast-feeding. How should I take cephalexin? Follow all directions on your prescription label and read all medication guides or instruction sheets. Use the medicine exactly as directed. Do not use cephalexin to treat any condition that has not been checked by your doctor. Measure liquid medicine carefully. Use the dosing syringe provided, or use a medicine dose-measuring device (not a kitchen spoon). Use this medicine for the full prescribed length of time, even if your symptoms quickly improve. Skipping doses can increase your risk of infection that is resistant to medication. Cephalexin will not treat a viral infection such as the flu or a common cold. Do not share cephalexin with another person, even if they have the same symptoms you have. This medicine can affect the results of certain medical tests. Tell any doctor who treats you that you are using cephalexin. Store the tablets and capsules at room temperature away from moisture, heat, and light. Store the liquid medicine in the refrigerator. Throw away any unused liquid after 14 days. What happens if I miss a dose? Take the medicine as soon as you can, but skip the missed dose if it is almost time for your next dose. Do not take two doses at one time. What happens if I overdose? Seek emergency medical attention or call the Poison Help line at . Overdose symptoms may include nausea, vomiting, stomach pain, diarrhea, and blood in your urine. What should I avoid while taking cephalexin? Antibiotic medicines can cause diarrhea, which may be a sign of a new infection. If you have diarrhea that is watery or bloody, call your doctor before using anti-diarrhea medicine. What are the possible side effects of cephalexin? Get emergency medical help if you have signs of an allergic reaction (hives, difficult breathing, swelling in your face or throat) or a severe skin reaction (fever, sore throat, burning eyes, skin pain, red or purple skin rash with blistering and peeling). Call your doctor at once if you have: ?? severe stomach pain, diarrhea that is watery or bloody (even if it occurs months after your last dose); ?? unusual tiredness, feeling light-headed or short of breath; ?? easy bruising, unusual bleeding, purple or red spots under your skin; ?? a seizure; ?? pale skin, cold hands and feet; ?? yellowed skin, dark colored urine; ?? fever, weakness; or ?? pain in your side or lower back, painful urination. Common side effects may include: ?? diarrhea; ?? nausea, vomiting; ?? indigestion, stomach pain; or ?? vaginal itching or discharge. This is not a complete list of side effects and others may occur. Call your doctor for medical advice about side effects. You may report side effects to FDA at 5-361-HMF-5831. What other drugs will affect cephalexin? Tell your doctor about all your other medicines, especially: ?? metformin; or ?? probenecid. This list is not complete. Other drugs may affect cephalexin, including prescription and ycsv-ovv-qxhmvof medicines, vitamins, and herbal products. Not all possible drug interactions are listed here. Where can I get more information? Your pharmacist can provide more information about cephalexin. Remember, keep this and all other medicines out of the reach of children, never share your medicines with others, and use this medication only for the indication prescribed. Every effort has been made to ensure that the information provided by [employer]') is accurate, up-to-date, and complete, but no guarantee is made to that effect. Drug information contained herein may be time sensitive. [employer] information has been compiled for use by healthcare practitioners and consumers in the [place] and therefore [employer] does not warrant that uses outside of the [place] are appropriate, unless specifically indicated otherwise. [employer] drug information does not endorse drugs, diagnose patients or recommend therapy. [employer] drug information is an informational resource designed [...] effective or appropriate for any given patient. [employer] does not assume any responsibility for any aspect of healthcare administered with the aid of information [employer] provides. The information contained herein is not intended to cover all possible uses, directions, precautions, warnings, drug interactions, allergic reactions, or adverse effects. If you have questions about the drugs you are taking, check with your doctor, nurse or pharmacist. Copyright [id number] [employer]. Version: 10.. Revision Date: 01/24/2020. docusate (oral/rectal) (DOK ue sate) Colace, Diocto, Doc-Q-Lace, Docu, Doculase, Docusil, Docusoft S, DocuSol, Dulcolax Stool Softener, Enemeez Mini, Jermaine-Tin, Pedia-Lax Stool Softener, Rizo Stool Softener, Promolaxin, Silace, Surfak Stool Softener, Anisha-Q-Lax What is the most important information I should know about docusate? You should not use docusate if you also use mineral oil, unless your doctor tells you to. What is docusate? Docusate is a stool softener that makes bowel movements softer and easier to pass. Docusate is used to relieve occasional constipation (irregularity). There are many brands and forms of docusate available. Not all brands are listed on this leaflet. Docusate may also be used for purposes not listed in this medication guide. What should I discuss with my healthcare provider before using docusate? You should not use docusate if you are allergic to it. Ask a doctor or pharmacist if this medicine is safe to use if you have: ?? stomach pain; ?? nausea; ?? vomiting; or ?? a sudden change in bowel habits that lasts over 2 weeks. Ask a doctor before using this medicine if you are or . Do not give this medicine to a child without medical advice. How should I use docusate? Use exactly as directed on the label, or as prescribed by your doctor. Drink plenty of liquids while you are using docusate. Measure liquid medicine carefully. Use the dosing syringe provided, or use a medicine dose-measuring device (not a kitchen spoon). Do not take the rectal enema by mouth. Rectal medicine is for use only in the rectum. Wash your hands before and after using the enema. To use the enema, lie on your left side with your left leg extended and your right leg slightly bent. Remove the cap from the applicator tip and gently insert the tip into your rectum. Slowly squeeze the bottle to empty the contents into the rectum. After using the enema, lie down on your left side for at least 30 minutes to allow the liquid to distribute throughout your intestines. Avoid using the bathroom, and hold in the enema at least 1 hour, or all night if possible. Read and carefully follow any Instructions for Use provided with your medicine. Ask your doctor or pharmacist if you do not understand these instructions. Docusate generally produces bowel movement in 12 to 72 hours. Call your doctor if your symptoms do not improve after 72 hours. You should not use docusate for longer than 1 week, unless your doctor tells you to. Store at room temperature away from moisture and heat. Do not freeze liquid medicine. What happens if I miss a dose? Since docusate is used when needed, you may not be on a dosing schedule. Skip any missed dose if it's almost time for your next dose. Do not use two doses at one time. What happens if I overdose? Seek emergency medical attention or call the Poison Help line at . What should I avoid while using docusate? Avoid using mineral oil, unless told to do so by a doctor. What are the possible side effects of docusate? Get emergency medical help if you have signs of an allergic reaction: hives; difficult breathing; swelling of your face, lips, tongue, or throat. Stop using docusate and call your doctor at once if you have: ?? rectal bleeding or irritation; or ?? no bowel movement after 72 hours. Less serious side effects may be more likely, and you may have none at all. This is not a complete list of side effects and others may occur. Call your doctor for medical advice about side effects. You may report side effects to FDA at 3-485-NKF-2581. What other drugs will affect docusate? Other drugs may affect docusate, including prescription and wwvp-xwr-xjonltv medicines, vitamins, and herbal products. Tell your doctor about all your current medicines and any medicine you start or stop using. Where can I get more information? Your pharmacist can provide more information about docusate. Remember, keep this and all other medicines out of the reach of children, never share your medicines with others, and use this medication only for the indication prescribed. Every effort has been made to ensure that the information provided by [employer]. [employer]') is accurate, up-to-date, and complete, but no guarantee is made to that effect. Drug information contained herein may be time sensitive. [employer] information has been compiled for use by healthcare practitioners and consumers in the [place] and therefore [employer] does not warrant that uses outside of the [place] are appropriate, unless specifically indicated otherwise. [employer] drug information does not endorse drugs, diagnose patients or recommend therapy. [employer] drug information is an informational resource designed [...] effective or appropriate for any given patient. [employer] does not assume any responsibility for any aspect of healthcare administered with the aid of information [employer] provides. The information contained herein is not intended to cover all possible uses, directions, precautions, warnings, drug interactions, allergic reactions, or adverse effects. If you have questions about the drugs you are taking, check with your doctor, nurse or pharmacist. Copyright 3106-0346 [employer]. Version: 4.01. Revision Date: 06/07/2019. aspirin (oral) ( pir in) Arthritis Pain, [...] What is aspirin? Aspirin is a salicylate (sx-VTX-xy-ate) that is used to treat pain, and [...] may report side effects to FDA at 3-679-BSQ-0397. What other drugs will affect aspirin? Ask [...] drugs may affect aspirin, including prescription and hdti-avd-pvdiugn medicines, vitamins, and herbal products. Not all [...] to ensure that the information provided by [employer] is accurate, up-to-date, and complete, but no guarantee is made to that effect. Drug information contained herein may be time sensitive. [employer] information has been compiled for use by healthcare practitioners and consumers in the [place] and therefore [employer] does not warrant that uses outside of the [place] are appropriate, unless specifically indicated otherwise. [employer] drug information does not endorse drugs, diagnose patients or recommend therapy. [employer] drug information is an informational resource designed [...] effective or appropriate for any given patient. [employer] does not assume any responsibility for any aspect of healthcare administered with the aid of information [employer] provides. The information contained herein is not intended to cover all possible uses, directions, precautions, warnings, drug interactions, allergic reactions, or adverse effects. If you have questions about the drugs you are taking, check with your doctor, nurse or pharmacist. Copyright 9533-1086 [employer]. Version: 16.02. Revision Date: 07/19/2020. oxycodone (ox i KOE done) Oxaydo, OxyCONTIN, Oxyfast, Roxicodone, Xtampza ER What is the most important information I should know about oxycodone? MISUSE OF OPIOID MEDICINE CAN CAUSE ADDICTION, OVERDOSE, OR . Keep the medication in a place where others cannot get to it. Taking opioid medicine during may cause life-threatening withdrawal symptoms in the . Fatal side effects can occur if you use opioid medicine with alcohol, or with other drugs that cause drowsiness or slow your breathing. What is oxycodone? Oxycodone is an opioid pain medication used to treat moderate to severe pain. The extended-release form of oxycodone is for draobh-ylw-eauet treatment of pain and should not be used on an as-needed basis for pain. Oxycodone may also be used for purposes not listed in this medication guide. What should I discuss with my healthcare provider before using oxycodone? You should not use oxycodone if you are allergic to it, or if you have: ?? severe asthma or breathing problems; or ?? a blockage in your stomach or intestines. You should not use oxycodone unless you are already using a similar opioid medicine and are tolerant to it. Most brands of oxycodone are not approved for use in people under 18. OxyContin should not be given to a child younger than 11 years old. Tell your doctor if you have ever had: ?? breathing problems, sleep apnea; ?? a head injury, or seizures; ?? drug or alcohol addiction, or mental illness; ?? liver or kidney disease; ?? urination problems; or ?? problems with your gallbladder, pancreas, or thyroid. If you use opioid medicine while you are , your baby could become dependent on the drug. This can cause life-threatening withdrawal symptoms in the baby after it is born. Babies born dependent on opioids may need medical treatment for several weeks. Do not breast-feed. Oxycodone can pass into breast milk and may cause drowsiness, breathing problems, or in a nursing baby. How should I use oxycodone? Follow the directions on your prescription label and read all medication guides. Never use oxycodone in larger amounts, or for longer than prescribed. Tell your doctor if you feel an increased urge to take more of this medicine. Never share opioid medicine with another person, especially someone with a history of drug abuse or addiction. MISUSE CAN CAUSE ADDICTION, OVERDOSE, OR . Keep the medication in a place where others cannot get to it. Selling or giving away opioid medicine is against the law. Stop taking all other doeuyy-ghg-rtkeg narcotic pain medicines when you start taking extended-release oxycodone. Take oxycodone with food. Swallow the capsule or tablet whole to avoid exposure to a potentially fatal overdose. Do not crush, chew, break, open, or dissolve. Never crush or break an oxycodone pill to inhale the powder or mix it into a liquid to inject the drug into your vein. This can cause in . Measure liquid medicine carefully. Use the dosing syringe provided, or use a medicine dose-measuring device (not a kitchen spoon). You should not stop using oxycodone suddenly. Follow your doctor's instructions about tapering your dose. Store at room temperature, away from heat, moisture, and light. Keep track of your medicine. Oxycodone is a drug of abuse and you should be aware if anyone is using your medicine improperly or without a prescription. Do not keep leftover opioid medication. Just one dose can cause in someone using this medicine accidentally or improperly. Ask your pharmacist where to locate a drug take-back disposal program. If there is no take-back program, flush the unused medicine down the toilet. What happens if I miss a dose? Since oxycodone is used for pain, you are not likely to miss a dose. Skip any missed dose if it is almost time for your next dose. Do not use two doses at one time. What happens if I overdose? Seek emergency medical attention or call the Poison Help line at . An oxycodone overdose can be fatal, especially in a child or other person using the medicine without a prescription. Overdose can cause severe muscle weakness, pinpoint pupils, very slow breathing, extreme drowsiness, or coma. What should I avoid while using oxycodone? Do not drink alcohol. Dangerous side effects or could occur. Avoid driving or operating machinery until you know how oxycodone will affect you. Dizziness or severe drowsiness can cause falls or other accidents. Avoid medication errors. Always check the brand and strength of oxycodone you get from the pharmacy. What are the possible side effects of oxycodone? Get emergency medical help if you [...] if you are hard to wake up. Call your doctor at once if you have: ?? noisy breathing, sighing, shallow breathing, breathing that stops during sleep; ?? a slow heart rate or weak pulse; ?? a light-headed feeling, like you might pass out; ?? confusion, unusual thoughts or behavior; ?? seizure (convulsions); or ?? low cortisol levels-- nausea, vomiting, loss of appetite, dizziness, worsening tiredness or weakness. Seek medical attention right away if you have symptoms of serotonin syndrome, such as: agitation, confusion, fever, sweating, fast heart rate, chest pain, feeling short of breath, muscle stiffness, trouble walking, or feeling faint. Serious side effects may be more likely in older adults and those who are malnourished or debilitated. Long-term use of opioid medication may affect fertility (ability to have children) in men or women. It is not known whether opioid effects on fertility are permanent. Common side effects may include: ?? drowsiness, headache, dizziness, tiredness; or ?? constipation, stomach pain, nausea, vomiting. This is not a complete list of side effects and others may occur. Call your doctor for medical advice about side effects. You may report side effects to FDA at 0-804-TAO-8585. What other drugs will affect oxycodone? You may have breathing problems or [...] to treat mood disorders or mental illness; or ?? drugs that affect serotonin levels in your body--a stimulant, or medicine for depression, Parkinson's disease, migraine headaches, serious infections, or nausea and vomiting. This list is not complete and many other drugs may affect oxycodone. This includes prescription and qycm-dyt-ppsager medicines, vitamins, and herbal products. Not all possible drug interactions are listed here. Where can I get more information? Your pharmacist can provide more information about oxycodone. Remember, keep this and all other medicines out of the reach of children, never share your medicines with others, and use this medication only for the indication prescribed. Every effort has been made to ensure that the information provided by [employer]') is accurate, up-to-date, and complete, but no guarantee is made to that effect. Drug information contained herein may be time sensitive. [employer] information has been compiled for use by healthcare practitioners and consumers in the [place] and therefore [employer] does not warrant that uses outside of the [place] are appropriate, unless specifically indicated otherwise. [employer] drug information does not endorse drugs, diagnose patients or recommend therapy. [employer] drug information is an informational resource designed [...] effective or appropriate for any given patient. [employer] does not assume any responsibility for any aspect of healthcare administered with the aid of information [employer] provides. The information contained herein is not intended to cover all possible uses, directions, precautions, warnings, drug interactions, allergic reactions, or adverse effects. If you have questions about the drugs you are taking, check with your doctor, nurse or pharmacist. Copyright 0984-1157 [employer]. Version: 13.03. Revision Date: 09/13/2019. ondansetron (oral) (on HILDA se robert) Yoseph Hameed Zuplenz What is the most important information I should know about ondansetron? You should not use ondansetron if you are also using apomorphine (Apokyn). What is ondansetron? Ondansetron blocks the actions of chemicals in the body that can trigger nausea and vomiting. Ondansetron is used to prevent nausea and vomiting that may be caused by surgery, cancer chemotherapy, or radiation treatment. Ondansetron may be used for purposes not listed in this medication guide. What should I discuss with my health care provider before taking ondansetron? You should not use ondansetron if: ?? you are also using apomorphine (Apokyn); or ?? you are allergic to ondansetron or similar medicines (dolasetron, granisetron, palonosetron). To make sure ondansetron is safe for you, tell your doctor if you have: ?? liver disease; ?? an electrolyte imbalance (such as low levels of potassium or magnesium in your blood); ?? congestive heart failure, slow heartbeats; ?? a personal or family history of long QT syndrome; or ?? a blockage in your digestive tract (stomach or intestines). Ondansetron is not expected to harm an unborn baby. Tell your doctor if you are . It is not known whether ondansetron passes into breast milk or if it could harm a nursing baby. Tell your doctor if you are breast-feeding a baby. Ondansetron is not approved for use by anyone younger than 4 years old. Ondansetron orally disintegrating tablets may contain phenylalanine. Tell your doctor if you have phenylketonuria (PKU). documented in this encounter Plan of Treatment Not on file documented as of this encounter Visit Diagnoses Not on filedocumented in this encounter
--- OUTSIDE RECORDS SUMMARY | 2025-06-14 10:43 | XMS_ITS | Encounter Summary ---
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 SBA with bed mobility and transfers. Gait training 200' SBA with RWx. Ascended/descended 4 stairs CGA with bilateral handrails safely and correctly. Left LE ther ex sitting/supine on mat table x 20 AROM. Independent with HEP that was given and reviewed. Will continue to benefit from skilled physical therapy at home with home health. Left knee ROM = 0* extension AROM - 104* flexion AROM I agree with above D/C summary. Madeleine Toth, PT STACY TOTH, PT - 11/16/2020 15:10 EST Surveillance Monitor Goals Other PT LTG Grid Goal #1 [...] : 11/16/2020 EST 11/16/2020 EST 11/16/2020 EST STACY TOTH, PT - 11/16/2020 15:10 EST STACY TOTH, PT - 11/16/2020 15:10 STACY KATHLEEN, PT - 11/16/2020 15:10 EST documented in this encounter Plan of Treatment Not on file documented as of this encounter Visit Diagnoses Not on filedocumented in this encounter
--- OUTSIDE RECORDS SUMMARY | 2025-06-14 10:43 | XMS_ITS | Encounter Summary ---
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
--- OUTSIDE RECORDS SUMMARY | 2025-06-14 10:43 | XMS_ITS | Encounter Summary ---
Author Organization [employer] ([place], [place], [place], [place]) Address [address] [place] [address] Care Team Providers Care Machine Burrer Name Role Phone Unavailable Primary Care Provider Unavailabl e Encounter Details Date Type Department Care Team (Late st Contact Info) Description 11/15/2020 Transcribed Document [facility] [place] [facility] [place] [address] ProviderAshly MD [address] [place] [address] Social History Tobacco Use Types [...] Note - Ashly Rodriguez MD - 11/15/2020 9:24 AM SENIOR COST ESTIMATOR [facility] OR IntraOp Summary Primary Physician: REJI LUCIANO JR, JR, MD-ORT Finalized Date/Time: 11/16/20 10:39:07 Pt. Name: CYNTHIA CUEVAS JR /Sex: 1955 Male Med Rec #: [id number] Physician: REJI LUCIANO JR, JR, MD-ORT Financial #: [id number] Pt. Type: O Room/Bed: [facility]/ Admit/Disch: 11/15/20 03:55:00 - Institution: [facility] IntraOp Case Attendance Entry 1 Entry 2 Entry 3 Case Attendee REJI LUCIANO JR, JR, WICKER, KAREN KIM, NA LONGSWORTH, ETHAN, RN MD-ORT Role Performed Surgeon/Proceduralist, INTENSIVE CARE ANAESTHETIST/Nurse Manager Licensing Program Control Analyst, First First Time In 11/15/20 09:20:00 11/15/20 08:40:00 11/15/20 08:40:00 Time Out 11/15/20 10:21:00 11/15/20 11:00:00 11/15/20 11:00:00 Procedure Knee Total Joint Knee Total Joint Knee Total Joint Replacement Replacement Replacement Other Attendee Superficial Wound Closed By: Last Modified By: ETHAN FREIRE RN LONGSWORTH, GARY, ETHAN RUBY, HUMERA 11/15/20 11:00:07 11/15/20 11:00:07 11/15/20 11:00:07 Entry 4 Entry 5 Entry 6 Case Attendee JUAN MEJIA, KIRAN PINEDA ST OTHER, ATTENDEE #1 Role Performed Physician assistant real estate manager Scrub, First Vendor Time In 11/15/20 08:40:00 11/15/20 08:40:00 11/15/20 08:40:00 Time Out 11/15/20 11:00:00 11/15/20 11:00:00 11/15/20 10:22:00 Procedure Knee Total Joint Knee Total Joint Knee Total Joint Replacement Replacement Replacement Other Attendee NALINI GUERRERO Superficial Wound Closed By: Last Modified By: ETHAN FREIRE, ETHAN RUBY, ETHAN RUBY, HUMERA 11/15/20 11:00:07 11/15/20 11:00:07 11/15/20 11:00:07 Entry 7 Entry 8 Case Attendee KALA ONTIVEROS SNA LEININGER, SUSAN, HUMERA Role Performed Scrub, Second Program Control Analyst, Second Time In 11/15/20 08:50:00 11/15/20 10:04:00 Time Out 11/15/20 10:22:00 11/15/20 10:15:00 Procedure Knee Total Joint Knee Total Joint Replacement Replacement Other Attendee Superficial Wound Closed By: Last Modified By: ETHAN FREIRE, ETHAN RUBY, HUMERA 11/15/20 11:00:07 11/15/20 11:00:07 [facility] IntraOp Case Attendance Audit 11/15/20 11:00:07 Sales Compensation Analyst: LONGGA Modifier: LONGGA 1 <*> Procedure Knee Total Joint Replacement 2 <+> Time Out 2 <*> Procedure Knee Total Joint Replacement 3 <+> Time Out 3 <*> Procedure Knee Total Joint Replacement 4 <+> Time Out 4 <*> Procedure Knee Total Joint Replacement 5 <+> Time Out 5 <*> Procedure Knee Total Joint Replacement 6 <*> Procedure Knee Total Joint Replacement 7 <*> Procedure Knee Total Joint Replacement 8 <*> Procedure Knee Total Joint Replacement 11/15/20 10:23:07 Sales Compensation Analyst: LONGGA Modifier: LONGGA 1 <+> Time Out 1 <*> Procedure Knee Total Joint Replacement 6 <+> Time Out 6 <*> Procedure Knee Total Joint Replacement 7 <+> Time Out 7 <*> Procedure Knee Total Joint Replacement 8 <+> Time Out 8 <*> Procedure Knee Total Joint Replacement 11/15/20 10:10:53 Sales Compensation Analyst: LONGGA Modifier: LONGGA <+> 8 Case Attendee <+> 8 Role Performed <+> 8 Time In <+> 8 Procedure 11/15/20 09:26:34 Sales Compensation Analyst: LONGGA Modifier: LONGGA 1 <*> Time In 11/15/20 08:40:00 1 <*> Procedure Knee Total Joint Replacement 11/15/20 09:15:00 Sales Compensation Analyst: LONGGA Modifier: LONGGA 1 <+> Time In 1 <*> Procedure Knee Total Joint Replacement 2 <+> Time In 2 <*> Procedure Knee Total Joint Replacement 3 <+> Time In 3 <*> Procedure Knee Total Joint Replacement 4 <+> Time In 4 <*> Procedure Knee Total Joint Replacement 5 <+> Time In 5 <*> Procedure Knee Total Joint Replacement 6 <+> Time In 6 <*> Procedure Knee Total Joint Replacement <+> 7 Case Attendee <+> 7 Role Performed <+> 7 Time In <+> 7 Procedure 11/15/20 07:39:20 Sales Compensation Analyst: LONGGA Modifier: LONGGA <+> 1 Procedure 2 <*> Procedure Knee Total Joint Replacement 3 <*> Procedure Knee Total Joint Replacement 4 <*> Procedure Knee Total Joint Replacement 5 <*> Procedure Knee Total Joint Replacement 6 <*> Procedure Knee Total Joint Replacement [facility] IntraOp Case Times Entry 1 Patient In Room Time 11/15/20 08:40:00 Out Room Time 11/15/20 11:00:00 Anesthesia Start Time 11/15/20 08:40:00 Stop Time 11/15/20 11:00:00 Anesthesia Ready 11/15/20 08:40:00 Surgery / Procedure Times Start Time 11/15/20 09:24:00 Stop Time 11/15/20 10:54:00 Last Modified By: ETHAN FREIRE RN 11/15/20 11:00:04 [facility] IntraOp Case Times Audit 11/15/20 11:00:04 Sales Compensation Analyst: LONGGA Modifier: LONGGA <+> 1 Out Room Time <+> 1 Stop Time 11/15/20 10:53:30 Sales Compensation Analyst: LONGGA Modifier: LONGGA <+> 1 Stop Time 11/15/20 09:24:19 Sales Compensation Analyst: LONGGA Modifier: LONGGA <+> 1 Start Time [facility] IntraOp Cautery Entry 1 ESU Identification Cautery Type Monopolar ESU ID Number [id number] ID Type Hospital Number Cautery Settings Cut Setting 70 Coag Setting 70 ESU Grounding Pad Ground Pad Type Adult Grounding Pad Site Right thigh Grounding Pad ETHAN FREIRE RN Applied By Grounding Pad Site Intact Skin Condition Before Cautery Grounding Pad Site Unchanged Skin Condition After Cautery Last Modified By: ETHAN FREIRE RN 11/15/20 09:15:25 [facility] IntraOp Communication Entry 1 Communication To Family/Significant other Comment PROCEDURE STARTING Communication By ETHAN FREIRE RN Date and Time 11/15/20 09:25:00 Last Modified By: ETHAN FREIRE RN 11/15/20 09:27:53 [facility] IntraOp Counts Verification Entry 1 Entry 2 Procedure Knee Total Joint Knee Total Joint Replacement Replacement Count Info Count Type Sponge, Sharps Sponge, Sharps Counts Verification Baseline/pre-procedure Before wound closure Sequence Count Results Correct, surgeon Correct, surgeon notified notified If Incorrect or Waived complete the Counts Action Taken form: If Intentional Retention, complete the Intential Retention form: Counts Performed By Count Performed By KIRAN PILLAI ST BARNARD, WILL, ST (Scrub) Count Performed By ETHAN FREIRE RN LONGSWORTH, GARY RN (RN) Last Modified By: ETHAN FREIRE RN LONGSWORTH, GARY, RN 11/15/20 07:37:28 11/15/20 10:23:23 [facility] IntraOp Counts Verification Audit 11/15/20 10:23:23 Sales Compensation Analyst: HAYDEN Modifier: HAYDEN <+> 2 Procedure <+> 2 Count Type <+> 2 Counts Verification Sequence <+> 2 Count Results <+> 2 Count Performed By (Scrub) <+> 2 Count Performed By (RN) [facility] IntraOp Counts Final Entry 1 Procedure Knee Total Joint Replacement Final Count Info Count Type Sponge, Sharps Counts Verification Skin Closure/end of Sequence procedure Count Results Correct, surgeon notified Counts Performed By Count Performed By KIRAN PILLAI ST (Scrub) Count Performed By ETHAN FREIRE RN (RN) Last Modified By: ETHAN FREIRE RN 11/15/20 10:23:42 [facility] IntraOp Cultures and Spec Summary Entry 1 Cultrures and Specimens Specimen Ordered: Yes Test(s) Routine/Path-Lab Requested/Final Disposition Last Modified By: ETHAN FREIRE RN 11/15/20 07:37:33 [facility] IntraOp Departure from OR Entry 1 Integumentary Assessment Integumentary WDL Assessment WDL Skin Description Dry (WDL with exeptions) Transfer/Handoff Transfer to PACU Phase I Handoff Method Bedside/Face to face Post-op Transport Bed (including Via specialty) Patient Transport ETHAN FREIRE RN, Accompanied by KIM BALDERRAMA NA Last Modified By: ETHAN FREIRE RN 11/15/20 10:37:17 [facility] IntraOp Dressing and Packing Entry 1 Type Dressing Location LEFT KNEE Wound Dressing Item Soy, Skin Closure Glue Supplemental Limb immobilizer, Cold Applications pack Applied By JUAN MEJIA PA-C Other Comments DERMABOND PRINEO, MEPILEX DRESSING, SOY WRAP Last Modified By: ETHAN FREIRE RN 11/15/20 07:43:17 [facility] IntraOp Fire Risk Assessment Entry 1 Fire Info Surgical Site or 0- No Incision Above the Xyphoid Open O2 Source 0- No (Mask or Cannula) Available Ignition 1- Yes (ESU, Laser, Light Source) Fire Risk 1 Assessment Score Fire Score Fire Risk Yes Assessment Complete Fire Risk ETHAN FREIRE RN Assessment Verified By Fire Risk 11/15/20 07:37:00 Assessment Verified Date/Time Fire Risk High Risk Protocol Yes Implemented Standard Fire Yes Safety Precautions Followed Last Modified By: ETHAN FREIRE RN 11/15/20 07:37:40 [facility] IntraOp General Case Book Retailer 1 Case Information OR OR 02 S[facility] Case Level 1 Room Verified Yes Wound Class I - Clean Specialty SN Orthopedic Anesthesia Type General ASA Class 3 Diagnosis Preop Diagnosis DEGENERATIVE JOINT DISEASE, LEFT KNEE Postop Same As Preop Yes Postop Diagnosis DEGENERATIVE JOINT DISEASE, LEFT KNEE Last Modified By: ETHAN FREIRE RN 11/15/20 07:38:08 [facility] IntraOp General Case Data Audit 11/15/20 07:38:08 Sales Compensation Analyst: HAYDEN Modifier: LONGGA 1 <*> OR OR 05 SJE 1 <+> ASA Class 1 <+> Anesthesia Type 1 <+> Postop Same As Preop 1 <+> Preop Diagnosis 1 <+> Postop Diagnosis 1 <+> Room Verified [facility] IntraOp Implant Log Entry 1 Entry 2 Entry 3 Type Implant (Synthetic) Implant (Synthetic) Implant (Synthetic) Implant Log Implant Type Bone Cement Hardware Hardware Tissue Implant Type Implant CEMENT BONE SMPLX TOBRA KT CR FULL ITOTAL ID TY CR TIB ITOTAL ID Identification [facility]-[id number] [id number] [id number] Description Implant Quantity 2 1 1 Implant Site LEFT KNEE LEFT KNEE LEFT KNEE Implant Identification Model Number Implant [id number] Identification Serial Number Implant [id number] Identification Lot Number Implant Joaquina:Hulett Conformis Conformis Identification Orthopaedics Cook Morning Name: Implant [id number] Identification Catalog Number Implant Size Implant Has an Yes No Yes Expiration Date Implant Expiration 02/28/22 11/30/21 Date Wasted Radioactive Material Time Implanted Tissue Implant Continue for Tissue Implant Documentation Tissue Identification Number Graft Prep Per Cook Morning Instructions: Tissue Preparation Method: Reconstitution Solution: Reconstitution Solution Lot Number Reconstitution Solution Expiration Date: Thawing Solution Thawing Solution Lot Number Thawing Solution Expiration Date Preparation Materials, Other Preparation Materials, Other Lot Number Preparation Materials, Other Expiration Date Tissue Prepared/Processed By Cook Morning Paperwork Completed Implant Type Comment Last Modified By: ETHAN FREIRE RN LONGSWORTH, GARY, RN LONGSWORTH, GARY, RN 11/15/20 09:34:30 11/15/20 09:36:10 11/15/20 09:37:16 Entry 4 Entry 5 Entry 6 Type Implant (Synthetic) Implant (Synthetic) Implant (Synthetic) Implant Log Implant Type Hardware Hardware Hardware Tissue Implant Type Implant IMP CR FEM ITOTAL ID JIGS CR ITOTAL ID IMP PATELLA ITOTAL Identification [facility] [id number] Description Implant Quantity 1 1 1 Implant Site LEFT KNEE LEFT KNEE LEFT KNEE Implant Identification Model Number Implant [id number] Identification Serial Number Implant [id number] Identification Lot Number Implant Conformis Conformis Conformis Identification Cook Morning Name: Implant [id number] Identification Catalog Number Implant Size Implant Has an Yes Yes Yes Expiration Date Implant Expiration 11/30/21 11/30/21 11/30/21 Date Wasted Radioactive Material Time Implanted Tissue Implant Continue for Tissue Implant Documentation Tissue Identification Number Graft Prep Per Cook Morning Instructions: Tissue Preparation Method: Reconstitution Solution: Reconstitution Solution Lot Number Reconstitution Solution Expiration Date: Thawing Solution Thawing Solution Lot Number Thawing Solution Expiration Date Preparation Materials, Other Preparation Materials, Other Lot Number Preparation Materials, Other Expiration Date Tissue Prepared/Processed By Cook Morning Paperwork Completed Implant Type Comment Last Modified By: ETHAN FREIRE, Sharonda Venegas RN LONGSWORTH, GARY, RN 11/15/20 09:38:24 11/16/20 10:38:51 11/15/20 10:00:30 [facility] IntraOp Implant Log Audit 11/16/20 10:38:51 Sales Compensation Analyst: HAYDEN Modifier: BLADE 5 <*> Implant Identification Description [id number] <+> Implant Identification Cook Morning Name: 5 <+> Implant Identification Catalog Number 11/15/20 10:00:30 Sales Compensation Analyst: LONGGA Modifier: LONGGA <+> 6 Implant Identification Description <+> 6 Implant Identification Lot Number <+> 6 Implant Identification Cook Morning Name: <+> 6 Implant Expiration Date <+> 6 Implant Site <+> 6 Implant Quantity <+> 6 Implant Identification Catalog Number <+> 6 Implant Type <+> 6 Implant Has an Expiration Date <+> 6 Type 11/15/20 09:39:29 Sales Compensation Analyst: LONGGA Modifier: LONGGA <+> 5 Implant Identification Description <+> 5 Implant Identification Serial Number <+> 5 Implant Expiration Date <+> 5 Implant Site <+> 5 Implant Quantity <+> 5 Implant Type <+> 5 Implant Has an Expiration Date <+> 5 Type 11/15/20 09:38:24 Sales Compensation Analyst: LONGGA Modifier: LONGGA <+> 4 Implant Identification Description <+> 4 Implant Identification Serial Number <+> 4 Implant Identification Cook Morning Name: <+> 4 Implant Expiration Date <+> 4 Implant Site <+> 4 Implant Quantity <+> 4 Implant Identification Catalog Number <+> 4 Implant Type <+> 4 Implant Has an Expiration Date <+> 4 Type 11/15/20 09:37:16 Sales Compensation Analyst: LONGGA Modifier: LONGGA <+> 3 Implant Identification Description <+> 3 Implant Identification Serial Number <+> 3 Implant Identification Cook Morning Name: <+> 3 Implant Expiration Date <+> 3 Implant Site <+> 3 Implant Quantity <+> 3 Implant Identification Catalog Number <+> 3 Implant Type <+> 3 Implant Has an Expiration Date <+> 3 Type 11/15/20 09:36:10 Sales Compensation Analyst: LONGGA Modifier: LONGGA <+> 2 Implant Identification Description <+> 2 Implant Identification Serial Number <+> 2 Implant Identification Cook Morning Name: <+> 2 Implant Site <+> 2 Implant Quantity <+> 2 Implant Identification Catalog Number <+> 2 Implant Type <+> 2 Implant Has an Expiration Date <+> 2 Type [facility] IntraOp Intraoperative Assessment Entry 1 Handoff Method Bedside/Face to face Valid History / Yes Physical in Chart Preoperative Yes Checklist Reviewed/Evaluated Allergies Reviewed Yes Patient is Latex No Sensitive Isolation Not applicable Precautions Noted Level of WDL Consciousness (WDL = Alert, Oriented to Person, Place, and Time) Skin Assessment Yes Verified Present Upon IVs Arrival to OR Prosthetic/Assistive Hardware Devices Last Modified By: ETHAN FREIRE RN 11/15/20 09:15:44 [facility] IntraOp Intraoperative Equipment Entry 1 Type Equipment Equipment Equipment Beau Suction System ID Number [id number] Setting HIGH Intraop Monitoring Antiembolic Devices Antiembolic Devices Foot pumps Antiembolic Device Right Location Antiembolic Device 5857 ID Number Scopes Photo/Video Documentation Last Modified By: ETHAN FREIRE RN 11/15/20 09:19:38 [facility] IntraOp Medication Admin Entry 1 Entry 2 Entry 3 Medication/Irrigant clonidine 1ml Ketorolac 30mg/ml vial Ropivacaine 0.5 % 10 ml Combo Med List 1 - Combo Med 2 - Combo Med 3 - Combo Med Time Administered Route of INJECTION, LEFT KNEE INJECTION, LEFT KNEE INJECTION, LEFT KNEE Administration Dose Dose 0.8 1 25 Unit of Measure ml ml ml Volume Administered By REJI LUCIANO JR, JR, HUFF JR, WALLACE JR, HUFF JR, WALLACE JR, MD-ORT -ORT -ORT Procedure Irrigation Irrigant Volume In Irrigant Volume Out Last Modified By: ETHAN FREIRE RN LONGSWORTH, GARY, RN LONGSWORTH, GARY, RN 11/15/20 07:41:52 11/15/20 07:41:52 11/15/20 07:41:52 Entry 4 Entry 5 Entry 6 Medication/Irrigant Xylocaine 1% w/ Betadine 10% 4oz hydrogen peroxide 3% - epinephrine 1:200,000 solution - [id number] 30ml vial - [id number] Combo Med List 4 - Combo Med Time Administered Route of INJECTION, LEFT KNEE IRRIGANT IRRIGANT Administration Dose Dose 23.2 Unit of Measure ml Volume QS QS Administered By REJI LUCIANO JR, JR, HUFF JR, WALLACE JR, HUFF JR, WALLACE JR, MD-ORT -ORT -ORT Procedure Irrigation Irrigant Volume In Irrigant Volume Out Last Modified By: ETHAN FREIRE RN LONGSWORTH, GARY, RN LONGSWORTH, GARY, RN 11/15/20 07:41:52 11/15/20 07:41:52 11/15/20 07:41:52 Entry 7 Medication/Irrigant SEALR AQUAMANTYS [id number] Combo Med List Time Administered Route of IRRIGANT Administration Dose Dose Unit of Measure Volume QS Administered By REJI LUCIANO JR, JR, MD-ORT Procedure Irrigation Irrigant Volume In Irrigant Volume Out Last Modified By: ETHAN FREIRE RN 11/15/20 07:42:23 E IntraOp Medication Admin Audit 11/15/20 07:42:23 Sales Compensation Analyst: LONGGA Modifier: LONGGA <+> 7 Medication/Irrigant <+> 7 Route of Administration <+> 7 Volume <+> 7 Administered By E IntraOp Patient Positioning Entry 1 Procedure Knee Total Joint Replacement Body Position Supine Left Arm Position Secured on padded arm board Right Arm Position Secured on padded arm board Left Leg Position Held on field Right Leg Position Uncrossed, parallel Feet Uncrossed Yes Pressure Points Yes Checked Positioning Devices Arm Board, Pillows, Foot Rest, Safety Strap, Chest Device Position LATERAL POST TO LEFT THIGH, FOOT PROPS X2 FOR LEFT FOOT Positioned By ETHAN FREIRE RN, REJI LUCIANO JR, JR, MD-ORT, JUAN MEJIA PA-C, KIM BALDERRAMA, NA Position Verified Positioning Yes Verified by Anesthesia Positioning Yes Verified by Surgeon Last Modified By: ETHAN FREIRE RN 11/15/20 09:21:03 [facility] IntraOp Sign In Entry 1 Patient, Site, Yes Procedure Identified Surgical Consent Yes Confirmed Relevant Surgical Yes Documents Available Surgical Site Yes Marked by person performing procedure Anesthesia Machine Yes Check Completed Medication Checks Yes Completed Allergies No Airway Difficult Yes Airway/Aspiration Risk Difficult Yes Airway/Aspiration Intervention Equipment Available Blood Loss Risk Yes Blood Loss Yes Intervention Equipment Prepared and Ready Blood Identifiers Yes Verified Per Policy Hypothermia Risk Yes Warming Measures Yes Taken Last Modified By: ETHAN FREIRE RN 11/15/20 09:21:19 [facility] Intra Op Sign Out Entry 1 RN Confirmation Surgical Yes Procedure(s) Identified Instrument, Sponge Yes and Sharps Counts Correct/Documented Equipment Problems N/A Documented Specimen Labeled Yes Correctly Urinary Catheter N/A Documented in IView Arauz Patient Yes Recovery Concerns Reviewed with Anesthesia Provider, Surgeon and RN Arauz Patient Yes Management Concerns Reviewed with Anesthesia Provider, Surgeon and RN Safety Checklist Yes Elements Complete? RN Sign Out ETHAN FREIRE RN Signature RN Sign Out 11/15/20 10:53:00 Signature Date/Time Plan of Care Outcome - Fire Risk OUTCOME STATEMENT: Goal met Patient is free from injury related to surgical fire Plan of Care Outcome - Pt Positioning OUTCOME STATEMENT: Goal met Absence of signs and symptoms of positioning injury. Plan of Care Outcome - Skin Prep OUTCOME STATEMENT: Goal met Intraoperative care is consistent with measures to prevent infection Plan of Care Outcome - Xray/Images OUTCOME STATEMENT: N/A Absence of observable signs or symptoms of radiation injury Plan of Care Outcome - Counts OUTCOME STATEMENT: Goal met Absence of signs and symptoms of injury related to extraneous objects Last Modified By: ETHAN FREIRE RN 11/15/20 10:53:42 [facility] Intra Op Sign Out Audit 11/15/20 10:53:42 Sales Compensation Analyst: LONGGA Modifier: LONGGA <+> 1 RN Sign Out Signature Date/Time <+> 1 Urinary Catheter Documented in IView [facility] IntraOp Skin Prep Entry 1 Procedure Knee Total Joint Replacement Prescribed Yes Pre-Surgical Prep Completed Prep Area LEFT LEG AND FOOT Intraop Prep Integumentary WDL Assessment WDL Prep Agents Chloraprep Prep by ETHAN FREIRE RN Hair Removal Methods No hair removal performed Last Modified By: ETHAN FREIRE RN 11/15/20 07:38:33 [facility] IntraOp Surgical Procedures Entry 1 Procedure Knee Total Joint Replacement Additional LEFT TOTAL KNEE Procedure REPLACEMENT Description Primary Procedure Yes Primary Surgeon REJI LUCIANO JR, JR, MD-ORT Start 11/15/20 09:24:00 Stop 11/15/20 10:54:00 Anesthesia Type General Specialty SN Orthopedic Wound Class I - Clean Last Modified By: ETHAN FREIRE RN 11/15/20 10:53:24 [facility] IntraOp Surgical Procedures Audit 11/15/20 10:53:24 Sales Compensation Analyst: LONGGA Modifier: LONGGA 1 <*> Procedure Knee Total Joint Replacement 1 <+> Stop 11/15/20 09:24:25 Sales Compensation Analyst: LONGGA Modifier: LONGGA <+> 1 Start [facility] IntraOp Temp Regulation Devices Entry 1 Temp Regulation Temperature Forced Air Warming Regulation Device device Temperature 5389 Regulation Device Serial/Unit Number Temperature Upper body Regulation Site Temperature KIM BALDERRAMA, ENRIQUE Regulation Device Applied by Last Modified By: ETHAN FREIRE RN 11/15/20 07:38:52 [facility] IntraOp Time Out Entry 1 Procedure to be Knee Total Joint Performed Replacement Time Out Time Out Pause Time 11/15/20 09:23:00 All activity Yes suspended (unless life threatening emergency) Team Verbally Correct patient Confirms Information identity, Correct side and site are marked, Consent form is present and accurate, Agreement on the procedure to be done, Correct patient position, Relevant images/results properly labeled/appropriately displayed, Confirm antibiotics have been administered, Confirm the skin prep has dried, Confirm prosthesis/implant/devic e is present, Performed in location of procedure after prepped/draped Antibiotic Yes Prophylaxis Administered Or In Progress Within the Last 60 Minutes Beta [place] N/A Administered Venous Yes Thromboembolism Prophylaxis Required Anticipated Critical Events Surgeon None expected Anesthesia Provider Patient specific concerns Nursing Assures Sterility of instruments, Equipment concerns or issues, Implant Availability Essential Imaging Yes Labeled and Displayed Last Modified By: ETHAN FREIRE RN 11/15/20 09:24:00 [facility] IntraOp Tourniquet Entry 1 Type Pneumatic Serial/Unit Number [id number] Setting 300 mmHg Pheumatic Yes Tourniquet Checked Per Protocol Size 34 inches Placement Thigh, left upper Skin Protection - Yes Padded Under Cuff Applied By ETHAN FREIRE RN Removed By JUAN MEJIA PA-C Times Start Time 11/15/20 09:23:00 Stop Time 11/15/20 10:10:00 Last Modified By: ETHAN FREIRE RN 11/15/20 10:15:38 [facility] IntraOp Tourniquet Audit 11/15/20 10:15:38 Sales Compensation Analyst: LONGGA Modifier: LONGGA <+> 1 Stop Time Case Comments <None> Finalized By: Sharonda Gonzales RN Document Signatures Signed By: ETHAN FREIRE RN 11/15/20 11:05 Sharonda Gonzales RN 11/16/20 10:39 Unfinalized History Date/Time Username Reason for Unfinalizing Freetext Reason for Unfinalizing 11/16/20 10:38 BLADE Correct Billing Electronically signed by Justina Lozano Conversion Chrome Tanning Drum Operator Cerner at 03/19/2023 6:53 PM CDT documented in this encounter Plan of Treatment Not on file documented as of this encounter Visit Diagnoses Not on filedocumented in this encounter
== END 2025-06-14 23:59 | disposition home or self-care (01) ==
LOC: RAD 10:19
PROVIDERS: PCP Internal Medicine Adolescent Medicine; Visit Provider Nurse Practitioner Family
DX: M54.2 Cervicalgia (principal); S16.1XXA Strain of muscle, fascia and tendon at neck level, initial encounter
CPT/HCPCS: 72050

== ENCOUNTER 2025-08-25 16:18 | Outpatient (CLI) | payer MEDICARE, OTHER, SELFPAY ==
--- OUTSIDE RECORDS SUMMARY | 2022-12-15 11:26 | XMS_ITS | Encounter Summary ---
Author Organization [facility] [place] [address] Care Team Providers Care Patient Services Coordinator Name Role Phone Jeremi Freedman MD Primary Care Provider [phone] Encounter Details Date Type Department Care Team (Late st Contact Info) Description 12/15/2022 10:26 AM EST Hospital Encounter [facility] Referral Lab 1 [place] [address] Gila Espinosa APRN [address] [place] [phone] Social History Tobacco Use Types Packs/Day [...] Positive Growth(A) 12/19/2022 7:55 AM EST [facility] Culture [id number] CFU/mL Enterococcus faecalis SUSCEPTIB ILITY RESULT 12/19/2022 7:55 AM EST [facility] Comment: Vancomycin Screen Sensitive. Usual therapy for uncomplicated Enterococcal UTI's: Ampicillin or Nitrofurantoin. No further workup. Culture [id number] CFU/mL Proteus mirabilis SUSCEPTIB ILITY RESULT 12/19/2022 7:55 AM EST [facility] Urine URINE SPECIMEN COLLECTION, CLEAN CATCH / [...] RESULT <=0.5/9.5 ug/mL: Susceptible us Gila Espinosa WELT SLASHER MICROBIOLOGY - GENERAL ORDERAB LES Final Result [facility] [employer] [address] [facility] , [place] [address] documented in this encounter Visit Diagnoses Not on filedocumented in this encounter Care Teams Patient Services Coordinator Relationship Specialty Start Date End Date Jeremi Freedman MD [address] [place] [phone] PCP - General Internal Medicine-Adolescent Medicine 11/26/22 documented as of this encounter
--- OUTSIDE RECORDS SUMMARY | 2022-12-16 06:00 | XMS_ITS | Encounter Summary ---
Author Organization [facility] [place] [place] [address] Care Team Providers Care Admitting Manager Name Role Phone Jeremi Freedman MD Primary Care Provider [phone] Encounter Details Date Type Department Care Team (Late st Contact Info) Description 12/16/2022 5:00 AM EST Hospital Encounter [facility] Referral Lab 1 [place] [address] Gila Espinosa APRN [address] [place] [phone] Social History Tobacco Use Types Packs/Day [...] 12/16/2022 8:31 AM EST us Gila Espinosa TRAFFIC COUNTER HEMATOLOGY ORDERABLES Final Re sult [facility] 1 [facility] , [place] [address] documented in this encounter Visit Diagnoses Not on filedocumented in this encounter Care Teams Admitting Manager Relationship Specialty Start Date End Date Jeremi Freedman MD [address] [place] [address] PCP - General Internal Medicine-Adolescent Medicine 11/26/22 documented as of this encounter
--- OUTSIDE RECORDS SUMMARY | 2025-08-25 16:24 | XMS_ITS | Encounter Summary ---
Author Organization [employer] ([place], [place], [place], [place]) Address [address] [place] [address] Care Team Providers Care Vessel Ordinary Seaman Name Role Phone Unavailable Primary Care Provider Unavailabl e Encounter Details Date Type Department Care Team (Late st Contact Info) Description 11/15/2020 Transcribed Document [facility] [place] Family Medicine [address] [place] [address] ProviderAshly MD [address] [place] [address] Social History Tobacco Use Types [...] - Ashly ProviderMD - 11/15/2020 9:24 AM ADOBE ARCHITECT LORE Main OR PreOp Summary Primary Physician: REJI LUCIANO JR, JR, MD-ORT Finalized Date/Time: 11/15/20 14:59:04 Pt. Name: CYNTHIA CUEVAS JR /Sex: 1955 Male Med Rec #: [id number] Physician: REJI LUCIANO JR, JR, MD-ORT Financial #: [id number] Pt. Type: O Room/Bed: 406/1 Admit/Disch: 11/15/20 03:55:00 - [place] [facility] [place] Case Times Entry 1 In Preop 11/15/20 06:25:00 Ready for Holding n/a Room Patient Ready for 11/15/20 07:40:00 Surgery Patient Out of Preop 11/15/20 08:35:00 Patient Out of n/a Holding Room Last Modified By: SELWYN TOLENTINO RN 11/15/20 14:59:01 [facility] PreOp Case Times Audit 11/15/20 14:59:01 Motor Scooter Repairer: [email or web address] Modifier: [email or web address] <+> 1 Patient Out of Preop 11/15/20 08:19:44 Motor Scooter Repairer: [email or web address] Modifier: [email or web address] <+> 1 Patient Ready for Surgery Finalized By: SELWYN TOLENTINO, RN Document Signatures Signed By: SELWYN TOLENTINO RN 11/15/20 14:59 Electronically signed by Blake [facility] Conversion Director Records Management Cerner at 03/19/2023 6:41 PM CDT documented in this encounter Plan of Treatment Not on file documented as of this encounter Visit Diagnoses Not on filedocumented in this encounter
--- OUTSIDE RECORDS SUMMARY | 2025-08-25 16:24 | XMS_ITS | Encounter Summary ---
Author Organization [employer] ([place], [place], [place], [place]) Address [address] [place] [address] Care Team Providers Care Auto Inspection Specialist Name Role Phone Unavailable Primary Care Provider Unavailabl e Encounter Details Date Type Department Care Team (Late st Contact Info) Description 11/15/[address] [facility] [place] Family Medicine [address] [place] [address] ProviderAshly MD [address] [place] [address] Social History Tobacco Use Types [...] - Historical ProviderMD - 11/15/2020 5:46 PM PLEATING MACHINE OPERATOR On Going Discharge Planning Entered On: 11/15/2020 [...] bedside commode delieved to the patient via [place]. SHEILA FOLEY RN - 11/15/2020 17:46 EST Electronically signed by Blake, [facility] Conversion Broadcasting Equipment Mechanic Cerner at 03/19/2023 6:44 PM CDT documented in this encounter Plan of Treatment Not on file documented as of this encounter Visit Diagnoses Not on filedocumented in this encounter
--- OUTSIDE RECORDS SUMMARY | 2025-08-25 16:24 | XMS_ITS | Encounter Summary ---
Author Organization [employer] ([place], [place], [place], [place]) Address [address] [place] [address] Care Team Providers Care General Worker Name Role Phone Unavailable Primary Care Provider Unavailabl e Encounter Details Date Type Department Care Team (Late st Contact Info) Description 11/15/2020 Transcribed Document [facility] [place] Family Medicine [facility] [place] [address] ProviderAshly MD [address] [place] [address] Social History Tobacco Use Types [...] - Historical ProviderMD - 11/15/2020 6:38 AM DIRECTOR MUSIC Pre Procedure Adult Entered On: 11/15/2020 6:47 EST Performed On: 11/15/2020 6:38 EST by LESLIE RODRIGUEZ RN Height and Weight, Clinical Dosing Height Source : Stated Height Entry Format : [place] Height, Feet : 6 ft(Converted to: 183 cm, 72 Inch) Height, Inches : 4 Inch(Converted to: 0 ft 4 Inch, 10.16 cm) Clinical Height : 193.04 cm Weight Source : Standing scale Weight Entry Format : [place] Clinical Dosing Weight : 140.91 kg Weight, Pounds : 310 lb Body Surface Area (BSA) : 2.67 m2 Body Mass Index : 37.8 kg/m2 (HI) [place] Body Weight : 86 kg LESLIE RODRIGUEZ [...] Where was the COVID-19 Testing completed? : [facility] Does patient have symptoms of COVID-19? : [...] LESLIE RODRIGUEZ RN - 11/15/2020 6:38 EST [place] Suicide Severity Rating Scale (C-SSRS) CSSRS Past [...] Obtained From : Patient Primary Language : Kyrgyz Preferred Communication Mode : Verbal Communication Barrier : None Dba Needed : No LESLIE RODRIGUEZ RN - [...] Scale Risk Level : 25-45 Medium Risk [place] Fall Interventions : Adequate lighting, Bed in [...] explanation Teaching Evaluation : Verbalizes understanding LESLIE RODRIGUEZ RN - [...] Sent to locker Personal Devices : Glasses LESLEI RODRIGUEZ RN - 11/15/2020 6:38 EST Pain Scale Intensity : 0 LESLIE RODRIGUEZ RN - 11/15/2020 7:02 EST Image 4 - Images currently included in the form version of this document have not been included in the text rendition version of the form. [place] Coma Frieda Best Motor Response : Obey commands [place] Best Verbal Response : Oriented Frieda Eye Opening Response : Spontaneous [place] Coma Score : 15 LESLIE RODRIGUEZ RN - 11/15/2020 6:38 EST documented in this encounter Plan of Treatment Not on file documented as of this encounter Visit Diagnoses Not on filedocumented in this encounter
--- OUTSIDE RECORDS SUMMARY | 2025-08-25 16:24 | XMS_ITS | Encounter Summary ---
Author Organization [employer] ([place], [place], [place], [place]) Address [address] [place] [address] Care Team Providers Care Mailing Machine Helper Name Role Phone Unavailable Primary Care Provider Unavailabl e Encounter Details Date Type Department Care Team (Late st Contact Info) Description 11/15/2020 Transcribed Document [facility] [place] [address] [place] [address] ProviderAshly MD [address] [place] [address] Social History Tobacco Use Types [...] - Historical ProviderMD - 11/15/2020 1:26 PM DIRECTOR WOMEN Treatment Intervention, PT Entered On: 11/16/2020 14:40 [...] intact, polar care on left knee, SCDs, CLAIMS ADJUSTOR arrived to take vitals and to attach [...] Yes ALOK ADDISON PTA 11/16/2020 14:07 EST [facility] Goals Other PT LTG Grid Goal #1 [...] EST 11/16/2020 EST 11/16/2020 EST ALOK ADDISON, DEVELOPER SUPPORT ENGINEER - 11/16/2020 14:07 EST ALOK ADDISON, DEVELOPER SUPPORT ENGINEER - 11/16/2020 14:07 EST ALOK ADDISON, DEVELOPER SUPPORT ENGINEER - 11/16/2020 14:07 EST Treatment Note Subjective [...] the text rendition version of the form. [place] PT Charges DEVELOPER SUPPORT ENGINEER PT Therap. Exercise 15 min-DEVELOPER SUPPORT ENGINEER : 2 Gait Training Each 15 Min-DEVELOPER SUPPORT ENGINEER : 1 ARACELI ADDISONANTHONY MARES - 11/16/2020 14:07 EST Electronically signed by Justina Lozano Conversion Product Marketing Consultant Cerner at 03/19/2023 6:42 PM CDT documented in this encounter Plan of Treatment Not on file documented as of this encounter Visit Diagnoses Not on filedocumented in this encounter
--- OUTSIDE RECORDS SUMMARY | 2025-08-25 16:24 | XMS_ITS | Clinical Summary ---
Author Organization [facility] Address [address] [place], [place] [address] Phone Care Team Providers Care Tin Roofer Name Role Phone Jeremi Freedman MD Primary Care Provider [phone] Allergies No known active allergies Medications metFORMIN [...] (11/19/2022): Added automatically from request for surgery [id number] Spinal stenosis, lumbar home on, without neurogenic claudication 11/19/2022 Overview (11/19/2022): Added automatically from request for surgery [id number] Surgical History Surgery Date Site/Laterality Comments KNEE [...] COVID-19 Vaccine (1 - 2023-2 5 season) 2025 Influenza Vaccine (#1) 2025 09/29/2017 Hepatitis B Vaccine Aged Out No longe r eligible based on patient's age to complete this topic Meningococcal B Vaccine Aged Out No l onger eligible based on patient's age to complete this topic Medical Devices Implanted Type Area Planing Machine Operator Device Identifier Shelf Expiration Date Model / Serial / Lot Ltkr Insurance HUMANA MEDICARE SUPPLMNTL H[place] MEDICARE [place] PART A AND B HU[employer]NA MEDICARE SUPPLMNTL [place] MEDICARE [place] PART A AND B Advance Directives For more information, please contact: [phone] * Full Code (Latest Code Status on File) Date Activated Date Inactivated Comments 12/03/2022 5:42 PM 12/10/2022 8:39 PM Care Teams Tin Roofer Relationship Specialty Start Date End Date Jeremi Freedmna MD [address] [place] [id number] PCP - General Internal Medicine-Adolescent Medicine 11/26/22
--- OUTSIDE RECORDS SUMMARY | 2025-08-25 16:24 | XMS_ITS | Encounter Summary ---
Author Organization [employer] ([place], [place], [place], [place]) Address [address] [place] [address] Care Team Providers Care Marketing Strategy Analyst Name Role Phone Unavailable Primary Care Provider Unavailabl e Encounter Details Date Type Department Care Team (Late st Contact Info) Description 11/15/2020 Transcribed Document [facility] [place] [address] [place] [address] ProviderAshly MD [address] [place] [address] Social History Tobacco Use Types [...] - Historical ProviderMD - 11/15/2020 12:04 PM PRESS OPERATOR [employer] Evaluation, Physical Therapy Entered On: 11/15/2020 13:26 [...] LORY THORNTON, PT - 11/15/2020 13:12 EST Medical Equipment Sales Goals Other PT LTG Grid Goal #1 [...] the text rendition version of the form. [place] PT Charges PT Ther Activities Ea 15 Min : 1 Gait Training Each 15 Min : 1 PT Eval Low Complexity : 1 LORY THORNTON, PT - 11/15/2020 13:12 EST Electronically signed by [facility] Conversion Hookman Cerner at 03/19/2023 6:47 PM CDT documented in this encounter Plan of Treatment Not on file documented as of this encounter Visit Diagnoses Not on filedocumented in this encounter
--- OUTSIDE RECORDS SUMMARY | 2025-08-25 16:24 | XMS_ITS | Encounter Summary ---
Author Organization [employer] ([place], [place], [place], [place]) Address [address] [place] [address] Care Team Providers Care Checker/Stocker Name Role Phone Unavailable Primary Care Provider Unavailabl e Encounter Details Date Type Department Care Team (Late st Contact Info) Description 11/15/2020 Transcribed Document [facility] [place] Family Medicine [address] [place] [address] ProviderAshly MD [address] [place] [address] Social History Tobacco Use Types [...] - Historical ProviderMD - 11/15/2020 1:01 PM DIRECTOR CLINICAL OPERATIONS Meds to Bed Enrollment Entered On: 11/15/2020 13:01 EST Performed On: 11/15/2020 13:01 EST by Shady Pickett, Robotype Operator Cert Meds to Bed Enrollment Patient Enrollment Decision: : Yes/enroll in meds to bed program Shady Pickett, Robotype Operator Cert - 11/15/2020 13:01 EST Electronically signed by Justina Lozano Conversion Educational/Development Assistant Giselle at 03/19/2023 6:44 PM CDT documented in this encounter Plan of Treatment Not on file documented as of this encounter Visit Diagnoses Not on filedocumented in this encounter
--- OUTSIDE RECORDS SUMMARY | 2025-08-25 16:24 | XMS_ITS | Encounter Summary ---
Author Organization [employer] ([place], [place], [place], [place]) Address [address] [place] [address] Care Team Providers Care Shopper Marketing Manager Name Role Phone Unavailable Primary Care Provider Unavailabl e Encounter Details Date Type Department Care Team (Late st Contact Info) Description 11/15/2020 Transcribed Document [facility] [place] [facility] [place] [address] ProviderAshly MD [address] [place] [address] Social History Tobacco Use Types [...] - Historical ProviderMD - 11/15/2020 7:15 AM FOOD SALES CLERK Spiritual Care Short Form Entered On: 11/15/2020 [...] Acuity : Low Spiritual Framework : Unknown Pentecostalism Preference : Unknown SHARMILA CARTAGENA Chaplain-Non Cert - 11/15/2020 7:33 EST Electronically signed by Blake [facility] Conversion Intravenous Therapy Nurse Cerner at 03/19/2023 6:47 PM CDT documented in this encounter Plan of Treatment Not on file documented as of this encounter Visit Diagnoses Not on filedocumented in this encounter
--- OUTSIDE RECORDS SUMMARY | 2025-08-25 16:24 | XMS_ITS | Encounter Summary ---
Author Organization [employer] ([place], [place], [place], [place]) Address [address] [place] [address] Care Team Providers Care Boat Washer Name Role Phone Unavailable Primary Care Provider Unavailabl e Encounter Details Date Type Department Care Team (Late st Contact Info) Description 11/15/2020 Transcribed Document [facility] [place] Family Medicine [address] [place] [address] ProviderAshly MD [address] [place] [address] Social History Tobacco Use Types [...] - Historical ProviderMD - 11/15/2020 2:48 PM SALES AND MANAGEMENT TRAINEE Treatment Intervention, OT Entered On: 11/16/2020 10:24 [...] : 11/15/2020 03:55 Assisted by, OT : educational program assistant (CLAY MAKER) Personal Devices : Personal Devices Glasses Assistive [...] reach, Other: left in therapy gym with CLAY MAKER RN/PCT Informed Comment : RN Ok'd to [...] therapy gym with supervision, completes stairs with CLAY MAKER and transfer to mat table with supervision, [...] DARVIN MOREAU OTR/Vasile - 11/16/2020 10:09 EST [facility] Goals, OT Other LTG Grid Goal #1 [...]
--- OUTSIDE RECORDS SUMMARY | 2025-08-25 16:24 | XMS_ITS | Encounter Summary ---
Author Organization [employer] ([place], [place], [place], [place]) Address [address] [place] [address] Care Team Providers Care Printing Press Machine Operator Name Role Phone Unavailable Primary Care Provider Unavailabl e Encounter Details Date Type Department Care Team (Late st Contact Info) Description 11/15/2020 Transcribed Document [facility] [place] Family Medicine [address] [place] [address] ProviderAshly MD [address] [place] [address] Social History Tobacco Use Types [...] - Historical ProviderMD - 11/15/2020 2:45 PM COMPUTER DISCOVERY TEACHER Initial Discharge Planning Entered On: 11/15/2020 14:50 [...] doesnt have DME preference. Referral sent to [facility] for Bariatric BSC and Bariatric FRW. Patient agrees to [facility] and choose [facility] PT Referral faxed in [facility]. RRS: SHEILA FOLEY RN - 11/15/20 14:50:45 SHEILA FOLEY RN - 11/15/2020 14:51 EST Narrative Note : 65 y/o s/p LTK. Met with patient and and spouse at bedside to discuss discharge needs. Patient denies haviing a walker or bedside commode and doesnt have DME preference. Referral sent to [facility] for Bariatric BSC and Bariatric FRW. Patient agrees to [facility] and choose [facility] for HH and [facility] for PT. Patient to call [facility] to set up PT after HH. Patient notified of this Referral faxed in [place] for [facility] and spoke with Matt. Referal faxed in [facility] for [facility] and spoke with Kelsea. Plan: discharge home tomorrow with spouse to transport. [facility] to see patient and [facility] PT to see patient after 2 weeks. Patient to call and schedule appointment. DME: Bariatric Front rolling walker to patient from [facility] closet. [facility] to bring Bariatric BSC and wheels for FRW in the am. CM: DOC signed and in charts. [facility] agreement signed and place in [facility] basket. No further CM needs at this time. RRS: Low 28 SHEILA FOLEY RN - 11/15/2020 15:44 EST documented in this encounter Plan of Treatment Not on file documented as of this encounter Visit Diagnoses Not on filedocumented in this encounter
--- OUTSIDE RECORDS SUMMARY | 2025-08-25 16:25 | XMS_ITS | Encounter Summary ---
Author Organization [employer] ([place], [place], [place], [place]) Address [address] [place] [address] Care Team Providers Care Solderer Name Role Phone Unavailable Primary Care Provider Unavailabl e Encounter Details Date Type Department Care Team (Late st Contact Info) Description 11/15/2020 Transcribed Document [facility] [place] Family Medicine [address] [place] [address] ProviderAshly MD [address] [place] [address] Social History Tobacco Use Types [...] - Ashly ProviderMD - 11/15/2020 9:24 AM INSURANCE PREMIUM AUDITOR Aniyah Main OR PACU Summary Primary Physician: REJI LUCIANO JR, JR, MD-ORT Finalized Date/Time: 11/15/20 12:17:43 Pt. Name: CYNTHIA CUEVAS JR /Sex: 1955 Male Med Rec #: [id number] Physician: REJI LUCIANO JR, JR, MD-ORT Financial #: [id number] Pt. Type: O Room/Bed: [facility]/1 Admit/Disch: 11/15/20 03:55:00 - Institution: [facility] OR PACU Case Times Entry 1 In PACU I 11/15/20 11:02:00 Ready for PACU 11/15/20 12:10:00 Discharge Discharge from PACU 11/15/20 12:10:00 I Last Modified By: Nikole Whitehead Rn Patient Care Bedside 11/15/20 12:17:19 [facility] Main OR PACU Case Times Audit 11/15/20 12:17:19 Marketing Programs Manager: ANKIT Modifier: [email or web address] <+> 1 Ready for [...]
--- OUTSIDE RECORDS SUMMARY | 2025-08-25 16:25 | XMS_ITS | Encounter Summary ---
Author Organization [employer] ([place], [place], [place], [place]) Address [address] [place] [address] Care Team Providers Care Wire Hanger Name Role Phone Unavailable Primary Care Provider Unavailabl e Encounter Details Date Type Department Care Team (Late st Contact Info) Description 11/15/2020 Transcribed Document [facility] [place] [facility] [place] [address] ProviderAshly MD [address] [place] [address] Social History Tobacco Use Types [...] - Historical ProviderMD - 11/15/2020 12:24 PM LADLE BUILDER Admission History, Adult Entered On: 11/15/2020 12:28 [...] Obtained From : Patient Primary Language : Serbian Preferred Communication Mode : Verbal Communication Barrier : None Slitter Operator Needed : No Jie Lynch RN - [...] Scale Risk Level : 25-45 Medium Risk [place] Fall Interventions : Adequate lighting, Bed in [...] Source : Stated Height Entry Format : [place] Height, Feet : 6 ft(Converted to: 183 cm, 72 Inch) Height, Inches : 4 Inch(Converted to: 0 ft 4 Inch, 10.16 cm) Clinical Height : 193.04 cm Weight Source : Standing scale Weight Entry Format : [place] Clinical Dosing Weight : 140.91 kg Weight, Pounds : 310 lb Body Surface Area (BSA) : 2.67 m2 Body Mass Index : 37.8 kg/m2 (HI) [place] Body Weight : 86 kg Jie Lynch RN - 11/15/2020 12:24 EST Infectious Disease History Has the patient ever been tested for COVID-19? : Yes, Patient stated results Positive Where was the COVID-19 Testing completed? : [facility] Where are the test results? : Paper [...] Jie Lynch RN - 11/15/2020 12:24 EST [place] Suicide Severity Rating Scale (C-SSRS) CSSRS Past [...] Any Spiritual/Cultural Needs or Requests : Yes Judaism Preference : Unknown Jie Lynch RN - 11/15/2020 12:24 EST Valuables and Belongings Valuables and Belongings : Clothing, Personal devices Clothing : Common streetwear Clothing Disposition : Bedside, Sent to locker Personal Device Disposition : Sent to locker Personal Devices : Glasses Jie Lynch RN - 11/15/2020 12:24 EST documented in this encounter Plan of Treatment Not on file documented as of this encounter Visit Diagnoses Not on filedocumented in this encounter
--- OUTSIDE RECORDS SUMMARY | 2025-08-25 16:25 | XMS_ITS | Clinical Summary ---
Author Organization [facility] Address [address] [place] [id number] Phone Care Team Providers Care Director Cardiology Name Role Phone Mariaa Hu Unavailable Unavailable [...] left lower limb Hemarthrosis of left knee 865324116 (SNOMED CT) Active 12/12 Norma Nelson Hemarthrosis of knee Obesity due to excess calories E66.09 (ICD-10-CM) Active 12/12 Norma Nelson Other obesity due to excess calories DM Type II E11.9 (ICD-10-CM) Active 12/12 Norma Nelson Type 2 diabetes mellitus without complications Benign Essential Hypertension 0521283 (SNOMED CT) Active 12/12 Norma Nelson Benign essential hypertension Medications Medication Instructions Start Date Stop Date Generic Name [facility] Provider DOXYCYCLINE MONOHYDRATE 100 MG CAPS one cap bid DOXYCYCLINE MONOHYDRATE 37354228848 Matt Pearson MD NYSTATIN 829525 UNIT/ML SUSP 5 mls tid NYSTATIN 10197737597 Matt Pearson MD DOXYCYCLINE MONOHYDRATE 100 MG CAPS one cap bid DOXYCYCLINE MONOHYDRATE 43417914280 Matt Pearson MD DAPTOMYCIN SOLR Cubicin 800mg IV Q24hrs / [facility] OP infusion DAPTOMYCIN SOLR 42373748663 Jeannette Morales LINEZOLID 600 MG TABS one tablet po bid LINEZOLID 62580237933 Matt Pearson MD OMEPRAZOLE 40 MG CPDR Take one by mouth daily OMEPRAZOLE 30762007313 Shakiramariangel Murraydox METFORMIN HCL 500 MG TABS Take one by mouth daily METFORMIN HCL 33167224723 Shakira Murraydox ATORVASTATIN CALCIUM 20 MG TABS Take one by mouth daily ATORVASTATIN CALCIUM 18649787104 Shakiramariangel Murraydox AMLODIPINE BESYLATE 5 MG TABS Take one by mouth daily AMLODIPINE BESYLATE 42666163429 Shakira Diallo ZINC 100 MG TABS Take by mouth twice a day ZINC 93464291293 Shakira Diallo VITAMIN D3 50 MCG (1999 UT) CAPS Take one by mouth daily CHOLECALCIFEROL 13176030518 Shakira Diallo VITAMIN C 500 MG CAPS Take one by mouth daily ASCORBIC ACID 53248685929 Shakira Diallo B-12 1000 MCG SUBL Take one by mouth daily CYANOCOBALAMIN 91906275602 Shakira Murraydox DAPTOMYCIN SOLR Cubicin 800mg IV Q24hrs / [facility] OP infusion DAPTOMYCIN SOLR 06437171481 Fátima Gordillo RN Medications Administered No information [...] Documenta tion of current medications (procedure) DIET BULWARK CARPENTER Yes - Overweight Dietary manageme nt education, guidance, and counseling (procedure) ORALTOBACUSE Former Tobacco smoking status CIGARET SMKG yes Tobacco smoking status SMOK STATUS Former smoker Tob acco smoking status Lab Report: COMPREHENSIVE WA TABOLIC PANEL ANIONGAP 9.0 mmol/L 5.0-15.0 anion [...] Date CPT-sl STAT Labs CPT-sl STAT Labs CPT-36540 CMP [id number] CBC with Differential 2020 CPT-97692 C- reactive protein CPT-70267 Sedimentation Rate (ESR) 12/05/03 CPT-sl STAT Labs CPT-17396 CMP [id number] CBC with Differential 2020 CPT-17329 C- reactive protein CPT-30255 Sedimentation Rate (ESR) 202 12/02/22 CPT-sl STAT Labs CPT-rosa m New Oral Antibiotic CPT-56183 CMP [id number] CBC with Differential 2020 CPT-20704 C- reactive protein CPT-94867 Sedimentation Rate (ESR) 202 12/02/02 CPT-72349 CMP CPT-sl STAT Labs [id number] CBC with Differential 2020 CPT-53506 C- reactive protein CPT-28436 Sedimentation Rate (ESR) 202 12/02/01 CPT-sl STAT Labs CPT-rosa m New Oral Antibiotic CPT-ca Continue IV antibiotics 2020 CPT-52256 CMP [id number] CBC with Differential 2020 CPT-36121 C- reactive protein CPT-84479 Sedimentation Rate (ESR) 202 12/01/19 CPT-PICREM PICC [...]
--- OUTSIDE RECORDS SUMMARY | 2025-08-25 16:25 | XMS_ITS | Clinical Summary ---
Author Organization [employer] ([place], [place], [place], [place]) Address [address] [place] [address] Care Team Providers Care Jumbo Operator Name Role Phone Unavailable Primary Care [...]
--- OUTSIDE RECORDS SUMMARY | 2025-08-25 16:25 | XMS_ITS | Encounter Summary ---
Author Organization [employer] ([place], [place], [place], [place]) Address [address] [place] [address] Care Team Providers Care Student Union Consultant Name Role Phone Unavailable Primary Care Provider Unavailabl e Encounter Details Date Type Department Care Team (Late st Contact Info) Description 12/07/2020 Transcribed Document [facility] [place] [address] [place] [address] ProviderAshly MD [address] [place] [address] Social History Tobacco Use Types [...] - Ashly ProviderMD - 12/07/2020 4:20 PM HAND PACKER Patient: CYNTHIA CUEVAS JR Age: 65 years [...] lower extremity venous Doppler at local hospital, [facility], and was negative for DVT. Patient stated [...] At Bedtime cefTRIAXone 2 Gram, IV Piggyback, [id number] cholecalciferol 2,000 Int Units, Oral, At Bedtime [...] with pins and anchors. gallbladder surgery. Colonoscopy ([id number]). Social History Patient is and has 2 [...] down to the left ankle. Integumentary: Warm, [place], Intact, No pallor, No rash, WOUND STABLE. [...]
--- OUTSIDE RECORDS SUMMARY | 2025-08-25 16:25 | XMS_ITS | Encounter Summary ---
Author Organization [employer] ([place], [place], [place], [place]) Address [address] [place] [address] Care Team Providers Care Outside Property Agent Name Role Phone Unavailable Primary Care Provider Unavailabl e Encounter Details Date Type Department Care Team (Late st Contact Info) Description 12/09/2020 Transcribed Document [facility] [place] [facility] [place] [address] ProviderAshly MD [address] [place] [address] Social History Tobacco Use Types [...] Ashly Rodriguez MD - 12/09/2020 2:25 PM BELL HOLE DIGGER Patient: CYNTHIA CUEVAS JR Age: 65 years [...] surgeon Bryson Mora MD Infectious disease, Matt Pearson MD Admitting and discharging physician, [facility] medicine, internal medicine, Richa Farah MD Admitting [...] IV antibiotic infusion at local hospital at [facility]. Basic Information ???Today, patient was seen [...] 12/08/2020 16:14 EST Glucose POC2 121 mg/dL MI 12/08/2020 11:18 EST Glucose POC2 131 mg/dL MI 12/08/2020 5:58 EST Glucose POC2 100 mg/dL [...] % 33.5 % Lymph # 3.17 K/uL [place] % 9.0 % [place] # 0.85 K/uL HI Eos % 2.0 % Eos # 0.19 K/uL Baso % 0.7 % Baso # 0.07 K/uL Slide Review No IG# 0 x10(3)/uL IG% 0 % Vancomycin Peak 26.1 mcg/mL Skin Breakdown Prevention Interventions Absorbent/Wick underpad, Draw/Slide sheet to reduce friction/shear when repositioning Observed Activity Status Sleeping, In bed Activity Assist Level Standby assist Specialty Bed Type Oyb-[id number]-gplm bed Monitor Alarms On, Reviewed Safety Checks [...] weeks, # 1 Kit, 0 Refill(s), Pharmacy: [id number], 193.04, cm, 12/07/20 16:13:00 [...]
--- OUTSIDE RECORDS SUMMARY | 2025-08-25 16:25 | XMS_ITS | Encounter Summary ---
Author Organization [employer] ([place], [place], [place], [place]) Address [address] [place] [address] Care Team Providers Care Fiber Optic Splicer Name Role Phone Unavailable Primary Care Provider Unavailabl e Encounter Details Date Type Department Care Team (Late st Contact Info) Description 12/07/2020 Transcribed Document [facility] [place] [facility] [place] [address] ProviderAshly MD [address] [place] [address] Social History Tobacco Use Types [...] - Ashly ProviderMD - 12/07/2020 5:57 PM GLASSWARE VERIFIER Patient: CYNTHIA CUEVAS JR Age: 65 years Sex: Male : 1955 Associated Diagnoses: None Author: Bree Lewis, Pharmacist-Resident Consult: Pharmacy to dose vancomycin Consulting physician: Sofi Indication: Cellulitis (RTKA) Vancomycin Goal: AUC 400-600 Pharmacokinetic Parameters: Age= 65 yo , Ht= 193 cm, BTS=089.9 kg, Clcr est= 90-95 ml/min, kest= 0.085 [...] > Daily creatinine Bree Lewis, PharmD PGY1 Guard Captain LORE #[id number] Electronically signed by Justina Lozano Conversion Telephone Order Clerk Room Service Cerner at 03/19/2023 6:38 PM CDT documented in this encounter Plan of Treatment Not on file documented as of this encounter Visit Diagnoses Not on filedocumented in this encounter
--- OUTSIDE RECORDS SUMMARY | 2025-08-25 16:25 | XMS_ITS | Encounter Summary ---
Author Organization [employer] ([place], [place], [place], [place]) Address [address] [place] [address] Care Team Providers Care Linoleum Layer Helper Name Role Phone Unavailable Primary Care Provider Unavailabl e Encounter Details Date Type Department Care Team (Late st Contact Info) Description 12/08/2020 Transcribed Document [facility] Family Medicine [facility] [place] [address] ProviderAshly MD [address] [place] [address] Social History Tobacco Use Types [...] - Historical ProviderMD - 12/08/2020 12:41 AM ARTIFICIAL CANDY MAKER Event Note Entered On: 12/08/2020 0:53 EST [...] 12/08/2020 0:41 EST Electronically signed by Blake [facility] Conversion Consulting Sales Manager Cerner at 03/19/2023 6:52 PM CDT documented in this encounter Plan of Treatment Not on file documented as of this encounter Visit Diagnoses Not on filedocumented in this encounter
--- OUTSIDE RECORDS SUMMARY | 2025-08-25 16:25 | XMS_ITS | Encounter Summary ---
Author Organization [employer] ([place], [place], [place], [place]) Address [address] [place] [address] Care Team Providers Care Coat Presser Name Role Phone Unavailable Primary Care Provider Unavailabl e Encounter Details Date Type Department Care Team (Late st Contact Info) Description 11/02/2020 Transcribed Document [facility] [place] [facility] [place] [address] ProviderAshly MD [address] [place] [address] Social History Tobacco Use Types [...] - Historical ProviderMD - 11/02/2020 10:26 AM SURVEY FIELD TECHNICIAN PAT Adult Entered On: 11/02/2020 10:27 EST [...] Source : Stated Height Entry Format : [place] Height, Feet : 6 ft(Converted to: 183 cm, 72 Inch) Height, Inches : 4 Inch(Converted to: 0 ft 4 Inch, 10.16 cm) Clinical Height : 193.04 cm Weight Source : Standing scale Weight Entry Format : [place] Clinical Dosing Weight : 140.91 kg Weight, Pounds : 310 lb Body Surface Area (BSA) : 2.67 m2 Body Mass Index : 37.8 kg/m2 (HI) [place] Body Weight : 86 kg CAROL MADERA [...] Where was the COVID-19 Testing completed? : [facility] Date of COVID-19 test known? [...] CAROL MADERA RN - 11/02/2020 10:33 EST [place] Suicide Severity Rating Scale (C-SSRS) CSSRS Past [...] #2 Relationship : - Primary Language : Tajik Communication Barrier : None Kiln Tester Needed : No CAROL MADERA RN - [...]
--- OUTSIDE RECORDS SUMMARY | 2025-08-25 16:25 | XMS_ITS | Encounter Summary ---
Author Organization [employer] ([place], [place], [place], [place]) Address [address] [place] [address] Care Team Providers Care Water Gas Operator Name Role Phone Unavailable Primary Care Provider Unavailabl e Encounter Details Date Type Department Care Team (Late st Contact Info) Description 11/02/2020 Transcribed Document [facility] [place] [facility] [place] [address] ProviderAshly MD [facility] [address] Social History Tobacco Use Types [...] - Ashly ProviderMD - 11/02/2020 10:00 AM CITY CONSTABLE Patient: CYNTHIA CUEVAS JR Age: 65 Years Sex: Male : 1955 Chief Complaint Left Knee Pain Primary Care Provider KAYLA OCAMPO ([facility] History of Present Illness This patient is [...] Lymph # 2.44 K/uL 11/02/2020 11:00 EST [place] % 6.1 % 11/02/2020 11:00 EST [place] # 0.69 K/uL 11/02/2020 11:00 EST Eos [...] CLOUDY2 (Abnormal) 11/02/2020 11:00 EST Urine Specific [place] 1.023 11/02/2020 11:00 EST Urine pH Dipstick [...] Hyaline Casts 2-5 (Abnormal) 11/02/2020 11:00 EST documented in this encounter Plan of Treatment Not on file documented as of this encounter Visit Diagnoses Not on filedocumented in this encounter
--- OUTSIDE RECORDS SUMMARY | 2025-08-25 16:25 | XMS_ITS | Referral Summary ---
Author Organization [employer] ([place], [place], [place], [place]) Address [address] [place] [address] Care Team Providers Care Workforce Management Analyst Name Role Phone Unavailable Primary Care [...]
--- OUTSIDE RECORDS SUMMARY | 2025-08-25 16:25 | XMS_ITS | Encounter Summary ---
Author Organization [employer] ([place], [place], [place], [place]) Address [address] [place] [address] Care Team Providers Care Shed Hand Name Role Phone Unavailable Primary Care Provider Unavailabl e Encounter Details Date Type Department Care Team (Late st Contact Info) Description 11/15/2020 Transcribed Document [facility] [place] [address] [place] [address] ProviderAshly MD [address] [place] [address] Social History Tobacco Use Types [...] - Ashly ProviderMD - 11/15/2020 12:04 PM ALLEY WORKER Pain Assessment Entered On: 11/16/2020 12:01 EST [...] the text rendition version of the form. Electronically signed by Justina Lozano Conversion Glue Spreading Machine Operator Cerner at 03/21/2023 11:32 AM CDT documented in this encounter Plan of Treatment Not on file documented as of this encounter Visit Diagnoses Not on filedocumented in this encounter
--- OUTSIDE RECORDS SUMMARY | 2025-08-25 16:25 | XMS_ITS | Encounter Summary ---
Author Organization [employer] ([place], [place], [place], [place]) Address [address] [place] [address] Care Team Providers Care Anesthesia Attending Name Role Phone Unavailable Primary Care Provider Unavailabl e Encounter Details Date Type Department Care Team (Late st Contact Info) Description 11/15/2020 Transcribed Document [facility] [place] [address] [place] [address] ProviderAshly MD [address] [place], [place] [address] Social History Tobacco Use Types Packs/Day Years [...] - Historical ProviderMD - 11/15/2020 12:53 PM OUTREACH SPECIALIST Consult Phone Call Documentation Entered On: 11/15/2020 [...] 11/15/2020 13:02 EST Electronically signed by Blake [facility] Conversion Cash Register Repairer Cerner at 03/19/2023 6:41 PM CDT documented in this encounter Plan of Treatment Not on file documented as of this encounter Visit Diagnoses Not on filedocumented in this encounter
--- OUTSIDE RECORDS SUMMARY | 2025-08-25 16:25 | XMS_ITS | Encounter Summary ---
Author Organization [employer] ([place], [place], [place], [place]) Address [address] [place] [address] Care Team Providers Care 2Nd Pressman Name Role Phone Unavailable Primary Care Provider Unavailabl e Encounter Details Date Type Department Care Team (Late st Contact Info) Description 12/13/2020 Transcribed Document [facility] Family Medicine [facility] [address] ProviderAshly MD [address] [place] [address] Social History Tobacco Use Types [...] - Historical ProviderMD - 12/13/2020 7:00 AM PILING CUTTER PLEASE MODIFY BEFORE SIGNING CLINICAL DOCUMENTATION CLARIFICATION [...] 500ml 2500mg Documented in MAR on 12/07/2020. CDS/Meeting Specialist Signature: Devyn Small Phone #: [phone] Extn [phone] Date/Time: 12/13/2020 This is a permanent part of the Medical Record Q48 2019 [facility] Updated:2019 documented in this encounter Plan of Treatment Not on file documented as of this encounter Visit Diagnoses Not on filedocumented in this encounter
--- OUTSIDE RECORDS SUMMARY | 2025-08-25 16:25 | XMS_ITS | Encounter Summary ---
Author Organization [employer] ([place], [place], [place], [place]) Address [address] [place] [address] Care Team Providers Care Shaper Set Up Operator Name Role Phone Unavailable Primary Care Provider Unavailabl e Encounter Details Date Type Department Care Team (Late st Contact Info) Description 11/15/2020 Transcribed Document [facility] [place] Medicine [address] [place] [address] ProviderAshly MD [address] [place] [address] Social History Tobacco Use Types [...] - Historical ProviderMD - 11/15/2020 5:00 PM WEARING APPAREL SHAKER Chart Check - Review Order Profile Entered On: 11/15/2020 17:02 EST Performed On: 11/15/2020 17:00 EST by Jie Lynch RN Chart Check Powerplans Initiated/Discontinued as Appropriate : Yes All Active Orders Reviewed : Yes Jie Lynch RN - 11/15/2020 17:02 EST Electronically signed by Blake [facility] Conversion Curber Cerner at 03/19/2023 6:31 PM CDT documented in this encounter Plan of Treatment Not on file documented as of this encounter Visit Diagnoses Not on filedocumented in this encounter
--- OUTSIDE RECORDS SUMMARY | 2025-08-25 16:25 | XMS_ITS | Encounter Summary ---
Author Organization [employer] ([place], [place], [place], [place]) Address [address] [place] [address] Care Team Providers Care Link And Link Knitting Machine Operator Name Role Phone Unavailable Primary Care Provider Unavailabl e Encounter Details Date Type Department Care Team (Late st Contact Info) Description 12/07/2020 Transcribed Document [facility] [place] [facility] [place] [address] ProviderAshly MD [address] [place] [address] Social History Tobacco Use Types [...] - Historical ProviderMD - 12/07/2020 4:13 PM MINCEMEAT MAKER Admission History, Adult Entered On: 12/07/2020 16:21 EST Performed On: 12/07/2020 16:13 EST by Kathleen Montejo RN Advance Directive Patient has Advance Directive *Q : No, patient refuses Advance Directive information Kahtleen Montejo RN - 12/07/2020 16:13 EST Anesthesia/Transfusion [...] Obtained From : Patient Primary Language : Nigerien Preferred Communication Mode : Verbal Communication Barrier : None Aluminum Sheet Cutter Needed : No Kathleen Montejo RN - [...] Level : 46 or > High Risk Xenia Fall Interventions : Adequate lighting, Bed in [...] Source : Estimated Height Entry Format : [place] Height, Feet : 6 ft(Converted to: 183 cm, 72 Inch) Height, Inches : 4 Inch(Converted to: 0 ft 4 Inch, 10.16 cm) Clinical Height : 193.04 cm Weight Source : Stated [place] Body Weight : 86 kg Kathleen Montejo RN - 12/07/2020 16:13 EST Estimated Weight Type of Weight Measurement Est : [place] Weight, est lb : 310 lb(Converted to: [...] for Influenza Vaccine : Declined Vaccination Kathleen Montejo RN - 12/07/2020 16:13 EST Pneumococcal Vaccine [...] Kathleen Montejo RN - 12/07/2020 16:13 EST [place] Suicide Severity Rating Scale (C-SSRS) CSSRS Past [...] 12/07/2020 16:13 EST Electronically signed by Blake [facility] Conversion Director Fundraising Cerner at 03/19/2023 6:48 PM CDT documented in this encounter Plan of Treatment Not on file documented as of this encounter Visit Diagnoses Not on filedocumented in this encounter
--- OUTSIDE RECORDS SUMMARY | 2025-08-25 16:26 | XMS_ITS | Encounter Summary ---
Author Organization [employer] ([place], [place], [place], [place]) Address [address] [place] [address] Care Team Providers Care Industry Segment Specialist Name Role Phone Unavailable Primary Care Provider Unavailabl e Encounter Details Date Type Department Care Team (Late st Contact Info) Description 12/08/2020 Transcribed Document [facility] [place] [facility] [place] [address] ProviderAshly MD [address] [place] [address] Social History Tobacco Use [...] - Historical ProviderMD - 12/08/2020 10:49 AM STRUCTURAL STEEL ERECTION SUPERVISOR Therapy Screen, PT Entered On: 12/08/2020 10:52 [...] 12/08/2020 10:49 EST Electronically signed by Blake [facility] Conversion Instructor Correspondence School Cerner at 03/19/2023 6:46 PM CDT documented in this encounter Plan of Treatment Not on file documented as of this encounter Visit Diagnoses Not on filedocumented in this encounter
--- OUTSIDE RECORDS SUMMARY | 2025-08-25 16:26 | XMS_ITS | Encounter Summary ---
Author Organization [employer] ([place], [place], [place], [place]) Address [address] [place] [address] Care Team Providers Care Derrick Boat Captain Name Role Phone Unavailable Primary Care Provider Unavailabl e Encounter Details Date Type Department Care Team (Late st Contact Info) Description 12/07/2020 Transcribed Document [facility] [place] Family [place] [address] [place] [address] ProviderAshly MD [address] [place] [address] Social History Tobacco Use [...] - Historical ProviderMD - 12/07/2020 4:08 PM CRYSTAL SYRUP MAKER Initial Discharge Planning Entered On: 12/07/2020 16:11 [...] . iADLS PLAN: patient has HH with [facility] and then will be seeing [facility] for PT as outpatient. DME: [...]
--- OUTSIDE RECORDS SUMMARY | 2025-08-25 16:26 | XMS_ITS | Encounter Summary ---
Author Organization [employer] ([place], [place], [place], [place]) Address [address] [place] [address] Care Team Providers Care Turkey Egg Gatherer Name Role Phone Unavailable Primary Care Provider Unavailabl e Encounter Details Date Type Department Care Team (Late st Contact Info) Description 12/08/2020 Transcribed Document [facility] [place] Family Medicine [address] [place] [address] ProviderAshly MD [address] [place] [address] Social History Tobacco Use Types [...] - Historical ProviderMD - 12/08/2020 4:08 PM BLADE GRINDER On Going Discharge Planning Entered On: 12/08/2020 [...] Progress Note : Dr. Pearson spoke with Fabric Separator Operator about outpatient IV infusion. Patient will be going to [facility] for outpatient infusion. Patients daughter works there. Orders faxed via Dr Pearson. Patient to followup with him weekly for dressing changes. No further CM needs identified. Historical Progress Note : Spoke with Dr. Pearson about patient getting IV antibiotics as outpatient. Orders faxed to [facility] infusion and [facility] notified of change in patients Home Health. Pt getting picc line today. No further CM needs identified. SHEILA FOLEY RN - 12/08/20 15:27:27 SHEILA FOLEY RN - 12/08/2020 16:08 EST Electronically signed by Blake [facility] Conversion Assistant Infant Toddler Teacher Cerner at 03/19/2023 6:42 PM CDT documented in this encounter Plan of Treatment Not on file documented as of this encounter Visit Diagnoses Not on filedocumented in this encounter
--- OUTSIDE RECORDS SUMMARY | 2025-08-25 16:26 | XMS_ITS | Clinical Summary ---
[facility] Organization [facility] Address [address] [place] [address] Care Team Providers Care Mineral Mixer Name Role Phone Jeremi Freedman MD Primary Care Provider + [phone] Social History Tobacco Use Types Packs/Day Years Used Date Smoking Tobacco: Never Assessed Abuse Screen Answer Date Recorded Unsafe at Home or Work/School Not on file Feels Threatened by Someone? Not on file 10/2023 Does Anyone Keep You from Co ntacting Others or Doint Things Outside the Home? Not on file 09/11/2023 Physical Sign of Abuse Present Not on file 1 Housing Stability Answer Date Recorded Current Living Arrangements Not on file 08/31 Potentially Unsafe Housing Conditions Not on juanjose e 09/11/2023 Family and Community Support Answer Jeramie e Recorded Help with Day-to-Day Activities Not on file 09/11/2023 Lonely or Isolated Not on file 09/11/2023 Employment Answer Date Recorded Do you want help finding or keeping work or a martina b? Not on file 09/11/2023 Disabilities Answer Date Recorded Concentrating, Remembering, or Making Decisions Difficulty Not on file 09/11/2023 Doing Errands Independently Difficulty Not on fi le 09/11/2023 Education Answer Date Recorded Help with school or training? Not on file Preferred Language Not on file 09/11/2023 Sex and Gender Information Value Date Recorded Sex Assigned at Not on file Legal Sex Male 10:54 AM EST Gender Identity Not on file Sexual Orientation Not on file Plan of Treatment Health Maintenance Due Date Last Done Comments ANNUAL PHYSICAL 1955 HEPATITIS C SCREENING 1955 TDAP/TD VACCINES (1 - Tdap) 1974 COLOGUARD 2000 COLON CANCER SCREENING 5 YEAR SIGMOIDOSCOPY 2000 COLONOSCOPY 2000 [address]AL CANCER SCREENING 2000 CT COLONOGRAPHY 2000 FECAL OCCULT BLOOD TEST 2000 FIT Testing (1 year) 2000 Pneumococcal Vaccine 50+ (1 of 1 - PCV) 2005 ZOSTER VACCINE (1 of 2) 2005 AAA SCREEN ONCE 2020 INFLUENZA VACCINE 07/01/2025 COVID-19 Vaccine ( season) 2025 Insurance MEDICARE A & B Member Subscriber Plan / Payer (Ef fective 2020-Present) Name:Betito Watkins Jr. Member ID:[id number] Relation to Subscriber:Self Name:Betito Watkins Jr. Subscriber ID:[id number] Payer ID:[id number] Group ID:Not on file Type:Not on file Address: [id number] Care Teams Mineral Mixer Relationship Specialty Start Date End Date Jeremi Freedman MD [address] [facility] [address] [place] [address] PCP - General Adolescent Medicine 01/03/21
--- OUTSIDE RECORDS SUMMARY | 2025-08-25 16:26 | XMS_ITS | Encounter Summary ---
Author Organization [employer] ([place], [place], [place], [place]) Address [address] [place] [address] Care Team Providers Care Can Dryer Name Role Phone Unavailable Primary Care Provider Unavailabl e Encounter Details Date Type Department Care Team (Late st Contact Info) Description 11/16/2020 Transcribed Document [facility] [place] Family Medicine [address] [place] [address] ProviderAshly MD [address] [place] [address] Social History Tobacco Use [...] - Historical ProviderMD - 11/16/2020 5:00 AM THROUGH FREIGHT ENGINEER Chart Check - Review Order Profile Entered On: 11/16/2020 5:38 EST Performed On: 11/16/2020 5:00 EST by Nery Pate, RN Chart Check Powerplans Initiated/Discontinued as Appropriate : Yes All Active Orders Reviewed : Yes Nery Pate RN - 11/16/2020 5:38 EST Electronically signed by Blake [facility] Conversion Tile Mason Cerner at 03/19/2023 6:53 PM CDT documented in this encounter Plan of Treatment Not on file documented as of this encounter Visit Diagnoses Not on filedocumented in this encounter
--- OUTSIDE RECORDS SUMMARY | 2025-08-25 16:26 | XMS_ITS | Encounter Summary ---
Author Organization [employer] ([place], [place], [place], [place]) Address [address] [place] [address] Care Team Providers Care Braider Setter Name Role Phone Unavailable Primary Care Provider Unavailabl e Encounter Details Date Type Department Care Team (Late st Contact Info) Description 11/22/2020 Transcribed Document [facility] [place] Family Medicine [facility] [place] [address] ProviderAshly MD [address] [place] [address] Social History Tobacco Use Types [...] - Ashly ProviderMD - 11/22/2020 8:58 AM CLUB STEWARD Discharge Follow Up Phone Call Entered On: [...] JR, MD-ORT - 09:15 AM Previously Documented Braille Translator Patient Stated Goal : 1) be able to move around withoutpain (Unmet) - Narcisa Wiggins Rn-Charge - 11/22/2020 8:58 EST Electronically signed by Blake [facility] Conversion Grinding Operator Cerner at 03/19/2023 6:46 PM CDT documented in this encounter Plan of Treatment Not on file documented as of this encounter Visit Diagnoses Not on filedocumented in this encounter
--- OUTSIDE RECORDS SUMMARY | 2025-08-25 16:26 | XMS_ITS | Encounter Summary ---
Author Organization [employer] ([place], [place], [place], [place]) Address [address] [place] [address] Care Team Providers Care Educational Program Assistant Name Role Phone Unavailable Primary Care Provider Unavailabl e Encounter Details Date Type Department Care Team (Late st Contact Info) Description 11/16/2020 Transcribed Document [facility] [place] [address] [place] [address] ProviderAshly MD [address] [place] [address] Social History Tobacco Use Types [...] - Historical ProviderMD - 11/16/2020 9:18 AM EXCAVATING CONTRACTOR Stroke/Warfarin Instructions Entered On: 11/16/2020 9:18 EST [...]
--- OUTSIDE RECORDS SUMMARY | 2025-08-25 16:26 | XMS_ITS | Encounter Summary ---
Author Organization [employer] ([place], [place], [place], [place]) Address [address] [place] [address] Care Team Providers Care Survey Researcher Name Role Phone Unavailable Primary Care Provider Unavailabl e Encounter Details Date Type Department Care Team (Late st Contact Info) Description 12/08/2020 Transcribed Document [facility] [place] [facility] [place] [address] ProviderAshly MD [address] [place] [address] Social History Tobacco Use Types [...] - Historical ProviderMD - 12/08/2020 11:58 AM [address]ENCE TEACHER [facility] OT Charges Entered On: 12/08/2020 11:58 EST Performed On: 12/08/2020 11:58 EST by TEVIN LOCKHART OTR/Vasile Broussard OT Charges Screen For Repair Table Operator : 1 TEVIN LOCKHART OTR/Vasile - 12/08/2020 11:58 EST documented in this encounter Plan of Treatment Not on file documented as of this encounter Visit Diagnoses Not on filedocumented in this encounter
--- OUTSIDE RECORDS SUMMARY | 2025-08-25 16:26 | XMS_ITS | Encounter Summary ---
Author Organization [employer] ([place], [place], [place], [place]) Address [address] [place] [address] Care Team Providers Care Control Valve Mechanic Name Role Phone Unavailable Primary Care Provider Unavailabl e Encounter Details Date Type Department Care Team (Late st Contact Info) Description 12/08/2020 Transcribed Document [facility] [place] [facility] [place] [address] ProviderAshly MD [address] [place] [address] Social History Tobacco Use Types [...] - Ashly ProviderMD - 12/08/2020 6:17 PM GRAVEL WHEELER Patient: CYNTHIA CUEVAS JR Age: 65 years [...] 0.9% 50 mL 2 Gram, IV Piggyback, [id number] cholecalciferol 1,000 unit tab 2,000 Units 2 Tab, Oral, At Bedtime cyanocobalamin 1,000 mcg tab 1,000 mcg 1 Tab, SubLINgual, Daily DAPTOmycin + NaCl 0.9% 50 mL 800 mg 16 mL, IV Piggyback, [id number] docusate sodium 100 mg cap 100 mg [...] negative IMAGING: Radiology Results (Last 48 hours) [id number] -- 12/07/2020 15:45 US Veins LE Duplex [...]
--- OUTSIDE RECORDS SUMMARY | 2025-08-25 16:26 | XMS_ITS | Encounter Summary ---
Author Organization [employer] ([place], [place], [place], [place]) Address [address] [place] [address] Care Team Providers Care Cooker Pie Filling Name Role Phone Unavailable Primary Care Provider Unavailabl e Encounter Details Date Type Department Care Team (Late st Contact Info) Description 11/16/2020 Transcribed Document [facility] [place] [address] [place] [address] ProviderAshly MD [address] [place] [address] Social History Tobacco Use Types [...] - Historical ProviderMD - 11/16/2020 12:31 PM PRESIDENTIAL HELICOPTER CREW CHIEF JAYLIN Entered On: 11/16/2020 12:32 EST Performed [...] 11/16/2020 12:31 EST Electronically signed by Blake [facility] Conversion Wire Rope Fabrication Supervisor Cerner at 03/19/2023 6:49 PM CDT documented in this encounter Plan of Treatment Not on file documented as of this encounter Visit Diagnoses Not on filedocumented in this encounter
--- OUTSIDE RECORDS SUMMARY | 2025-08-25 16:26 | XMS_ITS | Encounter Summary ---
Author Organization [employer] ([place], [place], [place], [place]) Address [address] [place] [address] Care Team Providers Care Seed Pelleter Name Role Phone Unavailable Primary Care Provider Unavailabl e Encounter Details Date Type Department Care Team (Late st Contact Info) Description 11/16/2020 Transcribed Document [facility] [place] Family Medicine [facility] [place] [address] ProviderAshly MD [address] [place] [address] Social History Tobacco Use Types [...] - Historical ProviderMD - 11/16/2020 1:42 PM OSS ARCHITECT Nursing Discharge Summary Entered On: 11/16/2020 16:16 EST Performed On: 11/16/2020 13:42 EST by Naida Trejo Bull Riveter Documentation Discharge Date/Time : 11/16/2020 13:42 EST [...]
--- OUTSIDE RECORDS SUMMARY | 2025-08-25 16:26 | XMS_ITS | Encounter Summary ---
Author Organization [employer] ([place], [place], [place], [place]) Address [address] [place] [address] Care Team Providers Care Last Putter Away Name Role Phone Unavailable Primary Care Provider Unavailabl e Encounter Details Date Type Department Care Team (Late st Contact Info) Description 12/08/2020 Transcribed Document [facility] [place] [address] [place] [address] ProviderAshly MD [address] [place] [address] Social History Tobacco Use [...] - Historical ProviderMD - 12/08/2020 5:00 AM SUPERVISOR TAN ROOM Chart Check - Review Order Profile Entered On: 12/08/2020 5:51 EST Performed On: 12/08/2020 5:00 EST by Nisha Rudd RN Chart Check Powerplans Initiated/Discontinued as Appropriate : Yes All Active Orders Reviewed : Yes Nisha Rudd RN - 12/08/2020 5:51 EST Electronically signed by Blake [facility] Conversion Tag Clerk Giselle at 03/19/2023 6:57 PM CDT documented in this encounter Plan of Treatment Not on file documented as of this encounter Visit Diagnoses Not on filedocumented in this encounter
--- OUTSIDE RECORDS SUMMARY | 2025-08-25 16:26 | XMS_ITS | Encounter Summary ---
Author Organization [employer] ([place], [place], [place], [place]) Address [address] [place] [address] Care Team Providers Care Upper Stitcher Name Role Phone Unavailable Primary Care Provider Unavailabl e Encounter Details Date Type Department Care Team (Late st Contact Info) Description 12/08/2020 Transcribed Document [facility] [place] [facility] [place] [address] ProviderAshly MD [address] [place] [address] Social History Tobacco Use Types [...] - Ashly ProviderMD - 12/08/2020 4:11 PM TUBE COATER Final Discharge Planning Entered On: 12/08/2020 16:15 [...] Patient discharging home today. Will go to [facility] for outpatient IV infusion SHEILA FOLEY RN - 12/08/20 16:15:50 Final Narrative Note : Patient discharging home today. Will go to [facility] for outpatient IV infusion. caretenders to follow patient at discharge. No further CM needs identified. SHEILA FOLEY RN - 12/08/2020 16:16 EST Electronically signed by Justina Lozano Conversion Client Support Representative Cerner at 03/19/2023 6:43 PM CDT documented in this encounter Plan of Treatment Not on file documented as of this encounter Visit Diagnoses Not on filedocumented in this encounter
--- OUTSIDE RECORDS SUMMARY | 2025-08-25 16:26 | XMS_ITS | Encounter Summary ---
Author Organization [employer] ([place], [place], [place], [place]) Address [address] [place] [address] Care Team Providers Care Top And Trim Worker Name Role Phone Unavailable Primary Care Provider Unavailabl e Encounter Details Date Type Department Care Team (Late st Contact Info) Description 12/08/2020 Transcribed Document [facility] [place] [facility] [place] [address] ProviderAshly MD [address] [place] [address] Social History Tobacco Use Types [...] - Historical ProviderMD - 12/08/2020 10:40 AM FISHING ROD MARKER Therapy Screen, OT Entered On: 12/08/2020 11:58 [...]
--- OUTSIDE RECORDS SUMMARY | 2025-08-25 16:26 | XMS_ITS | Encounter Summary ---
Author Organization [employer] ([place], [place], [place], [place]) Address [address] [place] [address] Care Team Providers Care Bias Machine Operator Helper Name Role Phone Unavailable Primary Care Provider Unavailabl e Encounter Details Date Type Department Care Team (Late st Contact Info) Description 11/16/2020 Transcribed Document [facility] [place] [address] [place] [address] ProviderAshly MD [address] [place] [address] Social History Tobacco Use [...] Ashly Rodriguez MD - 11/16/2020 12:25 PM SWAGING MACHINE OPERATOR Patient: CYNTHIA CUEVAS JR Age: 65 years [...] Oral, Q4H phenol 1.4% throat spray 5 [place], Oral, Q2H promethazine 25 mg tab 12.5 [...] 11/16/2020 5:29 EST Glucose POC2 136 mg/dL MA 11/16/2020 2:53 EST Sodium Level 138 mmol/L [...]
--- OUTSIDE RECORDS SUMMARY | 2025-08-25 16:26 | XMS_ITS | Encounter Summary ---
Author Organization [employer] ([place], [place], [place], [place]) Address [address] [place] [address] Care Team Providers Care Validation Software Facilitator Name Role Phone Unavailable Primary Care Provider Unavailabl e Encounter Details Date Type Department Care Team (Late st Contact Info) Description 11/18/2020 Transcribed Document [facility] [place] [facility] [place] [address] ProviderAshly MD [address] [place] [address] Social History Tobacco Use Types [...] Ashly Rodriguez MD - 11/18/2020 8:11 AM BOILER HOUSE SUPERVISOR DATE OF PROCEDURE: 11/15/2020 SURGEON: Bryson Salgado [...] end of the procedure. FINAL CONDITION: Improved. /[id number] MD SAMINA Vicente Jr/BRYAN / SAMINA / MODL /[id number] documented in this encounter Plan of Treatment Not on file documented as of this encounter Visit Diagnoses Not on filedocumented in this encounter
--- OUTSIDE RECORDS SUMMARY | 2025-08-25 16:26 | XMS_ITS | Encounter Summary ---
Author Organization [employer] ([place], [place], [place], [place]) Address [address] [place] [address] Care Team Providers Care Edger Saw Operator Name Role Phone Unavailable Primary Care Provider Unavailabl e Encounter Details Date Type Department Care Team (Late st Contact Info) Description 12/07/2020 Transcribed Document [facility] [place] Family Medicine [address] [place] [address] ProviderAshly MD [address] [place] [address] Social History Tobacco Use Types [...] - Historical ProviderMD - 12/07/2020 5:00 PM SATURATOR OPERATOR Chart Check - Review Order Profile Entered On: 12/07/2020 18:05 EST Performed On: 12/07/2020 17:00 EST by Day Hernandez RN Chart Check Powerplans Initiated/Discontinued as Appropriate : Yes All Active Orders Reviewed : Yes Day Hernandez RN - 12/07/2020 18:05 EST Electronically signed by Blake [facility] Conversion Livestock Yard Attendant Cerluana at 03/19/2023 6:46 PM CDT documented in this encounter Plan of Treatment Not on file documented as of this encounter Visit Diagnoses Not on filedocumented in this encounter
--- OUTSIDE RECORDS SUMMARY | 2025-08-25 16:26 | XMS_ITS | Encounter Summary ---
Author Organization [employer] ([place], [place], [place], [place]) Address [address] [place] [address] Care Team Providers Care Furniture Finisher Apprentice Name Role Phone Unavailable Primary Care Provider Unavailabl e Encounter Details Date Type Department Care Team (Late st Contact Info) Description 12/08/2020 Transcribed Document [facility] [place] [address] [place] [address] ProviderAshly MD [address] [place] [address] Social History Tobacco Use Types [...] - Historical ProviderMD - 12/08/2020 2:42 PM ARCHITECTURAL SALES CONSULTANT JAYLIN Entered On: 12/08/2020 14:42 EST Performed [...]
--- OUTSIDE RECORDS SUMMARY | 2025-08-25 16:26 | XMS_ITS | Encounter Summary ---
Author Organization [employer] ([place], [place], [place], [place]) Address [address] [place] [address] Care Team Providers Care It Disaster Recovery Manager Name Role Phone Unavailable Primary Care Provider Unavailabl e Encounter Details Date Type Department Care Team (Late st Contact Info) Description 12/08/2020 Transcribed Document [facility] [place] [address] [place] [address] ProviderAshly MD [address] [place] [address] Social History Tobacco Use Types [...] - Historical ProviderMD - 12/08/2020 2:00 AM HUMIDIFIER MAINTENANCE WORKER Black Powder Glazing Operator Details Entered On: 12/08/2020 5:51 EST Performed [...] Nisha Rudd, HUMERA - 12/08/2020 5:51 EST Electronically signed by Blake [facility] Conversion Court Abstractor Cerner at 03/19/2023 6:41 PM CDT documented in this encounter Plan of Treatment Not on file documented as of this encounter Visit Diagnoses Not on filedocumented in this encounter
--- OUTSIDE RECORDS SUMMARY | 2025-08-25 16:26 | XMS_ITS | Encounter Summary ---
Author Organization [employer] ([place], [place], [place], [place]) Address [address] [place] [address] Care Team Providers Care Financial Professional Name Role Phone Unavailable Primary Care Provider Unavailabl e Encounter Details Date Type Department Care Team (Late st Contact Info) Description 12/07/2020 Transcribed Document [facility] [place] [facility] [place] [address] ProviderAshly MD [address] [place] [address] Social History Tobacco Use Types [...] - Ashly ProviderMD - 12/07/2020 4:13 PM HARVEST WORKER FIELD CROP Pain Assessment Entered On: 12/07/2020 22:58 EST [...]
--- OUTSIDE RECORDS SUMMARY | 2025-08-25 16:26 | XMS_ITS | Encounter Summary ---
Author Organization [employer] ([place], [place], [place], [place]) Address [address] [place] [address] Care Team Providers Care Bottle Labeler Name Role Phone Unavailable Primary Care Provider Unavailabl e Encounter Details Date Type Department Care Team (Late st Contact Info) Description 12/08/2020 Transcribed Document [facility] [place] [facility] [place] [address] ProviderAshly MD [address] [place] [address] Social History Tobacco Use Types [...] - Ashly ProviderMD - 12/08/2020 4:25 PM TMR TEACHER Patient Education Materials Follows: What to expect [...] Barley. Bulgur wheat. Millet. Bran muffins. Popcorn. Wink wafer crackers. ?? Vegetables Sweet potatoes. Spinach. Kale. Artichokes. Cabbage. Broccoli. Green peas. Carrots. Squash. ?? Fruits Berries. Pears. Apples. Oranges. Avocados. Prunes and raisins. Dried figs. ?? Meats and Other Protein Sources Minoa, kidney, whitney, and soy beans. Split peas. [...] magdalena has 11 g of protein. ?? Charles Mix seeds ??? 1 oz has 5.5 g [...] floor. ?? Place frequently used items in rewq-si-uafgi places ?? Keep electrical cables out of [...] ? Using the bathroom. ? Using household glazier stained glass or toxic chemicals. ? Touching or taking [...] these instructions at home: Medicines ??? Take xijt-uje-vumgqdn and prescription medicines only as told by [...] 05/05/2009 Document Revised: 04/08/2019 Document Reviewed: 04/08/2019 [employer] Patient Education ? 2020 [employer] documented in this encounter Plan of Treatment Not on file documented as of this encounter Visit Diagnoses Not on filedocumented in this encounter
--- OUTSIDE RECORDS SUMMARY | 2025-08-25 16:26 | XMS_ITS | Encounter Summary ---
Author Organization [employer] ([place], [place], [place], [place]) Address [address] [place] [address] Care Team Providers Care Grade Teacher Name Role Phone Unavailable Primary Care Provider Unavailabl e Encounter Details Date Type Department Care Team (Late st Contact Info) Description 11/16/2020 Transcribed Document [facility] [place] [facility] [place] [address] ProviderAshly MD [address] [place] [address] Social History Tobacco Use Types [...] - Historical ProviderMD - 11/16/2020 9:25 AM COREROOM FOUNDRY LABORER Discharge Summary, PT Entered On: 11/16/2020 14:42 [...] STACY TOTH, PT - 11/16/2020 15:10 EST Mcc Goals Other PT LTG Grid Goal #1 [...]
--- OUTSIDE RECORDS SUMMARY | 2025-08-25 16:26 | XMS_ITS | Encounter Summary ---
Author Organization [employer] ([place], [place], [place], [place]) Address [address] [place] [address] Care Team Providers Care Payroll Services Analyst Name Role Phone Unavailable Primary Care Provider Unavailabl e Encounter Details Date Type Department Care Team (Late st Contact Info) Description 12/08/2020 Transcribed Document [facility] [place] [facility] [place] [address] ProviderAshly MD [address] [place] [address] Social History Tobacco Use Types [...] - Historical ProviderMD - 12/08/2020 9:02 PM ASSISTANT PROFESSOR OF LIFE SCIENCES Nursing Discharge Summary Entered On: 12/08/2020 21:04 [...] - 12/08/2020 21:02 EST Electronically signed by [facility] Conversion Ham Sawyer Cerner at 03/19/2023 6:47 PM CDT documented in this encounter Plan of Treatment Not on file documented as of this encounter Visit Diagnoses Not on filedocumented in this encounter
--- OUTSIDE RECORDS SUMMARY | 2025-08-25 16:26 | XMS_ITS | Encounter Summary ---
Author Organization [employer] ([place], [place], [place], [place]) Address [address] [place] [address] Care Team Providers Care Cert Occupational Therapy Asst Name Role Phone Unavailable Primary Care Provider Unavailabl e Encounter Details Date Type Department Care Team (Late st Contact Info) Description 11/16/2020 Transcribed Document [facility] Family Medicine [address] [place] [address] ProviderAshly MD [address] [place] [address] Social History Tobacco Use Types [...] - Historical ProviderMD - 11/16/2020 2:00 AM E/M ENGINEER Pot Reliner Details Entered On: 11/16/2020 4:56 EST Performed [...] 11/16/2020 4:56 EST Electronically signed by Blake [facility] Conversion Steam Power Plant Operator Cerner at 03/19/2023 6:52 PM CDT documented in this encounter Plan of Treatment Not on file documented as of this encounter Visit Diagnoses Not on filedocumented in this encounter
--- OUTSIDE RECORDS SUMMARY | 2025-08-25 16:27 | XMS_ITS | Encounter Summary ---
Author Organization [employer] ([place], [place], [place], [place]) Address [address] [place] [address] Care Team Providers Care Hansard Reporter Name Role Phone Unavailable Primary Care Provider Unavailabl e Encounter Details Date Type Department Care Team (Late st Contact Info) Description 11/15/2020 Transcribed Document [facility] [place] [facility] [place] [address] ProviderAshly MD [address] [place] [address] Social History Tobacco Use Types [...] - Ashly ProviderMD - 11/15/2020 8:11 AM VAT PACKER Peripheral Nerve Block Entered On: 11/15/2020 8:14 [...] Peripheral Nerve Block Assisted by : LESLIE RODRIGUZE RN Ultra sound used during insertion : Yes Nerve Block Activity, Patient Tolerance : Good Peripheral Nerve Block Comment : L ADDUCTOR CANAL NERVE BLOCK WITH ON Q CATHETER PLACED PER DR. LUCIANO REQUEST. Peripheral Nerve Block End Date/Time : 11/15/2020 8:04 EST LESLIE RODRIGUEZ RN - 11/15/2020 8:11 EST Electronically signed by Blake, Justina Conversion Application Architect Manager Cerner at 03/19/2023 6:52 PM CDT documented in this encounter Plan of Treatment Not on file documented as of this encounter Visit Diagnoses Not on filedocumented in this encounter
--- OUTSIDE RECORDS SUMMARY | 2025-08-25 16:27 | XMS_ITS | Encounter Summary ---
Author Organization [employer] ([place], [place], [place], [place]) Address [address] [place] [address] Care Team Providers Care Body Mechanic Name Role Phone Unavailable Primary Care Provider Unavailabl e Encounter Details Date Type Department Care Team (Late st Contact Info) Description 12/08/2020 Transcribed Document [facility] [place] [address] [place] [address] ProviderAshly MD [address] [place] [address] Social History Tobacco Use Types [...] - Historical ProviderMD - 12/08/2020 3:42 PM STEWARD DISHWASHER Stroke/Warfarin Instructions Entered On: 12/08/2020 15:42 EST [...]
--- OUTSIDE RECORDS SUMMARY | 2025-08-25 16:27 | XMS_ITS | Encounter Summary ---
Author Organization [employer] ([place], [place], [place], [place]) Address [address] [place] [address] Care Team Providers Care Workplace Relations Adviser Name Role Phone Unavailable Primary Care Provider Unavailabl e Encounter Details Date Type Department Care Team (Late st Contact Info) Description 11/15/2020 Transcribed Document [facility] [place] [address] [place] [address] ProviderAshly MD [address] [place] [address] Social History Tobacco Use Types [...] Ashly Rodriguez MD - 11/15/2020 2:31 PM ENGINEERING PROGRAMMER Patient: CYNTHIA CUEVAS JR Age: 65 years [...] Oral, Q4H phenol 1.4% throat spray 5 [place], Oral, Q2H promethazine 25 mg tab 12.5 [...] with pins and anchors. gallbladder surgery. Colonoscopy ([id number]). Social History Patient is and has 2 [...] swelling, No deformity, Normal gait. Integumentary: Warm, [place], Intact, No pallor, No rash, WOUND STABLE. [...] then you may give Tylenol 650 mg PO/DE x 1. If no response in 2 [...] TWT 65 [place] Electronically signed by Blake, [facility] Conversion Superintendent Car Construction Cerner at 03/19/2023 6:52 PM CDT documented in this encounter Plan of Treatment Not on file documented as of this encounter Visit Diagnoses Not on filedocumented in this encounter
--- OUTSIDE RECORDS SUMMARY | 2025-08-25 16:27 | XMS_ITS | Encounter Summary ---
Author Organization [employer] ([place], [place], [place], [place]) Address [address] [place] [address] Care Team Providers Care Belt Loop Maker Name Role Phone Unavailable Primary Care Provider Unavailabl e Encounter Details Date Type Department Care Team (Late st Contact Info) Description 11/15/2020 Transcribed Document [facility] [place] [address] [place] [address] ProviderAshly MD [address] [place], [place] [address] Social History Tobacco Use Types Packs/Day Years [...] - Historical ProviderMD - 11/15/2020 12:04 PM REAL ESTATE LEGAL ASSISTANT Consult Phone Call Documentation Entered On: 11/15/2020 [...] 11/15/2020 12:49 EST Electronically signed by Blake [facility] Conversion Outbound Sales Advisor Cerner at 03/19/2023 6:53 PM CDT documented in this encounter Plan of Treatment Not on file documented as of this encounter Visit Diagnoses Not on filedocumented in this encounter
--- OUTSIDE RECORDS SUMMARY | 2025-08-25 16:27 | XMS_ITS | Encounter Summary ---
Author Organization [employer] ([place], [place], [place], [place]) Address [address] [place] [address] Care Team Providers Care Informatica Mdm Architect Name Role Phone Unavailable Primary Care Provider Unavailabl e Encounter Details Date Type Department Care Team (Late st Contact Info) Description 12/08/2020 Transcribed Document [facility] [place] [address] [place] [address] ProviderAshly MD [address] [place] [address] Social History Tobacco Use Types [...] - Historical ProviderMD - 12/08/2020 4:16 PM CERTIFIED MARINE MECHANIC Event Note Entered On: 12/08/2020 16:17 EST [...]
--- OUTSIDE RECORDS SUMMARY | 2025-08-25 16:27 | XMS_ITS | Encounter Summary ---
Author Organization [employer] ([place], [place], [place], [place]) Address [address] [place] [address] Care Team Providers Care Chemical Etching Processor Name Role Phone Unavailable Primary Care Provider Unavailabl e Encounter Details Date Type Department Care Team (Late st Contact Info) Description 11/16/2020 Transcribed Document [facility] [place] [address] [place] [address] ProviderAshly MD [address] [place] [address] Social History Tobacco Use Types [...] - Historical ProviderMD - 11/16/2020 10:25 AM BENCH CHEMIST Discharge Summary, OT Entered On: 11/16/2020 10:25 [...]
--- OUTSIDE RECORDS SUMMARY | 2025-08-25 16:27 | XMS_ITS | Encounter Summary ---
Author Organization [employer] ([place], [place], [place], [place]) Address [address] [place] [address] Care Team Providers Care Crosscutter Rolled Glass Name Role Phone Unavailable Primary Care Provider Unavailabl e Encounter Details Date Type Department Care Team (Late st Contact Info) Description 12/08/2020 Transcribed Document [facility] Family Medicine [place] [address] ProviderAshly MD [address] [place] [address] Social History Tobacco Use Types [...] Ashly Rodriguez MD - 12/08/2020 4:26 PM [place] [address] CYNTHIA CUEVAS JR :1955 Visit Time:12/07/2020 Your [...] Patient will be having Outpatient infusion at [facility] Outpatient infusion. Daughter is making arrangements. Patient [...] EST Comments Appointment has been made Where: [address] [place] [phone]- Business (1) Medications What How Much When Instructions Next Dose DAPTOmycin (DAPTOmycin 350 mg intravenous injection) See instructions 800 mg IV daily x6 weeks Pickup at [facility] tomorrow amLODIPine 5 Milligram(s) Oral [...] Milligram(s) Oral Two Times A Day t [facility] Pharmacy Information [facility]: [address] [address] [phone] Take your medications faithfully. Do NOT skip [...] Barley. Bulgur wheat. Millet. Bran muffins. Popcorn. [place] wafer crackers. ??? Vegetables Sweet potatoes. Spinach. Kale. Artichokes. Cabbage. Broccoli. Green peas. Carrots. Squash. ??? Fruits Berries. Pears. Apples. Oranges. Avocados. Prunes and raisins. Dried figs. ??? Meats and Other Protein Sources [place], kidney, whitney, and soy beans. Split peas. [...] magdalena has 11 g of protein. ??? [place] seeds ??? 1 oz has 5.5 g [...] floor. ??? Place frequently used items in ftpb-uy-rheng places ??? Keep electrical cables out of [...] ? Using the bathroom. ? Using household call center assistant or toxic chemicals. ? Touching or taking [...] these instructions at home: Medicines ??? Take tsrn-azl-hbwndch and prescription medicines only as told by [...] 05/05/2009 Document Revised: 04/08/2019 Document Reviewed: 04/08/2019 [employer] Patient Education ?? 2020 CAD Crowd. aspirin (oral) ( pir in) Arthritis Pain, [...] What is aspirin? Aspirin is a salicylate (of-UXP-lw-ate) that is used to treat pain, and [...] may report side effects to FDA at 1-561-JTA-7564. What other drugs will affect aspirin? Ask [...] drugs may affect aspirin, including prescription and zqsv-lxs-htuuuzn medicines, vitamins, and herbal products. Not all [...] to ensure that the information provided by [employer]. ('Multum') is accurate, up-to-date, and complete, but no guarantee is made to that effect. Drug information contained herein may be time sensitive. Jybe information has been compiled for use by healthcare practitioners and consumers in the [place] and therefore Jybe does not warrant that uses outside of the [place] are appropriate, unless specifically indicated otherwise. GI Tracks drug information does not endorse drugs, diagnose patients or recommend therapy. [employer] drug information is an informational resource designed [...] effective or appropriate for any given patient. Jybe does not assume any responsibility for any aspect of healthcare administered with the aid of information Jybe provides. The information contained herein is not intended to cover all possible uses, directions, precautions, warnings, drug interactions, allergic reactions, or adverse effects. If you have questions about the drugs you are taking, check with your doctor, nurse or pharmacist. Copyright 4234-6409 [employer]. Version: 16.02. Revision Date: 07/19/2020. daptomycin (DAP [...] may report side effects to FDA at 9-889-SIK-0085. What other drugs will affect daptomycin? Tell your doctor about all your other medicines, especially a 'statin' cholesterol medicine such as: ?? atorvastatin (Lipitor, Caduet); ?? fluvastatin (Lescol); ?? lovastatin (Mevacor, Altoprev, Advicor); ?? pitavastatin (Livalo); ?? pravastatin (Pravachol); ?? rosuvastatin (Crestor); or ?? simvastatin (Zocor, Simcor, Vytorin); This list is not complete. Other drugs may affect daptomycin, including prescription and rpad-okz-satqvvv medicines, vitamins, and herbal products. Not all [...] to ensure that the information provided by [employer]. ('Multum') is accurate, up-to-date, and complete, but no guarantee is made to that effect. Drug information contained herein may be time sensitive. Jybe information has been compiled for use by healthcare practitioners and consumers in the [place] and therefore Jybe does not warrant that uses outside of the [place] are appropriate, unless specifically indicated otherwise. GI Tracks drug information does not endorse drugs, diagnose patients or recommend therapy. [employer] Tracks drug information is an informational resource designed [...] effective or appropriate for any given patient. Jybe does not assume any responsibility for any aspect of healthcare administered with the aid of information Jybe provides. The information contained herein is not intended to cover all possible uses, directions, precautions, warnings, drug interactions, allergic reactions, or adverse effects. If you have questions about the drugs you are taking, check with your doctor, nurse or pharmacist. Copyright 4903-4617 [employer]. Version: 9.01. Revision Date: 11/02/2019. acetaminophen and [...] may report side effects to FDA at 0-786-SSL-4941. What other drugs will affect acetaminophen and [...] affect acetaminophen and oxycodone, including prescription and wkgm-fer-oxkifyu medicines, vitamins, and herbal products. Not all [...] to ensure that the information provided by [employer]lino. ('Multum') is accurate, up-to-date, and complete, but no guarantee is made to that effect. Drug information contained herein may be time sensitive. Jybe information has been compiled for use by healthcare practitioners and consumers in the [place] and therefore Jybe does not warrant that uses outside of the [place] are appropriate, unless specifically indicated otherwise. GI Tracks drug information does not endorse drugs, diagnose patients or recommend therapy. [employer] Tracks drug information is an informational resource designed [...] effective or appropriate for any given patient. Jybe does not assume any responsibility for any aspect of healthcare administered with the aid of information Jybe provides. The information contained herein is not intended to cover all possible uses, directions, precautions, warnings, drug interactions, allergic reactions, or adverse effects. If you have questions about the drugs you are taking, check with your doctor, nurse or pharmacist. Copyright 9577-2744 [employer]. Version: .. Revision Date: 12/22/2019. Emergency Awareness [...] Assistance with quitting is available by contacting 6-016-JGFYNOW. This is a free resource providing counseling, [...] range between ( 1.0 and 7.0 ) [place] #: 0.85 K/uL -- Normal range between ( 0.24 and 0.82 ) [place] #: 0.19 K/uL -- Normal range between ( 0.04 and 0.54 ) [place] %: 9.0 % -- Normal range between [...] ) Urine Bilirubin Dipstick: Negative Urine Specific [place]: 1.018 -- Normal range between ( 1.005 [...] was given the opportunity to ask questions. Patient/Re Examiner Name: Patient/Re Examiner Signature: Relationship to Patient: Clinician/Hospital Re Examiner Signature: Date: Electronically signed by Justina Lozano Conversion Audit Clerks Supervisor Mauricioner at 03/19/2023 6:40 PM CDT documented in this encounter Plan of Treatment Not on file documented as of this encounter Visit Diagnoses Not on filedocumented in this encounter
--- OUTSIDE RECORDS SUMMARY | 2025-08-25 16:27 | XMS_ITS | Encounter Summary ---
Author Organization [employer] ([place], [place], [place], [place]) Address [address] [place] [address] Care Team Providers Care Astronomy Professor Name Role Phone Unavailable Primary Care Provider Unavailabl e Encounter Details Date Type Department Care Team (Late st Contact Info) Description 11/16/2020 Transcribed Document [facility] [place] [address] [place] [address] ProviderAshly MD [address] [place] [address] Social History Tobacco Use Types [...] Ashly Rodriguez MD - 11/16/2020 12:59 PM CASING SPLITTER [place] [id number] CYNTHIA CUEVAS JR :1955 Visit Time:11/15/2020 Your Visit Summary Your Care Team Admitting Physician - REJI LUCIANO JR, JR, MD-ORT Attending Physician - REJI LUCIANO JR, JR, MD-ORT Primary Care Physician - KAYLA OCAMPO (REF), -SOLANGE Referring Physician - ERJI LUCIANO JR, JR, MD-ORT Your Diagnosis At [...] Instructions From Your Care Team Community Services: [facility] . Call to schedule appointment with them after 2 weeks of Home Health. [facility] Medical Equipment for Home Use: [employer] Transportation: to transport patient home. Discharge Follow [...] Comments Appointment has been made Where: [address] [place] [address]- Follow Up with Follow up with specialty services When 11/16/2020 09:58 AM EST Comments [facility] immediately after discharge Where: [address] [facility] [address] [place] [address]- Medications What How Much When Instructions Next [...] Barley. Bulgur wheat. Millet. Bran muffins. Popcorn. [place] wafer crackers. ??? Vegetables Sweet potatoes. Spinach. Kale. Artichokes. Cabbage. Broccoli. Green peas. Carrots. Squash. ??? Fruits Berries. Pears. Apples. Oranges. Avocados. Prunes and raisins. Dried figs. ??? Meats and Other Protein Sources [place], kidney, whitney, and soy beans. Split peas. [...] magdalena has 11 g of protein. ??? [place] seeds ??? 1 oz has 5.5 g [...] floor. ??? Place frequently used items in mtay-ik-dbyvk places ??? Keep electrical cables out of [...] ? Using the bathroom. ? Using household home health caregiver or toxic chemicals. ? Touching or taking [...] to thoroughly wash your hands, use hand restaurant cashier. While handwashing is best, hand restaurant cashier helps to reduce the spread of germs when you are out and about. Have hand restaurant cashier in several locations so you can always [...] keep people from also getting sick. Don???t [place] It! Sneezing this time of year is [...] oh fen) Actamin, Anacin AF, Aurophen, Bromo [place], Children's Tylenol, Mapap, M-Pap, Pharbetol, Silapap Childrens, [...] is a pain reliever and a fever brick and blocker aid labor. There are many brands and forms of [...] may report side effects to FDA at 4-599-UWJ-0526. What other drugs will affect acetaminophen? Other drugs may affect acetaminophen, including prescription and uphk-uih-okjzrab medicines, vitamins, and herbal products. Tell your [...] to ensure that the information provided by [employer]. ('Multum') is accurate, up-to-date, and complete, but no guarantee is made to that effect. Drug information contained herein may be time sensitive. Captual information has been compiled for use by healthcare practitioners and consumers in the [place] and therefore Captual does not warrant that uses outside of the [place] are appropriate, unless specifically indicated otherwise. [employer] drug information does not endorse drugs, diagnose patients or recommend therapy. [employer] drug information is an informational resource designed [...] effective or appropriate for any given patient. [facility] does not assume any responsibility for any aspect of healthcare administered with the aid of information [facility] provides. The information contained herein is not intended to cover all possible uses, directions, precautions, warnings, drug interactions, allergic reactions, or adverse effects. If you have questions about the drugs you are taking, check with your doctor, nurse or pharmacist. Copyright 3101-9010 [facility] Center[facility]. Version: 21.. Revision Date: 07/07/2020. cephalexin (sef [...] may report side effects to FDA at 4-317-JKA-1652. What other drugs will affect cephalexin? Tell your doctor about all your other medicines, especially: ?? metformin; or ?? probenecid. This list is not complete. Other drugs may affect cephalexin, including prescription and tdor-imd-oahnwaw medicines, vitamins, and herbal products. Not all [...] to ensure that the information provided by [employer]. ('Multum') is accurate, up-to-date, and complete, but no guarantee is made to that effect. Drug information contained herein may be time sensitive. Captual information has been compiled for use by healthcare practitioners and consumers in the [place] and therefore Captual does not warrant that uses outside of the [place] are appropriate, unless specifically indicated otherwise. [employer] drug information does not endorse drugs, diagnose patients or recommend therapy. [employer] drug information is an informational resource designed [...] effective or appropriate for any given patient. [employer] does not assume any responsibility for any aspect of healthcare administered with the aid of information [employer] provides. The information contained herein is not intended to cover all possible uses, directions, precautions, warnings, drug interactions, allergic reactions, or adverse effects. If you have questions about the drugs you are taking, check with your doctor, nurse or pharmacist. Copyright 2644-4511 [employer]. Version: 10.. Revision Date: 01/24/2020. docusate (oral/rectal) (DOK ue sate) Colace, Diocto, Doc-Q-Lace, Docu, Doculase, Docusil, Docusoft S, DocuSol, Dulcolax Stool Softener, Enemeez Mini, Jermaine-Tin, Pedia-Lax Stool Softener, Irzo Stool Softener, Promolaxin, Silace, Surfak Stool Softener, [...] may report side effects to FDA at 5-456-IOJ-5744. What other drugs will affect docusate? Other drugs may affect docusate, including prescription and plsh-mff-gfsdfbi medicines, vitamins, and herbal products. Tell your [...] to ensure that the information provided by [employer]. ('Multum') is accurate, up-to-date, and complete, but no guarantee is made to that effect. Drug information contained herein may be time sensitive. Captual information has been compiled for use by healthcare practitioners and consumers in the [place] and therefore Captual does not warrant that uses outside of the [place] are appropriate, unless specifically indicated otherwise. [employer] drug information does not endorse drugs, diagnose patients or recommend therapy. [employer] drug information is an informational resource designed [...] effective or appropriate for any given patient. Capt[employer] does not assume any responsibility for any aspect of healthcare administered with the aid of information Captual provides. The information contained herein is not intended to cover all possible uses, directions, precautions, warnings, drug interactions, allergic reactions, or adverse effects. If you have questions about the drugs you are taking, check with your doctor, nurse or pharmacist. Copyright 3791-7731 [employer]. Version: 4.01. Revision Date: 06/07/2019. aspirin (oral) [...] What is aspirin? Aspirin is a salicylate (ft-DRL-br-ate) that is used to treat pain, and [...] may report side effects to FDA at 3-425-HQE-0548. What other drugs will affect aspirin? Ask [...] drugs may affect aspirin, including prescription and qvjo-ddy-dirunrw medicines, vitamins, and herbal products. Not all [...] to ensure that the information provided by [employer]. ('Multum') is accurate, up-to-date, and complete, but no guarantee is made to that effect. Drug information contained herein may be time sensitive. Captual information has been compiled for use by healthcare practitioners and consumers in the [place] and therefore Captual does not warrant that uses outside of the [place] are appropriate, unless specifically indicated otherwise. [employer] drug information does not endorse drugs, diagnose patients or recommend therapy. [employer] drug information is an informational resource designed [...] effective or appropriate for any given patient. [employer] does not assume any responsibility for any aspect of healthcare administered with the aid of information Capt[employer] provides. The information contained herein is not intended to cover all possible uses, directions, precautions, warnings, drug interactions, allergic reactions, or adverse effects. If you have questions about the drugs you are taking, check with your doctor, nurse or pharmacist. Copyright 7302-6394 [employer]. Version: 16.02. Revision Date: 07/19/2020. oxycodone (ox [...] The extended-release form of oxycodone is for ykfdrn-ggy-zdaew treatment of pain and should not be [...] against the law. Stop taking all other jdmxom-dtd-ybbfb narcotic pain medicines when you start taking [...] may report side effects to FDA at 7-428-ZZP-1959. What other drugs will affect oxycodone? You [...] may affect oxycodone. This includes prescription and izyc-aza-pbzpebn medicines, vitamins, and herbal products. Not all [...] to ensure that the information provided by [employer]. ('Multum') is accurate, up-to-date, and complete, but no guarantee is made to that effect. Drug information contained herein may be time sensitive. Captual information has been compiled for use by healthcare practitioners and consumers in the [place] and therefore Captual does not warrant that uses outside of the [place] are appropriate, unless specifically indicated otherwise. [employer] drug information does not endorse drugs, diagnose patients or recommend therapy. [employer] drug information is an informational resource designed [...] effective or appropriate for any given patient. [employer] does not assume any responsibility for any aspect of healthcare administered with the aid of information [employer] provides. The information contained herein is not intended to cover all possible uses, directions, precautions, warnings, drug interactions, allergic reactions, or adverse effects. If you have questions about the drugs you are taking, check with your doctor, nurse or pharmacist. Copyright 8478-4491 [employer]. Version: 13.03. Revision Date: 09/13/2019. ondansetron (oral) [...] your doctor if you have phenylketonuria (PKU). Electronically signed by Justina Lozano Conversion Apartment Community Assistant Manager Cerner at 03/19/2023 6:46 PM CDT documented in this encounter Plan of Treatment Not on file documented as of this encounter Visit Diagnoses Not on filedocumented in this encounter
--- OUTSIDE RECORDS SUMMARY | 2025-08-25 16:27 | XMS_ITS | Encounter Summary ---
Author Organization [employer] ([place], [place], [place], [place]) Address [address] [place] [address] Care Team Providers Care Programmable Logic Controller Assembler Name Role Phone Unavailable Primary Care Provider Unavailabl e Encounter Details Date Type Department Care Team (Late st Contact Info) Description 11/15/2020 Transcribed Document [facility] [place] Family Medicine [facility] [place] [place] [address] ProviderAshly MD [address] [place] [address] Social History Tobacco Use Types [...] Ashly Rodriguez MD - 11/15/2020 9:24 AM CAGER OPERATOR [facility] Main OR IntraOp Summary Primary Physician: REJI LUCIANO JR, JR, MD-ORT Finalized Date/Time: 11/16/20 10:39:07 Pt. Name: CYNTHIA CUEVAS JR /Sex: 1955 Male Med Rec #: [id number] Physician: REJI LCUIANO JR, JR, MD-ORT Financial #: [id number] Pt. Type: O Room/Bed: [facility]/ Admit/Disch: 11/15/20 03:55:00 - Institution: [facility] [place] IntraOp Case Attendance Entry 1 Entry 2 Entry 3 Case Attendee REJI LUCIANO JR, JR, WICKER, KAREN KIM, NA LONGSWORTH, ETHAN, RN MD-ORT Role Performed Surgeon/Proceduralist, LOCK TENDER/Nurse Driver Trainee Medical Equipment Sales, First First Time In 11/15/20 09:20:00 11/15/20 [...] ST OTHER, ATTENDEE #1 Role Performed Physician household personal assistant Scrub, First Vendor Time In 11/15/20 08:40:00 [...] LEININGER, SUSAN, HUMERA Role Performed Scrub, Second Medical Equipment Sales, Second Time In 11/15/20 08:50:00 11/15/20 10:04:00 Time Out 11/15/20 10:22:00 11/15/20 10:15:00 Procedure Knee Total Joint Knee Total Joint Replacement Replacement Other Attendee Superficial Wound Closed By: Last Modified By: ETHAN FREIRE, ETHAN RUBY, HUMERA 11/15/20 11:00:07 11/15/20 11:00:07 [facility] IntraOp Case Attendance Audit 11/15/20 11:00:07 System Software Programmer: LONGGA Modifier: LONGGA 1 <*> Procedure Knee [...] Procedure Knee Total Joint Replacement 11/15/20 10:23:07 System Software Programmer: LONGGA Modifier: LONGGA 1 <+> Time Out 1 <*> Procedure Knee Total Joint Replacement 6 <+> Time Out 6 <*> Procedure Knee Total Joint Replacement 7 <+> Time Out 7 <*> Procedure Knee Total Joint Replacement 8 <+> Time Out 8 <*> Procedure Knee Total Joint Replacement 11/15/20 10:10:53 System Software Programmer: LONGGA Modifier: LONGGA <+> 8 Case Attendee <+> 8 Role Performed <+> 8 Time In <+> 8 Procedure 11/15/20 09:26:34 System Software Programmer: LONGGA Modifier: LONGGA 1 <*> Time In 11/15/20 08:40:00 1 <*> Procedure Knee Total Joint Replacement 11/15/20 09:15:00 System Software Programmer: LONGGA Modifier: LONGGA 1 <+> Time In [...] Time In <+> 7 Procedure 11/15/20 07:39:20 System Software Programmer: LONGGA Modifier: LONGGA <+> 1 Procedure 2 [...] [facility] IntraOp Case Times Audit 11/15/20 11:00:04 System Software Programmer: LONGGA Modifier: LONGGA <+> 1 Out Room Time <+> 1 Stop Time 11/15/20 10:53:30 System Software Programmer: LONGGA Modifier: LONGGA <+> 1 Stop Time 11/15/20 09:24:19 System Software Programmer: LONGGA Modifier: LONGGA <+> 1 Start Time [...] [facility] IntraOp Counts Verification Audit 11/15/20 10:23:23 System Software Programmer: HAYDEN Modifier: HAYDEN <+> 2 Procedure <+> [...] Safety Precautions Followed Last Modified By: ETHAN FRERIE RN 11/15/20 07:37:40 [facility] IntraOp General Case Sole Skiver 1 Case Information OR OR 02 SJE Case Level 1 Room Verified Yes Wound Class I - Clean Specialty SN Orthopedic Anesthesia Type General ASA Class 3 Diagnosis Preop Diagnosis DEGENERATIVE JOINT DISEASE, LEFT KNEE Postop Same As Preop Yes Postop Diagnosis DEGENERATIVE JOINT DISEASE, LEFT KNEE Last Modified By: ETHAN FREIRE RN 11/15/20 07:38:08 [facility] IntraOp General Case Data Audit 11/15/20 07:38:08 System Software Programmer: HAYDEN Modifier: LONGGA 1 <*> OR OR [...] ID TY CR TIB ITOTAL ID Identification [facility]-[id number] [id number] [id number] Description Implant Quantity 2 1 1 Implant Site LEFT KNEE LEFT KNEE LEFT KNEE Implant Identification Model Number Implant [id number] Identification Serial Number Implant [id number] Identification Lot Number Implant [place] Conformis Conformis Identification Orthopaedics Store Receiving Specialist Name: Implant [id number] Identification Catalog Number Implant Size Implant Has an Yes No Yes Expiration Date Implant Expiration 02/28/22 11/30/21 Date Wasted Radioactive Material Time Implanted Tissue Implant Continue for Tissue Implant Documentation Tissue Identification Number Graft Prep Per Store Receiving Specialist Instructions: Tissue Preparation Method: Reconstitution Solution: Reconstitution Solution Lot Number Reconstitution Solution Expiration Date: Thawing Solution Thawing Solution Lot Number Thawing Solution Expiration Date Preparation Materials, Other Preparation Materials, Other Lot Number Preparation Materials, Other Expiration Date Tissue Prepared/Processed By Store Receiving Specialist Paperwork Completed Implant Type Comment Last Modified By: ETHAN FREIRE RN LONGSWORTH, GARY, RN LONGSWORTH, GARY, RN 11/15/20 09:34:30 11/15/20 09:36:10 11/15/20 09:37:16 Entry 4 Entry 5 Entry 6 Type Implant (Synthetic) Implant (Synthetic) Implant (Synthetic) Implant Log Implant Type Hardware Hardware Hardware Tissue Implant Type Implant IMP CR FEM ITOTAL ID JIGS CR ITOTAL ID IMP P[place] ITOTAL Identification [facility] [id number] Description Implant Quantity 1 1 1 Implant Site LEFT KNEE LEFT KNEE LEFT KNEE Implant Identification Model Number Implant [id number] Identification Serial Number Implant [id number] Identification Lot Number Implant Conformis Conformis Conformis Identification Store Receiving Specialist Name: Implant [id number] Identification Catalog Number Implant Size Implant Has an Yes Yes Yes Expiration Date Implant Expiration 11/30/21 11/30/21 11/30/21 Date Wasted Radioactive Material Time Implanted Tissue Implant Continue for Tissue Implant Documentation Tissue Identification Number Graft Prep Per Store Receiving Specialist Instructions: Tissue Preparation Method: Reconstitution Solution: Reconstitution Solution Lot Number Reconstitution Solution Expiration Date: Thawing Solution Thawing Solution Lot Number Thawing Solution Expiration Date Preparation Materials, Other Preparation Materials, Other Lot Number Preparation Materials, Other Expiration Date Tissue Prepared/Processed By Store Receiving Specialist Paperwork Completed Implant Type Comment Last Modified By: ETHAN FREIRE, Sharonda Venegas RN LONGSWORTH, GARY, RN 11/15/20 09:38:24 11/16/20 10:38:51 11/15/20 10:00:30 [facility] IntraOp Implant Log Audit 11/16/20 10:38:51 System Software Programmer: HAYDEN Modifier: BLADE 5 <*> Implant Identification Description [id number] <+> Implant Identification Store Receiving Specialist Name: 5 <+> Implant Identification Catalog Number 11/15/20 10:00:30 System Software Programmer: LONGGA Modifier: LONGGA <+> 6 Implant Identification Description <+> 6 Implant Identification Lot Number <+> 6 Implant Identification Store Receiving Specialist Name: <+> 6 Implant Expiration Date <+> 6 Implant Site <+> 6 Implant Quantity <+> 6 Implant Identification Catalog Number <+> 6 Implant Type <+> 6 Implant Has an Expiration Date <+> 6 Type 11/15/20 09:39:29 System Software Programmer: LONGGA Modifier: LONGGA <+> 5 Implant Identification Description <+> 5 Implant Identification Serial Number <+> 5 Implant Expiration Date <+> 5 Implant Site <+> 5 Implant Quantity <+> 5 Implant Type <+> 5 Implant Has an Expiration Date <+> 5 Type 11/15/20 09:38:24 System Software Programmer: LONGGA Modifier: LONGGA <+> 4 Implant Identification Description <+> 4 Implant Identification Serial Number <+> 4 Implant Identification Store Receiving Specialist Name: <+> 4 Implant Expiration Date <+> 4 Implant Site <+> 4 Implant Quantity <+> 4 Implant Identification Catalog Number <+> 4 Implant Type <+> 4 Implant Has an Expiration Date <+> 4 Type 11/15/20 09:37:16 System Software Programmer: LONGGA Modifier: LONGGA <+> 3 Implant Identification Description <+> 3 Implant Identification Serial Number <+> 3 Implant Identification Store Receiving Specialist Name: <+> 3 Implant Expiration Date <+> 3 Implant Site <+> 3 Implant Quantity <+> 3 Implant Identification Catalog Number <+> 3 Implant Type <+> 3 Implant Has an Expiration Date <+> 3 Type 11/15/20 09:36:10 System Software Programmer: LONGGA Modifier: LONGGA <+> 2 Implant Identification Description <+> 2 Implant Identification Serial Number <+> 2 Implant Identification Store Receiving Specialist Name: <+> 2 Implant Site <+> 2 [...] peroxide 3% - epinephrine 1:200,000 solution - [id number] 30ml vial - [id number] Combo Med List 4 - Combo Med [...] 07:41:52 Entry 7 Medication/Irrigant SEALR AQUAMANTYS BIPLR [id number] Combo Med List Time Administered Route of IRRIGANT Administration Dose Dose Unit of Measure Volume QS Administered By REJI LUCIANO JR, JR, MD-ORT Procedure Irrigation Irrigant Volume In Irrigant Volume Out Last Modified By: ETHAN FREIRE RN 11/15/20 07:42:23 E IntraOp Medication Admin Audit 11/15/20 07:42:23 System Software Programmer: LONGGA Modifier: LONGGA <+> 7 Medication/Irrigant <+> [...] Intra Op Sign Out Audit 11/15/20 10:53:42 System Software Programmer: LONGGA Modifier: LONGGA <+> 1 RN Sign [...] [facility] IntraOp Surgical Procedures Audit 11/15/20 10:53:24 System Software Programmer: LONGGA Modifier: LONGGA 1 <*> Procedure Knee Total Joint Replacement 1 <+> Stop 11/15/20 09:24:25 System Software Programmer: LONGGA Modifier: LONGGA <+> 1 Start SJE [...] 10:15:38 LORE IntraOp Tourniquet Audit 11/15/20 10:15:38 System Software Programmer: LONGGA Modifier: LONGGA <+> 1 Stop Time Case Comments <None> Finalized By: Sharonda Gonzales RN Document Signatures Signed By: ETHAN FREIRE RN 11/15/20 11:05 Sharonda Gonzales RN 11/16/20 10:39 Unfinalized History Date/Time Username Reason for Unfinalizing Freetext Reason for Unfinalizing 11/16/20 10:38 BLADE Correct Billing documented in this encounter Plan of Treatment Not on file documented as of this encounter Visit Diagnoses Not on filedocumented in this encounter
--- OUTSIDE RECORDS SUMMARY | 2025-08-25 16:27 | XMS_ITS | Encounter Summary ---
Author Organization [employer] ([place], [place], [place], [place]) Address [address] [place] [address] Care Team Providers Care Linen Room Houseperson Name Role Phone Unavailable Primary Care Provider Unavailabl e Encounter Details Date Type Department Care Team (Late st Contact Info) Description 12/08/2020 Transcribed Document [facility] [place] [facility] [place] [address] ProviderAshly MD [address] [place] [address] Social History Tobacco Use Types [...] - Historical ProviderMD - 12/08/2020 10:52 AM WELDER GAS TUNGSTEN ARC [facility] PT Charges Entered On: 12/08/2020 [...]
--- OUTSIDE RECORDS SUMMARY | 2025-08-25 16:27 | XMS_ITS | Encounter Summary ---
Author Organization [employer] ([place], [place], [place], [place]) Address [address] [place] [address] Care Team Providers Care Pulmonary Nurse Practitioner Name Role Phone Unavailable Primary Care Provider Unavailabl e Encounter Details Date Type Department Care Team (Late st Contact Info) Description 12/08/2020 Transcribed Document [facility] [place] Family Medicine [address] [place] [address] ProviderAshly MD [address] [place] [address] Social History Tobacco Use Types [...] - Historical ProviderMD - 12/08/2020 2:00 PM HEAD NECK SURGEON On Going Discharge Planning Entered On: 12/08/2020 [...] IV antibiotics as outpatient. Orders faxed to [facility] and Matt at [facility] notified of change in patients Home Health. Pt getting picc line today. No further CM needs identified. SHEILA FOLEY, RN - 12/08/2020 15:24 EST Electronically signed by [facility] Conversion Library Clerical Assistant Cerner at 03/19/2023 6:30 PM CDT documented in this encounter Plan of Treatment Not on file documented as of this encounter Visit Diagnoses Not on filedocumented in this encounter
--- OUTSIDE RECORDS SUMMARY | 2025-08-25 16:27 | XMS_ITS | Encounter Summary ---
Author Organization [employer] ([place], [place], [place], [place]) Address [address] [place] [address] Care Team Providers Care Manager Payment Name Role Phone Unavailable Primary Care Provider Unavailabl e Encounter Details Date Type Department Care Team (Late st Contact Info) Description 11/15/2020 Transcribed Document [facility] [place] [address] [place] [address] ProviderAshly MD [address] [place] [address] Social History Tobacco Use Types [...] - Historical ProviderMD - 11/15/2020 12:04 PM FUNCTIONAL DIRECTOR Evaluation, Occupational Therapy Entered On: 11/15/2020 14:48 [...] UE Strength Comment : Grossly 5/5 Hand Dehydration Plant Operator Test : WFL bilaterally Fine Motor Coordination Impaired : No [facility]IN LOCKHART [facility]/ 11/15/2020 14:38 EST Functional Mobility Functional MobilityComment : Functional mobility not assessed; see PT docuementation for details. [facility] LOCKH[facility]/ 11/15/2020 14:38 EST Activity Tolerance, OT Activity Comment : Act. tolerance not formally assessed TEVIN LOCKHART [facility]/ 11/15/2020 14:38 EST Neurological/Sensory Light Touch Response : Intact [facility] LOCKH[facility]/ 11/15/2020 14:38 EST Cognition Assessment, OT Orientation : Oriented x 4 Cognition Assessment, OT : Intact [facility]IN LOCKH[facility]/ 11/15/2020 14:38 EST Education OT Occupational Therapy Education Grid Activity of Daily Living Training : Verbalizes understanding Functional Mobility Training : Verbalizes understanding Home Safety : Verbalizes understanding Positioning : Verbalizes understanding Precaution/Contraindication : Verbalizes understanding Role of Occupational Therapy : Verbalizes understanding TEVIN LOCKHART [facility]/ 11/15/2020 14:38 EST Teaching/Learning Assessment Barriers [...] LOCKHARTTEVIN VILLEGASLUIS E/L - 11/15/2020 14:38 EST Assisted Goals, OT Other LTG Grid Goal #1 [...] LOCKHARTTEVIN OTR/L - 11/15/2020 14:38 EST TEVIN LOKCHART OTR/L - 11/15/2020 14:38 EST Pain Assessment Pain Scaled Used : 0-10 Pain scale Pain Score Pre-Intervention : 0 LOCKHRATTEVIN OTR/L - 11/15/2020 14:38 EST Image 1 - Images currently included in the form version of this document have not been included in the text rendition version of the form. [facility] OT Charges OT Selfcare/Hm Mgmt Ea 15 Min : 1 OT Eval Low Complexity : 1 CHANTELLE LUIS E ABARCA/L - 11/15/2020 14:38 EST Electronically signed by Justina Lozano Conversion Nuclear Cardiology Technologist Cerner at 03/19/2023 6:54 PM CDT documented in this encounter Plan of Treatment Not on file documented as of this encounter Visit Diagnoses Not on filedocumented in this encounter
== END 2025-08-25 23:59 | disposition home or self-care (01) ==
LOC: LAB 16:19
PROVIDERS: PCP Nurse Practitioner Family; Visit Provider Nurse Practitioner Family
DX: R30.0 Dysuria (principal)
CPT/HCPCS: 87086

== ENCOUNTER 2025-10-14 13:04 | Outpatient (CLI) | payer MEDICARE, OTHER, SELFPAY ==
--- NOTE | 2025-10-14 13:08 | XR_ITS ---
FINAL REPORT CLINICAL HISTORY: LT UPPER ARM PAIN FINDINGS: Two views show no evidence of an acute, displaced fracture or dislocation of the visualized bony architecture. The joint spaces appear normal. IMPRESSION: Unremarkable exam. Reviewed, Interpreted and Dictated by Jaxson Hartmann MD Transcribed by Samantha Flores Authenticated and [facility]
== END 2025-10-14 23:59 | disposition home or self-care (01) ==
LOC: RAD 13:05
PROVIDERS: PCP Nurse Practitioner Family; Visit Provider Nurse Practitioner Family
DX: M79.622 Pain in left upper arm (principal)
CPT/HCPCS: 73060

== ENCOUNTER 2025-11-10 13:00 | Outpatient (RCR) | payer MEDICARE, OTHER, SELFPAY ==
--- NOTE | 2025-10-31 14:56 | HMH.OTOPEV ---
OT Evaluation Rehab OT Outpatient Eval Start: 10/31/25 14:02 Freq: Status: Active Protocol: Document 10/31/25 14:03 BERE (Rec: 10/31/25 14:55 BERE [id number]) E-signed By Siria Mcgowan, OT Outpatient Therapy Subjective History Subjective History Pt is a 70 yr old male who presents to initial OT evaluation due to L shoulder pain. Pt reported that they did not fall or have any other injury occur to cause pain. Pt also reported a knot was present in bicep region of L arm and therapist palpated area and felt knot. Pt reported pain has been present for sometime now and has progressively gotten worse. Pt reported they were having trouble with lifting and when transporting a 3 lb suitcase felt a sharp pain in L arm. Pt reported they are now having trouble sleeping. Pt is R handed. Pt presented with palpation tenderness to L shoulder posteriorly and down in mid bicep region near knot. Pt is retired. New diagnosis of No cancer in past 12 months? Chief Complaint Pain,Catches/Locks,Weakness,Decreased Coordination Symptom Type Ache,Sharp,Shooting Symptoms Relieved By Rest/Positioning,Prescription Meds Symptoms Aggravated Physical Activity,Lifting By Prior Functional None Limitations Current Functional Reaching,Lifting,Housework,Dressing,Sleeping,Recreation Limitations Activity Symptom Description Constant but Variable Level of pain today 6 (0-10) Pain scale - at its 5 best (0-10) Pain scale - at its 7 worst (0-10) Shoulder/Elbow Eval Shoulder Objective Measurements Palpation Tenderness tenderness shoulder left exam standard tenderness over the left bicipital tendon shoulder exam standard Shoulder Palpation Tenderness,Trigger Point Findings Shoulder ROM Left Shoulder Abduction 150 Active Range of Motion (degrees) Shoulder Flexion 130 Active Range of Motion (degrees) Query Text: Shoulder External 60 Rotation Active Range of Motion ( degrees) Shoulder Internal 50 Rotation Active Range of Motion ( degrees) pain with active ROM left shoulder exam standard full ROM shoulder left exam standard Shoulder MMT Shoulder Abduction 3- Fair- Strength Grade Shoulder Flexion 3- Fair- Strength Grade Shoulder External 3- Fair- Rotation Strength Grade Shoulder Internal 3- Fair- Rotation Strength Grade Shoulder Strength Sitting Patient Testing Position Elbow Objective Measurements QuickDASH Activities Please rate your ability to do the following activities in the last week by selecting the number below the appropriate response. 1. Open a tight or Mild difficulty new jar. 2. Do heavy Moderate difficulty liquid loader (e. g., wash allison, floors). 3. Carry a shopping Moderate difficulty bag or briefcase. 4. Wash your back. Moderate difficulty 5. Use a knife to No difficulty cut food. 6. Recreational Moderate difficulty activities in which you take some force or impact through your arm, shoulder, or hand (e.g., golf, hammering, tennis, etc.). 7. During the past Quite a bit week, to what extent has your arm, shoulder or hand problem interfered with your normal social activities with family, friends , neighbors or groups? 8. During the past Moderately limited week, were you limited in your work or other regular daily activites as a result of your arm, shoulder or hand problem? 9. Arm, shoulder or Moderate hand pain. 10. Tingling (pins Mild and needles) in your arm, shoulder or hand. 11. During the past Severe difficulty week, how much difficulty have you had sleeping because of the pain in your arm, shoulder or hand? Quick DASH 31 OT Patient Goals OT Patient Goals OT Short Term 1. Pt will increase left shoulder flexion to 150 Patient Goals degrees in order to complete daily overhead tasks independently ~50% of the time. 2. Pt will increase L shoulder abduction to 160 degrees to complete upper body dressing independently ~50% of the time. 3. Pt will increase L shoulder ER/IR to 65 degrees (ER) and 55 degrees (IR) in order to complete lower body dressing (putting on and taking off belt) independently ~50% of the time. 4. Pt will increase strength to 3+/5 throughout left shoulder in order to complete heavier household tasks ( laundry, mopping, vacuuming) independently ~50% of the time. 5. Pt will verbalize decreased pain levels at worst in L shoulder to a 6/10 in order to complete daily ADLs independently ~50% of the time. 6. Pt will demonstrate improved endurance by completing left shoulder exercises for ~20 minutes prior to rest break in order to increase his tolerance for daily activities. 7. Pt will demonstrate independence with HEP of michelle exercises to increase overall functional use of left shoulder in daily activities ~75% of the time. OT Intermediate Patient 1. Pt will increase left shoulder flexion to 170 Goals degrees in order to complete daily overhead tasks independently ~50% of the time. 2. Pt will increase L shoulder abduction to 175 degrees to complete upper body dressing independently ~50% of the time. 3. Pt will increase L shoulder ER/IR to 70 degrees (ER) and 65 degrees (IR) in order to complete lower body dressing (putting on and taking off belt) independently ~50% of the time. 4. Pt will increase strength to 4/5 throughout left shoulder in order to complete heavier household tasks ( laundry, mopping, vacuuming) independently ~50% of the time. 5. Pt will verbalize decreased pain levels at worst in L shoulder to a 4/10 in order to complete daily ADLs independently ~50% of the time. 6. Pt will demonstrate improved endurance by completing left shoulder exercises for ~25 minutes prior to rest break in order to increase his tolerance for daily activities. 7. Pt will demonstrate independence with advanced exercises to increase overall functional use of left shoulder in daily activities ~75% of the time. OT Outpatient Assessment Impairments Problems/Impairments Palpation Tenderness,Impaired Range of Motion,Impaired Strength,Impaired Endurance,Impaired Lifting,Impaired Dressing,Impaired Shower/Bathing,Impaired Household Care,Impaired Recreational Activities,Subjective C/O Pain,Impaired Self Care/Self Management Prognosis Rehab Potential Good Comment Due to observation, measurements, and profile pt would benefit from skilled OP OT services and interventions in order to address deficits in functional occupational performance and improve optimal occupational performance. Clinical Impression Consistent with Yes Diagnosis Outpatient Therapy Plan of Care Treatment Plan May Include Therapeutic Exercise Yes Including Home Exercise Program Manual Therapy Yes Techniques Neuromuscular Re- Yes education Therapeutic Yes Activities to Return to Previous Functional/Work Level ADL/Self Care Yes Education Thermal Modalities Yes Electrical Yes Stimulation Ultrasound/ Yes Phonophoresis Iontophoresis Yes Parrafin Yes Orthotics/Bracing/ Yes Splinting Group Therapy for Yes Medicare Eval/Re-Eval Yes Frequency Times per week 2 Duration Number of Weeks 8 Addendums This patient is a No candidate for social or vocational rehab ? Patient/Guardian Yes verbally acknowledges understanding of treatment program and consents to further treatment? Patient/Guardian Yes verbally acknowledges understanding of diagnosis, prognosis and goals for treatment? Eval Complexity OT Charge 18895 - Moderate Complexity PHYSICIAN CERTIFICATION: I certify the specified therapy services for Betito Roe June JR are required, authorized, and reviewed every 30 days.
== END 2025-11-10 23:59 | disposition home or self-care (01) ==
LOC: OT 13:00
PROVIDERS: PCP Nurse Practitioner Family; Visit Provider Nurse Practitioner Family
DX: M79.622 Pain in left upper arm (principal)
CPT/HCPCS: 97032; 97110; 97140; 97166